=== PATIENT | female | born 1940 | race Caucasian/White ===

== ENCOUNTER 2017-10-02 08:36 | Inpatient (IN) | payer MEDICARE, SELFPAY ==
[2017-10-02] VITALS (19 sets, daily range): BP systolic 96–131; BP diastolic 60–102; PULSE 67–192; RESP 19–24; TEMP 35.7–36.9; O2SAT 94–96; BMI 30.9; BMI 32.1
--- NOTE | 2017-10-02 08:56 | EKG12_ITS ---
Test Reason : SOB Blood Pressure : / mmHG Vent. Rate : 195 BPM Atrial Rate : 202 BPM P-R Int : 000 ms QRS Dur : 088 ms QT Int : 226 ms P-R-T Axes : 000 029 244 degrees QTc Int : 407 ms Supraventricular tachycardia Marked ST abnormality, possible lateral subendocardial injury Abnormal ECG Confirmed by TERA PITTMAN, ANNE-MARIE ([id number]), social media editor MALIA KENNEDY ([id number]) on 10/03/2017 3:08:37 PM Referred By: GUILLAUME Confirmed By:ANNE-MARIE HALEY MD
[2017-10-02] MEDS: 0.9% Normal Saline 1,000 ML 150 ML IV ×2 (09:01→16:38)
[2017-10-02] MEDS: Adenosine 6 MG/2 ML Syringe IV ×2 (09:02→20:05)
--- NOTE | 2017-10-02 09:02 | EKG12_ITS ---
Test Reason : SOB Blood Pressure : / mmHG Vent. Rate : 118 BPM Atrial Rate : 118 BPM P-R Int : 130 ms QRS Dur : 088 ms QT Int : 332 ms P-R-T Axes : 042 033 -33 degrees QTc Int : [address] & T wave abnormality, consider inferior ischemia ST & T wave abnormality, consider anterior ischemia Abnormal ECG Confirmed by TERA PITTMAN, ANNE-MARIE ([id number]), editor managing newspaper MALIA KENNEDY ([id number]) on 10/03/2017 3:08:52 PM Referred By: GUILLAUME Confirmed By:ANNE-MARIE HALEY MD
--- NOTE | 2017-10-02 09:03 | EKG12_ITS ---
Test Reason : SOB Blood Pressure : / mmHG Vent. Rate : 100 BPM Atrial Rate : 100 BPM P-R Int : 140 ms QRS Dur : 084 ms QT Int : 366 ms P-R-T Axes : 045 019 259 degrees QTc Int : 472 ms Normal sinus rhythm ST & T wave abnormality, consider inferior ischemia ST & T wave abnormality, consider anterolateral ischemia Prolonged QT Abnormal ECG Confirmed by ANNE-MARIE HALEY MD ([id number]), editor in chief MALIA KENNEDY ([id number]) on 10/03/2017 3:09:05 PM Referred By: GUILLAUME Confirmed By:ANNE-MARIE HALEY MD
--- NOTE | 2017-10-02 09:18 | RAD_ITS ---
STUDY: X-RAY CHEST REASON FOR EXAM: Female, 77 years old. Chest pain. TECHNIQUE: Single AP portable view of the chest. COMPARISON: Comparison is made with prior study dated December 10, 2016. FINDINGS: EKG electrodes are seen. Surgical clips are seen in the right axillary region. A surgical drain is seen in the right axillary region. This is unchanged. Stable pleural parenchymal changes at the left base suggestive of possible left lower lobe scarring and blunting of the left costophrenic angle. There is no demonstrated pleural abnormality. There is moderate cardiac enlargement. Normal mediastinum and fantasma. Normal visualized pulmonary arteries. There is atherosclerotic calcification of the aortic arch with tortuosity. Normal visualized thoracic spine. Normal visualized ribs, clavicles, and shoulders. There is no demonstrated abnormality of the visualized soft tissue structures of the upper abdomen. RAD/Chest 1 View (Portable) IMPRESSION: Stable examination. Electronically Signed: Jacob Daniel MD at 10:19 EDT Tel [phone], Service support ,
[2017-10-02 09:21] LABS: International Normalized Ratio 1.3; Partial Thromboplast Time 26.1 Seconds (24.1-36.2); Prothrombin Time (Protime)PT. 16.1 SECONDS (11.7-14.9)
[2017-10-02 09:22] LABS: Absolute Lymphocyte Count 1.64 X10^3/ul (0.83-4.51); Absolute Neutrophil Count 14.1 X10^3/uL (2.0-7.7); Basophil# 0.02 X10^3/uL; Basophil% 0.1 % (0-1); Eosinophil# 0.02 X10^3/uL; Eosinophils% 0.1 % (0-5); Hematocrit 41.6 % (37-47); Hemoglobin 13.3 g/dl (12.0-15.0); Lymphocyte # 1.64 X10^3/ul (4.0); Lymphocyte % 9.7 % (19-41); Mean Corpuscular Hgb 28.8 pg (27.0-32.0); Mean Platelet Vol. 11.3 fl (6.2-12.0); Monocyte# 1.13 X10^3/uL; Monocyte% 6.7 % (0-10); Neutrophil # 14.13 X10^3/uL (2.7-7.7); Neutrophil % 83.2 % (47-70); Platelet Count 234 K/mm3 (150-450); RBC Distribution Width CV 14.5 % (11.6-14.6); Red Blood Count 4.62 M/mm3 (4.2-5.4)
[2017-10-02 09:23] LABS: POSITIVE COUNT NO; POSITIVE DIFFERENTIAL NO; POSITIVE MORPHOLOGY NO
[2017-10-02 09:40] LABS: ALB/GLOB Ratio 0.6 RATIO (0.9-2.4); AST(SGOT) 30 U/L (15-37); Alanine Aminotransfer ALT/SGPT 41 U/L (13-56); Albumin, Serum 2.9 g/dL (3.2-5.0); Alkaline Phosphatase 127 U/L (45-117); Anion Gap 16 (5-15); BUN 23 mg/dL (7-18); BUN/Creat Ratio 14.2 RATIO (10-20); Calcium,Total 9.1 mg/dL (8.5-10.1); Chloride 104 mmol/L (98-107); Creatinine, Serum 1.62 mg/dL (0.55-1.02); EST Glomerular Filtration Rate 33 mL/min (>60); Est Glom Filt Rate - Afr Amer 39 mL/min (>60); Estimated Creatinine Clearance 27.83 ml/min; Globulin 4.8 g/dL (2.2-4.2); Glucose 276 mg/dL (74-106); Magnesium 2.4 mg/dL (1.6-2.6); Potassium 3.9 mmol/L (3.5-5.1); Protein, Total 7.7 g/dL (6.4-8.2); Sodium Level 140 mmol/L (136-145); Thyroid Stim Hormone (TSH) 1.24 uIU/mL (0.358-3.74)
--- NOTE | 2017-10-02 09:43 | CT_ITS ---
STUDY: CTA CHEST REASON FOR EXAM: Female, 77 years old. Shortness of breath. Weakness. RADIATION DOSAGE (If Supplied By Facility): CTDIvol = ( 21.53 ) mGy, DLP = ( 634.81 ) mGycm TECHNIQUE: The examination was performed with the intravenous administration of 75 ml of Isovue 370 contrast material. Post-processing of the angiographic images was performed, with multiplanar reformation and 3D reconstruction. Individualized dose optimization techniques were used for this CT. COMPARISON: Comparison is made with prior study dated December 08, 2016. FINDINGS: Intraluminal filling defects are seen in the proximal portions of the right and left pulmonary arteries and branches of the right upper and left upper as well as bilateral lower lobe pulmonary arterial branches feeding tube with extensive pulmonary emboli. Normal thoracic aorta and visualized great vessels. There is no demonstrated aortic dissection. Normal heart and pericardium. Normal mediastinum. Normal hilar regions. Normal visualized trachea and bronchi. The lungs are well expanded. Mild increased markings at the lung bases more prominent on the left side suggestive of scarring with blunting of the left costophrenic angle. Normal pleura. Normal chest wall structures. There are degenerative changes of thoracic spine. There is a 2.5 cm right adrenal nodule most likely representing adenoma. This is unchanged. Small hiatal hernia. CT/CTA Chest W/WO Contrast IMPRESSION: Bilateral central and peripheral pulmonary arterial emboli. 2.5 cm right adrenal adenoma. N.B. : The above information has been verbally conveyed by Jacob Daniel MD to Juan Alberto Ace on 10/02/2017 10:32:14 (ET). Electronically Signed: Jacob Daniel MD at 10:33 EDT Tel [phone], Service support , N.B. : The above information has been verbally conveyed by Jacob Daniel MD to Juan Alberto Ace on 10/02/2017 10:32:14 (ET).
[2017-10-02] MEDS: Aspirin 81 MG TAB.CHEW 324 MG PO (09:49)
[2017-10-02] MEDS: 0.9% Normal Saline 1,000 ML 999 ML IV (09:50)
--- NOTE | 2017-10-02 09:56 | ED.VISSUMM ---
- ER Visit Summary Date of Service: 10/02/17 Chief Complaint: Chest pain shortness of breath History of Present Illness: The patient is a 77 F who states that last evening she began to have pain in her back as well as weakness and chest pain. Symptoms became profoundly worse this morning. Patient has a history of SVT in the setting of postoperative hip surgery and pulmonary embolism in November 2016. At that time amiodarone and beta-justino medications were continued in the outpatient setting. She is recently discontinued the amiodarone. Her Xarelto was also discontinued. She wears a brace on the right knee and left ankle. Physical Examination: 121/102 temperature 96.3 heart rate of 195 respiratory rate is 33 pulse ox is 96% on room air Gen: Well-nourished well-developed Head: Normocephalic atraumatic Eyes: Perrl EOMI ENT: TMs clear no rhinorrhea moist mucous membranes Neck: Supple no lymphadenopathy no JVD nontender CVS: Regular and tachycardic rhythm no murmurs normal S1-S2 Respiratory: No distress clear to auscultation bilaterally chest nontender Abdomen: Soft nontender nondistended normal bowel sounds no masses Back: Nontender Extremity: Nontender no edema Skin: Normal color no rash diaphoretic Neuro: alert orientated ?3 CN II-XII intact normal strength sensation reflexes gait cerebellar Psych: Anxious Test Results: EKG demonstrated an SVT rhythm at a rate of 195 with anterior lateral subendocardial injury pattern noted. Repeat EKG shows sinus rhythm at a rate of 100 with inferior/anterior lateral ST abnormalities. White count at 17. Magnesium 2.4. Troponin 0 0.340. TSH 1.24. Creatinine 1.62. Glucose 276. CT of the chest demonstrates central and peripheral pulmonary embolisms bilaterally Emergency Department Course and Treatment: An IV was established while vagal maneuvers were performed. Vagal maneuvers failed to convert and the patient received 6 mg of adenosine which resulted in conversion to a sinus rhythm. During the conversion no flutter waves were noted. Patient received IV hydration and aspirin. A third EKG was obtained 30 minutes after conversion and a fourth lower lobe approximately 1 hour post conversion continues to show ST T-wave abnormalities inferior and anterolaterally. Patient was placed on a heparin drip due to the large clot burden. Plan will be admission in the hospital. Impression: 1. Supraventricular tachycardia 2. Chemical cardioversion 3. Bilateral central and peripheral pulmonary embolisms This note was generated with [employer] dictation software. It may contain incorrect words, spelling, and punctuation that were not noted in review of the chart prior to signing ED Disposition - Plan for ED Patient: Chief Complaint: Shortness of Breath Referrals: Maurilio Garcia MD [Primary Care Provider] -
--- NOTE | 2017-10-02 10:26 | EKG12_ITS ---
Test Reason : REPEAT Blood Pressure : / mmHG Vent. Rate : 093 BPM Atrial Rate : 093 BPM P-R Int : 140 ms QRS Dur : 082 ms QT Int : 386 ms P-R-T Axes : 045 025 250 degrees QTc Int : 479 ms Normal sinus rhythm ST & T wave abnormality, consider inferior ischemia ST & T wave abnormality, consider anterolateral ischemia Prolonged QT Abnormal ECG Confirmed by TERA PITTMAN, ANNE-MARIE ([id number]), makeup editor MALIA KENNEDY ([id number]) on 10/03/2017 3:09:18 PM Referred By: INDIRA Confirmed By:ANNE-MARIE HALEY MD
[2017-10-02] MEDS: Heparin Injection 5,000 UNITS/ML Syringe 6000 UNITS IV (10:42)
[2017-10-02] MEDS: HEPARIN/D5w 25,000 UNITS 25,000 UNITS/250 ML IV.SOLN. 12 UNITS IV (10:43)
--- NOTE | 2017-10-02 10:45 | PCM.HP.STD ---
Problem List (1) Pulmonary emboli Status: Acute (2) SVT (supraventricular tachycardia) Status: Acute (3) Breast CA Status: Chronic (4) Dementia Status: Chronic History of Present Illness Date of Admission: 10/02/17 Chief Complaint: Shortness of breath The patient is a 77 year old F past medical history significant for dementia, pulmonary embolism which was provoked after hip surgery for which patient was on Xarelto for 6 months apparently came off 3 weeks prior to her admission. Patient was by her daughter on the morning of her presentation to be severely dyspneic. She called 911 and patient was sent to the ED. In the ED patient was found to be in PSVT which was aborted with adenosine subsequent evaluation with CT of the chest demonstrated bilateral PE patient was started on heparin and admitted to a monitored bed for further management. Patient could not provide much history in view of her underlying dementia Past Medical History Past Medical History (Chronic Problems): Chronic Problems Breast CA (Chronic) Dementia (Chronic) Allergies No Known Allergies Allergy (Verified 10/02/17 08:54) Home Medications: Ambulatory Orders Medication Instructions Recorded Docusate Sodium [Colace] 200 mg PO DAILY 12/05/16 Melatonin 5 mg PO QHS 12/05/16 Multivit-Min/FA/Lycopen/Lutein 1 each PO DAILY 12/05/16 [Centrum Silver Tablet] Pantoprazole Sodium [Protonix] 40 mg PO DAILY 12/05/16 Pregabalin [Lyrica] 50 mg PO 4X/DAY 12/05/16 Cholecalciferol (VIT D3) [Vitamin 2,000 unit PO DAILY tablet 12/12/16 D3] Anastrozole [Arimidex] 1 mg PO DAILY 10/02/17 C,E,Zinc,Copper 11/Zblyp3a/Lut 1 each PO DAILY 10/02/17 [Ocuvite Adult 50 Plus Softgel] Hydrocodone/Acetaminophen [[place] 1 each PO Q4H PRN PRN 10/02/17 5-325 Tablet] Lorazepam [Ativan] 1 mg PO DAILY PRN PRN 10/02/17 Memantine HCl [Namenda Xr] 28 mg PO DAILY 10/02/17 Metoprolol Tartrate [Lopressor 25 mg PO BID 10/02/17 (beta justino)] Tizanidine HCl [Zanaflex] 4 mg PO BID 10/02/17 Surgical History: - - breast cancer surgery. Psychiatric History: No pertinent psych hx, Attn. 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 CHEST: Diminished to auscultation bilaterally, HEART: Regular S1 S2, no audible murmurs ABDOMEN: soft, non-tender, normoactive bowel sounds, RECTAL: deferred EXTREMITIES: No edema, no clubbing, no cyanosis. CHILD CARE CENTER ADMINISTRATOR: Awake; no lateralizing signs. SKIN: No Rash - Physical Exam Vital Signs Temp Pulse Resp BP Pulse Ox 96.3 F L 97 20 H 126/78 H 96 10/02/17 08:38 10/02/17 10:10 10/02/17 10:10 10/02/17 10:10 10/02/17 10:10 Oxygen Flow Rate (L/min) 2 Oxygen Delivery Method Nasal Cannula Weight: 89.499 kg Body Mass Index (BMI) 30.9 Laboratory Tests Past 24 Hrs 10/02/17 10/02/17 10/02/17 08:50 08:50 08:50 WBC 17.0 H RBC 4.62 Hgb 13.3 Hct 41.6 MCV 90.0 MCH 28.8 MCHC 32.0 RDW 14.5 RDW Differential 47.0 H Plt Count 234 MPV 11.3 Immature Gran % (Auto) 0.200 Neut % (Auto) 83.2 H Lymph % (Auto) 9.7 L [place] % (Auto) 6.7 Eos % (Auto) 0.1 Baso % (Auto) 0.1 Absolute Neuts (auto) 14.1 H Absolute Lymphs (auto) 1.64 Total Counted Not Reportable PT 16.1 H INR 1.3 APTT 26.1 Sodium 140 Potassium 3.9 Chloride 104 Carbon Dioxide 20.0 L Anion Gap 16 H BUN 23 H Creatinine 1.62 H Estim Creat Clear Calc 27.83 Est GFR (MDRD) Af Amer 39 L Est GFR (MDRD) Non-Af 33 L BUN/Creatinine Ratio 14.2 Glucose 276 H Calcium 9.1 Magnesium 2.4 Total Bilirubin 1.10 H AST 30 ALT 41 Alkaline Phosphatase 127 H Troponin I 0.340 H Total Protein 7.7 Albumin 2.9 L Globulin 4.8 H Albumin/Globulin Ratio 0.6 L TSH 1.24 Assessment/Plan Patient is a 77-year-old lady with multiple comorbidities presented with PSVT found to have bilateral pulmonary embolism on admission 1. Acute bilateral pulmonary embolism. Patient was previously on Xarelto came off 3 weeks prior to her admission heparin was initiated in the ED switch to Xarelto echo ordered for RV function assessment. Did discuss case with patient's daughter on the need for patient to be on systemic anticoagulation permanently since this is a second VT E 2. History of right breast CA patient is on adjuvant hormonal therapy with with Arimidex 3. Obesity with BMI of 32.1 4. GERD patient is on PPI 5. Dementia without behavioral agitation Advanced planning. Patient CODE STATUS was discussed with the family patient's daughter wants patient to remain full code at this point to patient 's decides otherwise time spent in discussions 18 minute Code Visit Inpatient E&M: 91795 Disch Hosp Procedures: 46908 Advncd Care Plan 30 Min
--- NOTE | 2017-10-02 11:43 | ECHOD_ITS ---
Reason For Study: EMBOLI Procedure This was a 2D Doppler, Color Flow transthoracic echocardiogram. Technically difficult apical windows. The study was technically limited. Exam performed portable in patient room. Left Ventricle Normal LV size. The estimated ejection fraction is 55 %. Left ventricular systolic function is normal. Transmitral diastolic flow velocities suggest mild (stage 1) diastolic dysfunction (reversed pattern). No regional wall motion abnormalities noted. Right Ventricle Mildly dilated right ventricle. Normal systolic function. Atria Normal left atrium. The right atrium is moderately enlarged. Mitral Valve Normal mitral valve. Tricuspid Valve Normal tricuspid valve. Mild to moderate (1-2+) tricuspid valve insufficiency. Moderate pulmonary hypertension. Pulmonary artery systolic pressure is 54 mmHg. Aortic Valve Normal aortic valve. Trisinus/trileaflet aortic valve. Pulmonic Valve Normal pulmonic valve. Great Vessels Normal aortic root. The pulmonary artery is normal size. Normal inferior vena cava. Pericardium/Pleural No pericardial effusion. Medication Definity deferred due to elevated PAP. MMode/2D Measurements & Calculations LVIDd: 3.8 cm IVSd: 1.2 cm Ao root diam: 3.2 cm LVIDs: 2.7 cm LVPWd: 1.0 cm LA dimension: 3.2 cm RVDd: 4.9 cm FS: 27.4 % LAV(MOD-sp4): 42.8 ml LA A4 area: 15.8 cm2 RA A4 area: 25.0 cm2 Doppler Measurements & Calculations MV E max zay: 36.4 cm/sec Lat Peak E' Zay: 7.9 cm/sec Med Peak E' Zay: 4.6 cm/sec MV A max zay: 70.4 cm/sec E/E' lat: 4.6 E/E' med: 7.8 MV E/A: 0.52 Ao V2 max: 110.0 cm/sec LV V1 max: 97.2 cm/sec PA V2 max: 64.5 cm/sec Ao max P.9 mmHg LV V1 max P.8 mmHg PI end-d zay: 136.8 cm/sec TR max zay: 346.1 cm/sec TR max P.9 mmHg Interpretation Summary Normal LV size. The estimated ejection fraction is 55 %. Left ventricular systolic function is normal. Transmitral diastolic flow velocities suggest mild (stage 1) diastolic dysfunction (reversed pattern). Mild to moderate (1-2+) tricuspid valve insufficiency. Moderate pulmonary hypertension. Ordering Physician: Chay Zheng Referring Physician: REBEL JOHNSON Performed By: Fátima Rosa RDCS, RVT
[2017-10-02] MEDS: Pregabalin 50 MG Capsule PO ×2 (16:38→22:21)
[2017-10-02] MEDS: Rivaroxaban 15 MG Tablet PO (16:38)
[2017-10-02] MEDS: Anastrozole 1 MG Tablet PO (17:33)
--- NOTE | 2017-10-02 19:50 | EKG12_ITS ---
Test Reason : SVT Blood Pressure : / mmHG Vent. Rate : 099 BPM Atrial Rate : 099 BPM P-R Int : 136 ms QRS Dur : 080 ms QT Int : 352 ms P-R-T Axes : 054 053 259 degrees QTc Int : 451 ms Sinus rhythm with occasional Premature ventricular complexes ST & T wave abnormality, consider inferior ischemia ST & T wave abnormality, consider anterolateral ischemia Abnormal ECG Confirmed by LAKHWINDER PITTMAN, FROILAN ([id number]), editorial project manager MALIA KENNEDY ([id number]) on 10/11/2017 3:23:40 PM Referred By: DR ALLISON Confirmed By:FROILAN KEANE MD
[2017-10-02] MEDS: 0.9% NaCl Peripheral Flush Adult/Peds IV (20:05)
--- NOTE | 2017-10-02 20:19 | EKG12_ITS ---
Test Reason : SVT Blood Pressure : / mmHG Vent. Rate : 186 BPM Atrial Rate : 182 BPM P-R Int : 000 ms QRS Dur : 078 ms QT Int : 248 ms P-R-T Axes : 000 012 194 degrees QTc Int : 436 ms Supraventricular tachycardia Nonspecific ST and T wave abnormality Abnormal ECG Confirmed by LAKHWINDER PITTMAN, FROILAN ([id number]), editor city MALIA KENNEDY ([id number]) on 10/11/2017 3:24:10 PM Referred By: DR ALLISON Confirmed By:FROILAN KEANE MD
[2017-10-02] MEDS: HYDROcodone Bitartrate/Apap 5/325 Tablet PO (20:31)
--- NOTE | 2017-10-02 20:46 | PCM.PN.HOSP ---
Vitals/I&O's: Vital Signs Temp Pulse Resp BP Pulse Ox 98.5 F 185 H 24 H 131/83 H 96 10/02/17 19:45 10/02/17 19:45 10/02/17 19:45 10/02/17 20:10 10/02/17 19:45 Oxygen Flow Rate (L/min) 6 Oxygen Delivery Method Nasal Cannula Weight: 205 lb 0.478 oz Body Mass Index (BMI) 32.1 Intake and Output for Last 24 Hours 09/30/17 10/01/17 10/02/17 23:59 23:59 23:59 Intake Total 768 / 768 Output Total 250 / 250 Balance 518 / 518 General: Alert, Oriented x3, Cooperative HEENT: Atraumatic, PERRLA, EOMI, Normocephalic Neck: Supple, No JVD, Negative Carotid Bruits Lungs: Clear to auscultation, Normal air movement Cardiovascular: No murmurs, Tachycardic Abdomen: Bowel Sounds Present, Soft, Non Tender Extremities: No edema, Capillary Refill Less than 3 Seconds Skin: No rashes, No breakdown Musculoskeletal: No Tenderness to Palpation of Joints or Extremities Neurological: Cranial nerves II-XII grossly intact Psych/Mental Status: Normal Affect, Appropriate Laboratory Results 10/02/17 12:00: Troponin I 0.373 H 10/02/17 14:43: Troponin I 0.316 H Current Medications Acetaminophen (Tylenol) 650 mg PO Q6H PRN PRN PRN Reason: Mild Pain (scale 0-3)/T>100.7 Hydrocodone Bitart/Acetaminophen ([place] 5mg-325mg) 1 tablet PO Q4H PRN PRN PRN Reason: PAIN Last Admin: 10/02/17 20:31 Dose: 1 tablet Al Hydroxide/Mg Hydroxide (Mylanta Ii) 30 ml PO Q6H PRN PRN PRN Reason: Gastric burning Anastrozole (Arimidex) 1 mg PO DAILY@1600 JULIANNA Last Admin: 10/02/17 17:33 Dose: 1 mg Cholecalciferol (Vitamin D) 2,000 unit PO DAILY JULIANNA Docusate Sodium (Colace) 200 mg PO DAILY JULIANNA Sodium Chloride () 1,000 mls @ 150 mls/hr IV .Q6H40M JULIANNA Last Admin: 05/21/18 16:38 Dose: 150 mls/hr Lorazepam (Ativan) 1 mg PO DAILY PRN PRN PRN Reason: ANXIETY Magnesium Hydroxide (Milk Of Magnesia) 30 ml PO DAILY PRN PRN Reason: Constipation Melatonin (Melatonin) 5 mg PO QHS [facility] Memantine (Namenda) 10 mg PO BID [facility] Metoprolol Tartrate (Lopressor (Beta Moni)) 50 mg PO BID [facility] Morphine Sulfate () 2 - 4 mg IV Q3H PRN PRN PRN Reason: Severe Pain (pain scale 6-10) Multivitamins/Minerals (Ocuvite) 1 tablet PO DAILY [facility] Multivitamins/Minerals (Multivitamin With Minerals) 1 tablet PO DAILY@0800 [facility] Ondansetron HCl (Zofran) 4 mg IV Q8H PRN PRN PRN Reason: NAUSEA Oxycodone HCl (Oxyir) 5 mg PO Q4H PRN PRN PRN Reason: Moderate Pain (pain scale 4-5) Pantoprazole Sodium (Protonix) 40 mg PO DAILY [facility] Pregabalin (Lyrica) 50 mg PO 4X/DAY [facility] Last Admin: 10/02/17 16:38 Dose: 50 mg Sodium Chloride () 5 - 30 ml IV UD PRN PRN Reason: SALINE FLUSH Tizanidine HCl (Zanaflex) 4 mg PO BID [facility] Zolpidem Tartrate (Ambien (Generic)) 5 mg PO QHS PRN PRN PRN Reason: INSOMNIA Medical Necessity - Tobacco Use Smoking Status: Never smoker Assessment/Plan SVT given 6mg adenosine spoke with Dr Christine increase metoprolol to 50mg bid dc xarelto start heparin by weight encourage code status decision with multiple comorbid issues chest pain managed with nitro tabs
--- NOTE | 2017-10-02 21:57 | PCM.CONS.C ---
Problem List (1) SVT (supraventricular tachycardia) Status: Acute (2) Pulmonary emboli Status: Acute (3) Chest pain Status: Acute (4) Abnormal cardiac enzyme level Status: Acute (5) Breast CA Status: Chronic (6) Dementia Status: Chronic Reason for Consult Date of Consultation: 10/02/17 History of Present Illness: The patient is a 77 year old white female who is referred for evaluation of SVT, pulmonary emboli, chest pain, superimposed upon a history of breast carcinoma and dementia. She had previously been evaluated on 12/08/2016 for concerns of SVT superimposed upon pulmonary emboli in the setting of a right hip fracture status post ORIF and dementia. She was treated with IV adenosine with subsequent conversion to sinus rhythm demonstrating a compatible compatible with a reentry mechanism supraventricular tachycardia. She been placed on rate limiting medication. She has been treated medically since that time I her primary care physicians without cardiovascular additional diagnostic studies, therapeutic intervention, or follow-up. She reportedly had her anticoagulation discontinued recently. She presented to the emergency department today based upon dyspnea. She was found to have evidence of recurrent supraventricular tachycardia as well as recurrent bilateral central and peripheral pulmonary emboli. She was treated with IV adenosine with subsequent conversion to sinus rhythm. She was placed in the PCU for further evaluation and care. She remained in sinus rhythm for a period of time. Her follow-up ECG demonstrated sinus rhythm/sinus tachycardia with ST and T-wave changes potentially compatible with myocardial ischemia in the anterior lateral and inferior distributions. In comparison to previous ECG from 12/09/2016 these changes were somewhat more prominent. She also had an indeterminate troponin I level. She was noted to have recurrence of her supraventricular tachycardia and was once again treated with IV adenosine with return to sinus rhythm. Her follow-up ECG again demonstrated sinus rhythm with ST and T-wave changes potentially compatible with myocardial ischemia in the anterolateral and inferior distributions, although, these changes appear to be somewhat less prominent than prior changes. Another troponin I level was indeterminate. She had complained of vague chest discomfort as well as her dyspnea. There was no obvious report of associated nausea, emesis, or diaphoresis. There has been no report of near syncope or syncope. The patient does have significant dementia. She is unclear as to details of her ongoing issues or past medical history. According to Dr. Page, who evaluated the patient earlier, he noted that the patient's family was considering altering her CODE STATUS but has yet made a final decision. [] Past Medical History Allergies/Adverse Reactions: Allergies No Known Allergies Allergy (Verified 10/02/17 08:54) Home Medications: Ambulatory Orders Medication Instructions Recorded Docusate Sodium [Colace] 200 mg PO DAILY 12/05/16 Melatonin 5 mg PO QHS 12/05/16 Multivit-Min/FA/Lycopen/Lutein 1 each PO DAILY 12/05/16 [Centrum Silver Tablet] Pantoprazole Sodium [Protonix] 40 mg PO DAILY 12/05/16 Pregabalin [Lyrica] 50 mg PO 4X/DAY 12/05/16 Cholecalciferol (VIT D3) [Vitamin 2,000 unit PO DAILY tablet 12/12/16 D3] Anastrozole [Arimidex] 1 mg PO DAILY 10/02/17 C,E,Zinc,Copper 11/Cucfw5i/Lut 1 each PO DAILY 10/02/17 [Ocuvite Adult 50 Plus Softgel] Hydrocodone/Acetaminophen [[place] 1 each PO Q4H PRN PRN 10/02/17 5-325 Tablet] Lorazepam [Ativan] 1 mg PO DAILY PRN PRN 10/02/17 Memantine HCl [Namenda Xr] 28 mg PO DAILY 10/02/17 Metoprolol Tartrate [Lopressor 25 mg PO BID 10/02/17 (beta justino)] Tizanidine HCl [Zanaflex] 4 mg PO BID 10/02/17 Past Medical History (Chronic Problems): Chronic Problems Breast CA (Chronic) Dementia (Chronic) Surgical History: - - breast cancer surgery. Psychiatric History: No pertinent psych hx, Attn. deficit disorder [employer] IN[employer] History: - - breast cancer - *Family History Maternal History Items: Diabetes Sibling History Items: No pertinent history Smoking Status: Never smoker Alcohol: None Drugs: None Review of Systems - Review of Systems General: Reports: Fatigue. Denies: Fever, Night Sweats Cardiovascular: Reports: Chest Discomfort, Shortness of Breath. Denies: Orthopnea, PND, Peripheral Edema, Palpitations, Lightheadedness, Dizziness, Near Syncope, Syncope Respiratory: Reports: Shortness of Breath. Denies: Cough, Sputum Production, Hemoptysis Gastrointestinal: Denies: Hematemesis, Hematochezia, Melena Genitourinary: Denies: Dysuria, Hematuria Muscoloskeletal: Reports: Leg Pain - Bilateral leg burning discomfort Skin: Denies: Rash Subjectve: This is a 77-year-old white female who appears to be resting reasonably comfortably at the moment in no acute distress. Objective: Vital Signs Temp Pulse Resp BP Pulse Ox 98.5 F 185 H 24 H 131/83 H 96 10/02/17 19:45 10/02/17 19:45 10/02/17 19:45 10/02/17 20:10 10/02/17 19:45 Oxygen Flow Rate (L/min) 6 Oxygen Delivery Method Nasal Cannula Weight: 205 lb 0.478 oz Body Mass Index (BMI) 32.1 Intake and Output for Last 24 Hours 09/30/17 10/01/17 10/02/17 23:59 23:59 23:59 Intake Total 768 / 768 Output Total 250 / 250 Balance 518 / 518 General: Awake, Cooperative, No Acute Distress HEENT: Atraumatic, Normocephalic, PERRL, EOMI, Sclera Non Icteric Oral: Moist Mucosa Neck: Supple, Good ROM, No JVD Lungs: - - Diminished inspiratory effort Cardiovascular: Regular Rhythm, Normal S1, Normal S2 Abdomen: Bowel Sounds Present, Soft, Non Tender Extremities: No Cyanosis, No Clubbing, No edema Psych/Mental Status: Dementia 10/02/17 12:00: Troponin I 0.373 H 10/02/17 14:43: Troponin I 0.316 H Rhythm: Sinus rhythm EKG: As noted above ECHO: 2017: Left ventricle: Normal left ventricular size, wall motion, and systolic function with an estimated LVEF 55%; mildly dilated right ventricle; moderate right atrial enlargement; mild to moderate TR; estimated RV systolic pressure 54 mmHg compatible with pulmonary hypertension CXR: Please see official report Chest CT Scan: Bilateral central and peripheral pulmonary emboli: Please see official report Assessment/Plan 1. Paroxysmal supraventricular tachycardia The patient has had recurrent paroxysmal supraventricular tachycardia. She does have a history of this. 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 This may be secondary to the patient's pulmonary emboli as was noted in the past. At the present time she will need to continue rate control therapy. If she has recurrence of her PSVT she will need be considered for additional IV adenosine therapy. Ideally she would be considered for future EP consultation for possible EPS/RFA, however, this may be somewhat challenging considering her underlying medical condition with recurrent bilateral pulmonary emboli and her dementia. 2. Pulmonary emboli She does appear to have recurrent bilateral pulmonary emboli both central and peripheral. This may be secondary to her history of breast carcinoma. This could lead to her PSVT, abnormal cardiac enzymes based upon RV strain, symptoms of chest discomfort and dyspnea, etc. The present time it appears that the patient will need to continue her anticoagulation therapy. She is being placed on IV heparin at this time. Depending upon her clinical course, and whether or not there is any decision to proceed with any further invasive evaluation or care, her IV heparin can eventually be changed back to oral anticoagulants. 3. Chest pain The patient has had chest pain and dyspnea. Again this may be secondary to her pulmonary emboli and her PSVT as opposed to a primary acute cardiovascular/coronary event. The present time she appears to be symptomatically improved. She will continue medical management and follow-up. Depending upon her follow-up consideration will be given as to whether or not she is a candidate for any other cardiovascular diagnostic studies/interventions, etc. above and beyond medical therapy and treatment for her pulmonary emboli. 4. Abnormal cardiac enzymes She does have abnormal cardiac enzymes. Again these may be secondary to her findings of pulmonary emboli with RV strain. However she is being monitored for any obvious evidence of a true acute coronary syndrome event. She will be treated medically with aspirin, nitrates, beta-blockers, and anticoagulants. Depending upon her clinical course and status and factoring in her dementia consideration will have to be given as to whether or not she is a candidate for any additional invasive cardiovascular evaluation procedure or procedures. 5. Breast cancer The patient does have history of breast cancer. She believes she has undergone chemotherapy and possibly radiation therapy. Her breast cancer can be a predisposing factor to her recurrent pulmonary emboli which can then lead to her symptoms, PSVT, abnormal cardiac enzymes, etc. The patient is unclear as to her ongoing treatment with respect to her breast carcinoma or her past treatment with respect chemotherapy or radiation therapy, etc. 6. Dementia The patient does have a report of significant dementia. This does play a role with respect to her ongoing evaluation and care above and beyond conservative medical management. This could create a challenge with respect to the patient being able to understand and cooperate with further invasive procedures/intervention as well as post procedure related care. Thus, consideration has to be given by the patient's family with respect to how to proceed with her evaluation and care over time as well as their consideration of altering her CODE STATUS. Comment: The patient's case was discussed and reviewed with Dr. Page. This note was generated with [employer] software. It may contain incorrect words, spelling, and punctuation that were not noted in checking the note before signing.
--- NOTE | 2017-10-02 22:00 | CON.PCM_ITS ---
Problem List (1) SVT (supraventricular tachycardia) Status: Acute (2) Pulmonary emboli Status: Acute (3) Chest pain Status: Acute (4) Abnormal cardiac enzyme level Status: Acute (5) Breast CA Status: Chronic (6) Dementia Status: Chronic Reason for Consult Date of Consultation: 10/02/17 History of Present Illness: The patient is a 77 year old white female who is referred for evaluation of SVT , pulmonary emboli, chest pain, superimposed upon a history of breast carcinoma and dementia. She had previously been evaluated on 12/08/2016 for concerns of SVT superimposed upon pulmonary emboli in the setting of a right hip fracture status post ORIF and dementia. She was treated with IV adenosine with subsequent conversion to sinus rhythm demonstrating a compatible compatible with a reentry mechanism supraventricular tachycardia. She been placed on rate limiting medication. She has been treated medically since that time I her primary care physicians without cardiovascular additional diagnostic studies, therapeutic intervention, or follow-up. She reportedly had her anticoagulation discontinued recently. She presented to the emergency department today based upon dyspnea. She was found to have evidence of recurrent supraventricular tachycardia as well as recurrent bilateral central and peripheral pulmonary emboli. She was treated with IV adenosine with subsequent conversion to sinus rhythm. She was placed in the PCU for further evaluation and care. She remained in sinus rhythm for a period of time. Her follow-up ECG demonstrated sinus rhythm/ sinus tachycardia with ST and T-wave changes potentially compatible with myocardial ischemia in the anterior lateral and inferior distributions. In comparison to previous ECG from 12/09/2016 these changes were somewhat more prominent. She also had an indeterminate troponin I level. She was noted to have recurrence of her supraventricular tachycardia and was once again treated with IV adenosine with return to sinus rhythm. Her follow- up ECG again demonstrated sinus rhythm with ST and T-wave changes potentially compatible with myocardial ischemia in the anterolateral and inferior distributions, although, these changes appear to be somewhat less prominent than prior changes. Another troponin I level was indeterminate. She had complained of vague chest discomfort as well as her dyspnea. There was no obvious report of associated nausea, emesis, or diaphoresis. There has been no report of near syncope or syncope. The patient does have significant dementia. She is unclear as to details of her ongoing issues or past medical history. According to Dr. Page, who evaluated the patient earlier, he noted that the patient's family was considering altering her CODE STATUS but has yet made a final decision. [] Past Medical History Allergies/Adverse Reactions: Allergies No Known Allergies Allergy (Verified 10/02/17 08:54) Home Medications: Ambulatory Orders Medication Instructions Recorded Docusate Sodium [Colace] 200 mg PO DAILY 12/05/16 Melatonin 5 mg PO QHS 12/05/16 Multivit-Min/FA/Lycopen/Lutein 1 each PO DAILY 12/05/16 [Centrum Silver Tablet] Pantoprazole Sodium [Protonix] 40 mg PO DAILY 12/05/16 Pregabalin [Lyrica] 50 mg PO 4X/DAY 12/05/16 Cholecalciferol (VIT D3) [Vitamin 2,000 unit PO DAILY tablet 12/12/16 D3] Anastrozole [Arimidex] 1 mg PO DAILY 10/02/17 C,E,Zinc,Copper 11/Bjjat7h/Lut 1 each PO DAILY 10/02/17 [Ocuvite Adult 50 Plus Softgel] Hydrocodone/Acetaminophen [[place] 1 each PO Q4H PRN PRN 10/02/17 5-325 Tablet] Lorazepam [Ativan] 1 mg PO DAILY PRN PRN 10/02/17 Memantine HCl [Namenda Xr] 28 mg PO DAILY 10/02/17 Metoprolol Tartrate [Lopressor 25 mg PO BID 10/02/17 (beta justino)] Tizanidine HCl [Zanaflex] 4 mg PO BID 10/02/17 Past Medical History (Chronic Problems): Chronic Problems Breast CA (Chronic) Dementia (Chronic) Surgical History: - - breast cancer surgery. Psychiatric History: No pertinent psych hx, Attn. deficit disorder [employer] History: - - breast cancer - *Family History Maternal History Items: Diabetes Sibling History Items: No pertinent history Smoking Status: Never smoker Alcohol: None Drugs: None Review of Systems - Review of Systems General: Reports: Fatigue. Denies: Fever, Night Sweats Cardiovascular: Reports: Chest Discomfort, Shortness of Breath. Denies: Orthopnea, PND, Peripheral Edema, Palpitations, Lightheadedness, Dizziness, Near Syncope, Syncope Respiratory: Reports: Shortness of Breath. Denies: Cough, Sputum Production, Hemoptysis Gastrointestinal: Denies: Hematemesis, Hematochezia, Melena Genitourinary: Denies: Dysuria, Hematuria Muscoloskeletal: Reports: Leg Pain - Bilateral leg burning discomfort Skin: Denies: Rash Subjectve: This is a 77-year-old white female who appears to be resting reasonably comfortably at the moment in no acute distress. Objective: Vital Signs Temp Pulse Resp BP Pulse Ox 98.5 F 185 H 24 H 131/83 H 96 10/02/17 19:45 10/02/17 19:45 10/02/17 19:45 10/02/17 20:10 10/02/17 19:45 Oxygen Flow Rate (L/min) 6 Oxygen Delivery Method Nasal Cannula Weight: 205 lb 0.478 oz Body Mass Index (BMI) 32.1 Intake and Output for Last 24 Hours 09/30/17 10/01/17 10/02/17 23:59 23:59 23:59 Intake Total 768 / 768 Output Total 250 / 250 Balance 518 / 518 General: Awake, Cooperative, No Acute Distress HEENT: Atraumatic, Normocephalic, PERRL, EOMI, Sclera Non Icteric Oral: Moist Mucosa Neck: Supple, Good ROM, No JVD Lungs: - - Diminished inspiratory effort Cardiovascular: Regular Rhythm, Normal S1, Normal S2 Abdomen: Bowel Sounds Present, Soft, Non Tender Extremities: No Cyanosis, No Clubbing, No edema Psych/Mental Status: Dementia 10/02/17 12:00: Troponin I 0.373 H 10/02/17 14:43: Troponin I 0.316 H Rhythm: Sinus rhythm EKG: As noted above ECHO: 2017: Left ventricle: Normal left ventricular size, wall motion, and systolic function with an estimated LVEF 55%; mildly dilated right ventricle; moderate right atrial enlargement; mild to moderate TR; estimated RV systolic pressure 54 mmHg compatible with pulmonary hypertension CXR: Please see official report Chest CT Scan: Bilateral central and peripheral pulmonary emboli: Please see official report Assessment/Plan 1. Paroxysmal supraventricular tachycardia The patient has had recurrent paroxysmal supraventricular tachycardia. She does have a history of this. 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 This may be secondary to the patient's pulmonary emboli as was noted in the past. At the present time she will need to continue rate control therapy. If she has recurrence of her PSVT she will need be considered for additional IV adenosine therapy. Ideally she would be considered for future EP consultation for possible EPS/RFA, however, this may be somewhat challenging considering her underlying medical condition with recurrent bilateral pulmonary emboli and her dementia. 2. Pulmonary emboli She does appear to have recurrent bilateral pulmonary emboli both central and peripheral. This may be secondary to her history of breast carcinoma. This could lead to her PSVT, abnormal cardiac enzymes based upon RV strain, symptoms of chest discomfort and dyspnea, etc. The present time it appears that the patient will need to continue her anticoagulation therapy. She is being placed on IV heparin at this time. Depending upon her clinical course, and whether or not there is any decision to proceed with any further invasive evaluation or care, her IV heparin can eventually be changed back to oral anticoagulants. 3. Chest pain The patient has had chest pain and dyspnea. Again this may be secondary to her pulmonary emboli and her PSVT as opposed to a primary acute cardiovascular/ coronary event. The present time she appears to be symptomatically improved. She will continue medical management and follow-up. Depending upon her follow-up consideration will be given as to whether or not she is a candidate for any other cardiovascular diagnostic studies/interventions, etc. above and beyond medical therapy and treatment for her pulmonary emboli. 4. Abnormal cardiac enzymes She does have abnormal cardiac enzymes. Again these may be secondary to her findings of pulmonary emboli with RV strain. However she is being monitored for any obvious evidence of a true acute coronary syndrome event. She will be treated medically with aspirin, nitrates, beta-blockers, and anticoagulants. Depending upon her clinical course and status and factoring in her dementia consideration will have to be given as to whether or not she is a candidate for any additional invasive cardiovascular evaluation procedure or procedures. 5. Breast cancer The patient does have history of breast cancer. She believes she has undergone chemotherapy and possibly radiation therapy. Her breast cancer can be a predisposing factor to her recurrent pulmonary emboli which can then lead to her symptoms, PSVT, abnormal cardiac enzymes, etc. The patient is unclear as to her ongoing treatment with respect to her breast carcinoma or her past treatment with respect chemotherapy or radiation therapy, etc. 6. Dementia The patient does have a report of significant dementia. This does play a role with respect to her ongoing evaluation and care above and beyond conservative medical management. This could create a challenge with respect to the patient being able to understand and cooperate with further invasive procedures/ intervention as well as post procedure related care. Thus, consideration has to be given by the patient's family with respect to how to proceed with her evaluation and care over time as well as their consideration of altering her CODE STATUS. Comment: The patient's case was discussed and reviewed with Dr. Page. This note was generated with [employer] software. It may contain incorrect words, spelling, and punctuation that were not noted in checking the note before signing.
[2017-10-02] MEDS: Nitroglycerin Oint 1 INCH PACKET 0.5 INCH TRANSDERM. (22:19)
[2017-10-02] MEDS: MELATONIN 10 MG TABLET 5 MG PO (22:20)
[2017-10-02] MEDS: Metoprolol Tartrate 50 MG Tablet PO (22:20)
[2017-10-02] MEDS: Memantine Hydrochloride 10 MG Tablet PO (22:21)
[2017-10-02] MEDS: 0.9% Normal Saline 1,000 ML 75 ML IV (22:21)
[2017-10-02] MEDS: Heparin Injection (Vial) 5,000 UNIT/ML VIAL 7500 UNIT IV (22:21)
[2017-10-02] MEDS: tiZANidine HCl 2 MG Tablet 4 MG PO (22:22)
[2017-10-02 22:39] LABS: Red Blood Cells-Urine 0 SEEN /hpf (0-5); Squamous Epithelial Cells - UA 0 SEEN /hpf (5-10)
[2017-10-02] MEDS: HEPARIN/D5w 25,000 UNITS 25,000 UNITS/250 ML IV.SOLN. 14 UNITS IV (22:40)
[2017-10-02 22:46] LABS: Color, Urine Yellow (Yellow); Glucose, Dipstick Normal (Normal); Ketone-Dipstick Negative (Negative); Leukocyte Esterase-Dipstick 100 /ul (Negative); Nitrite-Dipstick Positive (Negative); Occult Blood-Urine 25 /ul (Negative); Protein-Dipstick 30 mg/dl (Negative); Urine Bilirubin Dipstick Negative (Negative); Urine Clarity Clear (Clear); Urine Urobilinogen 1 mg/dl (Normal)
[2017-10-02 22:53] LABS: Mucous, Urine 1+ /hpf (<or=2+); White Blood Cells 10-25 SEEN /hpf (0-5)
[2017-10-02 22:54] LABS: Bacteria RARE /hpf (None Seen)
[2017-10-03] VITALS (15 sets, daily range): BP systolic 102–114; BP diastolic 71–85; PULSE 63–155; RESP 16–20; TEMP 36.4–36.8; O2SAT 93–97
[2017-10-03] MEDS: Nitroglycerin Oint 1 INCH PACKET 0.5 INCH TRANSDERM. ×2 (05:27→14:17)
[2017-10-03 05:43] LABS: Hematocrit 34.1 % (37-47); Mean Corp Hgb Conc 32.3 g/gl (32-36); Mean Corpuscular Hgb 29.3 pg (27.0-32.0); Mean Corpuscular Volume 90.7 fL (81-99); Mean Platelet Vol. 10.7 fl (6.2-12.0); Platelet Count 203 K/mm3 (150-450); RBC Distribution Width CV 14.8 % (11.6-14.6); RBC Distribution Width SD 47.9 fl (35.1-43.9); Red Blood Count 3.76 M/mm3 (4.2-5.4); White Blood Count 12.3 K/mm3 (4.4-11.0)
[2017-10-03 05:45] LABS: Scan Indicated on CBC? Y/N NO
--- NOTE | 2017-10-03 05:55 | EKG12_ITS ---
Test Reason : AM EKG Blood Pressure : / mmHG Vent. Rate : 066 BPM Atrial Rate : 066 BPM P-R Int : 142 ms QRS Dur : 082 ms QT Int : 452 ms P-R-T Axes : 053 061 046 degrees QTc Int : 473 ms Normal sinus rhythm ST & T wave abnormality, consider anterolateral ischemia Prolonged QT Abnormal ECG When compared with ECG of 02-OCT-2017 20:07, MANUAL COMPARISON REQUIRED, DATA IS UNCONFIRMED Confirmed by WILL TIPTON ([id number]), script editor MALIA KENNEDY ([id number]) on 10/25/2017 7:05:56 PM Referred By: DR CHRISTIE Confirmed By:WILL TIPTON
[2017-10-03 06:12] LABS: Anion Gap 11 (5-15); BUN 25 mg/dL (7-18); BUN/Creat Ratio 28.6 RATIO (10-20); Calcium,Total 8.4 mg/dL (8.5-10.1); Chloride 112 mmol/L (98-107); Creatinine, Serum 0.87 mg/dL (0.55-1.02); EST Glomerular Filtration Rate 67 mL/min (>60); Est Glom Filt Rate - Afr Amer 80 mL/min (>60); Estimated Creatinine Clearance 51.83 ml/min; Glucose 130 mg/dL (74-106); Potassium 3.9 mmol/L (3.5-5.1); Sodium Level 144 mmol/L (136-145)
[2017-10-03 06:19] LABS: Partial Thromboplast Time > 250.0 Seconds (24.1-36.2)
[2017-10-03] MEDS: HYDROcodone Bitartrate/Apap 5/325 Tablet PO (07:08)
[2017-10-03] MEDS: Docusate Sodium 100 MG Capsule 200 MG PO (09:56)
[2017-10-03] MEDS: Metoprolol Tartrate 50 MG Tablet PO (09:56)
[2017-10-03] MEDS: Pregabalin 50 MG Capsule PO ×4 (09:56→22:30)
--- NOTE | 2017-10-03 09:56 | PN_ITS ---
Patient Problems: Active and Suspected Problems Chest pain (Acute) Abnormal cardiac enzyme level (Acute) Subjective: Since he went into SVT the day prior had to receive adenosine. Consultation was also placed to Dr. Christine with cardiology his note and recommendations reviewed Xarelto was placed on hold patient put back on heparin. She also did complain of burning sensation and urinary frequency urinalysis subsequently obtained came back consistent with UTI started on Rocephin Objective: GENERAL: flat Affect HEENT: Clear conjunctiva, moist oral mucosa NECK; supple, normal thyroid, no distended JVD. CHEST: Diminished to auscultation bilaterally, HEART: Regular S1 S2, no audible murmurs ABDOMEN: soft, non-tender, normoactive bowel sounds, RECTAL: deferred EXTREMITIES: No edema, no clubbing, no cyanosis. PIANO ACCOMPANIST: Awake; no lateralizing signs. SKIN: No Rash Vitals/I&O's: Vital Signs Temp Pulse Resp BP Pulse Ox 98.2 F 75 16 102/74 95 10/03/17 09:45 10/03/17 09:45 10/03/17 09:45 10/03/17 09:45 10/03/17 09:45 Oxygen Flow Rate (L/min) 5 Oxygen Delivery Method Nasal Cannula Weight: 93 kg Body Mass Index (BMI) 32.1 Intake and Output for Last 24 Hours 10/01/17 10/02/17 10/03/17 23:59 23:59 23:59 Intake Total 768 / 768 1356 / 1356 Output Total 250 / 250 225 / 225 Balance 518 / 518 1131 / 1131 Laboratory Results 10/02/17 12:00: Troponin I 0.373 H 10/02/17 14:43: Troponin I 0.316 H 10/02/17 22:30: Urine Color Yellow, Urine Clarity Clear, Urine pH 5.0, Ur Specific [place] 1.020, Urine Protein 30 H, Urine Glucose (UA) Normal, Urine Ketones Negative, Urine Occult Blood 25 H, Urine Nitrite Positive H, Urine Bilirubin Negative, Urine Urobilinogen 1 H, Ur Leukocyte Esterase 100 H, Urine RBC 0 SEEN, Urine WBC 10-25 SEEN, Ur Squamous Epith Cells 0 SEEN, Urine Bacteria RARE, Urine Mucus 1+ 10/03/17 05:30: WBC 12.3 H, RBC 3.76 L, Hgb 11.0 L, Hct 34.1 L, MCV 90.7, MCH 29.3, MCHC 32.3, RDW 14.8 H, RDW Differential 47.9 H, Plt Count 203, MPV 10.7 10/03/17 05:30: Sodium 144, Potassium 3.9, Chloride 112 H, Carbon Dioxide 21.0, Anion Gap 11, BUN 25 H, Creatinine 0.87, Estim Creat Clear Calc 51.83, Est GFR ( MDRD) Af Amer 80, Est GFR (MDRD) Non-Af 67, BUN/Creatinine Ratio 28.6 H, Glucose 130 H, Calcium 8.4 L, Troponin I 0.150 H 10/03/17 05:30: APTT > 250.0 H* Current Medications Acetaminophen (Tylenol) 650 mg PO Q6H PRN PRN PRN Reason: Mild Pain (scale 0-3)/T>100.7 Hydrocodone Bitart/Acetaminophen ([place] 5mg-325mg) 1 tablet PO Q4H PRN PRN PRN Reason: PAIN Last Admin: 10/03/17 07:08 Dose: 1 tablet Al Hydroxide/Mg Hydroxide (Mylanta Ii) 30 ml PO Q6H PRN PRN PRN Reason: Gastric burning Anastrozole (Arimidex) 1 mg PO DAILY@1600 [facility] Last Admin: 10/02/17 17:33 Dose: 1 mg Aspirin (Aspirin, Baby) 81 mg PO DAILY@0800 [facility] Cholecalciferol (Vitamin D) 2,000 unit PO DAILY [facility] Docusate Sodium (Colace) 200 mg PO DAILY [facility] Heparin Sodium (Porcine) () 0 units IV UD PRN PRN Reason: Protocol Heparin Sodium/Dextrose () 25,000 units in 250 mls @ 14 mls/hr IV .[id number] [facility] ; As Directed PRN Reason: Protocol Last Admin: 10/02/17 22:40 Dose: 14 mls/hr Sodium Chloride () 1,000 mls @ 75 mls/hr IV .[id number] [facility] Last Admin: 10/02/17 22:21 Dose: 75 mls/hr Ceftriaxone Sodium 1 gm/ N/A 50 mls @ 100 mls/hr IV Q24 [facility] Lorazepam (Ativan) 1 mg PO DAILY PRN PRN PRN Reason: ANXIETY Magnesium Hydroxide (Milk Of Magnesia) 30 ml PO DAILY PRN PRN Reason: Constipation Melatonin (Melatonin) 5 mg PO QHS [facility] Last Admin: 10/02/17 22:20 Dose: 5 mg Memantine (Namenda) 10 mg PO BID [facility] Last Admin: 10/02/17 22:21 Dose: 10 mg Metoprolol Tartrate (Lopressor (Beta Moni)) 50 mg PO BID [facility] Last Admin: 10/02/17 22:20 Dose: 50 mg Morphine Sulfate () 2 - 4 mg IV Q3H PRN PRN PRN Reason: Severe Pain (pain scale 6-10) Multivitamins/Minerals (Ocuvite) 1 tablet PO DAILY [facility] Multivitamins/Minerals (Multivitamin With Minerals) 1 tablet PO DAILY@0800 [facility] Nitroglycerin (Nitrobid) 0.5 inch TRANSDERM. Q8 [facility] Last Admin: 10/03/17 05:27 Dose: 0.5 inch Ondansetron HCl (Zofran) 4 mg IV Q8H PRN PRN PRN Reason: NAUSEA Oxycodone HCl (Oxyir) 5 mg PO Q4H PRN PRN PRN Reason: Moderate Pain (pain scale 4-5) Pantoprazole Sodium (Protonix) 40 mg PO DAILY [facility] Pregabalin (Lyrica) 50 mg PO 4X/DAY [facility] Last Admin: 10/02/17 22:21 Dose: 50 mg Sodium Chloride () 5 - 30 ml IV UD PRN PRN Reason: SALINE FLUSH Last Admin: 10/02/17 20:05 Dose: 10 ml Tizanidine HCl (Zanaflex) 4 mg PO BID [facility] Last Admin: 10/02/17 22:22 Dose: 4 mg Zolpidem Tartrate (Ambien (Generic)) 5 mg PO QHS PRN PRN PRN Reason: INSOMNIA Medical Necessity - Tobacco Use Smoking Status: Never smoker Assessment/Plan Active and Suspected Problems Chest pain (Acute) Abnormal cardiac enzyme level (Acute) Patient is a 77-year-old lady with multiple comorbidities presented with PSVT found to have bilateral pulmonary embolism on admission 1. Acute bilateral pulmonary embolism. Patient was previously on Xarelto came off 3 weeks prior to her admission heparin was initiated in the ED;echo ordered for RV function assessment. Did discuss case with patient's daughter on the need for patient to be on systemic anticoagulation permanently since this is her second VTE. Echo demonstrated mildly dilated right ventricle with moderate pulmonary hypertension with RVSP of 54 mmHg 2. PSVT suspected to be secondary to above consultation was placed to Dr. Ralph argueta his note and recommendations reviewed 3. Acute cystitis culture sent started on Rocephin 4. History of right breast CA patient is on adjuvant hormonal therapy with with Arimidex 5. Obesity with BMI of 32.1 6. GERD patient is on PPI 7. Dementia without behavioral agitation Advanced planning. Patient CODE STATUS was discussed with the family patient's daughter wants patient to remain full code at this point to patient 's decides otherwise time spent in discussions 18 minute Code Visit Inpatient E&M: 61520 Subs Hosp L3
[2017-10-03] MEDS: tiZANidine HCl 2 MG Tablet 4 MG PO ×2 (09:57→22:28)
[2017-10-03] MEDS: Aspirin 81 MG TAB.CHEW PO (09:57)
[2017-10-03] MEDS: Pantoprazole Sodium 40 MG Tablet PO (09:57)
[2017-10-03] MEDS: Memantine Hydrochloride 10 MG Tablet PO ×2 (09:57→22:28)
[2017-10-03] MEDS: Multivitamins,Ther W-Minerals Tablet 1 TABLET PO (09:57)
[2017-10-03] MEDS: 0.9% Normal Saline 1,000 ML 75 ML IV ×2 (09:58→23:55)
--- NOTE | 2017-10-03 10:18 | CASEMGMT ---
Face to Face with patient/daughter for initial transition planning/care coordination assessment. DAGOBERTO LOPEZ introduced self and role at [facility], daughter voices understanding and consents to assessment at this time. Pt is sleeping in bed in no distress at this time. Daughter is A/O x4 at this time and answers all questions appropriately at this time. Care providers, pharmacy, and demographics verified. See attached link. Daughter voices no further concerns/needs at this time. Advised daughter to ask for CM if any further questions/concerns/needs arise, voices understanding. CM to follow for any further discharge planning/needs. PLAN: [place] DAGOBERTO LOPEZ
[2017-10-03 10:51] LABS: Partial Thromboplast Time 61.8 Seconds (24.1-36.2)
[2017-10-03] MEDS: 0.9% NaCl Peripheral Flush Adult/Peds IV (14:16)
--- NOTE | 2017-10-03 15:08 | PN.CARD_ITS ---
Subjectve: The patient is awake. She complains of diffuse body aches. She states she is tired. Her daughter is with her at this time. Objective: Vital Signs Temp Pulse Resp BP Pulse Ox 98.2 F 65 16 102/74 95 10/03/17 09:45 10/03/17 11:12 10/03/17 09:45 10/03/17 09:45 10/03/17 09:45 Oxygen Flow Rate (L/min) 4 Oxygen Delivery Method Nasal Cannula Weight: 205 lb 0.478 oz Body Mass Index (BMI) 32.1 Intake and Output for Last 24 Hours 10/01/17 10/02/17 10/03/17 23:59 23:59 23:59 Intake Total 768 / 768 1870 / 1870 Output Total 250 / 250 250 / 250 Balance 518 / 518 1620 / 1620 General: Awake, Cooperative, No Acute Distress Neck: No JVD Lungs: Diminished Edi Bases Cardiovascular: Regular Rhythm, Premature Ectopic Beats, Normal S1, Normal S2 Abdomen: Bowel Sounds Present, Soft, Non Tender Extremities: No edema 10/02/17 14:43: Troponin I 0.316 H 10/02/17 22:30: Urine Color Yellow, Urine Clarity Clear, Urine pH 5.0, Ur Specific [place] 1.020, Urine Protein 30 H, Urine Glucose (UA) Normal, Urine Ketones Negative, Urine Occult Blood 25 H, Urine Nitrite Positive H, Urine Bilirubin Negative, Urine Urobilinogen 1 H, Ur Leukocyte Esterase 100 H, Urine RBC 0 SEEN, Urine WBC 10-25 SEEN 10/03/17 05:30: WBC 12.3 H, RBC 3.76 L, Hgb 11.0 L, Hct 34.1 L, MCV 90.7, MCH 29.3, MCHC 32.3, RDW 14.8 H, RDW Differential 47.9 H, Plt Count 203, MPV 10.7 10/03/17 05:30: Sodium 144, Potassium 3.9, Chloride 112 H, Carbon Dioxide 21.0, Anion Gap 11, BUN 25 H, Creatinine 0.87, Est GFR (MDRD) Af Amer 80, Est GFR ( MDRD) Non-Af 67, BUN/Creatinine Ratio 28.6 H, Glucose 130 H, Calcium 8.4 L, Troponin I 0.150 H 10/03/17 05:30: APTT > 250.0 H* 10/03/17 10:35: APTT 61.8 H Rhythm: Sinus rhythm; PACs EKG: Sinus rhythm; continued ST/T-wave abnormality potentially compatible with myocardial ischemia-anterolateral Medical Necessity - Tobacco Use Smoking Status: Never smoker Assessment/Plan 1. Paroxysmal supraventricular tachycardia The patient has had recurrent paroxysmal supraventricular tachycardia. She does have a history of this. 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 This may be secondary to the patient's pulmonary emboli as was noted in the past. At the present time she will need to continue rate control therapy. If she has recurrence of her PSVT she will need be considered for additional IV adenosine therapy. Ideally she would be considered for future EP consultation for possible EPS/RFA, however, this may be somewhat challenging considering her underlying medical condition with recurrent bilateral pulmonary emboli and her dementia. 2. Pulmonary emboli She does appear to have recurrent bilateral pulmonary emboli both central and peripheral. This may be secondary to her history of breast carcinoma. This could lead to her PSVT, abnormal cardiac enzymes based upon RV strain, symptoms of chest discomfort and dyspnea, etc. The patient will need to continue anticoagulant therapy. If she does not proceed with any further invasive evaluation or care then she can be changed from IV heparin to an oral systemic anticoagulant. 3. Chest pain The patient has had chest pain and dyspnea. Again this may be secondary to her pulmonary emboli and her PSVT as opposed to a primary acute cardiovascular/ coronary event. The present time she appears to be symptomatically improved. She will continue medical management and follow-up. The patient will need continued treatment of her pulmonary emboli which again could be the etiology of her chest discomfort. 4. Abnormal cardiac enzymes She does have abnormal cardiac enzymes. Again these may be secondary to her findings of pulmonary emboli with RV strain. However she is being monitored for any obvious evidence of a true acute coronary syndrome event. She will be treated medically with aspirin, nitrates, beta-blockers, and anticoagulants. 5. Breast cancer The patient does have history of breast cancer. According to her daughter this does involve lymph nodes. She has continued medical management. Her breast cancer can be a predisposing factor to her recurrent pulmonary emboli which can then lead to her symptoms, PSVT, abnormal cardiac enzymes, etc. The patient is unclear as to her ongoing treatment with respect to her breast carcinoma or her past treatment with respect chemotherapy or radiation therapy, etc. 6. Dementia The patient does have a report of significant dementia. This does play a role with respect to her ongoing evaluation and care above and beyond conservative medical management. This could create a challenge with respect to the patient being able to understand and cooperate with further invasive procedures/ intervention as well as post procedure related care. The patient's case was discussed with her daughter. Based upon the patient's history, including her dementia, and her own comments that she feels tired and does not feel as if she could go through any further aggressive invasive evaluation or care, and ongoing medical issues that does provide a plausible diagnosis for her symptoms, enzyme changes, and cardiac dysrhythmia, the consensus was to continue conservative medical management for her underlying pulmonary emboli, and not to proceed at this time with further invasive evaluation or care from a cardiovascular standpoint. This could change depending upon the patient's clinical course, etc. This note was generated with [employer] software. It may contain incorrect words, spelling, and punctuation that were not noted in checking the note before signing.
[2017-10-03] MEDS: Anastrozole 1 MG Tablet PO (15:57)
--- NOTE | 2017-10-03 16:57 | EKG12_ITS ---
Test Reason : TACHYCARDIA Blood Pressure : / mmHG Vent. Rate : 065 BPM Atrial Rate : 065 BPM P-R Int : 136 ms QRS Dur : 084 ms QT Int : 334 ms P-R-T Axes : 026 023 056 degrees QTc Int : 347 ms Normal sinus rhythm ST & T wave abnormality, consider anterolateral ischemia Abnormal ECG Confirmed by LAKHWINDER PITTMAN, FROILAN ([id number]), news videotape editor MALIA KENNEDY ([id number]) on 10/11/2017 3:31:00 PM Referred By: Confirmed By:FROILAN KEANE MD
[2017-10-03] MEDS: Adenosine 6 MG/2 ML Syringe IV (17:02)
--- NOTE | 2017-10-03 17:09 | EKG12_ITS ---
Test Reason : TACHYCARDIA Blood Pressure : / mmHG Vent. Rate : 169 BPM Atrial Rate : 086 BPM P-R Int : 000 ms QRS Dur : 080 ms QT Int : 280 ms P-R-T Axes : 000 006 196 degrees QTc Int : 469 ms Supraventricular tachycardia Inferior infarct , age undetermined , cannot be excluded Nonspecific T wave abnormality Abnormal ECG Confirmed by LAKHWINDER PITTMAN, FROILAN ([id number]), technical editor MALIA KENNEDY ([id number]) on 10/11/2017 3:31:58 PM Referred By: Confirmed By:FROILAN KEANE MD
[2017-10-03 17:31] LABS: Partial Thromboplast Time 52.2 Seconds (24.1-36.2)
[2017-10-03] MEDS: MELATONIN 10 MG TABLET 5 MG PO (22:28)
[2017-10-03] MEDS: Metoprolol Tartrate 25 MG Tablet 75 MG PO (22:29)
[2017-10-03] MEDS: Zolpidem Tartrate 5 MG Tablet PO (22:30)
[2017-10-04] VITALS (22 sets, daily range): BP systolic 99–134; BP diastolic 53–78; PULSE 57–163; RESP 17–28; TEMP 36.2–36.8; O2SAT 93–96
--- NOTE | 2017-10-04 06:39 | NURSING ---
0608 monitor show pt in svt. cps called for stat ekg 0609 pt sleeping in the room, awoken and she states she has no symptoms of pain, discomfort, palpitations. 0610 dr melo notified of pt's hx w/svt and informed that she may be in svt again and she is asymptomatic [address] melo in room assessing pt; pt placed on crash cart monitor w/defib pads. 06 ekg shows svt hr:166, consistent with findings on monitor in room vs taken at 0622 and charted (at 0627) [address] melo to administer 6mg adenosine 0626 adenosine arrives from pharmacy 0627 adenosine administered and flushed w/30cc ns bolus 0631 pt in sr w/hr 67 0635 vs taken and charted. pt falls back to sleep w/no complaints of cp, dizziness, or discomfort. will inform dr meza and monitor pt.
--- NOTE | 2017-10-04 06:44 | RRT_ITS ---
Rapid Response Note Nurse called me for SVT. patient is having PSVT with heart rate in 170-180/min. 12-lead EKG done and PSVT rhythm confirmed. She had similar episode of PSVT on Monday. 6 mg of IV adenosine given and patient was converted to sinus rhythm at 60/min. [employer] Supervisor Dr. Christine is already seeing the patient Patient Problems: Active and Suspected Problems Chest pain (Acute) Abnormal cardiac enzyme level (Acute) - Physical Exam Vital Signs Temp Pulse Resp BP Pulse Ox 98.1 F 65 28 H 117/68 95 10/04/17 06:27 10/04/17 06:35 10/04/17 06:27 10/04/17 06:35 10/04/17 06:27 Oxygen Flow Rate (L/min) 2 Oxygen Delivery Method Nasal Cannula Weight: 205 lb 0.478 oz Body Mass Index (BMI) 32.1 Intake and Output for Last 24 Hours 10/02/17 10/03/17 10/04/17 23:59 23:59 23:59 Intake Total 768 / 768 2210 / 2210 1116 / 1116 Output Total 250 / 250 275 / 275 150 / 150 Balance 518 / 518 1935 / 1935 966 / 966 Laboratory Tests Past 24 Hrs 10/03/17 10/03/17 10/03/17 05:30 10:35 16:36 APTT 61.8 H 52.2 H Sodium 144 Potassium 3.9 Chloride 112 H Carbon Dioxide 21.0 Anion Gap 11 BUN 25 H Creatinine 0.87 Estim Creat Clear Calc 51.83 Est GFR (MDRD) Af Amer 80 Est GFR (MDRD) Non-Af 67 BUN/Creatinine Ratio 28.6 H Glucose 130 H Calcium 8.4 L Troponin I 0.150 H Assessment/Plan Active and Suspected Problems Chest pain (Acute) Abnormal cardiac enzyme level (Acute)
[2017-10-04] MEDS: Adenosine 6 MG/2 ML Syringe IV (06:48)
[2017-10-04] MEDS: 0.9% NaCl Peripheral Flush Adult/Peds IV (06:48)
--- NOTE | 2017-10-04 07:42 | NURSING ---
lab made aware that bloodwork could not be drawn from pt's midline this am.
[2017-10-04 08:19] LABS: Anion Gap 6 (5-15); BUN 25 mg/dL (7-18); Calcium,Total 8.4 mg/dL (8.5-10.1); Chloride 115 mmol/L (98-107); Creatinine, Serum 0.83 mg/dL (0.55-1.02); EST Glomerular Filtration Rate 70 mL/min (>60); Est Glom Filt Rate - Afr Amer 85 mL/min (>60); Estimated Creatinine Clearance 54.32 ml/min; Glucose 94 mg/dL (74-106); Potassium 3.8 mmol/L (3.5-5.1); Sodium Level 144 mmol/L (136-145)
[2017-10-04 08:45] LABS: Absolute Lymphocyte Count 1.17 X10^3/ul (0.83-4.51); Absolute Neutrophil Count 7.5 X10^3/uL (2.0-7.7); Basophil# 0.03 X10^3/uL; Basophil% 0.3 % (0-1); Eosinophil# 0.04 X10^3/uL; Eosinophils% 0.4 % (0-5); Hematocrit 31.8 % (37-47); Hemoglobin 10.3 g/dl (12.0-15.0); Lymphocyte # 1.17 X10^3/ul (4.0); Lymphocyte % 12.6 % (19-41); Mean Corp Hgb Conc 32.4 g/gl (32-36); Mean Corpuscular Hgb 29.3 pg (27.0-32.0); Mean Corpuscular Volume 90.3 fL (81-99); Mean Platelet Vol. 11.3 fl (6.2-12.0); Monocyte# 0.51 X10^3/uL; Monocyte% 5.5 % (0-10); Neutrophil # 7.51 X10^3/uL (2.7-7.7); Neutrophil % 81.1 % (47-70); Platelet Count 199 K/mm3 (150-450); RBC Distribution Width CV 14.8 % (11.6-14.6); RBC Distribution Width SD 47.7 fl (35.1-43.9); Red Blood Count 3.52 M/mm3 (4.2-5.4); White Blood Count 9.3 K/mm3 (4.4-11.0)
[2017-10-04 08:47] LABS: POSITIVE COUNT NO; POSITIVE DIFFERENTIAL NO; POSITIVE MORPHOLOGY NO
[2017-10-04] MEDS: Pantoprazole Sodium 40 MG Tablet PO (09:00)
[2017-10-04] MEDS: tiZANidine HCl 2 MG Tablet 4 MG PO ×2 (09:00→22:05)
[2017-10-04] MEDS: Rivaroxaban 15 MG Tablet PO ×2 (09:00→16:31)
[2017-10-04] MEDS: Aspirin 81 MG TAB.CHEW PO (09:00)
[2017-10-04] MEDS: Metoprolol Tartrate 25 MG Tablet 75 MG PO (09:01)
[2017-10-04] MEDS: Pregabalin 50 MG Capsule PO ×4 (09:01→22:05)
[2017-10-04] MEDS: Multivitamins,Ther W-Minerals Tablet 1 TABLET PO (09:01)
[2017-10-04] MEDS: Memantine Hydrochloride 10 MG Tablet PO ×2 (09:01→22:06)
[2017-10-04] MEDS: Docusate Sodium 100 MG Capsule 200 MG PO (09:01)
--- NOTE | 2017-10-04 10:33 | PCM.PN.CARD ---
Subjectve: The patient complains of diffuse body aches and pains. Objective: Vital Signs Temp Pulse Resp BP Pulse Ox 97.7 F L 75 18 130/76 H 93 10/04/17 08:56 10/04/17 09:01 10/04/17 09:14 10/04/17 08:56 10/04/17 08:56 Oxygen Flow Rate (L/min) 2 Oxygen Delivery Method Nasal Cannula Weight: 205 lb 0.478 oz Body Mass Index (BMI) 32.1 Intake and Output for Last 24 Hours 10/02/17 10/03/17 10/04/17 23:59 23:59 23:59 Intake Total 768 / 768 2210 / 2210 1116 / 1116 Output Total 250 / 250 275 / 275 150 / 150 Balance 518 / 518 1935 / 1935 966 / 966 General: Awake, Cooperative, No Acute Distress Neck: No JVD Lungs: - - No obvious rales or rhonchi Cardiovascular: Regular Rhythm, Normal S1, Normal S2 Abdomen: Bowel Sounds Present, Soft, Non Tender Extremities: No edema 10/03/17 05:30: Sodium 144, Potassium 3.9, Chloride 112 H, Carbon Dioxide 21.0, Anion Gap 11, BUN 25 H, Creatinine 0.87, Est GFR (MDRD) Af Amer 80, Est GFR (MDRD) Non-Af 67, BUN/Creatinine Ratio 28.6 H, Glucose 130 H, Calcium 8.4 L, Troponin I 0.150 H 10/03/17 10:35: APTT 61.8 H 10/03/17 16:36: APTT 52.2 H 10/04/17 07:50: WBC 9.3, RBC 3.52 L, Hgb 10.3 L, Hct 31.8 L, MCV 90.3, MCH 29.3, MCHC 32.4, RDW 14.8 H, RDW Differential 47.7 H, Plt Count 199, MPV 11.3, Immature Gran % (Auto) 0.100, Neut % (Auto) 81.1 H, Lymph % (Auto) 12.6 L, [place] % (Auto) 5.5, Eos % (Auto) 0.4, Baso % (Auto) 0.3, Absolute Neuts (auto) 7.5, Total Counted Not Reportable 10/04/17 07:50: Sodium 144, Potassium 3.8, Chloride 115 H, Carbon Dioxide 23.0, Anion Gap 6, BUN 25 H, Creatinine 0.83, Est GFR (MDRD) Af Amer 85, Est GFR (MDRD) Non-Af 70, BUN/Creatinine Ratio 30.0 H, Glucose 94, Calcium 8.4 L Rhythm: Sinus rhythm; PSVT (amenable to IV adenosine) Medical Necessity - Tobacco Use Smoking Status: Never smoker Assessment/Plan 1. Paroxysmal supraventricular tachycardia The patient has had recurrent paroxysmal supraventricular tachycardia. She does have a history of this. 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 This may be secondary to the patient's pulmonary emboli as was noted in the past. She has had recurrent episodes. He continued to be amenable to IV adenosine. She is on rate limiting therapy with beta-blockers. It is being increased as tolerated. However, if she continues with recurrent episodes then she may need to be considered for tertiary care center evaluation by EPS for possible RFA. 2. Pulmonary emboli She does appear to have recurrent bilateral pulmonary emboli both central and peripheral. This may be secondary to her history of breast carcinoma. This could lead to her PSVT, abnormal cardiac enzymes based upon RV strain, symptoms of chest discomfort and dyspnea, etc. She continues on anticoagulant therapy with oral anticoagulants at this time. 3. Chest pain The patient has had chest pain and dyspnea. Again this may be secondary to her pulmonary emboli and her PSVT as opposed to a primary acute cardiovascular/coronary event. The present time she appears to be symptomatically improved. She will continue medical management and follow-up. The patient will need continued treatment of her pulmonary emboli which again could be the etiology of her chest discomfort. 4. Abnormal cardiac enzymes She does have abnormal cardiac enzymes. Again these may be secondary to her findings of pulmonary emboli with RV strain. However she is being monitored for any obvious evidence of a true acute coronary syndrome event. She will be treated medically with aspirin, nitrates as needed, beta-blockers, and anticoagulants. Other agents can be used as deemed appropriate. 5. Breast cancer The patient does have history of breast cancer. According to her daughter this does involve lymph nodes. She has continued medical management. Her breast cancer can be a predisposing factor to her recurrent pulmonary emboli which can then lead to her symptoms, PSVT, abnormal cardiac enzymes, etc. The patient is unclear as to her ongoing treatment with respect to her breast carcinoma or her past treatment with respect chemotherapy or radiation therapy, etc. 6. Dementia The patient does have a report of significant dementia. This does play a role with respect to her ongoing evaluation and care above and beyond conservative medical management. This could create a challenge with respect to the patient being able to understand and cooperate with further invasive procedures/intervention as well as post procedure related care. The patient's case was previously discussed with her daughter. Based upon the patient's history, including her dementia, and her own comments that she feels tired and does not feel as if she could go through any further aggressive invasive evaluation or care, and ongoing medical issues that does provide a plausible diagnosis for her symptoms, enzyme changes, and cardiac dysrhythmia, the consensus was to continue conservative medical management for her underlying pulmonary emboli, and not to proceed at this time with further invasive evaluation or care from a cardiovascular standpoint. This could change depending upon the patient's clinical course, etc. This note was generated with [employer] dictation software. It may contain incorrect words, spelling, and punctuation that were not noted in checking the note before signing.
--- NOTE | 2017-10-04 10:37 | PN.CARD_ITS ---
Subjectve: The patient complains of diffuse body aches and pains. Objective: Vital Signs Temp Pulse Resp BP Pulse Ox 97.7 F L 75 18 130/76 H 93 10/04/17 08:56 10/04/17 09:01 10/04/17 09:14 10/04/17 08:56 10/04/17 08:56 Oxygen Flow Rate (L/min) 2 Oxygen Delivery Method Nasal Cannula Weight: 205 lb 0.478 oz Body Mass Index (BMI) 32.1 Intake and Output for Last 24 Hours 10/02/17 10/03/17 10/04/17 23:59 23:59 23:59 Intake Total 768 / 768 2210 / 2210 1116 / 1116 Output Total 250 / 250 275 / 275 150 / 150 Balance 518 / 518 1935 / 1935 966 / 966 General: Awake, Cooperative, No Acute Distress Neck: No JVD Lungs: - - No obvious rales or rhonchi Cardiovascular: Regular Rhythm, Normal S1, Normal S2 Abdomen: Bowel Sounds Present, Soft, Non Tender Extremities: No edema 10/03/17 05:30: Sodium 144, Potassium 3.9, Chloride 112 H, Carbon Dioxide 21.0, Anion Gap 11, BUN 25 H, Creatinine 0.87, Est GFR (MDRD) Af Amer 80, Est GFR ( MDRD) Non-Af 67, BUN/Creatinine Ratio 28.6 H, Glucose 130 H, Calcium 8.4 L, Troponin I 0.150 H 10/03/17 10:35: APTT 61.8 H 10/03/17 16:36: APTT 52.2 H 10/04/17 07:50: WBC 9.3, RBC 3.52 L, Hgb 10.3 L, Hct 31.8 L, MCV 90.3, MCH 29.3 , MCHC 32.4, RDW 14.8 H, RDW Differential 47.7 H, Plt Count 199, MPV 11.3, Immature Gran % (Auto) 0.100, Neut % (Auto) 81.1 H, Lymph % (Auto) 12.6 L, Irwin % (Auto) 5.5, Eos % (Auto) 0.4, Baso % (Auto) 0.3, Absolute Neuts (auto) 7.5, Total Counted Not Reportable 10/04/17 07:50: Sodium 144, Potassium 3.8, Chloride 115 H, Carbon Dioxide 23.0, Anion Gap 6, BUN 25 H, Creatinine 0.83, Est GFR (MDRD) Af Amer 85, Est GFR (MDRD ) Non-Af 70, BUN/Creatinine Ratio 30.0 H, Glucose 94, Calcium 8.4 L Rhythm: Sinus rhythm; PSVT (amenable to IV adenosine) Medical Necessity - Tobacco Use Smoking Status: Never smoker Assessment/Plan 1. Paroxysmal supraventricular tachycardia The patient has had recurrent paroxysmal supraventricular tachycardia. She does have a history of this. 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 This may be secondary to the patient's pulmonary emboli as was noted in the past. She has had recurrent episodes. He continued to be amenable to IV adenosine. She is on rate limiting therapy with beta-blockers. It is being increased as tolerated. However, if she continues with recurrent episodes then she may need to be considered for tertiary care center evaluation by EPS for possible RFA. 2. Pulmonary emboli She does appear to have recurrent bilateral pulmonary emboli both central and peripheral. This may be secondary to her history of breast carcinoma. This could lead to her PSVT, abnormal cardiac enzymes based upon RV strain, symptoms of chest discomfort and dyspnea, etc. She continues on anticoagulant therapy with oral anticoagulants at this time. 3. Chest pain The patient has had chest pain and dyspnea. Again this may be secondary to her pulmonary emboli and her PSVT as opposed to a primary acute cardiovascular/ coronary event. The present time she appears to be symptomatically improved. She will continue medical management and follow-up. The patient will need continued treatment of her pulmonary emboli which again could be the etiology of her chest discomfort. 4. Abnormal cardiac enzymes She does have abnormal cardiac enzymes. Again these may be secondary to her findings of pulmonary emboli with RV strain. However she is being monitored for any obvious evidence of a true acute coronary syndrome event. She will be treated medically with aspirin, nitrates as needed, beta-blockers, and anticoagulants. Other agents can be used as deemed appropriate. 5. Breast cancer The patient does have history of breast cancer. According to her daughter this does involve lymph nodes. She has continued medical management. Her breast cancer can be a predisposing factor to her recurrent pulmonary emboli which can then lead to her symptoms, PSVT, abnormal cardiac enzymes, etc. The patient is unclear as to her ongoing treatment with respect to her breast carcinoma or her past treatment with respect chemotherapy or radiation therapy, etc. 6. Dementia The patient does have a report of significant dementia. This does play a role with respect to her ongoing evaluation and care above and beyond conservative medical management. This could create a challenge with respect to the patient being able to understand and cooperate with further invasive procedures/ intervention as well as post procedure related care. The patient's case was previously discussed with her daughter. Based upon the patient's history, including her dementia, and her own comments that she feels tired and does not feel as if she could go through any further aggressive invasive evaluation or care, and ongoing medical issues that does provide a plausible diagnosis for her symptoms, enzyme changes, and cardiac dysrhythmia, the consensus was to continue conservative medical management for her underlying pulmonary emboli, and not to proceed at this time with further invasive evaluation or care from a cardiovascular standpoint. This could change depending upon the patient's clinical course, etc. This note was generated with [employer] dictation software. It may contain incorrect words, spelling, and punctuation that were not noted in checking the note before signing.
[2017-10-04] MEDS: Metoprolol Tartrate 25 MG Tablet PO (11:07)
[2017-10-04] MEDS: 0.9% Normal Saline 1,000 ML 75 ML IV (13:27)
[2017-10-04] MEDS: HYDROcodone Bitartrate/Apap 5/325 Tablet PO (16:29)
[2017-10-04] MEDS: Anastrozole 1 MG Tablet PO (16:30)
--- NOTE | 2017-10-04 19:16 | PCM.PROGNOTE ---
Patient Problems: Active and Suspected Problems Chest pain (Acute) Abnormal cardiac enzyme level (Acute) Subjective: She appears stable today. She is c/o diffuse pain in the legs, but unable to specify. She is oriented to person only. - Physical Exam General: Cooperative, Confused HEENT: Atraumatic, PERRLA Oral: Moist Mucosa, No Gingival or Mucosal Lesions/ Ulcerations Neck: Supple, No JVD, Negative Carotid Bruits Lungs: Clear to auscultation, Normal air movement, No rhonchi, No wheeze, No rales Cardiovascular: Regular rate, Regular Rhythm, Normal S1, Normal S2, No murmurs, No Ectopic Activity Abdomen: Bowel Sounds Present, Soft, Non Tender, Non-Distended, No Hepato-splenomegaly, Passing Flatus Extremities: No clubbing, No cyanosis, Edema - 1+ edema bilaterally. Skin: No rashes Musculoskeletal: No Tenderness to Palpation of Joints or Extremities, No Muscle Wasting Lymphatic: No Cervical, Supraclavicular, or Inguinal Adenopathy Neurological: Cranial nerves II-XII grossly intact, Neuro grossly intact Psych/Mental Status: Normal Affect Vital Signs Temp Pulse Resp BP Pulse Ox 98.2 F 61 18 134/53 H 96 10/04/17 16:36 10/04/17 16:36 10/04/17 16:36 10/04/17 16:36 10/04/17 16:36 Oxygen Flow Rate (L/min) 2 Oxygen Delivery Method Nasal Cannula Weight: 205 lb 0.478 oz Body Mass Index (BMI) 32.1 Intake and Output for Last 24 Hours 10/02/17 10/03/17 10/04/17 23:59 23:59 23:59 Intake Total 768 / 768 2210 / 2210 2621 / 2621 Output Total 250 / 250 275 / 275 400 / 400 Balance 518 / 518 1935 / 1935 2221 / 2221 Laboratory Tests Past 24 Hrs 10/03/17 10/04/17 10/04/17 05:30 07:50 07:50 WBC 9.3 RBC 3.52 L Hgb 10.3 L Hct 31.8 L MCV 90.3 MCH 29.3 MCHC 32.4 RDW 14.8 H RDW Differential 47.7 H Plt Count 199 MPV 11.3 Immature Gran % (Auto) 0.100 Neut % (Auto) 81.1 H Lymph % (Auto) 12.6 L Crowley % (Auto) 5.5 Eos % (Auto) 0.4 Baso % (Auto) 0.3 Absolute Neuts (auto) 7.5 Absolute Lymphs (auto) 1.17 Total Counted Not Reportable Sodium 144 144 Potassium 3.9 3.8 Chloride 112 H 115 H Carbon Dioxide 21.0 23.0 Anion Gap 11 6 BUN 25 H 25 H Creatinine 0.87 0.83 Estim Creat Clear Calc 51.83 54.32 Est GFR (MDRD) Af Amer 80 85 Est GFR (MDRD) Non-Af 67 70 BUN/Creatinine Ratio 28.6 H 30.0 H Glucose 130 H 94 Calcium 8.4 L 8.4 L Troponin I 0.150 H Diagnostic Data Chest X-Ray 10/02/17 09:18 IMPRESSION: Stable examination. Electronically Signed: Jacob Daniel MD at 10:19 EDT Tel [phone], Service support , Chest CTA 10/02/17 09:43 IMPRESSION: Bilateral central and peripheral pulmonary arterial emboli. 2.5 cm right adrenal adenoma. N.B. : The above information has been verbally conveyed by Jacob Daniel MD to Juan Alberto Ace on 10/02/2017 10:32:14 (ET). Electronically Signed: Jacob Daniel MD at 10:33 EDT Tel [phone], Service support , N.B. : The above information has been verbally conveyed by Jacob Daniel MD to Juan Alberto Ace on 10/02/2017 10:32:14 (ET). Medical Necessity - Tobacco Use Smoking Status: Never smoker Assessment/Plan Active and Suspected Problems Chest pain (Acute) Abnormal cardiac enzyme level (Acute) Patient is a 77-year-old lady with multiple comorbidities presented with PSVT found to have bilateral pulmonary embolism on admission 1. Acute bilateral pulmonary embolism. Patient was previously on Xarelto came off 3 weeks prior to her admission heparin was initiated in the ED;echo ordered for RV function assessment. Did discuss case with patient's daughter on the need for patient to be on systemic anticoagulation permanently since this is her second VTE. Echo demonstrated mildly dilated right ventricle with moderate pulmonary hypertension with RVSP of 54 mmHg. On beta-justino, titrating to control rate and occasional [employer]. 2. PSVT suspected to be secondary to above consultation was placed to Dr. Ralph argueta his note and recommendations reviewed 3. Acute cystitis culture sent started on Rocephin 4. History of right breast CA patient is on adjuvant hormonal therapy with with Arimidex 5. Obesity with BMI of 32.1 6. GERD patient is on PPI 7. Dementia without behavioral agitation VTE prophylaxis: Xarelto. GI prophylaxis: PPI po. She is full code. Disposition: Home in 1 to 2 days. Code Visit Inpatient E&M: 88811 Subs Hosp L2
--- NOTE | 2017-10-04 19:26 | PN_ITS ---
Patient Problems: Active and Suspected Problems Chest pain (Acute) Abnormal cardiac enzyme level (Acute) Subjective: She appears stable today. She is c/o diffuse pain in the legs, but unable to specify. She is oriented to person only. - Physical Exam General: Cooperative, Confused HEENT: Atraumatic, PERRLA Oral: Moist Mucosa, No Gingival or Mucosal Lesions/ Ulcerations Neck: Supple, No JVD, Negative Carotid Bruits Lungs: Clear to auscultation, Normal air movement, No rhonchi, No wheeze, No rales Cardiovascular: Regular rate, Regular Rhythm, Normal S1, Normal S2, No murmurs, No Ectopic Activity Abdomen: Bowel Sounds Present, Soft, Non Tender, Non-Distended, No Hepato- splenomegaly, Passing Flatus Extremities: No clubbing, No cyanosis, Edema - 1+ edema bilaterally. Skin: No rashes Musculoskeletal: No Tenderness to Palpation of Joints or Extremities, No Muscle Wasting Lymphatic: No Cervical, Supraclavicular, or Inguinal Adenopathy Neurological: Cranial nerves II-XII grossly intact, Neuro grossly intact Psych/Mental Status: Normal Affect Vital Signs Temp Pulse Resp BP Pulse Ox 98.2 F 61 18 134/53 H 96 10/04/17 16:36 10/04/17 16:36 10/04/17 16:36 10/04/17 16:36 10/04/17 16:36 Oxygen Flow Rate (L/min) 2 Oxygen Delivery Method Nasal Cannula Weight: 205 lb 0.478 oz Body Mass Index (BMI) 32.1 Intake and Output for Last 24 Hours 10/02/17 10/03/17 10/04/17 23:59 23:59 23:59 Intake Total 768 / 768 2210 / 2210 2621 / 2621 Output Total 250 / 250 275 / 275 400 / 400 Balance 518 / 518 1935 / 1935 2221 / 2221 Laboratory Tests Past 24 Hrs 10/03/17 10/04/17 10/04/17 05:30 07:50 07:50 WBC 9.3 RBC 3.52 L Hgb 10.3 L Hct 31.8 L MCV 90.3 MCH 29.3 MCHC 32.4 RDW 14.8 H RDW Differential 47.7 H Plt Count 199 MPV 11.3 Immature Gran % (Auto) 0.100 Neut % (Auto) 81.1 H Lymph % (Auto) 12.6 L Woods % (Auto) 5.5 Eos % (Auto) 0.4 Baso % (Auto) 0.3 Absolute Neuts (auto) 7.5 Absolute Lymphs (auto) 1.17 Total Counted Not Reportable Sodium 144 144 Potassium 3.9 3.8 Chloride 112 H 115 H Carbon Dioxide 21.0 23.0 Anion Gap 11 6 BUN 25 H 25 H Creatinine 0.87 0.83 Estim Creat Clear Calc 51.83 54.32 Est GFR (MDRD) Af Amer 80 85 Est GFR (MDRD) Non-Af 67 70 BUN/Creatinine Ratio 28.6 H 30.0 H Glucose 130 H 94 Calcium 8.4 L 8.4 L Troponin I 0.150 H Diagnostic Data Chest X-Ray 10/02/17 09:18 IMPRESSION: Stable examination. Electronically Signed: Jacob Daniel MD at 10:19 EDT Tel [phone], Service support , Chest CTA 10/02/17 09:43 IMPRESSION: Bilateral central and peripheral pulmonary arterial emboli. 2.5 cm right adrenal adenoma. N.B. : The above information has been verbally conveyed by Jacob Daniel MD to Juan Alberto Ace on 10/02/2017 10:32:14 (ET). Electronically Signed: Jacob Daniel MD at 10:33 EDT Tel [phone], Service support , N.B. : The above information has been verbally conveyed by Jacob Daniel MD to Juan Alberto Ace on 10/02/2017 10:32:14 (ET). Medical Necessity - Tobacco Use Smoking Status: Never smoker Assessment/Plan Active and Suspected Problems Chest pain (Acute) Abnormal cardiac enzyme level (Acute) Patient is a 77-year-old lady with multiple comorbidities presented with PSVT found to have bilateral pulmonary embolism on admission 1. Acute bilateral pulmonary embolism. Patient was previously on Xarelto came off 3 weeks prior to her admission heparin was initiated in the ED;echo ordered for RV function assessment. Did discuss case with patient's daughter on the need for patient to be on systemic anticoagulation permanently since this is her second VTE. Echo demonstrated mildly dilated right ventricle with moderate pulmonary hypertension with RVSP of 54 mmHg. On beta-justino, titrating to control rate and occasional [employer]. 2. PSVT suspected to be secondary to above consultation was placed to Dr. Ralph argueta his note and recommendations reviewed 3. Acute cystitis culture sent started on Rocephin 4. History of right breast CA patient is on adjuvant hormonal therapy with with Arimidex 5. Obesity with BMI of 32.1 6. GERD patient is on PPI 7. Dementia without behavioral agitation VTE prophylaxis: Xarelto. GI prophylaxis: PPI po. She is full code. Disposition: Home in 1 to 2 days. Code Visit Inpatient E&M: 40391 Subs Hosp L2
[2017-10-04] MEDS: Metoprolol Tartrate 5 MG/5 ML Vial 2.5 MG IV (20:02)
[2017-10-04] MEDS: dilTIAZem 25 MG/5 ML Vial 20 MG IV BOLUS (20:32)
[2017-10-04] MEDS: Metoprolol Tartrate 100 MG Tablet PO (22:05)
[2017-10-04] MEDS: MELATONIN 10 MG TABLET 5 MG PO (22:06)
[2017-10-05] VITALS (14 sets, daily range): BP systolic 117–136; BP diastolic 63–87; PULSE 53–69; RESP 18–22; TEMP 35.8–36.3; O2SAT 93–97
[2017-10-05] MEDS: 0.9% Normal Saline 1,000 ML 75 ML IV ×2 (02:34→16:56)
[2017-10-05] MEDS: 0.9% NaCl Peripheral Flush Adult/Peds IV (05:04)
[2017-10-05 06:53] LABS: Hematocrit 31.2 % (37-47); Hemoglobin 9.9 g/dl (12.0-15.0); Mean Corp Hgb Conc 31.7 g/gl (32-36); Mean Corpuscular Hgb 28.9 pg (27.0-32.0); Mean Platelet Vol. 11.1 fl (6.2-12.0); Platelet Count 235 K/mm3 (150-450); RBC Distribution Width SD 49.1 fl (35.1-43.9); Red Blood Count 3.43 M/mm3 (4.2-5.4); White Blood Count 8.5 K/mm3 (4.4-11.0)
[2017-10-05 06:54] LABS: Scan Indicated on CBC? Y/N NO
[2017-10-05 07:07] LABS: Anion Gap 7 (5-15); BUN 26 mg/dL (7-18); BUN/Creat Ratio 31.2 RATIO (10-20); Calcium,Total 8.3 mg/dL (8.5-10.1); Chloride 114 mmol/L (98-107); Creatinine, Serum 0.83 mg/dL (0.55-1.02); EST Glomerular Filtration Rate 70 mL/min (>60); Est Glom Filt Rate - Afr Amer 85 mL/min (>60); Estimated Creatinine Clearance 54.32 ml/min; Glucose 97 mg/dL (74-106); Potassium 3.9 mmol/L (3.5-5.1); Sodium Level 143 mmol/L (136-145)
[2017-10-05] MEDS: Multivitamins,Ther W-Minerals Tablet 1 TABLET PO (08:40)
[2017-10-05] MEDS: HYDROcodone Bitartrate/Apap 5/325 Tablet PO ×3 (08:40→22:46)
[2017-10-05] MEDS: Aspirin 81 MG TAB.CHEW PO (08:40)
[2017-10-05] MEDS: Rivaroxaban 15 MG Tablet PO ×2 (08:40→17:26)
[2017-10-05] MEDS: Docusate Sodium 100 MG Capsule 200 MG PO (10:08)
[2017-10-05] MEDS: Metoprolol Tartrate 100 MG Tablet PO ×2 (10:08→22:41)
[2017-10-05] MEDS: tiZANidine HCl 2 MG Tablet 4 MG PO ×2 (10:09→22:41)
[2017-10-05] MEDS: Memantine Hydrochloride 10 MG Tablet PO ×2 (10:09→22:41)
[2017-10-05] MEDS: Pantoprazole Sodium 40 MG Tablet PO (10:09)
--- NOTE | 2017-10-05 10:09 | PCM.PN.CARD ---
Subjectve: The patient continues to state she does not feel well in general. She continues to complain of diffuse body aches and pains. Objective: Vital Signs Temp Pulse Resp BP Pulse Ox 97.3 F L 57 L 18 120/63 93 10/05/17 04:13 10/05/17 06:53 10/05/17 04:13 10/05/17 04:13 10/05/17 07:55 Oxygen Flow Rate (L/min) 2 Oxygen Delivery Method Nasal Cannula Weight: 205 lb 0.478 oz Body Mass Index (BMI) 32.1 Intake and Output for Last 24 Hours 10/03/17 10/04/17 10/05/17 23:59 23:59 23:59 Intake Total 2210 / 2210 3052 / 3052 529 / 529 Output Total 275 / 275 600 / 600 150 / 150 Balance 1935 / 1935 2452 / 2452 379 / 379 General: Awake, Cooperative, No Acute Distress Neck: No JVD Lungs: Clear to auscultation Cardiovascular: Regular Rhythm, Normal S1, Normal S2 Abdomen: Bowel Sounds Present, Soft, Non Tender Extremities: No edema 10/05/17 06:30: WBC 8.5, RBC 3.43 L, Hgb 9.9 L, Hct 31.2 L, MCV 91.0, MCH 28.9, MCHC 31.7 L, RDW 15.0 H, RDW Differential 49.1 H, Plt Count 235, MPV 11.1 10/05/17 06:30: Sodium 143, Potassium 3.9, Chloride 114 H, Carbon Dioxide 22.0, Anion Gap 7, BUN 26 H, Creatinine 0.83, Est GFR (MDRD) Af Amer 85, Est GFR (MDRD) Non-Af 70, BUN/Creatinine Ratio 31.2 H, Glucose 97, Calcium 8.3 L Rhythm: Sinus rhythm; recurrent episodes of PSVT amenable to IV adenosine Medical Necessity - Tobacco Use Smoking Status: Never smoker Assessment/Plan 1. Paroxysmal supraventricular tachycardia The patient has had recurrent paroxysmal supraventricular tachycardia. She does have a history of this. 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 This may be secondary to the patient's pulmonary emboli as was noted in the past. She has had recurrent episodes. He continued to be amenable to IV adenosine reportedly IV diltiazem. She is on rate limiting therapy with beta-blockers. Her dose has been increased. However, if she continues with recurrent episodes then she may need to be considered for tertiary care center evaluation by EPS for possible RFA. 2. Pulmonary emboli She does appear to have recurrent bilateral pulmonary emboli both central and peripheral. This may be secondary to her history of breast carcinoma. This could lead to her PSVT, abnormal cardiac enzymes based upon RV strain, symptoms of chest discomfort and dyspnea, etc. She continues on anticoagulant therapy with oral anticoagulants at this time. 3. Chest pain The patient has had chest pain and dyspnea. Again this may be secondary to her pulmonary emboli and her PSVT as opposed to a primary acute cardiovascular/coronary event. The present time she appears to be symptomatically improved. She will continue medical management and follow-up. The patient will need continued treatment of her pulmonary emboli which again could be the etiology of her chest discomfort. 4. Abnormal cardiac enzymes She does have abnormal cardiac enzymes. Again these may be secondary to her findings of pulmonary emboli with RV strain. However she is being monitored for any obvious evidence of a true acute coronary syndrome event. She will be treated medically with aspirin, nitrates as needed, beta-blockers, and anticoagulants. Other agents can be used as deemed appropriate. 5. Breast cancer The patient does have history of breast cancer. According to her daughter this does involve lymph nodes. She has continued medical management. Her breast cancer can be a predisposing factor to her recurrent pulmonary emboli which can then lead to her symptoms, PSVT, abnormal cardiac enzymes, etc. The patient is unclear as to her ongoing treatment with respect to her breast carcinoma or her past treatment with respect chemotherapy or radiation therapy, etc. 6. Dementia The patient does have a report of significant dementia. This does play a role with respect to her ongoing evaluation and care above and beyond conservative medical management. This could create a challenge with respect to the patient being able to understand and cooperate with further invasive procedures/intervention as well as post procedure related care. The patient's case was previously discussed with her daughter. Based upon the patient's history, including her dementia, and her own comments that she feels tired and does not feel as if she could go through any further aggressive invasive evaluation or care, and ongoing medical issues that does provide a plausible diagnosis for her symptoms, enzyme changes, and cardiac dysrhythmia, the consensus was to continue conservative medical management for her underlying pulmonary emboli, and not to proceed at this time with further invasive evaluation or care from a cardiovascular standpoint. However, this could change depending upon the patient's clinical course, etc. This note was generated with [employer] dictation software. It may contain incorrect words, spelling, and punctuation that were not noted in checking the note before signing.
--- NOTE | 2017-10-05 10:12 | PN.CARD_ITS ---
Subjectve: The patient continues to state she does not feel well in general. She continues to complain of diffuse body aches and pains. Objective: Vital Signs Temp Pulse Resp BP Pulse Ox 97.3 F L 57 L 18 120/63 93 10/05/17 04:13 10/05/17 06:53 10/05/17 04:13 10/05/17 04:13 10/05/17 07:55 Oxygen Flow Rate (L/min) 2 Oxygen Delivery Method Nasal Cannula Weight: 205 lb 0.478 oz Body Mass Index (BMI) 32.1 Intake and Output for Last 24 Hours 10/03/17 10/04/17 10/05/17 23:59 23:59 23:59 Intake Total 2210 / 2210 3052 / 3052 529 / 529 Output Total 275 / 275 600 / 600 150 / 150 Balance 1935 / 1935 2452 / 2452 379 / 379 General: Awake, Cooperative, No Acute Distress Neck: No JVD Lungs: Clear to auscultation Cardiovascular: Regular Rhythm, Normal S1, Normal S2 Abdomen: Bowel Sounds Present, Soft, Non Tender Extremities: No edema 10/05/17 06:30: WBC 8.5, RBC 3.43 L, Hgb 9.9 L, Hct 31.2 L, MCV 91.0, MCH 28.9, MCHC 31.7 L, RDW 15.0 H, RDW Differential 49.1 H, Plt Count 235, MPV 11.1 10/05/17 06:30: Sodium 143, Potassium 3.9, Chloride 114 H, Carbon Dioxide 22.0, Anion Gap 7, BUN 26 H, Creatinine 0.83, Est GFR (MDRD) Af Amer 85, Est GFR (MDRD ) Non-Af 70, BUN/Creatinine Ratio 31.2 H, Glucose 97, Calcium 8.3 L Rhythm: Sinus rhythm; recurrent episodes of PSVT amenable to IV adenosine Medical Necessity - Tobacco Use Smoking Status: Never smoker Assessment/Plan 1. Paroxysmal supraventricular tachycardia The patient has had recurrent paroxysmal supraventricular tachycardia. She does have a history of this. 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 This may be secondary to the patient's pulmonary emboli as was noted in the past. She has had recurrent episodes. He continued to be amenable to IV adenosine reportedly IV diltiazem. She is on rate limiting therapy with beta-blockers. Her dose has been increased. However, if she continues with recurrent episodes then she may need to be considered for tertiary care center evaluation by EPS for possible RFA. 2. Pulmonary emboli She does appear to have recurrent bilateral pulmonary emboli both central and peripheral. This may be secondary to her history of breast carcinoma. This could lead to her PSVT, abnormal cardiac enzymes based upon RV strain, symptoms of chest discomfort and dyspnea, etc. She continues on anticoagulant therapy with oral anticoagulants at this time. 3. Chest pain The patient has had chest pain and dyspnea. Again this may be secondary to her pulmonary emboli and her PSVT as opposed to a primary acute cardiovascular/ coronary event. The present time she appears to be symptomatically improved. She will continue medical management and follow-up. The patient will need continued treatment of her pulmonary emboli which again could be the etiology of her chest discomfort. 4. Abnormal cardiac enzymes She does have abnormal cardiac enzymes. Again these may be secondary to her findings of pulmonary emboli with RV strain. However she is being monitored for any obvious evidence of a true acute coronary syndrome event. She will be treated medically with aspirin, nitrates as needed, beta-blockers, and anticoagulants. Other agents can be used as deemed appropriate. 5. Breast cancer The patient does have history of breast cancer. According to her daughter this does involve lymph nodes. She has continued medical management. Her breast cancer can be a predisposing factor to her recurrent pulmonary emboli which can then lead to her symptoms, PSVT, abnormal cardiac enzymes, etc. The patient is unclear as to her ongoing treatment with respect to her breast carcinoma or her past treatment with respect chemotherapy or radiation therapy, etc. 6. Dementia The patient does have a report of significant dementia. This does play a role with respect to her ongoing evaluation and care above and beyond conservative medical management. This could create a challenge with respect to the patient being able to understand and cooperate with further invasive procedures/ intervention as well as post procedure related care. The patient's case was previously discussed with her daughter. Based upon the patient's history, including her dementia, and her own comments that she feels tired and does not feel as if she could go through any further aggressive invasive evaluation or care, and ongoing medical issues that does provide a plausible diagnosis for her symptoms, enzyme changes, and cardiac dysrhythmia, the consensus was to continue conservative medical management for her underlying pulmonary emboli, and not to proceed at this time with further invasive evaluation or care from a cardiovascular standpoint. However, this could change depending upon the patient's clinical course, etc. This note was generated with [employer] dictation software. It may contain incorrect words, spelling, and punctuation that were not noted in checking the note before signing.
[2017-10-05] MEDS: Pregabalin 50 MG Capsule PO ×4 (10:13→22:41)
--- NOTE | 2017-10-05 12:47 | CASEMGMT ---
DAVID spoke with patient's daughter to make sure she is still okay with taking patient home. She said she is still okay with home. DAVID told her that if she changes her mind to ask for SW. She thanked DAVID for checking in with her. Deedee OSBORNE MSW
[2017-10-05] MEDS: Anastrozole 1 MG Tablet PO (17:26)
[2017-10-05] MEDS: oxyCODONE 5 MG Tablet PO (17:33)
--- NOTE | 2017-10-05 18:42 | PCM.PROGNOTE ---
Patient Problems: Active and Suspected Problems Chest pain (Acute) Abnormal cardiac enzyme level (Acute) Subjective: She is confused, at baseline. She had another episodes of SVT with rate in 160's last evening. Metoprolol 2.5 mg IVP given without improvement. Diltiazem 20 mg IVP given, which had converted to normal rate. Diltiazem drip was not started. She has been in mild bradycardia since then without additional episodes. Objective: - Physical Exam General: Cooperative, Confused HEENT: Atraumatic, PERRLA Oral: Moist Mucosa, No Gingival or Mucosal Lesions/ Ulcerations Neck: Supple, No JVD, Negative Carotid Bruits Lungs: Clear to auscultation, Normal air movement, No rhonchi, No wheeze, No rales Cardiovascular: Regular rate, Regular Rhythm, Normal S1, Normal S2, No murmurs, No Ectopic Activity Abdomen: Bowel Sounds Present, Soft, Non Tender, Non-Distended, No Hepato-splenomegaly, Passing Flatus Extremities: No clubbing, No cyanosis, Edema - 1+ edema bilaterally. Skin: No rashes Musculoskeletal: No Tenderness to Palpation of Joints or Extremities, No Muscle Wasting Lymphatic: No Cervical, Supraclavicular, or Inguinal Adenopathy Neurological: Cranial nerves II-XII grossly intact, Neuro grossly intact Psych/Mental Status: Depressed mood. - Physical Exam Vital Signs Temp Pulse Resp BP Pulse Ox 97.1 F L 55 L 22 H 133/71 H 97 10/05/17 15:11 10/05/17 16:11 10/05/17 15:11 10/05/17 15:11 10/05/17 15:11 Oxygen Flow Rate (L/min) 2 Oxygen Delivery Method Nasal Cannula Weight: 205 lb 0.478 oz Body Mass Index (BMI) 32.1 Intake and Output for Last 24 Hours 10/03/17 10/04/17 10/05/17 23:59 23:59 23:59 Intake Total 2210 / 2210 3052 / 3052 1625 / 1625 Output Total 275 / 275 600 / 600 200 / 200 Balance 1935 / 1935 2452 / 2452 1425 / 1425 Laboratory Tests Past 24 Hrs 10/05/17 10/05/17 06:30 06:30 WBC 8.5 RBC 3.43 L Hgb 9.9 L Hct 31.2 L MCV 91.0 MCH 28.9 MCHC 31.7 L RDW 15.0 H RDW Differential 49.1 H Plt Count 235 MPV 11.1 Sodium 143 Potassium 3.9 Chloride 114 H Carbon Dioxide 22.0 Anion Gap 7 BUN 26 H Creatinine 0.83 Estim Creat Clear Calc 54.32 Est GFR (MDRD) Af Amer 85 Est GFR (MDRD) Non-Af 70 BUN/Creatinine Ratio 31.2 H Glucose 97 Calcium 8.3 L Diagnostic Data Chest X-Ray 10/02/17 09:18 IMPRESSION: Stable examination. Electronically Signed: Jacob Daniel MD at 10:19 EDT Tel [phone], Service support , Chest CTA 10/02/17 09:43 IMPRESSION: Bilateral central and peripheral pulmonary arterial emboli. 2.5 cm right adrenal adenoma. N.B. : The above information has been verbally conveyed by Jacob Daniel MD to Juan Alberto Ace on 10/02/2017 10:32:14 (ET). Electronically Signed: Jacob Daniel MD at 10:33 EDT Tel [phone], Service support , N.B. : The above information has been verbally conveyed by Jacob Daniel MD to Juan Alberto Aec on 10/02/2017 10:32:14 (ET). Medical Necessity - Tobacco Use Smoking Status: Never smoker Assessment/Plan Active and Suspected Problems Chest pain (Acute) Abnormal cardiac enzyme level (Acute) Patient is a 77-year-old lady with multiple comorbidities presented with PSVT found to have bilateral pulmonary embolism on admission 1. Acute bilateral pulmonary embolism. Patient was previously on Xarelto came off 3 weeks prior to her admission heparin was initiated in the ED;echo ordered for RV function assessment. Did discuss case with patient's daughter on the need for patient to be on systemic anticoagulation permanently since this is her second VTE. Echo demonstrated mildly dilated right ventricle with moderate pulmonary hypertension with RVSP of 54 mmHg. 2. PSVT Likely due to reentrant tachycardia. Cardiology consultation appreciated. On beta-justino, titrating to control rate and occasional PAC. Currently on 100 mg po bid. She has mild bradycardia now without having PSVT (10/05). She had recurrent episodes, treated with adenosine and diltiazem. It has been effective to convert to normal rhythm with these agents. Per cardiology, consider to transfer for electrophysiology study if she continues to have episodes. 3. Acute cystitis culture sent started on Rocephin 4. History of right breast CA patient is on adjuvant hormonal therapy with with Arimidex 5. Obesity with BMI of 32.1 6. GERD patient is on PPI 7. Dementia without behavioral agitation VTE prophylaxis: Xarelto. GI prophylaxis: PPI po. She is full code. Disposition: Home in 1 to 2 days. Code Visit Inpatient E&M: 86675 Subs Hosp L2
--- NOTE | 2017-10-05 18:53 | PN_ITS ---
Patient Problems: Active and Suspected Problems Chest pain (Acute) Abnormal cardiac enzyme level (Acute) Subjective: She is confused, at baseline. She had another episodes of SVT with rate in 160's last evening. Metoprolol 2.5 mg IVP given without improvement. Diltiazem 20 mg IVP given, which had converted to normal rate. Diltiazem drip was not started. She has been in mild bradycardia since then without additional episodes. Objective: - Physical Exam General: Cooperative, Confused HEENT: Atraumatic, PERRLA Oral: Moist Mucosa, No Gingival or Mucosal Lesions/ Ulcerations Neck: Supple, No JVD, Negative Carotid Bruits Lungs: Clear to auscultation, Normal air movement, No rhonchi, No wheeze, No rales Cardiovascular: Regular rate, Regular Rhythm, Normal S1, Normal S2, No murmurs, No Ectopic Activity Abdomen: Bowel Sounds Present, Soft, Non Tender, Non-Distended, No Hepato- splenomegaly, Passing Flatus Extremities: No clubbing, No cyanosis, Edema - 1+ edema bilaterally. Skin: No rashes Musculoskeletal: No Tenderness to Palpation of Joints or Extremities, No Muscle Wasting Lymphatic: No Cervical, Supraclavicular, or Inguinal Adenopathy Neurological: Cranial nerves II-XII grossly intact, Neuro grossly intact Psych/Mental Status: Depressed mood. - Physical Exam Vital Signs Temp Pulse Resp BP Pulse Ox 97.1 F L 55 L 22 H 133/71 H 97 10/05/17 15:11 10/05/17 16:11 10/05/17 15:11 10/05/17 15:11 10/05/17 15:11 Oxygen Flow Rate (L/min) 2 Oxygen Delivery Method Nasal Cannula Weight: 205 lb 0.478 oz Body Mass Index (BMI) 32.1 Intake and Output for Last 24 Hours 10/03/17 10/04/17 10/05/17 23:59 23:59 23:59 Intake Total 2210 / 2210 3052 / 3052 1625 / 1625 Output Total 275 / 275 600 / 600 200 / 200 Balance 1935 / 1935 2452 / 2452 1425 / 1425 Laboratory Tests Past 24 Hrs 10/05/17 10/05/17 06:30 06:30 WBC 8.5 RBC 3.43 L Hgb 9.9 L Hct 31.2 L MCV 91.0 MCH 28.9 MCHC 31.7 L RDW 15.0 H RDW Differential 49.1 H Plt Count 235 MPV 11.1 Sodium 143 Potassium 3.9 Chloride 114 H Carbon Dioxide 22.0 Anion Gap 7 BUN 26 H Creatinine 0.83 Estim Creat Clear Calc 54.32 Est GFR (MDRD) Af Amer 85 Est GFR (MDRD) Non-Af 70 BUN/Creatinine Ratio 31.2 H Glucose 97 Calcium 8.3 L Diagnostic Data Chest X-Ray 10/02/17 09:18 IMPRESSION: Stable examination. Electronically Signed: Jacob Daniel MD at 10:19 EDT Tel [phone], Service support , Chest CTA 10/02/17 09:43 IMPRESSION: Bilateral central and peripheral pulmonary arterial emboli. 2.5 cm right adrenal adenoma. N.B. : The above information has been verbally conveyed by Jacob Daniel MD to Juan Alberto Ace on 10/02/2017 10:32:14 (ET). Electronically Signed: Jacob Daniel MD at 10:33 EDT Tel [phone], Service support , N.B. : The above information has been verbally conveyed by Jacob Daniel MD to Juan Alberto Ace on 10/02/2017 10:32:14 (ET). Medical Necessity - Tobacco Use Smoking Status: Never smoker Assessment/Plan Active and Suspected Problems Chest pain (Acute) Abnormal cardiac enzyme level (Acute) Patient is a 77-year-old lady with multiple comorbidities presented with PSVT found to have bilateral pulmonary embolism on admission 1. Acute bilateral pulmonary embolism. Patient was previously on Xarelto came off 3 weeks prior to her admission heparin was initiated in the ED;echo ordered for RV function assessment. Did discuss case with patient's daughter on the need for patient to be on systemic anticoagulation permanently since this is her second VTE. Echo demonstrated mildly dilated right ventricle with moderate pulmonary hypertension with RVSP of 54 mmHg. 2. PSVT Likely due to reentrant tachycardia. Cardiology consultation appreciated. On beta-justino, titrating to control rate and occasional PAC. Currently on 100 mg po bid. She has mild bradycardia now without having PSVT (10/05). She had recurrent episodes, treated with adenosine and diltiazem. It has been effective to convert to normal rhythm with these agents. Per cardiology, consider to transfer for electrophysiology study if she continues to have episodes. 3. Acute cystitis culture sent started on Rocephin 4. History of right breast CA patient is on adjuvant hormonal therapy with with Arimidex 5. Obesity with BMI of 32.1 6. GERD patient is on PPI 7. Dementia without behavioral agitation VTE prophylaxis: Xarelto. GI prophylaxis: PPI po. She is full code. Disposition: Home in 1 to 2 days. Code Visit Inpatient E&M: 73834 Subs Hosp L2
[2017-10-05] MEDS: MELATONIN 10 MG TABLET 5 MG PO (22:40)
[2017-10-06] VITALS (20 sets, daily range): BP systolic 96–124; BP diastolic 66–95; PULSE 49–161; RESP 16–18; TEMP 35.8–36.7; O2SAT 94–96
[2017-10-06 06:27] LABS: Hematocrit 30.5 % (37-47); Hemoglobin 9.8 g/dl (12.0-15.0); Mean Corp Hgb Conc 32.1 g/gl (32-36); Mean Corpuscular Hgb 29.1 pg (27.0-32.0); Mean Corpuscular Volume 90.5 fL (81-99); Mean Platelet Vol. 10.6 fl (6.2-12.0); Platelet Count 278 K/mm3 (150-450); RBC Distribution Width CV 14.9 % (11.6-14.6); Red Blood Count 3.37 M/mm3 (4.2-5.4); White Blood Count 7.7 K/mm3 (4.4-11.0)
[2017-10-06 06:33] LABS: Scan Indicated on CBC? Y/N NO
[2017-10-06] MEDS: 0.9% NaCl Peripheral Flush Adult/Peds IV (06:35)
[2017-10-06] MEDS: 0.9% Normal Saline 1,000 ML 75 ML IV ×2 (06:56→21:56)
[2017-10-06 07:00] LABS: Anion Gap 7 (5-15); BUN 20 mg/dL (7-18); BUN/Creat Ratio 31.5 RATIO (10-20); Calcium,Total 8.1 mg/dL (8.5-10.1); Chloride 114 mmol/L (98-107); Creatinine, Serum 0.64 mg/dL (0.55-1.02); EST Glomerular Filtration Rate 96 mL/min (>60); Est Glom Filt Rate - Afr Amer 116 mL/min (>60); Estimated Creatinine Clearance 45.09 ml/min; Glucose 92 mg/dL (74-106); Potassium 3.7 mmol/L (3.5-5.1); Sodium Level 142 mmol/L (136-145)
[2017-10-06] MEDS: oxyCODONE 5 MG Tablet PO (08:44)
[2017-10-06] MEDS: Docusate Sodium 100 MG Capsule 200 MG PO (08:46)
[2017-10-06] MEDS: Pantoprazole Sodium 40 MG Tablet PO (08:46)
[2017-10-06] MEDS: tiZANidine HCl 2 MG Tablet 4 MG PO ×2 (08:47→21:55)
[2017-10-06] MEDS: Aspirin 81 MG TAB.CHEW PO (08:48)
[2017-10-06] MEDS: Rivaroxaban 15 MG Tablet PO ×2 (08:48→17:30)
[2017-10-06] MEDS: Multivitamins,Ther W-Minerals Tablet 1 TABLET PO ×2 (08:49→08:53)
[2017-10-06] MEDS: Pregabalin 50 MG Capsule PO ×4 (08:56→22:00)
--- NOTE | 2017-10-06 13:07 | NURSING ---
had burst of svt for approx 2 minuted converted back to sb with pac without intervention
[2017-10-06] MEDS: Memantine Hydrochloride 10 MG Tablet PO ×2 (14:19→21:56)
[2017-10-06] MEDS: Metoprolol Tartrate 100 MG Tablet PO ×2 (14:41→21:55)
[2017-10-06] MEDS: Anastrozole 1 MG Tablet PO (15:54)
--- NOTE | 2017-10-06 15:54 | CASEMGMT ---
Patient's daughter is now telling RN she is concerned about taking patient home. Monday SW will check in with patient's daughter on Monday. SW did talk with patient's daughter yesterday and she said she was okay taking patient home. Deedee OSBORNE MSW
--- NOTE | 2017-10-06 16:03 | PCM.PROGNOTE ---
Patient Problems: Active and Suspected Problems Chest pain (Acute) Abnormal cardiac enzyme level (Acute) Subjective: She is lethargic today. Discuss her condition with her daughter, who ix the primary critical care rn. She did not have further episodes of reentrant tachycardia since yesterday. Objective: - Physical Exam General: Cooperative, Confused HEENT: Atraumatic, PERRLA Oral: Moist Mucosa, No Gingival or Mucosal Lesions/ Ulcerations Neck: Supple, No JVD, Negative Carotid Bruits Lungs: Clear to auscultation, Normal air movement, No rhonchi, No wheeze, No rales Cardiovascular: Regular rate, Regular Rhythm, Normal S1, Normal S2, No murmurs, No Ectopic Activity Abdomen: Bowel Sounds Present, Soft, Non Tender, Non-Distended, No Hepato-splenomegaly, Passing Flatus Extremities: No clubbing, No cyanosis, Edema - 1+ edema bilaterally. Skin: No rashes Musculoskeletal: No Tenderness to Palpation of Joints or Extremities, No Muscle Wasting Lymphatic: No Cervical, Supraclavicular, or Inguinal Adenopathy Neurological: Cranial nerves II-XII grossly intact, Neuro grossly intact Psych/Mental Status: Depressed mood. - Physical Exam Vital Signs Temp Pulse Resp BP Pulse Ox 98.1 F 54 L 18 96/66 94 10/06/17 12:30 10/06/17 14:41 10/06/17 14:00 10/06/17 14:41 10/06/17 14:00 Oxygen Flow Rate (L/min) 2 Oxygen Delivery Method Nasal Cannula Weight: 205 lb 0.478 oz Body Mass Index (BMI) 32.1 Intake and Output for Last 24 Hours 10/04/17 10/05/17 10/06/17 23:59 23:59 23:59 Intake Total 3052 / 3052 2054 / 2054 1277 / 1277 Output Total 600 / 600 300 / 300 100 / 100 Balance 2452 / 2452 1754 / 1754 1177 / 1177 Laboratory Tests Past 24 Hrs 10/06/17 10/06/17 10/06/17 06:10 06:10 06:10 WBC 7.7 RBC 3.37 L Hgb 9.8 L Hct 30.5 L MCV 90.5 MCH 29.1 MCHC 32.1 RDW 14.9 H RDW Differential 48.0 H Plt Count 278 MPV 10.6 Sodium 142 Potassium 3.7 Chloride 114 H Carbon Dioxide 21.0 Anion Gap 7 BUN 20 H Creatinine 0.64 Estim Creat Clear Calc 45.09 Est GFR (MDRD) Af Amer 116 Est GFR (MDRD) Non-Af 96 BUN/Creatinine Ratio 31.5 H Glucose 92 Calcium 8.1 L Magnesium 2.0 Cancelled Diagnostic Data Chest X-Ray 10/02/17 09:18 IMPRESSION: Stable examination. Electronically Signed: Jacob Daniel MD at 10:19 EDT Tel [phone], Service support , Chest CTA 10/02/17 09:43 IMPRESSION: Bilateral central and peripheral pulmonary arterial emboli. 2.5 cm right adrenal adenoma. N.B. : The above information has been verbally conveyed by Jacob Daniel MD to Juan Alberto Ace on 10/02/2017 10:32:14 (ET). Electronically Signed: Jacob Daniel MD at 10:33 EDT Tel [phone], Service support , N.B. : The above information has been verbally conveyed by Jacob Daniel MD to Juan Alberto Ace on 10/02/2017 10:32:14 (ET). Medical Necessity - Tobacco Use Smoking Status: Never smoker Assessment/Plan Active and Suspected Problems Chest pain (Acute) Abnormal cardiac enzyme level (Acute) Patient is a 77-year-old lady with multiple comorbidities presented with PSVT found to have bilateral pulmonary embolism on admission 1. Acute bilateral pulmonary embolism. Patient was previously on Xarelto came off 3 weeks prior to her admission heparin was initiated in the ED;echo ordered for RV function assessment. Did discuss case with patient's daughter on the need for patient to be on systemic anticoagulation permanently since this is her second VTE. Echo demonstrated mildly dilated right ventricle with moderate pulmonary hypertension with RVSP of 54 mmHg. 2. PSVT Likely due to reentrant tachycardia. Cardiology consultation appreciated. On beta-justino, titrating to control rate and occasional PAC. Currently on 100 mg po bid. She has mild bradycardia now without having PSVT (10/05). She had recurrent episodes, treated with adenosine and diltiazem. It has been effective to convert to normal rhythm with these agents. Per cardiology, no plans of transfer for electrophysiology study now, as she is able to maintain normal rate. She is slightly bradycardic, but stable with metoprolol 100 mg po bid. 3. Acute cystitis culture sent started on Rocephin 4. History of right breast CA patient is on adjuvant hormonal therapy with with Arimidex 5. Obesity with BMI of 32.1 6. GERD patient is on PPI 7. Dementia without behavioral agitation VTE prophylaxis: Xarelto. GI prophylaxis: PPI po. She is full code. Disposition: ECF. Patient's daughter changed her mind that she is unable to take care of her at home with current condition. Code Visit Inpatient E&M: 60366 Subs Hosp L2
--- NOTE | 2017-10-06 16:09 | PN_ITS ---
Patient Problems: Active and Suspected Problems Chest pain (Acute) Abnormal cardiac enzyme level (Acute) Subjective: She is lethargic today. Discuss her condition with her daughter, who ix the primary acute care physical therapist. She did not have further episodes of reentrant tachycardia since yesterday. Objective: - Physical Exam General: Cooperative, Confused HEENT: Atraumatic, PERRLA Oral: Moist Mucosa, No Gingival or Mucosal Lesions/ Ulcerations Neck: Supple, No JVD, Negative Carotid Bruits Lungs: Clear to auscultation, Normal air movement, No rhonchi, No wheeze, No rales Cardiovascular: Regular rate, Regular Rhythm, Normal S1, Normal S2, No murmurs, No Ectopic Activity Abdomen: Bowel Sounds Present, Soft, Non Tender, Non-Distended, No Hepato- splenomegaly, Passing Flatus Extremities: No clubbing, No cyanosis, Edema - 1+ edema bilaterally. Skin: No rashes Musculoskeletal: No Tenderness to Palpation of Joints or Extremities, No Muscle Wasting Lymphatic: No Cervical, Supraclavicular, or Inguinal Adenopathy Neurological: Cranial nerves II-XII grossly intact, Neuro grossly intact Psych/Mental Status: Depressed mood. - Physical Exam Vital Signs Temp Pulse Resp BP Pulse Ox 98.1 F 54 L 18 96/66 94 10/06/17 12:30 10/06/17 14:41 10/06/17 14:00 10/06/17 14:41 10/06/17 14:00 Oxygen Flow Rate (L/min) 2 Oxygen Delivery Method Nasal Cannula Weight: 205 lb 0.478 oz Body Mass Index (BMI) 32.1 Intake and Output for Last 24 Hours 10/04/17 10/05/17 10/06/17 23:59 23:59 23:59 Intake Total 3052 / 3052 2054 / 2054 1277 / 1277 Output Total 600 / 600 300 / 300 100 / 100 Balance 2452 / 2452 1754 / 1754 1177 / 1177 Laboratory Tests Past 24 Hrs 10/06/17 10/06/17 10/06/17 06:10 06:10 06:10 WBC 7.7 RBC 3.37 L Hgb 9.8 L Hct 30.5 L MCV 90.5 MCH 29.1 MCHC 32.1 RDW 14.9 H RDW Differential 48.0 H Plt Count 278 MPV 10.6 Sodium 142 Potassium 3.7 Chloride 114 H Carbon Dioxide 21.0 Anion Gap 7 BUN 20 H Creatinine 0.64 Estim Creat Clear Calc 45.09 Est GFR (MDRD) Af Amer 116 Est GFR (MDRD) Non-Af 96 BUN/Creatinine Ratio 31.5 H Glucose 92 Calcium 8.1 L Magnesium 2.0 Cancelled Diagnostic Data Chest X-Ray 10/02/17 09:18 IMPRESSION: Stable examination. Electronically Signed: Jacob Daniel MD at 10:19 EDT Tel [phone], Service support , Chest CTA 10/02/17 09:43 IMPRESSION: Bilateral central and peripheral pulmonary arterial emboli. 2.5 cm right adrenal adenoma. N.B. : The above information has been verbally conveyed by Jacob Daniel MD to Juan Alberto Ace on 10/02/2017 10:32:14 (ET). Electronically Signed: Jacob Daniel MD at 10:33 EDT Tel [phone], Service support , N.B. : The above information has been verbally conveyed by Jacob Daniel MD to Juan Alberto Ace on 10/02/2017 10:32:14 (ET). Medical Necessity - Tobacco Use Smoking Status: Never smoker Assessment/Plan Active and Suspected Problems Chest pain (Acute) Abnormal cardiac enzyme level (Acute) Patient is a 77-year-old lady with multiple comorbidities presented with PSVT found to have bilateral pulmonary embolism on admission 1. Acute bilateral pulmonary embolism. Patient was previously on Xarelto came off 3 weeks prior to her admission heparin was initiated in the ED;echo ordered for RV function assessment. Did discuss case with patient's daughter on the need for patient to be on systemic anticoagulation permanently since this is her second VTE. Echo demonstrated mildly dilated right ventricle with moderate pulmonary hypertension with RVSP of 54 mmHg. 2. PSVT Likely due to reentrant tachycardia. Cardiology consultation appreciated. On beta-justino, titrating to control rate and occasional PAC. Currently on 100 mg po bid. She has mild bradycardia now without having PSVT (10/05). She had recurrent episodes, treated with adenosine and diltiazem. It has been effective to convert to normal rhythm with these agents. Per cardiology, no plans of transfer for electrophysiology study now, as she is able to maintain normal rate. She is slightly bradycardic, but stable with metoprolol 100 mg po bid. 3. Acute cystitis culture sent started on Rocephin 4. History of right breast CA patient is on adjuvant hormonal therapy with with Arimidex 5. Obesity with BMI of 32.1 6. GERD patient is on PPI 7. Dementia without behavioral agitation VTE prophylaxis: Xarelto. GI prophylaxis: PPI po. She is full code. Disposition: ECF. Patient's daughter changed her mind that she is unable to take care of her at home with current condition. Code Visit Inpatient E&M: 32984 Subs Hosp L2
--- NOTE | 2017-10-06 18:43 | PCM.PN.CARD ---
Subjectve: The patient remains with complaints of diffuse body aches. Objective: Vital Signs Temp Pulse Resp BP Pulse Ox 97.7 F L 54 L 16 112/73 94 10/06/17 16:00 10/06/17 17:33 10/06/17 17:33 10/06/17 16:00 10/06/17 17:33 Oxygen Flow Rate (L/min) 2 Oxygen Delivery Method Nasal Cannula Weight: 205 lb 0.478 oz Body Mass Index (BMI) 32.1 Intake and Output for Last 24 Hours 10/04/17 10/05/17 10/06/17 23:59 23:59 23:59 Intake Total 3052 / 3052 2054 / 2054 1797 / 1797 Output Total 600 / 600 300 / 300 350 / 350 Balance 2452 / 2452 1754 / 1754 1447 / 1447 General: Awake, Cooperative, No Acute Distress Lungs: Clear to auscultation Cardiovascular: Regular Rhythm, Normal S1, Normal S2 Abdomen: Bowel Sounds Present, Soft, Non Tender Extremities: No edema 10/06/17 06:10: WBC 7.7, RBC 3.37 L, Hgb 9.8 L, Hct 30.5 L, MCV 90.5, MCH 29.1, MCHC 32.1, RDW 14.9 H, RDW Differential 48.0 H, Plt Count 278, MPV 10.6 10/06/17 06:10: Sodium 142, Potassium 3.7, Chloride 114 H, Carbon Dioxide 21.0, Anion Gap 7, BUN 20 H, Creatinine 0.64, Est GFR (MDRD) Af Amer 116, Est GFR (MDRD) Non-Af 96, BUN/Creatinine Ratio 31.5 H, Glucose 92, Calcium 8.1 L, Magnesium 2.0 10/06/17 06:10: Magnesium Cancelled Rhythm: This rhythm; 2 brief episodes of PSVT with spontaneous conversion to sinus rhythm Medical Necessity - Tobacco Use Smoking Status: Never smoker Assessment/Plan 1. Paroxysmal supraventricular tachycardia The patient has had recurrent paroxysmal supraventricular tachycardia. She does have a history of this. 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 This may be secondary to the patient's pulmonary emboli as was noted in the past. She has had recurrent episodes. He continued to be amenable to IV adenosine reportedly IV diltiazem. She is on rate limiting therapy with beta-blockers. Her dose has been increased. Her case was discussed with Dr. Chandler VAZQUEZ yesterday. Status post review of the case he recommended continued conservative medical management. He noted the patient was not an ideal candidate for further invasive evaluation or care at this time. 2. Pulmonary emboli She does appear to have recurrent bilateral pulmonary emboli both central and peripheral. This may be secondary to her history of breast carcinoma. This could lead to her PSVT, abnormal cardiac enzymes based upon RV strain, symptoms of chest discomfort and dyspnea, etc. She continues on anticoagulant therapy with oral anticoagulants at this time. 3. Chest pain The patient has had chest pain and dyspnea. Again this may be secondary to her pulmonary emboli and her PSVT as opposed to a primary acute cardiovascular/coronary event. The present time she appears to be symptomatically improved. She will continue medical management and follow-up. The patient will need continued treatment of her pulmonary emboli which again could be the etiology of her chest discomfort. 4. Abnormal cardiac enzymes She does have abnormal cardiac enzymes. Again these may be secondary to her findings of pulmonary emboli with RV strain. However she is being monitored for any obvious evidence of a true acute coronary syndrome event. She will be treated medically with aspirin, nitrates as needed, beta-blockers, and anticoagulants. Other agents can be used as deemed appropriate. 5. Breast cancer The patient does have history of breast cancer. According to her daughter this does involve lymph nodes. She has continued medical management. Her breast cancer can be a predisposing factor to her recurrent pulmonary emboli which can then lead to her symptoms, PSVT, abnormal cardiac enzymes, etc. The patient is unclear as to her ongoing treatment with respect to her breast carcinoma or her past treatment with respect chemotherapy or radiation therapy, etc. 6. Dementia The patient does have a report of significant dementia. This does play a role with respect to her ongoing evaluation and care above and beyond conservative medical management. This could create a challenge with respect to the patient being able to understand and cooperate with further invasive procedures/intervention as well as post procedure related care. Patient's case has been discussed and reviewed with Dr. Hayward. This note was generated with [employer] software. It may contain incorrect words, spelling, and punctuation that were not noted in checking the note before signing.
--- NOTE | 2017-10-06 18:46 | PN.CARD_ITS ---
Subjectve: The patient remains with complaints of diffuse body aches. Objective: Vital Signs Temp Pulse Resp BP Pulse Ox 97.7 F L 54 L 16 112/73 94 10/06/17 16:00 10/06/17 17:33 10/06/17 17:33 10/06/17 16:00 10/06/17 17:33 Oxygen Flow Rate (L/min) 2 Oxygen Delivery Method Nasal Cannula Weight: 205 lb 0.478 oz Body Mass Index (BMI) 32.1 Intake and Output for Last 24 Hours 10/04/17 10/05/17 10/06/17 23:59 23:59 23:59 Intake Total 3052 / 3052 2054 / 2054 1797 / 1797 Output Total 600 / 600 300 / 300 350 / 350 Balance 2452 / 2452 1754 / 1754 1447 / 1447 General: Awake, Cooperative, No Acute Distress Lungs: Clear to auscultation Cardiovascular: Regular Rhythm, Normal S1, Normal S2 Abdomen: Bowel Sounds Present, Soft, Non Tender Extremities: No edema 10/06/17 06:10: WBC 7.7, RBC 3.37 L, Hgb 9.8 L, Hct 30.5 L, MCV 90.5, MCH 29.1, MCHC 32.1, RDW 14.9 H, RDW Differential 48.0 H, Plt Count 278, MPV 10.6 10/06/17 06:10: Sodium 142, Potassium 3.7, Chloride 114 H, Carbon Dioxide 21.0, Anion Gap 7, BUN 20 H, Creatinine 0.64, Est GFR (MDRD) Af Amer 116, Est GFR ( MDRD) Non-Af 96, BUN/Creatinine Ratio 31.5 H, Glucose 92, Calcium 8.1 L, Magnesium 2.0 10/06/17 06:10: Magnesium Cancelled Rhythm: This rhythm; 2 brief episodes of PSVT with spontaneous conversion to sinus rhythm Medical Necessity - Tobacco Use Smoking Status: Never smoker Assessment/Plan 1. Paroxysmal supraventricular tachycardia The patient has had recurrent paroxysmal supraventricular tachycardia. She does have a history of this. 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 This may be secondary to the patient's pulmonary emboli as was noted in the past. She has had recurrent episodes. He continued to be amenable to IV adenosine reportedly IV diltiazem. She is on rate limiting therapy with beta-blockers. Her dose has been increased. Her case was discussed with Dr. Chandler VAZQUEZ yesterday. Status post review of the case he recommended continued conservative medical management. He noted the patient was not an ideal candidate for further invasive evaluation or care at this time. 2. Pulmonary emboli She does appear to have recurrent bilateral pulmonary emboli both central and peripheral. This may be secondary to her history of breast carcinoma. This could lead to her PSVT, abnormal cardiac enzymes based upon RV strain, symptoms of chest discomfort and dyspnea, etc. She continues on anticoagulant therapy with oral anticoagulants at this time. 3. Chest pain The patient has had chest pain and dyspnea. Again this may be secondary to her pulmonary emboli and her PSVT as opposed to a primary acute cardiovascular/ coronary event. The present time she appears to be symptomatically improved. She will continue medical management and follow-up. The patient will need continued treatment of her pulmonary emboli which again could be the etiology of her chest discomfort. 4. Abnormal cardiac enzymes She does have abnormal cardiac enzymes. Again these may be secondary to her findings of pulmonary emboli with RV strain. However she is being monitored for any obvious evidence of a true acute coronary syndrome event. She will be treated medically with aspirin, nitrates as needed, beta-blockers, and anticoagulants. Other agents can be used as deemed appropriate. 5. Breast cancer The patient does have history of breast cancer. According to her daughter this does involve lymph nodes. She has continued medical management. Her breast cancer can be a predisposing factor to her recurrent pulmonary emboli which can then lead to her symptoms, PSVT, abnormal cardiac enzymes, etc. The patient is unclear as to her ongoing treatment with respect to her breast carcinoma or her past treatment with respect chemotherapy or radiation therapy, etc. 6. Dementia The patient does have a report of significant dementia. This does play a role with respect to her ongoing evaluation and care above and beyond conservative medical management. This could create a challenge with respect to the patient being able to understand and cooperate with further invasive procedures/ intervention as well as post procedure related care. Patient's case has been discussed and reviewed with Dr. Hayward. This note was generated with [employer] software. It may contain incorrect words, spelling, and punctuation that were not noted in checking the note before signing.
[2017-10-06] MEDS: MELATONIN 10 MG TABLET 5 MG PO (21:56)
[2017-10-07] VITALS (15 sets, daily range): BP systolic 91–136; BP diastolic 42–67; PULSE 45–73; RESP 16–18; TEMP 36.4–37.2; O2SAT 94–96
[2017-10-07 06:17] LABS: Hematocrit 31.7 % (37-47); Hemoglobin 10.2 g/dl (12.0-15.0); Mean Corp Hgb Conc 32.2 g/gl (32-36); Mean Corpuscular Hgb 29.1 pg (27.0-32.0); Mean Corpuscular Volume 90.3 fL (81-99); Mean Platelet Vol. 10.7 fl (6.2-12.0); Platelet Count 314 K/mm3 (150-450); RBC Distribution Width CV 14.9 % (11.6-14.6); RBC Distribution Width SD 48.4 fl (35.1-43.9); Red Blood Count 3.51 M/mm3 (4.2-5.4); White Blood Count 7.4 K/mm3 (4.4-11.0)
[2017-10-07 06:22] LABS: Scan Indicated on CBC? Y/N NO
[2017-10-07 06:38] LABS: Anion Gap 7 (5-15); BUN 17 mg/dL (7-18); Calcium,Total 8.3 mg/dL (8.5-10.1); Chloride 112 mmol/L (98-107); Creatinine, Serum 0.57 mg/dL (0.55-1.02); EST Glomerular Filtration Rate 110 mL/min (>60); Est Glom Filt Rate - Afr Amer 133 mL/min (>60); Estimated Creatinine Clearance 45.09 ml/min; Glucose 82 mg/dL (74-106); Magnesium 1.9 mg/dL (1.6-2.6); Potassium 3.8 mmol/L (3.5-5.1); Sodium Level 140 mmol/L (136-145)
[2017-10-07] MEDS: HYDROcodone Bitartrate/Apap 5/325 Tablet PO ×3 (07:43→21:54)
[2017-10-07] MEDS: Rivaroxaban 15 MG Tablet PO ×2 (07:43→17:00)
[2017-10-07] MEDS: Aspirin 81 MG TAB.CHEW PO (07:43)
[2017-10-07] MEDS: Pantoprazole Sodium 40 MG Tablet PO (09:30)
[2017-10-07] MEDS: Memantine Hydrochloride 10 MG Tablet PO ×2 (09:30→21:53)
[2017-10-07] MEDS: Docusate Sodium 100 MG Capsule 200 MG PO (09:30)
[2017-10-07] MEDS: tiZANidine HCl 2 MG Tablet 4 MG PO ×2 (09:30→21:53)
[2017-10-07] MEDS: Pregabalin 50 MG Capsule PO ×4 (09:30→21:53)
[2017-10-07] MEDS: Metoprolol Tartrate 100 MG Tablet PO ×2 (10:26→21:53)
[2017-10-07] MEDS: 0.9% Normal Saline 1,000 ML 75 ML IV (11:37)
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
--- NOTE | 2017-10-07 15:51 | PCM.PN.CARD ---
Subjectve: The patient is without acute change respect to ongoing symptoms and concerns. Objective: Vital Signs Temp Pulse Resp BP Pulse Ox 98.9 F 55 L 18 116/66 94 10/07/17 15:25 10/07/17 15:25 10/07/17 15:25 10/07/17 15:25 10/07/17 15:25 Oxygen Flow Rate (L/min) 2 Oxygen Delivery Method Room Air Weight: 205 lb 0.478 oz Body Mass Index (BMI) 32.1 Intake and Output for Last 24 Hours 10/05/17 10/06/17 10/07/17 23:59 23:59 23:59 Intake Total 2053 / 2053 2531 / 2531 1353 / 1353 Output Total 300 / 300 600 / 600 400 / 400 Balance 1754 / 1754 1931 / 1931 953 / 953 General: Awake, Cooperative, No Acute Distress Lungs: Clear to auscultation Cardiovascular: Regular Rhythm, Normal S1, Normal S2 Abdomen: Bowel Sounds Present, Soft, Non Tender Extremities: No edema 10/07/17 05:47: WBC 7.4, RBC 3.51 L, Hgb 10.2 L, Hct 31.7 L, MCV 90.3, MCH 29.1, MCHC 32.2, RDW 14.9 H, RDW Differential 48.4 H, Plt Count 314, MPV 10.7 10/07/17 05:47: Sodium 140, Potassium 3.8, Chloride 112 H, Carbon Dioxide 21.0, Anion Gap 7, BUN 17, Creatinine 0.57, Est GFR (MDRD) Af Amer 133, Est GFR (MDRD) Non-Af 110, BUN/Creatinine Ratio 30.0 H, Glucose 82, Calcium 8.3 L, Magnesium 1.9 Rhythm: Sinus rhythm Medical Necessity - Tobacco Use Smoking Status: Never smoker Assessment/Plan 1. Paroxysmal supraventricular tachycardia The patient has had recurrent paroxysmal supraventricular tachycardia. She does have a history of this. 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 This may be secondary to the patient's pulmonary emboli as was noted in the past. She has had recurrent episodes. Ever, it does not appear there has been any recurrent episodes since yesterday. She is on rate limiting therapy with beta-blockers. Her dose has been increased. Her case was discussed with Dr. Chandler VAZQUEZ yesterday. Status post review of the case he recommended continued conservative medical management. He noted the patient was not an ideal candidate for further invasive evaluation or care at this time. 2. Pulmonary emboli She does appear to have recurrent bilateral pulmonary emboli both central and peripheral. This may be secondary to her history of breast carcinoma. This could lead to her PSVT, abnormal cardiac enzymes based upon RV strain, symptoms of chest discomfort and dyspnea, etc. She continues on anticoagulant therapy with oral anticoagulants at this time. 3. Chest pain The patient has had chest pain and dyspnea. Again this may be secondary to her pulmonary emboli and her PSVT as opposed to a primary acute cardiovascular/coronary event. The present time she appears to be symptomatically improved. She will continue medical management and follow-up. The patient will need continued treatment of her pulmonary emboli which again could be the etiology of her chest discomfort. 4. Abnormal cardiac enzymes She does have abnormal cardiac enzymes. Again these may be secondary to her findings of pulmonary emboli with RV strain. However she is being monitored for any obvious evidence of a true acute coronary syndrome event. She will be treated medically with aspirin, nitrates as needed, beta-blockers, and anticoagulants. Other agents can be used as deemed appropriate. 5. Breast cancer The patient does have history of breast cancer. According to her daughter this does involve lymph nodes. She has continued medical management. Her breast cancer can be a predisposing factor to her recurrent pulmonary emboli which can then lead to her symptoms, PSVT, abnormal cardiac enzymes, etc. The patient is unclear as to her ongoing treatment with respect to her breast carcinoma or her past treatment with respect chemotherapy or radiation therapy, etc. 6. Dementia The patient does have a report of significant dementia. This does play a role with respect to her ongoing evaluation and care above and beyond conservative medical management. This could create a challenge with respect to the patient being able to understand and cooperate with further invasive procedures/intervention as well as post procedure related care. Her all, the tentative plan is for continued conservative medical management. There are no immediate plans for additional antiarrhythmic therapy or invasive cardiovascular evaluation or care at this time. Patient's case has been discussed and reviewed with Dr. Hayward. This note was generated with [employer] software. It may contain incorrect words, spelling, and punctuation that were not noted in checking the note before signing.
--- NOTE | 2017-10-07 15:54 | PN.CARD_ITS ---
Subjectve: The patient is without acute change respect to ongoing symptoms and concerns. Objective: Vital Signs Temp Pulse Resp BP Pulse Ox 98.9 F 55 L 18 116/66 94 10/07/17 15:25 10/07/17 15:25 10/07/17 15:25 10/07/17 15:25 10/07/17 15:25 Oxygen Flow Rate (L/min) 2 Oxygen Delivery Method Room Air Weight: 205 lb 0.478 oz Body Mass Index (BMI) 32.1 Intake and Output for Last 24 Hours 10/05/17 10/06/17 10/07/17 23:59 23:59 23:59 Intake Total 2053 / 2053 2531 / 2531 1353 / 1353 Output Total 300 / 300 600 / 600 400 / 400 Balance 1754 / 1754 1931 / 1931 953 / 953 General: Awake, Cooperative, No Acute Distress Lungs: Clear to auscultation Cardiovascular: Regular Rhythm, Normal S1, Normal S2 Abdomen: Bowel Sounds Present, Soft, Non Tender Extremities: No edema 10/07/17 05:47: WBC 7.4, RBC 3.51 L, Hgb 10.2 L, Hct 31.7 L, MCV 90.3, MCH 29.1 , MCHC 32.2, RDW 14.9 H, RDW Differential 48.4 H, Plt Count 314, MPV 10.7 10/07/17 05:47: Sodium 140, Potassium 3.8, Chloride 112 H, Carbon Dioxide 21.0, Anion Gap 7, BUN 17, Creatinine 0.57, Est GFR (MDRD) Af Amer 133, Est GFR (MDRD ) Non-Af 110, BUN/Creatinine Ratio 30.0 H, Glucose 82, Calcium 8.3 L, Magnesium 1.9 Rhythm: Sinus rhythm Medical Necessity - Tobacco Use Smoking Status: Never smoker Assessment/Plan 1. Paroxysmal supraventricular tachycardia The patient has had recurrent paroxysmal supraventricular tachycardia. She does have a history of this. 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 This may be secondary to the patient's pulmonary emboli as was noted in the past. She has had recurrent episodes. Ever, it does not appear there has been any recurrent episodes since yesterday. She is on rate limiting therapy with beta-blockers. Her dose has been increased. Her case was discussed with Dr. Chandler VAZQUEZ yesterday. Status post review of the case he recommended continued conservative medical management. He noted the patient was not an ideal candidate for further invasive evaluation or care at this time. 2. Pulmonary emboli She does appear to have recurrent bilateral pulmonary emboli both central and peripheral. This may be secondary to her history of breast carcinoma. This could lead to her PSVT, abnormal cardiac enzymes based upon RV strain, symptoms of chest discomfort and dyspnea, etc. She continues on anticoagulant therapy with oral anticoagulants at this time. 3. Chest pain The patient has had chest pain and dyspnea. Again this may be secondary to her pulmonary emboli and her PSVT as opposed to a primary acute cardiovascular/ coronary event. The present time she appears to be symptomatically improved. She will continue medical management and follow-up. The patient will need continued treatment of her pulmonary emboli which again could be the etiology of her chest discomfort. 4. Abnormal cardiac enzymes She does have abnormal cardiac enzymes. Again these may be secondary to her findings of pulmonary emboli with RV strain. However she is being monitored for any obvious evidence of a true acute coronary syndrome event. She will be treated medically with aspirin, nitrates as needed, beta-blockers, and anticoagulants. Other agents can be used as deemed appropriate. 5. Breast cancer The patient does have history of breast cancer. According to her daughter this does involve lymph nodes. She has continued medical management. Her breast cancer can be a predisposing factor to her recurrent pulmonary emboli which can then lead to her symptoms, PSVT, abnormal cardiac enzymes, etc. The patient is unclear as to her ongoing treatment with respect to her breast carcinoma or her past treatment with respect chemotherapy or radiation therapy, etc. 6. Dementia The patient does have a report of significant dementia. This does play a role with respect to her ongoing evaluation and care above and beyond conservative medical management. This could create a challenge with respect to the patient being able to understand and cooperate with further invasive procedures/ intervention as well as post procedure related care. Her all, the tentative plan is for continued conservative medical management. There are no immediate plans for additional antiarrhythmic therapy or invasive cardiovascular evaluation or care at this time. Patient's case has been discussed and reviewed with Dr. Hayward. This note was generated with [employer] software. It may contain incorrect words, spelling, and punctuation that were not noted in checking the note before signing.
[2017-10-07] MEDS: Anastrozole 1 MG Tablet PO (17:00)
--- NOTE | 2017-10-07 20:26 | PN_ITS ---
Patient Problems: Active and Suspected Problems Chest pain (Acute) Abnormal cardiac enzyme level (Acute) Subjective: She is doing about the same. Stable telemetry record with no significant tachyarrhythmia. Patient is confused. Objective: - Physical Exam General: Cooperative, Confused HEENT: Atraumatic, PERRLA Oral: Moist Mucosa, No Gingival or Mucosal Lesions/ Ulcerations Neck: Supple, No JVD, Negative Carotid Bruits Lungs: Clear to auscultation, Normal air movement, No rhonchi, No wheeze, No rales Cardiovascular: Regular rate, Regular Rhythm, Normal S1, Normal S2, No murmurs, No Ectopic Activity Abdomen: Bowel Sounds Present, Soft, Non Tender, Non-Distended, No Hepato- splenomegaly, Passing Flatus Extremities: No clubbing, No cyanosis, Edema - 1+ edema bilaterally. Skin: No rashes Musculoskeletal: No Tenderness to Palpation of Joints or Extremities, No Muscle Wasting Lymphatic: No Cervical, Supraclavicular, or Inguinal Adenopathy Neurological: Cranial nerves II-XII grossly intact, Neuro grossly intact Psych/Mental Status: Depressed mood. - Physical Exam Vital Signs Temp Pulse Resp BP Pulse Ox 98.9 F 69 18 116/66 94 10/07/17 15:25 10/07/17 18:49 10/07/17 15:25 10/07/17 15:25 10/07/17 15:25 Oxygen Flow Rate (L/min) 2 Oxygen Delivery Method Room Air Weight: 205 lb 0.478 oz Body Mass Index (BMI) 32.1 Intake and Output for Last 24 Hours 10/05/17 10/06/17 10/07/17 23:59 23:59 23:59 Intake Total 2053 / 2053 2531 / 2531 1869 / 1869 Output Total 300 / 300 600 / 600 600 / 600 Balance 1754 / 1754 1931 / 1931 1269 / 1269 Laboratory Tests Past 24 Hrs 10/07/17 10/07/17 05:47 05:47 WBC 7.4 RBC 3.51 L Hgb 10.2 L Hct 31.7 L MCV 90.3 MCH 29.1 MCHC 32.2 RDW 14.9 H RDW Differential 48.4 H Plt Count 314 MPV 10.7 Sodium 140 Potassium 3.8 Chloride 112 H Carbon Dioxide 21.0 Anion Gap 7 BUN 17 Creatinine 0.57 Estim Creat Clear Calc 45.09 Est GFR (MDRD) Af Amer 133 Est GFR (MDRD) Non-Af 110 BUN/Creatinine Ratio 30.0 H Glucose 82 Calcium 8.3 L Magnesium 1.9 Medical Necessity - Tobacco Use Smoking Status: Never smoker Assessment/Plan Active and Suspected Problems Chest pain (Acute) Abnormal cardiac enzyme level (Acute) Patient is a 77-year-old lady with multiple comorbidities presented with PSVT found to have bilateral pulmonary embolism on admission 1. Acute bilateral pulmonary embolism. Patient was previously on Xarelto came off 3 weeks prior to her admission heparin was initiated in the ED;echo ordered for RV function assessment. Did discuss case with patient's daughter on the need for patient to be on systemic anticoagulation permanently since this is her second VTE. Echo demonstrated mildly dilated right ventricle with moderate pulmonary hypertension with RVSP of 54 mmHg. 2. PSVT Likely due to reentrant tachycardia. Cardiology consultation appreciated. On beta-justino, titrating to control rate and occasional PAC. Currently on 100 mg po bid. She has mild bradycardia now without having PSVT (10/05). She had recurrent episodes, treated with adenosine and diltiazem. It has been effective to convert to normal rhythm with these agents. Per cardiology, no plans of transfer for electrophysiology study now, as she is able to maintain normal rate. She is slightly bradycardic, but stable with metoprolol 100 mg po bid. 3. Acute cystitis culture sent started on Rocephin 4. History of right breast CA patient is on adjuvant hormonal therapy with with Arimidex 5. Obesity with BMI of 32.1 6. GERD patient is on PPI 7. Dementia without behavioral agitation VTE prophylaxis: Xarelto. GI prophylaxis: PPI po. She is full code. Disposition: ECF. Patient's daughter changed her mind that she is unable to take care of her at home with current condition. Code Visit Inpatient E&M: 52089 Subs Hosp L2
[2017-10-07] MEDS: MELATONIN 10 MG TABLET 5 MG PO (21:53)
[2017-10-08] VITALS (13 sets, daily range): BP systolic 96–147; BP diastolic 61–80; PULSE 54–98; RESP 14–20; TEMP 36.4–37.6; O2SAT 93–96
[2017-10-08] MEDS: 0.9% Normal Saline 1,000 ML 75 ML IV ×3 (01:34→19:46)
[2017-10-08] MEDS: HYDROcodone Bitartrate/Apap 5/325 Tablet PO ×3 (03:17→20:05)
[2017-10-08] MEDS: oxyCODONE 5 MG Tablet PO ×2 (06:15→13:08)
[2017-10-08] MEDS: Aspirin 81 MG TAB.CHEW PO (09:11)
[2017-10-08] MEDS: Pregabalin 50 MG Capsule PO ×4 (09:11→21:26)
[2017-10-08] MEDS: Multivitamins,Ther W-Minerals Tablet 1 TABLET PO (09:11)
[2017-10-08] MEDS: Docusate Sodium 100 MG Capsule 200 MG PO (09:11)
[2017-10-08] MEDS: Metoprolol Tartrate 100 MG Tablet PO ×2 (09:11→21:26)
[2017-10-08] MEDS: Memantine Hydrochloride 10 MG Tablet PO ×2 (09:11→21:23)
[2017-10-08] MEDS: Pantoprazole Sodium 40 MG Tablet PO (09:11)
[2017-10-08] MEDS: LORazepam 1 MG Tablet PO (09:11)
[2017-10-08] MEDS: Rivaroxaban 15 MG Tablet PO ×2 (09:11→16:57)
[2017-10-08] MEDS: tiZANidine HCl 2 MG Tablet 4 MG PO ×2 (09:11→21:26)
--- NOTE | 2017-10-08 15:06 | PN.CARD_ITS ---
Subjectve: The patient is without significant change from a cardiovascular standpoint. Objective: Vital Signs Temp Pulse Resp BP Pulse Ox 98.2 F 56 L 20 H 126/70 H 93 10/08/17 09:10 10/08/17 14:59 10/08/17 09:10 10/08/17 09:10 10/08/17 09:10 Oxygen Flow Rate (L/min) 2 Oxygen Delivery Method Room Air Weight: 205 lb 0.478 oz Body Mass Index (BMI) 32.1 Intake and Output for Last 24 Hours 10/06/17 10/07/17 10/08/17 23:59 23:59 23:59 Intake Total 2531 / 2531 2430 / 2430 874 / 874 Output Total 600 / 600 600 / 600 Balance 193 / 1931 1830 / 1830 874 / 874 Neck: No JVD Lungs: Clear to auscultation Cardiovascular: Regular Rhythm, Normal S1, Normal S2 Abdomen: Bowel Sounds Present, Soft, Non Tender Extremities: No edema Rhythm: Sinus rhythm Medical Necessity - Tobacco Use Smoking Status: Never smoker Assessment/Plan 1. Paroxysmal supraventricular tachycardia The patient has had recurrent paroxysmal supraventricular tachycardia. She does have a history of this. 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 This may be secondary to the patient's pulmonary emboli as was noted in the past. She has had recurrent episodes. Ever, it does not appear there has been any recurrent episodes since yesterday. She is on rate limiting therapy with beta-blockers. Her dose has been increased. Her case was discussed with Dr. Chandler VAZQUEZ. Status post review of the case he recommended continued conservative medical management. He noted the patient was not an ideal candidate for further invasive evaluation or care at this time. 2. Pulmonary emboli She does appear to have recurrent bilateral pulmonary emboli both central and peripheral. This may be secondary to her history of breast carcinoma. This could lead to her PSVT, abnormal cardiac enzymes based upon RV strain, symptoms of chest discomfort and dyspnea, etc. She continues on anticoagulant therapy with oral anticoagulants at this time. 3. Chest pain The patient has had chest pain and dyspnea. Again this may be secondary to her pulmonary emboli and her PSVT as opposed to a primary acute cardiovascular/ coronary event. The present time she appears to be symptomatically improved. She will continue medical management and follow-up. The patient will need continued treatment of her pulmonary emboli which again could be the etiology of her chest discomfort. 4. Abnormal cardiac enzymes She does have abnormal cardiac enzymes. Again these may be secondary to her findings of pulmonary emboli with RV strain. However she is being monitored for any obvious evidence of a true acute coronary syndrome event. She will be treated medically with aspirin, nitrates as needed, beta-blockers, and anticoagulants. Other agents can be used as deemed appropriate. 5. Breast cancer The patient does have history of breast cancer. According to her daughter this does involve lymph nodes. She has continued medical management. Her breast cancer can be a predisposing factor to her recurrent pulmonary emboli which can then lead to her symptoms, PSVT, abnormal cardiac enzymes, etc. The patient is unclear as to her ongoing treatment with respect to her breast carcinoma or her past treatment with respect chemotherapy or radiation therapy, etc. 6. Dementia The patient does have a report of significant dementia. This does play a role with respect to her ongoing evaluation and care above and beyond conservative medical management. This could create a challenge with respect to the patient being able to understand and cooperate with further invasive procedures/ intervention as well as post procedure related care. Her all, the tentative plan is for continued conservative medical management. There are no immediate plans for additional antiarrhythmic therapy or invasive cardiovascular evaluation or care at this time. She can be reassessed from a cardiovascular standpoint as deemed needed. Patient's case has been discussed and reviewed with Dr. Hayward. This note was generated with [employer] software. It may contain incorrect words, spelling, and punctuation that were not noted in checking the note before signing.
[2017-10-08] MEDS: Anastrozole 1 MG Tablet PO (16:57)
--- NOTE | 2017-10-08 19:31 | PN_ITS ---
Patient Problems: Active and Suspected Problems Chest pain (Acute) Abnormal cardiac enzyme level (Acute) Subjective: She is awake, alert, confused. Complaining of diffuse ill-defined pain. Objective: - Physical Exam General: Confused HEENT: Atraumatic, PERRLA Oral: Moist Mucosa, No Gingival or Mucosal Lesions/ Ulcerations Neck: Supple, No JVD, Negative Carotid Bruits Lungs: Clear to auscultation, Normal air movement, No rhonchi, No wheeze, No rales Cardiovascular: Regular rate, Regular Rhythm, Normal S1, Normal S2, No murmurs, No Ectopic Activity Abdomen: Bowel Sounds Present, Soft, Non Tender, Non-Distended, No Hepato- splenomegaly, Passing Flatus Extremities: No clubbing, No cyanosis, Edema - 1+ edema bilaterally. Skin: No rashes Musculoskeletal: No Tenderness to Palpation of Joints or Extremities, No Muscle Wasting Lymphatic: No Cervical, Supraclavicular, or Inguinal Adenopathy Neurological: Cranial nerves II-XII grossly intact, Neuro grossly intact Psych/Mental Status: Depressed mood. Flat affect. - Physical Exam Vital Signs Temp Pulse Resp BP Pulse Ox 97.9 F 54 L 18 96/61 95 10/08/17 15:10 10/08/17 15:10 10/08/17 15:10 10/08/17 15:10 10/08/17 15:10 Oxygen Flow Rate (L/min) 2 Oxygen Delivery Method Room Air Weight: 205 lb 0.478 oz Body Mass Index (BMI) 32.1 Intake and Output for Last 24 Hours 10/06/17 10/07/17 10/08/17 23:59 23:59 23:59 Intake Total 2531 / 2531 2430 / 2430 1432 / 1432 Output Total 600 / 600 600 / 600 Balance 1931 / 1931 1830 / 1830 1432 / 1432 Diagnostic Data Chest X-Ray 10/02/17 09:18 IMPRESSION: Stable examination. Electronically Signed: Jacob Daniel MD at 10:19 EDT Tel [phone], Service support , Chest CTA 10/02/17 09:43 IMPRESSION: Bilateral central and peripheral pulmonary arterial emboli. 2.5 cm right adrenal adenoma. N.B. : The above information has been verbally conveyed by Jacob Daniel MD to Juan Alberto Malka on 10/02/2017 10:32:14 (ET). Electronically Signed: Jacob Daniel MD at 10:33 EDT Tel [phone], Service support , N.B. : The above information has been verbally conveyed by Jacob Daniel MD to Juan Alberto Malka on 10/02/2017 10:32:14 (ET). Medical Necessity - Tobacco Use Smoking Status: Never smoker Assessment/Plan Active and Suspected Problems Chest pain (Acute) Abnormal cardiac enzyme level (Acute) Patient is a 77-year-old lady with multiple comorbidities presented with PSVT found to have bilateral pulmonary embolism on admission 1. Acute bilateral pulmonary embolism. Patient was previously on Xarelto came off 3 weeks prior to her admission heparin was initiated in the ED;echo ordered for RV function assessment. Did discuss case with patient's daughter on the need for patient to be on systemic anticoagulation permanently since this is her second VTE. Echo demonstrated mildly dilated right ventricle with moderate pulmonary hypertension with RVSP of 54 mmHg. 2. PSVT Likely due to reentrant tachycardia. Cardiology consultation appreciated. On beta-justino, titrating to control rate and occasional PAC. Currently on 100 mg po bid. She has mild bradycardia now without having PSVT (10/05). She had recurrent episodes, treated with adenosine and diltiazem. It has been effective to convert to normal rhythm with these agents. Per cardiology, no plans of transfer for electrophysiology study now, as she is able to maintain normal rate. She is slightly bradycardic, but stable with metoprolol 100 mg po bid. 3. Acute cystitis culture sent started on Rocephin 4. History of right breast CA patient is on adjuvant hormonal therapy with with Arimidex 5. Obesity with BMI of 32.1 6. GERD patient is on PPI 7. Dementia without behavioral problems. VTE prophylaxis: Xarelto. GI prophylaxis: PPI po. She is full code. Disposition: Await ECF. Patient's daughter changed her mind that she is unable to take care of her at home with current condition. Code Visit Inpatient E&M: 61935 Subs Hosp L2
[2017-10-08] MEDS: MELATONIN 10 MG TABLET 5 MG PO (21:23)
[2017-10-09] VITALS (13 sets, daily range): BP systolic 111–142; BP diastolic 70–74; PULSE 52–72; RESP 16–18; TEMP 36.6–37.1; O2SAT 93–95
[2017-10-09] MEDS: HYDROcodone Bitartrate/Apap 5/325 Tablet PO ×2 (05:57→19:28)
[2017-10-09] MEDS: 0.9% Normal Saline 1,000 ML 75 ML IV ×2 (07:25→19:28)
[2017-10-09] MEDS: Aspirin 81 MG TAB.CHEW PO (08:38)
[2017-10-09] MEDS: Multivitamins,Ther W-Minerals Tablet 1 TABLET PO (08:39)
[2017-10-09] MEDS: Rivaroxaban 15 MG Tablet PO ×2 (08:39→17:33)
[2017-10-09] MEDS: tiZANidine HCl 2 MG Tablet 4 MG PO ×2 (09:27→21:20)
[2017-10-09] MEDS: Metoprolol Tartrate 100 MG Tablet PO ×2 (09:27→21:21)
[2017-10-09] MEDS: Pantoprazole Sodium 40 MG Tablet PO (09:27)
[2017-10-09] MEDS: Memantine Hydrochloride 10 MG Tablet PO ×2 (09:28→21:21)
[2017-10-09] MEDS: Docusate Sodium 100 MG Capsule 200 MG PO (09:28)
[2017-10-09] MEDS: Pregabalin 50 MG Capsule PO ×4 (09:34→21:21)
--- NOTE | 2017-10-09 13:49 | PN_ITS ---
Patient Problems: Active and Suspected Problems Chest pain (Acute) Abnormal cardiac enzyme level (Acute) Subjective: Patient is a 77-year-old female with a past medical history of dementia, breast cancer, pulmonary embolus and obesity who presented to the hospital ED at [facility] on 10/02/17 complaining of severe shortness of breath. She was found to be in PSVT in the emergency room and was treated with adenosine and converted. She required adenosine several more times during her initial hospital stay. On CTA of the chest she was found to have BL PE's. She was started on heparin and admitted to a monitored bed on PCU. Afebrile, vital signs stable, 95% on room air White blood cell count is normal at 7.4 and hemoglobin is stable at 10.2. Platelets are within normal limits. BMP is unremarkable. BUN continues to improve and is 17 today with a creatinine of 0.57. Intake and output are not accurate as the patient is incontinent of urine. She is lying flat in bed when I entered the room and she has no SOB Objective: PE: alert and pleasant, able to follow commands. NAD HEENT: moist MM, no mucosal lesions Lungs - CTA anterior and lateral, symmetric chest expansion, no wheezing and no rales Heart - RRR, no gallop and no rub Abdomen-soft, obese, nondistended, nontender, bowel sounds present, no guarding with palpation Extremities - no edema, no rash and no breakdown, no clubbing and no cyanosis Neuro - moving all extremities, CN's II -XII grossly intact - Physical Exam Vital Signs Temp Pulse Resp BP Pulse Ox 98 F 58 L 18 111/70 94 10/09/17 09:17 10/09/17 11:18 10/09/17 09:17 10/09/17 09:17 10/09/17 09:17 Oxygen Flow Rate (L/min) 2 Oxygen Delivery Method Room Air Weight: 205 lb 0.478 oz Body Mass Index (BMI) 32.1 Intake and Output for Last 24 Hours 10/07/17 10/08/17 10/09/17 23:59 23:59 23:59 Intake Total 2430 / 2430 1804 / 1804 1022 / 1022 Output Total 600 / 600 Balance 1830 / 1830 1804 / 1804 1022 / 1022 Medical Necessity - Tobacco Use Smoking Status: Never smoker Assessment/Plan Active and Suspected Problems Chest pain (Acute) Abnormal cardiac enzyme level (Acute) Impressions 1. Acute BL PE's with a hx of PE in the past 2. hx of breast CA 3. dementia 4. SVT -likely due to a reentrant tachycardia, on 100 on Metoprolol BID and no further PSVT 5. obesity 6. acute cystitis? no urine culture was ever sent. Has had 7 days of Rocephin 7. GERD Will discuss with the SW tomorrow placement. Her dtr is not able to care for her at home at this time continue Xarelto 15 mg BID for a total of 14 days and then transition to 20 mg daily check a CBC in the AM Code Visit Inpatient E&M: 60955 Subs Hosp L2
[2017-10-09] MEDS: Anastrozole 1 MG Tablet PO (15:38)
[2017-10-09] MEDS: Magnesium Hydroxide 30 ML UDC PO (17:49)
[2017-10-09] MEDS: MELATONIN 10 MG TABLET 5 MG PO (21:20)
[2017-10-10] VITALS (12 sets, daily range): BP systolic 108–131; BP diastolic 58–67; PULSE 51–70; RESP 16–20; TEMP 36.7–36.9; O2SAT 92–97
[2017-10-10] MEDS: Rivaroxaban 15 MG Tablet PO ×2 (08:41→18:05)
[2017-10-10] MEDS: Aspirin 81 MG TAB.CHEW PO (08:41)
[2017-10-10] MEDS: Multivitamins,Ther W-Minerals Tablet 1 TABLET PO (08:42)
[2017-10-10] MEDS: HYDROcodone Bitartrate/Apap 5/325 Tablet PO ×2 (08:45→18:05)
[2017-10-10] MEDS: 0.9% Normal Saline 1,000 ML 75 ML IV ×2 (08:45→22:55)
--- NOTE | 2017-10-10 08:55 | CASEMGMT ---
SW spoke with patient's daughter regarding which facility she would like patient to go to . She said they prefer [facility]. SW explained to her SW will make the referral to [facility] and they will let SW know if they can take patient. SW told her patient will wait in the hospital until insurance approves her to go to SNF. SW told her will let her know. Plan: Possibly [facility] pending their acceptance of her and insurance approval. Deedee OSBORNE MSW
[2017-10-10] MEDS: tiZANidine HCl 2 MG Tablet 4 MG PO ×2 (09:45→21:36)
[2017-10-10] MEDS: Pantoprazole Sodium 40 MG Tablet PO (09:46)
[2017-10-10] MEDS: Memantine Hydrochloride 10 MG Tablet PO ×2 (09:46→21:36)
[2017-10-10] MEDS: Magnesium Hydroxide 30 ML UDC PO (09:46)
[2017-10-10] MEDS: Docusate Sodium 100 MG Capsule 200 MG PO (09:46)
[2017-10-10] MEDS: Metoprolol Tartrate 100 MG Tablet PO ×2 (09:47→21:35)
[2017-10-10] MEDS: Pregabalin 50 MG Capsule PO ×4 (09:55→21:34)
--- NOTE | 2017-10-10 11:49 | CASEMGMT ---
[facility] can accept patient. They will start the process to obtain authorization from insurance. SW called patient's daughter and left her a voice mail letting her know [facility] can accept. Plan: [facility] pending pre-cert. Deedee OSBORNE 2ND PRESSMAN
[2017-10-10] MEDS: Anastrozole 1 MG Tablet PO (15:16)
[2017-10-10] MEDS: Magnesium Citrate 300 ML 150 ML PO (18:42)
[2017-10-10] MEDS: Morphine 4 MG/ML Syringe IV (19:30)
--- NOTE | 2017-10-10 19:39 | PCM.PROGNOTE ---
Patient Problems: Active and Suspected Problems Chest pain (Acute) Abnormal cardiac enzyme level (Acute) Subjective: All events of the past 24 hours of been reviewed. She remains afebrile. Blood pressure is stable. She is 95% saturated on room air. Telemetry shows Sinus bradycardia with PACs, PVCs and bigeminal PVCs. No recurrence of narrow complex supraventricular tachycardia. Oral intake is poor and she took only 240 cc orally on 10/08 and 10/09. She did a little better today and took 580 cc. She has no complaints but, has not had a recent BM. Objective: PE: alert and pleasant, able to follow commands. NAD HEENT: dry MM, no mucosal lesions Lungs - CTA anterior and lateral, symmetric chest expansion, no wheezing and no rales Heart - RRR, no gallop and no rub Abdomen-soft, obese, nondistended, nontender, bowel sounds present, no guarding with palpation Extremities - no edema, no rash and no breakdown, no clubbing and no cyanosis Neuro - moving all extremities, CN's II -XII grossly intact - Physical Exam Vital Signs Temp Pulse Resp BP Pulse Ox 98.1 F 52 L 18 112/59 L 95 10/10/17 15:10 10/10/17 15:10 10/10/17 15:10 10/10/17 15:10 10/10/17 15:10 Oxygen Flow Rate (L/min) 2 Oxygen Delivery Method Room Air Weight: 205 lb 0.478 oz Body Mass Index (BMI) 32.1 Intake and Output for Last 24 Hours 10/08/17 10/09/17 10/10/17 23:59 23:59 23:59 Intake Total 1804 / 1804 1838 / 1838 2075 / 2075 Output Total 550 / 550 1500 / 1500 Balance 1804 / 1804 1288 / 1288 575 / 575 Medical Necessity - Tobacco Use Smoking Status: Never smoker Assessment/Plan Active and Suspected Problems Chest pain (Acute) Abnormal cardiac enzyme level (Acute) Impressions 1. Acute BL PE's with a hx of PE in the past 2. hx of breast CA 3. dementia 4. SVT -likely due to a reentrant tachycardia, on 100 on Metoprolol BID and no further PSVT 5. obesity 6. acute cystitis? no urine culture was ever sent. Has had 7 days of Rocephin 7. GERD recheck the lab in the AM Awaiting pre-cert for transfer to [place] Code Visit Inpatient E&M: [id number] Subs Hosp L1
[2017-10-10] MEDS: MELATONIN 10 MG TABLET 5 MG PO (21:35)
[2017-10-11] VITALS (27 sets, daily range): BP systolic 92–151; BP diastolic 61–85; PULSE 48–156; RESP 16–153; TEMP 36.6–37.1; O2SAT 91–97
[2017-10-11 06:22] LABS: Absolute Neutrophil Count 7.2 X10^3/uL (2.0-7.7); Basophil# 0.03 X10^3/uL; Basophil% 0.3 % (0-1); Eosinophil# 0.07 X10^3/uL; Eosinophils% 0.8 % (0-5); Hematocrit 33.7 % (37-47); Hemoglobin 10.9 g/dl (12.0-15.0); Lymphocyte % 11.3 % (19-41); Mean Corp Hgb Conc 32.3 g/gl (32-36); Mean Corpuscular Hgb 28.5 pg (27.0-32.0); Monocyte# 0.53 X10^3/uL; Neutrophil # 7.18 X10^3/uL (2.7-7.7); Neutrophil % 81.3 % (47-70); Platelet Count 517 K/mm3 (150-450); RBC Distribution Width CV 15.1 % (11.6-14.6); RBC Distribution Width SD 47.8 fl (35.1-43.9); Red Blood Count 3.83 M/mm3 (4.2-5.4); White Blood Count 8.8 K/mm3 (4.4-11.0)
[2017-10-11 06:23] LABS: POSITIVE COUNT NO; POSITIVE DIFFERENTIAL NO; POSITIVE MORPHOLOGY NO
[2017-10-11 06:46] LABS: ALB/GLOB Ratio 0.5 RATIO (0.9-2.4); AST(SGOT) 61 U/L (15-37); Alanine Aminotransfer ALT/SGPT 103 U/L (13-56); Albumin, Serum 2.1 g/dL (3.2-5.0); Alkaline Phosphatase 223 U/L (45-117); Anion Gap 9 (5-15); BUN 13 mg/dL (7-18); BUN/Creat Ratio 23.6 RATIO (10-20); Calcium,Total 8.3 mg/dL (8.5-10.1); Chloride 107 mmol/L (98-107); Creatinine, Serum 0.55 mg/dL (0.55-1.02); EST Glomerular Filtration Rate 113 mL/min (>60); Est Glom Filt Rate - Afr Amer 137 mL/min (>60); Estimated Creatinine Clearance 45.09 ml/min; Globulin 4.2 g/dL (2.2-4.2); Glucose 90 mg/dL (74-106); Magnesium 2.7 mg/dL (1.6-2.6); Phosphorus 2.8 mg/dL (2.5-4.9); Potassium 4.4 mmol/L (3.5-5.1); Protein, Total 6.3 g/dL (6.4-8.2); Sodium Level 139 mmol/L (136-145)
--- NOTE | 2017-10-11 07:55 | CT_ITS ---
STUDY: CT ABDOMEN AND PELVIS WITH CONTRAST REASON FOR EXAM: Female, 77 years old. Abnormal liver function tests. History of breast cancer. RADIATION DOSAGE (If Supplied By Facility): CTDIvol = ( 18.74 ) mGy, DLP = ( 1344.68 ) mGycm TECHNIQUE: Transaxial images were obtained from the dome of the diaphragm to the symphysis pubis with oral contrast. 100 ml of Isovue 300 contrast was administered. Sagittal and coronal images were reconstructed. Individualized dose optimization techniques were used for this CT. COMPARISON: None. FINDINGS: Once again, there is evidence of bilateral coronary embolism as previously described. Small left pleural effusion with left basilar infiltration and/or atelectasis. Minimal pleural thickening at the right lung base with right basilar atelectasis. Coronary artery calcification. There is decreased attenuation of the liver consistent with steatosis. There are surgical clips in the gallbladder fossa consistent with a prior cholecystectomy. The common bile duct is dilated measuring 1.6 cm in transverse dimension. Normal spleen. Normal pancreas. There is a small, circumscribed, smooth, low attenuation right adrenal mass, consistent with an adrenal adenoma. This measures 2.2 cm. Normal left adrenal gland. Normal right kidney. Normal left kidney. Moderate sized hiatal hernia. Normal small intestine. There are multiple colonic diverticula consistent with diverticulosis. The appendix is visualized and appears normal. There is diffuse atherosclerotic calcification of the abdominal aorta, without a demonstrated aneurysm. Normal inferior vena cava. There is borderline retroperitoneal lymphadenopathy with enlarged nodes no greater than 10mm in the short axis diameter. Distended urinary bladder. Normal abdominal wall. There are diffuse degenerative changes of the visualized lumbar spine. Abnormal appearance of the L1 vertebrae. Sclerotic changes of the L2 vertebrae. Metastatic disease should be ruled out. Prior right total hip replacement. CT/Abdomen/Pelvis WITH Contrast IMPRESSION: Pulmonary emboli. Small left pleural effusion with underlying infiltration and/or atelectasis. Minimal right basilar atelectasis. Fatty infiltration of the liver. Status post cholecystectomy. Low-density nodule in the right adrenal gland most likely secondary to an adenoma. Electronically Signed: Jacob Daniel MD at 14:13 EDT Tel [phone], Service support ,
[2017-10-11] MEDS: Multivitamins,Ther W-Minerals Tablet 1 TABLET PO (09:03)
[2017-10-11] MEDS: Aspirin 81 MG TAB.CHEW PO (09:03)
[2017-10-11] MEDS: Rivaroxaban 15 MG Tablet PO ×2 (09:03→18:28)
[2017-10-11] MEDS: Pantoprazole Sodium 40 MG Tablet PO (09:04)
[2017-10-11] MEDS: Memantine Hydrochloride 10 MG Tablet PO ×2 (09:04→21:21)
[2017-10-11] MEDS: tiZANidine HCl 2 MG Tablet 4 MG PO ×2 (09:04→21:21)
[2017-10-11] MEDS: Metoprolol Tartrate 100 MG Tablet PO ×2 (09:06→20:10)
[2017-10-11] MEDS: Pregabalin 50 MG Capsule PO ×4 (09:13→21:24)
[2017-10-11] MEDS: HYDROcodone Bitartrate/Apap 5/325 Tablet PO ×2 (09:13→18:28)
--- NOTE | 2017-10-11 10:36 | EKG12_ITS ---
Test Reason : Blood Pressure : / mmHG Vent. Rate : 167 BPM Atrial Rate : 159 BPM P-R Int : 000 ms QRS Dur : 078 ms QT Int : 270 ms P-R-T Axes : 000 027 202 degrees QTc Int : 450 ms Supraventricular tachycardia Marked ST abnormality, possible lateral subendocardial injury Abnormal ECG When compared with ECG of 03-OCT-2017 17:06, MANUAL COMPARISON REQUIRED, DATA IS UNCONFIRMED Confirmed by WILL TIPTON ([id number]), primer expeditor and drier MALIA KENNEDY ([id number]) on 10/25/2017 7:11:46 PM Referred By: AUGUSTIN Confirmed By:WILL TIPTON
[2017-10-11] MEDS: 0.9% Normal Saline 1,000 ML 75 ML IV (14:44)
[2017-10-11] MEDS: Anastrozole 1 MG Tablet PO (15:41)
[2017-10-11] MEDS: oxyCODONE 5 MG Tablet PO (20:15)
[2017-10-11] MEDS: MELATONIN 10 MG TABLET 5 MG PO (21:21)
--- NOTE | 2017-10-11 22:11 | PCM.PROGNOTE ---
Subjective: Having SVT again today. She is asymptomatic. Denies chest pain, shortness of breath, palpitations, lightheadedness. Objective: PE: alert and pleasant, able to follow commands. NAD HEENT: dry MM, no mucosal lesions Lungs - CTA anterior and lateral, symmetric chest expansion, no wheezing and no rales Heart - RRR, no gallop and no rub Abdomen-soft, obese, nondistended, nontender, bowel sounds present, no guarding with palpation Extremities - no edema, no rash and no breakdown, no clubbing and no cyanosis Neuro - moving all extremities, CN's II -XII grossly intact - Physical Exam Vital Signs Temp Pulse Resp BP Pulse Ox 98.7 F 62 18 117/64 94 10/11/17 21:17 10/11/17 21:17 10/11/17 21:17 10/11/17 21:17 10/11/17 21:17 Oxygen Flow Rate (L/min) 2 Oxygen Delivery Method Room Air Weight: 205 lb 0.478 oz Body Mass Index (BMI) 32.1 Intake and Output for Last 24 Hours 10/09/17 10/10/17 10/11/17 23:59 23:59 23:59 Intake Total 1838 / 1838 2075 / 2075 2074 / 2074 Output Total 550 / 550 1500 / 1500 650 / 650 Balance 1288 / 1288 575 / 575 1424 / 1424 Laboratory Tests Past 24 Hrs 10/11/17 10/11/17 05:58 05:58 WBC 8.8 RBC 3.83 L Hgb 10.9 L Hct 33.7 L MCV 88.0 MCH 28.5 MCHC 32.3 RDW 15.1 H RDW Differential 47.8 H Plt Count 517 H MPV 10.0 Immature Gran % (Auto) 0.300 Neut % (Auto) 81.3 H Lymph % (Auto) 11.3 L Stephens % (Auto) 6.0 Eos % (Auto) 0.8 Baso % (Auto) 0.3 Absolute Neuts (auto) 7.2 Absolute Lymphs (auto) 1.00 Total Counted Not Reportable Sodium 139 Potassium 4.4 Chloride 107 Carbon Dioxide 23.0 Anion Gap 9 BUN 13 Creatinine 0.55 Estim Creat Clear Calc 45.09 Est GFR (MDRD) Af Amer 137 Est GFR (MDRD) Non-Af 113 BUN/Creatinine Ratio 23.6 H Glucose 90 Calcium 8.3 L Phosphorus 2.8 Magnesium 2.7 H Total Bilirubin 0.50 AST 61 H ALT 103 H Alkaline Phosphatase 223 H Total Protein 6.3 L Albumin 2.1 L Globulin 4.2 Albumin/Globulin Ratio 0.5 L Medical Necessity - Tobacco Use Smoking Status: Never smoker Assessment/Plan All Active Problems Non-ST elevation [place] (NSTEMI) (Acute) Obesity (Acute) Cystitis (Acute) Pulmonary hypertension (Acute) SVT (supraventricular tachycardia) (Acute) Pulmonary emboli (Acute) Closed displaced fracture of right femoral neck (Resolved) Dislocation, ankle (Resolved) Trimalleolar fracture of ankle, closed (Resolved) Impressions 1. Acute BL PE's with a hx of PE in the past 2. hx of breast CA 3. dementia 4. SVT -likely due to a reentrant tachycardia, on 100 on Metoprolol BID and no further PSVT 5. obesity 6. acute cystitis? no urine culture was ever sent. Has had 7 days of Rocephin 7. GERD discussed with Dr. Christine - medications adjusted Transfer to [place] when the HR is controlled Code Visit Inpatient E&M: 09422 Subs Hosp L2
[2017-10-12] VITALS (9 sets, daily range): BP systolic 102–117; BP diastolic 58–67; PULSE 50–81; RESP 16; TEMP 36.7–37.1; O2SAT 93–96
[2017-10-12] MEDS: 0.9% Normal Saline 1,000 ML 75 ML IV ×2 (03:29→16:11)
--- NOTE | 2017-10-12 07:02 | CASEMGMT ---
Received a message from Shakila at [facility] that patient was approved to go to [facility]. Will notify physician. Deedee BURCIAGA
[2017-10-12] MEDS: Rivaroxaban 15 MG Tablet PO ×2 (08:15→16:06)
[2017-10-12] MEDS: Multivitamins,Ther W-Minerals Tablet 1 TABLET PO (08:15)
[2017-10-12] MEDS: Aspirin 81 MG TAB.CHEW PO (08:15)
[2017-10-12] MEDS: tiZANidine HCl 2 MG Tablet 4 MG PO (09:42)
[2017-10-12] MEDS: Docusate Sodium 100 MG Capsule 200 MG PO (09:42)
[2017-10-12] MEDS: Memantine Hydrochloride 10 MG Tablet PO (09:42)
[2017-10-12] MEDS: Metoprolol Tartrate 100 MG Tablet PO (09:42)
[2017-10-12] MEDS: Pantoprazole Sodium 40 MG Tablet PO (09:43)
[2017-10-12] MEDS: Pregabalin 50 MG Capsule PO ×3 (09:48→17:54)
[2017-10-12] MEDS: HYDROcodone Bitartrate/Apap 5/325 Tablet PO (11:31)
--- NOTE | 2017-10-12 15:00 | CASEMGMT ---
SW let Liyah robles Haslet know that patient will be coming today. Deedee OSBORNE MILLER SUPERVISOR
[2017-10-12] MEDS: Anastrozole 1 MG Tablet PO (16:06)
--- NOTE | 2017-10-12 17:18 | PCM.TXEXTCAR ---
- Diet 10/02/17 11:19 Diet: Regular Diet Food consistency:: Regular Liquid Consistency:: Regular/Thin - Routine Orders/Code Status Enema Type: Fleetz Enema Frequency: Daily PRN Suppository Type: Dulcolax 10mg Suppository Frequency: Daily PRN O2 Frequency: PRN Keep PO Greater than or Equal to (%): 90 Routine Lab Work: - - CBC, BMP on 10/16/17 - Therapies Physical Therapy: Eval and Treat Occupational Therapy: Eval and Treat - Problem/Diagnosis (1) Pulmonary emboli Status: Acute Comment: BL Current Visit: No (2) SVT (supraventricular tachycardia) Status: Acute Current Visit: No (3) Breast CA Status: Chronic Current Visit: No (4) Dementia Status: Chronic Current Visit: No (5) Closed displaced fracture of right femoral neck Status: Resolved Current Visit: No (6) Dislocation, ankle Status: Resolved Current Visit: No (7) Trimalleolar fracture of ankle, closed Status: Resolved Current Visit: No (8) Non-ST elevation [place] (NSTEMI) Status: Acute Current Visit: Yes (9) Obesity Status: Acute Current Visit: Yes (10) Cystitis Status: Acute Current Visit: Yes (11) GERD (gastroesophageal reflux disease) Status: Chronic Current Visit: Yes (12) Diastolic dysfunction Status: Chronic Current Visit: Yes (13) Pulmonary hypertension Status: Acute Comment: possibly due to acute BL PE's Current Visit: Yes - Allergies/Procedures Done in Hospital Allergies/Adverse Reactions: Allergies No Known Allergies Allergy (Verified 10/02/17 08:54) Procedures: 2-D Echocardiogram - EF of 55% with stage I diastolic dysfunction and mild to moderate TR. Moderate pulmonary hypertension - Type of Care/Length of Stay Estimated LOS: More Than 30 Days Type of Care Needed: [facility]/Assisted Living Rehab Potential: Poor Prognosis: Poor - Additional Orders/Day of Discharge H&P will serve as current which was dated: 10/02/17 Day of Discharge: 10/12/17 - Dietary and Speech Recommendations Dietitian Recommendations/Changes: Rec obtain current wt. - Follow Up Care Primary Care Physician: Maurilio Garcia MD [Primary Care Provider] - Please follow up with your Primary Care Physician in: 1-2 weeks
--- NOTE | 2017-10-12 17:28 | TREXTCAR_ITS ---
- Diet 10/02/17 11:19 Diet: Regular Diet Food consistency:: Regular Liquid Consistency:: Regular/Thin - Routine Orders/Code Status Enema Type: Fleetz Enema Frequency: Daily PRN Suppository Type: Dulcolax 10mg Suppository Frequency: Daily PRN O2 Frequency: PRN Keep PO Greater than or Equal to (%): 90 Routine Lab Work: - - CBC, BMP on 10/16/17 - Therapies Physical Therapy: Eval and Treat Occupational Therapy: Eval and Treat - Problem/Diagnosis (1) Pulmonary emboli Status: Acute Comment: BL Current Visit: No (2) SVT (supraventricular tachycardia) Status: Acute Current Visit: No (3) Breast CA Status: Chronic Current Visit: No (4) Dementia Status: Chronic Current Visit: No (5) Closed displaced fracture of right femoral neck Status: Resolved Current Visit: No (6) Dislocation, ankle Status: Resolved Current Visit: No (7) Trimalleolar fracture of ankle, closed Status: Resolved Current Visit: No (8) Non-ST elevation [place] (NSTEMI) Status: Acute Current Visit: Yes (9) Obesity Status: Acute Current Visit: Yes (10) Cystitis Status: Acute Current Visit: Yes (11) GERD (gastroesophageal reflux disease) Status: Chronic Current Visit: Yes (12) Diastolic dysfunction Status: Chronic Current Visit: Yes (13) Pulmonary hypertension Status: Acute Comment: possibly due to acute BL PE's Current Visit: Yes - Allergies/Procedures Done in Hospital Allergies/Adverse Reactions: Allergies No Known Allergies Allergy (Verified 10/02/17 08:54) Procedures: 2-D Echocardiogram - EF of 55% with stage I diastolic dysfunction and mild to moderate TR. Moderate pulmonary hypertension - Type of Care/Length of Stay Estimated LOS: More Than 30 Days Type of Care Needed: [facility]/Assisted Living Rehab Potential: Poor Prognosis: Poor - Additional Orders/Day of Discharge H&P will serve as current which was dated: 10/02/17 Day of Discharge: 10/12/17 - Dietary and Speech Recommendations Dietitian Recommendations/Changes: Rec obtain current wt. - Follow Up Care Primary Care Physician: Maurilio Garcia MD [Primary Care Provider] - Please follow up with your Primary Care Physician in: 1-2 weeks
--- NOTE | 2017-10-12 17:28 | PCM.DC.SUM ---
Discharge Date and Diagnosis - Problem List Patient Problems: Active and Suspected Problems Non-ST elevation IA (NSTEMI) (Acute) Obesity (Acute) Cystitis (Acute) Pulmonary hypertension (Acute) possibly due to acute BL PE's Date of Admission: 10/02/17 Date of Discharge: 10/12/17 - Primary Discharge Diagnosis Active and Suspected Problems Non-ST elevation IA (NSTEMI) (Acute) - possibly type 2 due to demand ischemia related to acute BL PE's/SVT Cystitis (Acute) Pulmonary hypertension (Acute) possibly due to acute BL PE's - Secondary Discharge Diagnosis Chronic Problems GERD (gastroesophageal reflux disease) (Chronic) Diastolic dysfunction (Chronic) Breast CA (Chronic) Dementia (Chronic)without behavioral disturbance Obesity Hospital Course and Treatment Imaging Results: Clinical Impression(s) from Imaging Studies Chest X-Ray 10/02/17 09:18 IMPRESSION: Stable examination. Electronically Signed: Jacob Daniel MD at 10:19 EDT Tel [phone], Service support , Chest CTA 10/02/17 09:43 IMPRESSION: Bilateral central and peripheral pulmonary arterial emboli. 2.5 cm right adrenal adenoma. N.B. : The above information has been verbally conveyed by Jacob Daniel MD to Juan Alberto Ace on 10/02/2017 10:32:14 (ET). Electronically Signed: Jacob Daniel MD at 10:33 EDT Tel [phone], Service support , N.B. : The above information has been verbally conveyed by Jacob Daniel MD to Juan Alberto Ace on 10/02/2017 10:32:14 (ET). Abdomen/Pelvis CT 10/11/17 07:55 IMPRESSION: Pulmonary emboli. Small left pleural effusion with underlying infiltration and/or atelectasis. Minimal right basilar atelectasis. Fatty infiltration of the liver. Status post cholecystectomy. Low-density nodule in the right adrenal gland most likely secondary to an adenoma. Electronically Signed: Jacob Daniel MD at 14:13 EDT Tel [phone], Service support , Laboratory Tests 10/02/17 10/02/17 10/02/17 08:50 08:50 08:50 WBC 17.0 H RBC 4.62 Hgb 13.3 Hct 41.6 MCV 90.0 MCH 28.8 MCHC 32.0 RDW 14.5 RDW Differential 47.0 H Plt Count 234 MPV 11.3 Immature Gran % (Auto) 0.200 Neut % (Auto) 83.2 H Lymph % (Auto) 9.7 L [place] % (Auto) 6.7 Eos % (Auto) 0.1 Baso % (Auto) 0.1 Absolute Neuts (auto) 14.1 H Absolute Lymphs (auto) 1.64 Total Counted Not Reportable PT 16.1 H INR 1.3 APTT 26.1 Sodium 140 Potassium 3.9 Chloride 104 Carbon Dioxide 20.0 L Anion Gap 16 H BUN 23 H Creatinine 1.62 H Estim Creat Clear Calc 27.83 Est GFR (MDRD) Af Amer 39 L Est GFR (MDRD) Non-Af 33 L BUN/Creatinine Ratio 14.2 Glucose 276 H Calcium 9.1 Phosphorus Magnesium 2.4 Total Bilirubin 1.10 H AST 30 ALT 41 Alkaline Phosphatase 127 H Troponin I 0.340 H Total Protein 7.7 Albumin 2.9 L Globulin 4.8 H Albumin/Globulin Ratio 0.6 L TSH 1.24 Urine Color Urine Clarity Urine pH Ur Specific [place] Urine Protein Urine Glucose (UA) Urine Ketones Urine Occult Blood Urine Nitrite Urine Bilirubin Urine Urobilinogen Ur Leukocyte Esterase Urine RBC Urine WBC Ur Squamous Epith Cells Urine Bacteria Urine Mucus 10/02/17 10/02/17 10/02/17 12:00 14:43 22:30 WBC RBC Hgb Hct MCV MCH MCHC RDW RDW Differential Plt Count MPV Immature Gran % (Auto) Neut % (Auto) Lymph % (Auto) [place] % (Auto) Eos % (Auto) Baso % (Auto) Absolute Neuts (auto) Absolute Lymphs (auto) Total Counted PT INR APTT Sodium Potassium Chloride Carbon Dioxide Anion Gap BUN Creatinine Estim Creat Clear Calc Est GFR (MDRD) Af Amer Est GFR (MDRD) Non-Af BUN/Creatinine Ratio Glucose Calcium Phosphorus Magnesium Total Bilirubin AST ALT Alkaline Phosphatase Troponin I 0.373 H 0.316 H Total Protein Albumin Globulin Albumin/Globulin Ratio TSH Urine Color Yellow Urine Clarity Clear Urine pH 5.0 Ur Specific [place]ba 1.020 Urine Protein 30 H Urine Glucose (UA) Normal Urine Ketones Negative Urine Occult Blood 25 H Urine Nitrite Positive H Urine Bilirubin Negative Urine Urobilinogen 1 H Ur Leukocyte Esterase 100 H Urine RBC 0 SEEN Urine WBC 10-25 SEEN Ur Squamous Epith Cells 0 SEEN Urine Bacteria RARE Urine Mucus 1+ 10/03/17 10/03/17 10/03/17 05:30 05:30 05:30 WBC 12.3 H RBC 3.76 L Hgb 11.0 L Hct 34.1 L MCV 90.7 MCH 29.3 MCHC 32.3 RDW 14.8 H RDW Differential 47.9 H Plt Count 203 MPV 10.7 Immature Gran % (Auto) Neut % (Auto) Lymph % (Auto) [place] % (Auto) Eos % (Auto) Baso % (Auto) Absolute Neuts (auto) Absolute Lymphs (auto) Total Counted PT INR APTT > 250.0 H* Sodium 144 Potassium 3.9 Chloride 112 H Carbon Dioxide 21.0 Anion Gap 11 BUN 25 H Creatinine 0.87 Estim Creat Clear Calc 51.83 Est GFR (MDRD) Af Amer 80 Est GFR (MDRD) Non-Af 67 BUN/Creatinine Ratio 28.6 H Glucose 130 H Calcium 8.4 L Phosphorus Magnesium Total Bilirubin AST ALT Alkaline Phosphatase Troponin I 0.150 H Total Protein Albumin Globulin Albumin/Globulin Ratio TSH Urine Color Urine Clarity Urine pH Ur Specific [place] Urine Protein Urine Glucose (UA) Urine Ketones Urine Occult Blood Urine Nitrite Urine Bilirubin Urine Urobilinogen Ur Leukocyte Esterase Urine RBC Urine WBC Ur Squamous Epith Cells Urine Bacteria Urine Mucus 10/03/17 10/03/17 10/04/17 10:35 16:36 07:50 WBC 9.3 RBC 3.52 L Hgb 10.3 L Hct 31.8 L MCV 90.3 MCH 29.3 MCHC 32.4 RDW 14.8 H RDW Differential 47.7 H Plt Count 199 MPV 11.3 Immature Gran % (Auto) 0.100 Neut % (Auto) 81.1 H Lymph % (Auto) 12.6 L [place] % (Auto) 5.5 Eos % (Auto) 0.4 Baso % (Auto) 0.3 Absolute Neuts (auto) 7.5 Absolute Lymphs (auto) 1.17 Total Counted Not Reportable PT INR APTT 61.8 H 52.2 H Sodium Potassium Chloride Carbon Dioxide Anion Gap BUN Creatinine Estim Creat Clear Calc Est GFR (MDRD) Af Amer Est GFR (MDRD) Non-Af BUN/Creatinine Ratio Glucose Calcium Phosphorus Magnesium Total Bilirubin AST ALT Alkaline Phosphatase Troponin I Total Protein Albumin Globulin Albumin/Globulin Ratio TSH Urine Color Urine Clarity Urine pH Ur Specific [place] Urine Protein Urine Glucose (UA) Urine Ketones Urine Occult Blood Urine Nitrite Urine Bilirubin Urine Urobilinogen Ur Leukocyte Esterase Urine RBC Urine WBC Ur Squamous Epith Cells Urine Bacteria Urine Mucus 10/04/17 10/05/17 10/05/17 07:50 06:30 06:30 WBC 8.5 RBC 3.43 L Hgb 9.9 L Hct 31.2 L MCV 91.0 MCH 28.9 MCHC 31.7 L RDW 15.0 H RDW Differential 49.1 H Plt Count 235 MPV 11.1 Immature Gran % (Auto) Neut % (Auto) Lymph % (Auto) [place] % (Auto) Eos % (Auto) Baso % (Auto) Absolute Neuts (auto) Absolute Lymphs (auto) Total Counted PT INR APTT Sodium 144 143 Potassium 3.8 3.9 Chloride 115 H 114 H Carbon Dioxide 23.0 22.0 Anion Gap 6 7 BUN 25 H 26 H Creatinine 0.83 0.83 Estim Creat Clear Calc 54.32 54.32 Est GFR (MDRD) Af Amer 85 85 Est GFR (MDRD) Non-Af 70 70 BUN/Creatinine Ratio 30.0 H 31.2 H Glucose 94 97 Calcium 8.4 L 8.3 L Phosphorus Magnesium Total Bilirubin AST ALT Alkaline Phosphatase Troponin I Total Protein Albumin Globulin Albumin/Globulin Ratio TSH Urine Color Urine Clarity Urine pH Ur Specific [place] Urine Protein Urine Glucose (UA) Urine Ketones Urine Occult Blood Urine Nitrite Urine Bilirubin Urine Urobilinogen Ur Leukocyte Esterase Urine RBC Urine WBC Ur Squamous Epith Cells Urine Bacteria Urine Mucus 10/06/17 10/06/17 10/06/17 06:10 06:10 06:10 WBC 7.7 RBC 3.37 L Hgb 9.8 L Hct 30.5 L MCV 90.5 MCH 29.1 MCHC 32.1 RDW 14.9 H RDW Differential 48.0 H Plt Count 278 MPV 10.6 Immature Gran % (Auto) Neut % (Auto) Lymph % (Auto) [place] % (Auto) Eos % (Auto) Baso % (Auto) Absolute Neuts (auto) Absolute Lymphs (auto) Total Counted PT INR APTT Sodium 142 Potassium 3.7 Chloride 114 H Carbon Dioxide 21.0 Anion Gap 7 BUN 20 H Creatinine 0.64 Estim Creat Clear Calc 45.09 Est GFR (MDRD) Af Amer 116 Est GFR (MDRD) Non-Af 96 BUN/Creatinine Ratio 31.5 H Glucose 92 Calcium 8.1 L Phosphorus Magnesium 2.0 Cancelled Total Bilirubin AST ALT Alkaline Phosphatase Troponin I Total Protein Albumin Globulin Albumin/Globulin Ratio TSH Urine Color Urine Clarity Urine pH Ur Specific [place] Urine Protein Urine Glucose (UA) Urine Ketones Urine Occult Blood Urine Nitrite Urine Bilirubin Urine Urobilinogen Ur Leukocyte Esterase Urine RBC Urine WBC Ur Squamous Epith Cells Urine Bacteria Urine Mucus 10/07/17 10/07/17 10/11/17 05:47 05:47 05:58 WBC 7.4 8.8 RBC 3.51 L 3.83 L Hgb 10.2 L 10.9 L Hct 31.7 L 33.7 L MCV 90.3 88.0 MCH 29.1 28.5 MCHC 32.2 32.3 RDW 14.9 H 15.1 H RDW Differential 48.4 H 47.8 H Plt Count 314 517 H MPV 10.7 10.0 Immature Gran % (Auto) 0.300 Neut % (Auto) 81.3 H Lymph % (Auto) 11.3 L [place] % (Auto) 6.0 Eos % (Auto) 0.8 Baso % (Auto) 0.3 Absolute Neuts (auto) 7.2 Absolute Lymphs (auto) 1.00 Total Counted Not Reportable PT INR APTT Sodium 140 Potassium 3.8 Chloride 112 H Carbon Dioxide 21.0 Anion Gap 7 BUN 17 Creatinine 0.57 Estim Creat Clear Calc 45.09 Est GFR (MDRD) Af Amer 133 Est GFR (MDRD) Non-Af 110 BUN/Creatinine Ratio 30.0 H Glucose 82 Calcium 8.3 L Phosphorus Magnesium 1.9 Total Bilirubin AST ALT Alkaline Phosphatase Troponin I Total Protein Albumin Globulin Albumin/Globulin Ratio TSH Urine Color Urine Clarity Urine pH Ur Specific [place] Urine Protein Urine Glucose (UA) Urine Ketones Urine Occult Blood Urine Nitrite Urine Bilirubin Urine Urobilinogen Ur Leukocyte Esterase Urine RBC Urine WBC Ur Squamous Epith Cells Urine Bacteria Urine Mucus 10/11/17 05:58 WBC RBC Hgb Hct MCV MCH MCHC RDW RDW Differential Plt Count MPV Immature Gran % (Auto) Neut % (Auto) Lymph % (Auto) [place] % (Auto) Eos % (Auto) Baso % (Auto) Absolute Neuts (auto) Absolute Lymphs (auto) Total Counted PT INR APTT Sodium 139 Potassium 4.4 Chloride 107 Carbon Dioxide 23.0 Anion Gap 9 BUN 13 Creatinine 0.55 Estim Creat Clear Calc 45.09 Est GFR (MDRD) Af Amer 137 Est GFR (MDRD) Non-Af 113 BUN/Creatinine Ratio 23.6 H Glucose 90 Calcium 8.3 L Phosphorus 2.8 Magnesium 2.7 H Total Bilirubin 0.50 AST 61 H ALT 103 H Alkaline Phosphatase 223 H Troponin I Total Protein 6.3 L Albumin 2.1 L Globulin 4.2 Albumin/Globulin Ratio 0.5 L TSH Urine Color Urine Clarity Urine pH Ur Specific [place] Urine Protein Urine Glucose (UA) Urine Ketones Urine Occult Blood Urine Nitrite Urine Bilirubin Urine Urobilinogen Ur Leukocyte Esterase Urine RBC Urine WBC Ur Squamous Epith Cells Urine Bacteria Urine Mucus Dr. Jerald Christine-cardiology Operations: None, - - Right hemiarthroplasty of right hip-12/07/16 Procedures: Transthoracic echo - Normal left ventricular size with a 55% ejection fraction. Stage I diastolic dysfunction. Mild to moderate tricuspid regurgitation. Right ventricular systolic pressure estimated at 54 which is consistent with moderate pulmonary hypertension. Summary of Care Provided: The patient is a 77-year-old female with a past medical history of dementia without behavioral disturbance, breast cancer, previous pulmonary embolus, GERD and obesity who presented to the hospital ED at [facility] on 10/02/17 complaining of severe shortness of breath. She was found to be in PSVT in the emergency room and was treated with adenosine and converted to NSR. A CTA of the chest showed bilateral central and peripheral pulmonary arterial emboli. In addition there was a 2.5 cm right adrenal adenoma. White blood cell count was elevated at 17 with a left shift. Hemoglobin was 13.3 and platelets were normal. Serum bicarb was low at 20 and the BUN was 23 with a creatinine of 1.62. Troponin was elevated at 0.34 and trended down to 0.15 on 10/03/17. A UA showed 10-25 WBCs per high-power field and was positive for nitrites. TSH was normal at 1.2. She was started on heparin and admitted to a monitored bed on PCU. Rocephin was initiated for treatment for suspected cystitis. He required adenosine several more times for unstable SVT. She was seen in consult by Dr. Christine and Metoprolol was increased as tolerated to 100 mg BID. She has continued to have occasional SVT but it terminates without intervention and she tolerates well with no further episodes of hypotension. She was transitioned from a Heparin infusion to Xarelto. Her dtr requested assistance in placement because she is no longer able to care for her adequately and she needs 24 hour supervision. On 10/12 she was discharged to [facility]. Vital signs at the time of discharge were temperature 98.1, heart rate 81, blood pressure 113/58, respiratory rate 16 and she was 96% saturated on room air. Lab on 10/11/2017 showed a normal white blood cell count of 8.8 with hemoglobin of 10.9 and platelets of 517,000. The electrolytes were within normal limits and the BUN was 13 with a creatinine of 0.55. She will need to remain on lifelong anticoagulation. PE: alert and pleasant, able to follow commands sometimes. NAD HEENT: dry MM, no mucosal lesions Lungs - CTA anterior and lateral, symmetric chest expansion, no wheezing and no rales Heart - RRR, no gallop and no rub Abdomen-soft, obese, nondistended, nontender, bowel sounds present, no guarding with palpation Extremities - no edema, no rash and no breakdown, no clubbing and no cyanosis Neuro - moving all extremities, CN's II -XII grossly intact This note was generated with [employer] dictation software. It may contain incorrect words, spelling, and punctuation that were not noted in checking the note before signing. Home Medications: Medications to take at Discharge Docusate Sodium [Colace] 200 mg PO DAILY 12/05/16 Melatonin 5 mg PO QHS 12/05/16 Multivit-Min/FA/Lycopen/Lutein [Centrum Silver Tablet] 1 each PO DAILY 12/05/16 Pantoprazole Sodium [Protonix] 40 mg PO DAILY 12/05/16 Pregabalin [Lyrica] 50 mg PO 4X/DAY 12/05/16 Cholecalciferol (VIT D3) [Vitamin D3] 2,000 unit PO DAILY tablet 12/12/16 Anastrozole [Arimidex] 1 mg PO DAILY 10/02/17 C,E,Zinc,Copper 11/Splsl3q/Lut [Ocuvite Adult 50 Plus Softgel] 1 each PO DAILY 10/02/17 Memantine HCl [Namenda Xr] 28 mg PO DAILY 10/02/17 Tizanidine HCl [Zanaflex] 4 mg PO BID 10/02/17 Aspirin [Aspirin, Baby] 81 mg PO DAILY@0800 tab.chew 10/12/17 Hydrocodone/Acetaminophen [[place]man 5-325 Tablet] 1 ea PO Q4H PRN PRN 7 Days #30 tab 10/12/17 Lorazepam [Ativan] 1 mg PO DAILY PRN PRN 7 Days #7 tab 10/12/17 Mag Hydrox/Al Hydrox/Simeth [Mylanta II] 30 ml PO Q6H PRN PRN udc 10/12/17 Magnesium Hydroxide [Milk Of Magnesia] 30 ml PO DAILY PRN udc 10/12/17 Metoprolol Tartrate [Lopressor (beta moni)] 100 mg PO BID tablet 10/12/17 Rivaroxaban [Xarelto] 20 mg PO DAILY #1 tab 10/12/17 Following Prescrptions Were Given to Patient: Hydrocodone/Acetaminophen [[place] 5-325 Tablet] 1 ea PO Q4H PRN PRN 7 Days #30 tab PRN Reason: Pain Lorazepam [Ativan] 1 mg PO DAILY PRN PRN 7 Days #7 tab PRN Reason: Anxiety Rivaroxaban [Xarelto] 20 mg PO DAILY #1 tab Primary Care Physician: Maurilio Garcia MD [Primary Care Provider] - Please follow up with your Primary Care Physician in: 1-2 weeks Disposition: Asstd Living/Non-Skill AL Minutes spent on discharge:: 40 Patient Condition:: Stable Medical Necessity - Tobacco Use Smoking Status: Never smoker Meaningful Use Info Meaningful Use Diagnoses (Choose all that apply): AMI - AMI Aspirin given w/in 24hrs of arrival?: Yes ASA at discharge?: Yes Statins at discharge?: No Reason statins not ordered:: Drug Interaction Anton/ARB at discharge?: No Reason Anton/ARB not ordered:: Not indicated Beta Moni at discharge?: Yes Done w/ Acute IA measure.: Yes Code Visit Inpatient E&M: 83946 Disch Hosp
--- NOTE | 2017-10-12 17:46 | DS.PCM_ITS ---
Discharge Date and Diagnosis - Problem List Patient Problems: Active and Suspected Problems Non-ST elevation [place] (NSTEMI) (Acute) Obesity (Acute) Cystitis (Acute) Pulmonary hypertension (Acute) possibly due to acute BL PE's Date of Admission: 10/02/17 Date of Discharge: 10/12/17 - Primary Discharge Diagnosis Active and Suspected Problems Non-ST elevation [place] (NSTEMI) (Acute) - possibly type 2 due to demand ischemia related to acute BL PE's/SVT Cystitis (Acute) Pulmonary hypertension (Acute) possibly due to acute BL PE's - Secondary Discharge Diagnosis Chronic Problems GERD (gastroesophageal reflux disease) (Chronic) Diastolic dysfunction (Chronic) Breast CA (Chronic) Dementia (Chronic)without behavioral disturbance Obesity Hospital Course and Treatment Imaging Results: Clinical Impression(s) from Imaging Studies Chest X-Ray 10/02/17 09:18 IMPRESSION: Stable examination. Electronically Signed: Jacob Daniel MD at 10:19 EDT Tel [phone], Service support , Chest CTA 10/02/17 09:43 IMPRESSION: Bilateral central and peripheral pulmonary arterial emboli. 2.5 cm right adrenal adenoma. N.B. : The above information has been verbally conveyed by Jacob Daniel MD to Juan Alberto Ace on 10/02/2017 10:32:14 (ET). Electronically Signed: Jacob Daniel MD at 10:33 EDT Tel [phone], Service support , N.B. : The above information has been verbally conveyed by Jacob Daniel MD to Juan Alberto Ace on 10/02/2017 10:32:14 (ET). Abdomen/Pelvis CT 10/11/17 07:55 IMPRESSION: Pulmonary emboli. Small left pleural effusion with underlying infiltration and/or atelectasis. Minimal right basilar atelectasis. Fatty infiltration of the liver. Status post cholecystectomy. Low-density nodule in the right adrenal gland most likely secondary to an adenoma. Electronically Signed: Jacob Daniel MD at 14:13 EDT Tel [phone], Service support , Laboratory Tests 10/02/17 10/02/17 10/02/17 08:50 08:50 08:50 WBC 17.0 H RBC 4.62 Hgb 13.3 Hct 41.6 MCV 90.0 MCH 28.8 MCHC 32.0 RDW 14.5 RDW Differential 47.0 H Plt Count 234 MPV 11.3 Immature Gran % (Auto) 0.200 Neut % (Auto) 83.2 H Lymph % (Auto) 9.7 L [place] % (Auto) 6.7 Eos % (Auto) 0.1 Baso % (Auto) 0.1 Absolute Neuts (auto) 14.1 H Absolute Lymphs (auto) 1.64 Total Counted Not Reportable PT 16.1 H INR 1.3 APTT 26.1 Sodium 140 Potassium 3.9 Chloride 104 Carbon Dioxide 20.0 L Anion Gap 16 H BUN 23 H Creatinine 1.62 H Estim Creat Clear Calc 27.83 Est GFR (MDRD) Af Amer 39 L Est GFR (MDRD) Non-Af 33 L BUN/Creatinine Ratio 14.2 Glucose 276 H Calcium 9.1 Phosphorus Magnesium 2.4 Total Bilirubin 1.10 H AST 30 ALT 41 Alkaline Phosphatase 127 H Troponin I 0.340 H Total Protein 7.7 Albumin 2.9 L Globulin 4.8 H Albumin/Globulin Ratio 0.6 L TSH 1.24 Urine Color Urine Clarity Urine pH Ur Specific [place] Urine Protein Urine Glucose (UA) Urine Ketones Urine Occult Blood Urine Nitrite Urine Bilirubin Urine Urobilinogen Ur Leukocyte Esterase Urine RBC Urine WBC Ur Squamous Epith Cells Urine Bacteria Urine Mucus 10/02/17 10/02/17 10/02/17 12:00 14:43 22:30 WBC RBC Hgb Hct MCV MCH MCHC RDW RDW Differential Plt Count MPV Immature Gran % (Auto) Neut % (Auto) Lymph % (Auto) [place] % (Auto) Eos % (Auto) Baso % (Auto) Absolute Neuts (auto) Absolute Lymphs (auto) Total Counted PT INR APTT Sodium Potassium Chloride Carbon Dioxide Anion Gap BUN Creatinine Estim Creat Clear Calc Est GFR (MDRD) Af Amer Est GFR (MDRD) Non-Af BUN/Creatinine Ratio Glucose Calcium Phosphorus Magnesium Total Bilirubin AST ALT Alkaline Phosphatase Troponin I 0.373 H 0.316 H Total Protein Albumin Globulin Albumin/Globulin Ratio TSH Urine Color Yellow Urine Clarity Clear Urine pH 5.0 Ur Specific [place] 1.020 Urine Protein 30 H Urine Glucose (UA) Normal Urine Ketones Negative Urine Occult Blood 25 H Urine Nitrite Positive H Urine Bilirubin Negative Urine Urobilinogen 1 H Ur Leukocyte Esterase 100 H Urine RBC 0 SEEN Urine WBC 10-25 SEEN Ur Squamous Epith Cells 0 SEEN Urine Bacteria RARE Urine Mucus 1+ 10/03/17 10/03/17 10/03/17 05:30 05:30 05:30 WBC 12.3 H RBC 3.76 L Hgb 11.0 L Hct 34.1 L MCV 90.7 MCH 29.3 MCHC 32.3 RDW 14.8 H RDW Differential 47.9 H Plt Count 203 MPV 10.7 Immature Gran % (Auto) Neut % (Auto) Lymph % (Auto) [place] % (Auto) Eos % (Auto) Baso % (Auto) Absolute Neuts (auto) Absolute Lymphs (auto) Total Counted PT INR APTT > 250.0 H* Sodium 144 Potassium 3.9 Chloride 112 H Carbon Dioxide 21.0 Anion Gap 11 BUN 25 H Creatinine 0.87 Estim Creat Clear Calc 51.83 Est GFR (MDRD) Af Amer 80 Est GFR (MDRD) Non-Af 67 BUN/Creatinine Ratio 28.6 H Glucose 130 H Calcium 8.4 L Phosphorus Magnesium Total Bilirubin AST ALT Alkaline Phosphatase Troponin I 0.150 H Total Protein Albumin Globulin Albumin/Globulin Ratio TSH Urine Color Urine Clarity Urine pH Ur Specific [place] Urine Protein Urine Glucose (UA) Urine Ketones Urine Occult Blood Urine Nitrite Urine Bilirubin Urine Urobilinogen Ur Leukocyte Esterase Urine RBC Urine WBC Ur Squamous Epith Cells Urine Bacteria Urine Mucus 10/03/17 10/03/17 10/04/17 10:35 16:36 07:50 WBC 9.3 RBC 3.52 L Hgb 10.3 L Hct 31.8 L MCV 90.3 MCH 29.3 MCHC 32.4 RDW 14.8 H RDW Differential 47.7 H Plt Count 199 MPV 11.3 Immature Gran % (Auto) 0.100 Neut % (Auto) 81.1 H Lymph % (Auto) 12.6 L [place] % (Auto) 5.5 Eos % (Auto) 0.4 Baso % (Auto) 0.3 Absolute Neuts (auto) 7.5 Absolute Lymphs (auto) 1.17 Total Counted Not Reportable PT INR APTT 61.8 H 52.2 H Sodium Potassium Chloride Carbon Dioxide Anion Gap BUN Creatinine Estim Creat Clear Calc Est GFR (MDRD) Af Amer Est GFR (MDRD) Non-Af BUN/Creatinine Ratio Glucose Calcium Phosphorus Magnesium Total Bilirubin AST ALT Alkaline Phosphatase Troponin I Total Protein Albumin Globulin Albumin/Globulin Ratio TSH Urine Color Urine Clarity Urine pH Ur Specific [place] Urine Protein Urine Glucose (UA) Urine Ketones Urine Occult Blood Urine Nitrite Urine Bilirubin Urine Urobilinogen Ur Leukocyte Esterase Urine RBC Urine WBC Ur Squamous Epith Cells Urine Bacteria Urine Mucus 10/04/17 10/05/17 10/05/17 07:50 06:30 06:30 WBC 8.5 RBC 3.43 L Hgb 9.9 L Hct 31.2 L MCV 91.0 MCH 28.9 MCHC 31.7 L RDW 15.0 H RDW Differential 49.1 H Plt Count 235 MPV 11.1 Immature Gran % (Auto) Neut % (Auto) Lymph % (Auto) [place] % (Auto) Eos % (Auto) Baso % (Auto) Absolute Neuts (auto) Absolute Lymphs (auto) Total Counted PT INR APTT Sodium 144 143 Potassium 3.8 3.9 Chloride 115 H 114 H Carbon Dioxide 23.0 22.0 Anion Gap 6 7 BUN 25 H 26 H Creatinine 0.83 0.83 Estim Creat Clear Calc 54.32 54.32 Est GFR (MDRD) Af Amer 85 85 Est GFR (MDRD) Non-Af 70 70 BUN/Creatinine Ratio 30.0 H 31.2 H Glucose 94 97 Calcium 8.4 L 8.3 L Phosphorus Magnesium Total Bilirubin AST ALT Alkaline Phosphatase Troponin I Total Protein Albumin Globulin Albumin/Globulin Ratio TSH Urine Color Urine Clarity Urine pH Ur Specific [place] Urine Protein Urine Glucose (UA) Urine Ketones Urine Occult Blood Urine Nitrite Urine Bilirubin Urine Urobilinogen Ur Leukocyte Esterase Urine RBC Urine WBC Ur Squamous Epith Cells Urine Bacteria Urine Mucus 10/06/17 10/06/17 10/06/17 06:10 06:10 06:10 WBC 7.7 RBC 3.37 L Hgb 9.8 L Hct 30.5 L MCV 90.5 MCH 29.1 MCHC 32.1 RDW 14.9 H RDW Differential 48.0 H Plt Count 278 MPV 10.6 Immature Gran % (Auto) Neut % (Auto) Lymph % (Auto) [place] % (Auto) Eos % (Auto) Baso % (Auto) Absolute Neuts (auto) Absolute Lymphs (auto) Total Counted PT INR APTT Sodium 142 Potassium 3.7 Chloride 114 H Carbon Dioxide 21.0 Anion Gap 7 BUN 20 H Creatinine 0.64 Estim Creat Clear Calc 45.09 Est GFR (MDRD) Af Amer 116 Est GFR (MDRD) Non-Af 96 BUN/Creatinine Ratio 31.5 H Glucose 92 Calcium 8.1 L Phosphorus Magnesium 2.0 Cancelled Total Bilirubin AST ALT Alkaline Phosphatase Troponin I Total Protein Albumin Globulin Albumin/Globulin Ratio TSH Urine Color Urine Clarity Urine pH Ur Specific [place] Urine Protein Urine Glucose (UA) Urine Ketones Urine Occult Blood Urine Nitrite Urine Bilirubin Urine Urobilinogen Ur Leukocyte Esterase Urine RBC Urine WBC Ur Squamous Epith Cells Urine Bacteria Urine Mucus 10/07/17 10/07/17 10/11/17 05:47 05:47 05:58 WBC 7.4 8.8 RBC 3.51 L 3.83 L Hgb 10.2 L 10.9 L Hct 31.7 L 33.7 L MCV 90.3 88.0 MCH 29.1 28.5 MCHC 32.2 32.3 RDW 14.9 H 15.1 H RDW Differential 48.4 H 47.8 H Plt Count 314 517 H MPV 10.7 10.0 Immature Gran % (Auto) 0.300 Neut % (Auto) 81.3 H Lymph % (Auto) 11.3 L [place] % (Auto) 6.0 Eos % (Auto) 0.8 Baso % (Auto) 0.3 Absolute Neuts (auto) 7.2 Absolute Lymphs (auto) 1.00 Total Counted Not Reportable PT INR APTT Sodium 140 Potassium 3.8 Chloride 112 H Carbon Dioxide 21.0 Anion Gap 7 BUN 17 Creatinine 0.57 Estim Creat Clear Calc 45.09 Est GFR (MDRD) Af Amer 133 Est GFR (MDRD) Non-Af 110 BUN/Creatinine Ratio 30.0 H Glucose 82 Calcium 8.3 L Phosphorus Magnesium 1.9 Total Bilirubin AST ALT Alkaline Phosphatase Troponin I Total Protein Albumin Globulin Albumin/Globulin Ratio TSH Urine Color Urine Clarity Urine pH Ur Specific [place] Urine Protein Urine Glucose (UA) Urine Ketones Urine Occult Blood Urine Nitrite Urine Bilirubin Urine Urobilinogen Ur Leukocyte Esterase Urine RBC Urine WBC Ur Squamous Epith Cells Urine Bacteria Urine Mucus 10/11/17 05:58 WBC RBC Hgb Hct MCV MCH MCHC RDW RDW Differential Plt Count MPV Immature Gran % (Auto) Neut % (Auto) Lymph % (Auto) [place] % (Auto) Eos % (Auto) Baso % (Auto) Absolute Neuts (auto) Absolute Lymphs (auto) Total Counted PT INR APTT Sodium 139 Potassium 4.4 Chloride 107 Carbon Dioxide 23.0 Anion Gap 9 BUN 13 Creatinine 0.55 Estim Creat Clear Calc 45.09 Est GFR (MDRD) Af Amer 137 Est GFR (MDRD) Non-Af 113 BUN/Creatinine Ratio 23.6 H Glucose 90 Calcium 8.3 L Phosphorus 2.8 Magnesium 2.7 H Total Bilirubin 0.50 AST 61 H ALT 103 H Alkaline Phosphatase 223 H Troponin I Total Protein 6.3 L Albumin 2.1 L Globulin 4.2 Albumin/Globulin Ratio 0.5 L TSH Urine Color Urine Clarity Urine pH Ur Specific [place] Urine Protein Urine Glucose (UA) Urine Ketones Urine Occult Blood Urine Nitrite Urine Bilirubin Urine Urobilinogen Ur Leukocyte Esterase Urine RBC Urine WBC Ur Squamous Epith Cells Urine Bacteria Urine Mucus Dr. Jerald Christine-cardiology Operations: None, - - Right hemiarthroplasty of right hip-12/07/16 Procedures: Transthoracic echo - Normal left ventricular size with a 55% ejection fraction. Stage I diastolic dysfunction. Mild to moderate tricuspid regurgitation. Right ventricular systolic pressure estimated at 54 which is consistent with moderate pulmonary hypertension. Summary of Care Provided: The patient is a 77-year-old female with a past medical history of dementia without behavioral disturbance, breast cancer, previous pulmonary embolus, GERD and obesity who presented to the hospital ED at [facility] on 10/02/17 complaining of severe shortness of breath. She was found to be in PSVT in the emergency room and was treated with adenosine and converted to NSR. A CTA of the chest showed bilateral central and peripheral pulmonary arterial emboli. In addition there was a 2.5 cm right adrenal adenoma. White blood cell count was elevated at 17 with a left shift. Hemoglobin was 13.3 and platelets were normal. Serum bicarb was low at 20 and the BUN was 23 with a creatinine of 1.62. Troponin was elevated at 0.34 and trended down to 0.15 on 10/03/17. A UA showed 10-25 WBCs per high-power field and was positive for nitrites. TSH was normal at 1.2. She was started on heparin and admitted to a monitored bed on PCU. Rocephin was initiated for treatment for suspected cystitis. He required adenosine several more times for unstable SVT. She was seen in consult by Dr. Christine and Metoprolol was increased as tolerated to 100 mg BID. She has continued to have occasional SVT but it terminates without intervention and she tolerates well with no further episodes of hypotension. She was transitioned from a Heparin infusion to Xarelto. Her dtr requested assistance in placement because she is no longer able to care for her adequately and she needs 24 hour supervision. On 10/12 she was discharged to [facility]. Vital signs at the time of discharge were temperature 98.1, heart rate 81, blood pressure 113/58, respiratory rate 16 and she was 96% saturated on room air. Lab on 10/11/2017 showed a normal white blood cell count of 8.8 with hemoglobin of 10.9 and platelets of 517,000. The electrolytes were within normal limits and the BUN was 13 with a creatinine of 0.55. She will need to remain on lifelong anticoagulation. PE: alert and pleasant, able to follow commands sometimes. NAD HEENT: dry MM, no mucosal lesions Lungs - CTA anterior and lateral, symmetric chest expansion, no wheezing and no rales Heart - RRR, no gallop and no rub Abdomen-soft, obese, nondistended, nontender, bowel sounds present, no guarding with palpation Extremities - no edema, no rash and no breakdown, no clubbing and no cyanosis Neuro - moving all extremities, CN's II -XII grossly intact This note was generated with [employer] dictation software. It may contain incorrect words, spelling, and punctuation that were not noted in checking the note before signing. Home Medications: Medications to take at Discharge Docusate Sodium [Colace] 200 mg PO DAILY 12/05/16 Melatonin 5 mg PO QHS 12/05/16 Multivit-Min/FA/Lycopen/Lutein [Centrum Silver Tablet] 1 each PO DAILY 12/05/16 Pantoprazole Sodium [Protonix] 40 mg PO DAILY 12/05/16 Pregabalin [Lyrica] 50 mg PO 4X/DAY 12/05/16 Cholecalciferol (VIT D3) [Vitamin D3] 2,000 unit PO DAILY tablet 12/12/16 Anastrozole [Arimidex] 1 mg PO DAILY 10/02/17 C,E,Zinc,Copper 11/Haowv8a/Lut [Ocuvite Adult 50 Plus Softgel] 1 each PO DAILY 10/02/17 Memantine HCl [Namenda Xr] 28 mg PO DAILY 10/02/17 Tizanidine HCl [Zanaflex] 4 mg PO BID 10/02/17 Aspirin [Aspirin, Baby] 81 mg PO DAILY@0800 tab.chew 10/12/17 Hydrocodone/Acetaminophen [Horton 5-325 Tablet] 1 ea PO Q4H PRN PRN 7 Days #30 tab 10/12/17 Lorazepam [Ativan] 1 mg PO DAILY PRN PRN 7 Days #7 tab 10/12/17 Mag Hydrox/Al Hydrox/Simeth [Mylanta II] 30 ml PO Q6H PRN PRN udc 10/12/17 Magnesium Hydroxide [Milk Of Magnesia] 30 ml PO DAILY PRN udc 10/12/17 Metoprolol Tartrate [Lopressor (beta moni)] 100 mg PO BID tablet 10/12/17 Rivaroxaban [Xarelto] 20 mg PO DAILY #1 tab 10/12/17 Following Prescrptions Were Given to Patient: Hydrocodone/Acetaminophen [Horton 5-325 Tablet] 1 ea PO Q4H PRN PRN 7 Days #30 tab PRN Reason: Pain Lorazepam [Ativan] 1 mg PO DAILY PRN PRN 7 Days #7 tab PRN Reason: Anxiety Rivaroxaban [Xarelto] 20 mg PO DAILY #1 tab Primary Care Physician: Maurilio Garcia MD [Primary Care Provider] - Please follow up with your Primary Care Physician in: 1-2 weeks Disposition: Asstd Living/Non-Skill [place] Minutes spent on discharge:: 40 Patient Condition:: Stable Medical Necessity - Tobacco Use Smoking Status: Never smoker Meaningful Use Info Meaningful Use Diagnoses (Choose all that apply): AMI - AMI Aspirin given w/in 24hrs of arrival?: Yes ASA at discharge?: Yes Statins at discharge?: No Reason statins not ordered:: Drug Interaction Anton/ARB at discharge?: No Reason Anton/ARB not ordered:: Not indicated Beta Moni at discharge?: Yes Done w/ Acute [place] measure.: Yes Code Visit Inpatient E&M: 28337 Disch Hosp
== END 2017-10-12 19:00 | disposition skilled nursing facility (03) | DRG 280 ==
LOC: ED 09:31 → PCU 10:57
PROVIDERS: Family Medicine; Hospitalist; Internal Medicine Cardiovascular Disease; Admitting Provider Internal Medicine; Emergency Provider Emergency Medicine; Family Provider Family Medicine; PCP Family Medicine; Visit Provider Internal Medicine
DX: I21.A1 Myocardial infarction type 2 (principal); I26.99 Other pulmonary embolism without acute cor pulmonale; I47.1 Supraventricular tachycardia; N30.00 Acute cystitis without hematuria; Z86.711 Personal history of pulmonary embolism; F03.90 Unspecified dementia, unspecified severity, without behavioral disturbance, psychotic disturbance, mood disturbance, and anxiety; I27.20 Pulmonary hypertension, unspecified; K21.9 Gastro-esophageal reflux disease without esophagitis; C50.919 Malignant neoplasm of unspecified site of unspecified female breast; E66.9 Obesity, unspecified; Z79.811 Long term (current) use of aromatase inhibitors; Z68.32 Body mass index [BMI] 32.0-32.9, adult
CPT/HCPCS: 36415; 71045; 71275; 74177; 80048; 80053; 81001; 83735; 84100; 84443; 84484; 85025; 85027; 85610; 85730; 93005; 93306; 97110; 97162; 97165; 97530; 97535; 97803; 99285; J7030; Q9967; A4216; J0153

== ENCOUNTER 2017-10-25 11:52 | Emergency (ER) | payer MEDICARE, SELFPAY ==
[2017-10-25 11:53] VITALS: BP 145/78; PULSE 54; RESP 14; TEMP 36.8; O2SAT 96; BMI 27.6
[2017-10-25] MEDS: Oxymetazoline 0.05% 1 SPRAY SPRAY.BTL 2 SPRAY NASAL (12:42)
--- NOTE | 2017-10-25 15:24 | ED.VISSUMM ---
- ER Visit Summary Date of Service: 10/25/17 Chief Complaint: Left sided nosebleed on Xarelto History of Present Illness: The patient is a 77 F from an extended care facility that started having left-sided nosebleed today. Reportedly no trauma. Physical Examination: A female no acute distress. Vital signs are stable and afebrile. H EENT exam left nares with blood and active mild bleeding. Small clots. Right unremarkable. Posterior pharynx minimal blood. No significant clots. Neck nontender. Lungs clear to auscultation. Heart regular rhythm no murmur. Abdomen soft nontender. Normal bowel sounds no peritoneal signs. Moving all 4 extremities. Neurologically awake following commands and answering questions. Test Results: None Emergency Department Course and Treatment: Place Afrin soaked cotton balls both sides of her nose. The bleeding completely resolved. I then placed a anterior Merocel nasal pack in the left side of her nose without any difficulty. Patient tolerated procedure well. Treatment Plan: Discharged. Packing removed in 3 days. Placed on amoxicillin 3 times daily for 3 days. Disposition: Discharge Impression: Acute left-sided anterior epistaxis Anticoagulated on Xarelto Anterior nasal pack placed by her physician This note was generated with [employer] dictation software. It may contain incorrect words, spelling, and punctuation that were not noted in review of the chart prior to signing ED Disposition - Plan for ED Patient: Chief Complaint: Nosebleed Referrals: Jerald Page MD [Primary Care Provider] -
[2017-10-25 15:27] VITALS: BP 140/80; PULSE 60; RESP 14; O2SAT 98; O2SAT 99
--- NOTE | 2017-10-25 15:27 | ED.DEP ---
ED Disposition - Plan for ED Patient: Disposition: Home or Assisted Living Chief Complaint: Nosebleed Instructions: Nosebleed Prescriptions: Amoxicillin 250 mg PO Q8 #9 cap Referrals: Jerald Page MD [Primary Care Provider] - As Needed Additional Instructions: Pull nasal packing out in 3 days. If rebleeds and unable to stop return to the ER. Amoxicillin 1 pill 3 times a day for 3 days until the packing is taken out.
--- NOTE | 2017-10-25 15:41 | NURSING ---
called [facility] for transport back to [place]
== END 2017-10-25 16:07 | disposition home or self-care (01) ==
PROVIDERS: Emergency Provider Emergency Medicine; Family Provider Family Medicine; PCP Family Medicine
DX: R04.0 Epistaxis (principal); Z79.02 Long term (current) use of antithrombotics/antiplatelets; Z79.82 Long term (current) use of aspirin; Z79.891 Long term (current) use of opiate analgesic; Z79.899 Other long term (current) drug therapy
CPT/HCPCS: 30901; 99284; A4216

== ENCOUNTER 2018-04-08 02:30 | Inpatient (IN) | payer MEDICARE, BC, SELFPAY ==
[2018-04-08] VITALS (23 sets, daily range): BP systolic 86–118; BP diastolic 42–80; PULSE 55–134; RESP 14–20; TEMP 36.2–36.8; O2SAT 92–100; BMI 35.5; BMI 31.4
--- NOTE | 2018-04-08 02:35 | ED.RN ---
CALLED FOR EKG PER RN REQUEST, PULLED OLD EKGS FOR
--- NOTE | 2018-04-08 02:55 | EKG12_ITS ---
Test Reason : DYSRHYTHMIA Blood Pressure : / mmHG Vent. Rate : 071 BPM Atrial Rate : 071 BPM P-R Int : 144 ms QRS Dur : 072 ms QT Int : 390 ms P-R-T Axes : 013 -05 -14 degrees QTc Int : 423 ms Sinus rhythm with occasional Premature ventricular complexes Moderate voltage criteria for LVH, may be normal variant Inferior infarct , age undetermined Abnormal ECG Confirmed by TERA PITTMAN, ANNE-MARIE ([id number]), manuscript editor SUKH STALLINGS ([id number]) on 04/09/2018 2:20:47 PM Referred By: FRANCHESKA Confirmed By:ANNE-MARIE HALEY MD
--- NOTE | 2018-04-08 02:55 | RAD_ITS ---
STUDY: X-RAY CHEST REASON FOR EXAM: Female, 78 years old. Shortness of breath. TECHNIQUE: Two AP portable views of the chest. COMPARISON: October 02, 2017. FINDINGS: Cardiac monitoring leads are present. There appears to be a drain visible at the right lung base and right chest wall where there are multiple surgical clips. The lungs are underexpanded with crowding of bronchovascular markings and obscuration of the lung bases. There is suggestion for a left basilar airspace consolidation and or atelectasis. There is a small left-sided pleural effusion. There is mild cardiac enlargement. Normal mediastinum and fantasma. Normal visualized pulmonary arteries. There is atherosclerotic calcification of the aortic arch with tortuosity. There is demineralization of the osseous structures. There is multilevel degenerative changes of the imaged thoracic spine. Normal visualized ribs, clavicles, and shoulders. There is no demonstrated abnormality of the visualized soft tissue structures of the upper abdomen. RAD/Chest 1 View (Portable) IMPRESSION: Left basilar airspace consolidation and/or atelectasis. Electronically Signed: Kary Doss MD at 3:39 EST , Service support ,
--- NOTE | 2018-04-08 02:55 | CT_ITS ---
STUDY: CT BRAIN WITHOUT CONTRAST REASON FOR EXAM: Female, 78 years old. Altered mental status. RADIATION DOSAGE (If Supplied By Facility): CTDIvol = ( 44.99 ) mGy, DLP = ( 796.11 ) mGycm TECHNIQUE: Transaxial CT imaging of the brain was performed without administration of intravenous contrast material. Multiplanar reformations are submitted for interpretation. Individualized dose optimization techniques were used for this CT. COMPARISON: Prior comparison studies are not available for review at this time. FINDINGS: Normal soft tissue structures. Normal calvarium. There is moderate cerebral atrophy with widening of the extra-axial spaces and ventricular dilatation. There are areas of decreased attenuation within the white matter tracts of the supratentorial brain, consistent with microvascular disease changes. Normal basal ganglia and thalami. Normal brainstem. There is mild cerebellar atrophy. There is no intracranial hemorrhage. There is minimal atherosclerotic calcification of the intracranial arteries. Normal visualized paranasal sinuses. CT/Brain/Head without Contrast IMPRESSION: 1. Chronic involutional changes of the brain. 2. No CT evidence of acute intracranial hemorrhage. Electronically Signed: Kary Doss MD at 3:57 EST , Service support ,
[2018-04-08 03:37] LABS: Absolute Lymphocyte Count 1.27 X10^3/ul (0.83-4.51); Absolute Neutrophil Count 5.8 X10^3/uL (2.0-7.7); Basophil# 0.02 X10^3/uL; Basophil% 0.3 % (0-1); Eosinophil# 0.05 X10^3/uL; Eosinophils% 0.6 % (0-5); Hematocrit 36.6 % (37-47); Hemoglobin 11.6 g/dl (12.0-15.0); Lymphocyte # 1.27 X10^3/ul (4.0); Lymphocyte % 16.2 % (19-41); Mean Corp Hgb Conc 31.7 g/gl (32-36); Mean Corpuscular Hgb 28.4 pg (27.0-32.0); Mean Corpuscular Volume 89.7 fL (81-99); Mean Platelet Vol. 10.6 fl (6.2-12.0); Monocyte# 0.63 X10^3/uL; Monocyte% 8.1 % (0-10); Neutrophil # 5.81 X10^3/uL (2.7-7.7); Neutrophil % 74.3 % (47-70); POSITIVE COUNT NO; POSITIVE DIFFERENTIAL NO; POSITIVE MORPHOLOGY NO; Platelet Count 345 K/mm3 (150-450); RBC Distribution Width CV 15.9 % (11.6-14.6); RBC Distribution Width SD 50.6 fl (35.1-43.9); Red Blood Count 4.08 M/mm3 (4.2-5.4); White Blood Count 7.8 K/mm3 (4.4-11.0)
[2018-04-08 03:51] LABS: ALB/GLOB Ratio 0.5 RATIO (0.9-2.4); AST(SGOT) 88 U/L (15-37); Alanine Aminotransfer ALT/SGPT 58 U/L (13-56); Albumin, Serum 2.3 g/dL (3.2-5.0); Alkaline Phosphatase 172 U/L (45-117); Anion Gap 11 (5-15); BUN 26 mg/dL (7-18); BUN/Creat Ratio 24.5 RATIO (10-20); Chloride 108 mmol/L (98-107); Creatinine, Serum 1.06 mg/dL (0.55-1.02); EST Glomerular Filtration Rate 53 mL/min (>60); Est Glom Filt Rate - Afr Amer 64 mL/min (>60); Estimated Creatinine Clearance 37.16 ml/min; Glucose 138 mg/dL (74-106); Potassium 4.4 mmol/L (3.5-5.1); Protein, Total 7.3 g/dL (6.4-8.2); Sodium Level 144 mmol/L (136-145)
[2018-04-08] MEDS: 0.9% Normal Saline 1,000 ML 1000 ML IV ×3 (03:58→16:12)
[2018-04-08 03:59] LABS: Mucous, Urine 0 SEEN /hpf (<or=2+)
[2018-04-08 04:11] LABS: Color, Urine Yellow (Yellow); Glucose, Dipstick Normal (Normal); Ketone-Dipstick 15 mg/dl (Negative); Leukocyte Esterase-Dipstick 500 /ul (Negative); Nitrite-Dipstick Negative (Negative); Occult Blood-Urine 25 /ul (Negative); Protein-Dipstick 30 mg/dl (Negative); Specific Gravity, Urine 1.015 (1.002-1.030); Urine Bilirubin Dipstick Negative (Negative); Urine Clarity Turbid (Clear); Urine Urobilinogen 1 mg/dl (Normal)
[2018-04-08 04:22] LABS: Lactic Acid 1.6 mmol/L (0.4-2.0)
[2018-04-08 04:26] LABS: Bacteria 4+ /hpf (None Seen); Red Blood Cells-Urine 5-10 SEEN /hpf (0-5); Squamous Epithelial Cells - UA 0-5 SEEN /hpf (5-10); White Blood Cells 50-100 SEEN /hpf (0-5)
[2018-04-08] MEDS: Ceftriaxone 1 GM/50 ML BAG IV ×2 (05:02→22:21)
--- NOTE | 2018-04-08 05:03 | ED.DCSUM_ITS ---
- ER Visit Summary Date of Service: 04/08/18 Chief Complaint: Abnormal breathing and altered mental status History of Present Illness: The patient is a 78 F who was brought in by EMS after the daughter called because of abnormal breathing. The patient does have dementia and does not really talk much but can normally talk about what is currently going on. She noted that the patient was breathing irregularly and then she began to complain of some chest pain about 2 hours before presentation here. EMS was called. The patient was in SVT. He tried vagal maneuvers with no change and she was given 6 mg of adenosine and converted to sinus rhythm. History is limited due to the patient's altered mental status. She denies any pain. No recent vomiting or diarrhea. Family states she has had some cough the last few days. No fevers. Physical Examination: Pulse ox 92% on 2 L afebrile heart rate normal initial blood pressure 94/59 this did improve with IV fluids Heart regular rate and rhythm Lungs are clear I do not appreciate rales or wheezing Abdomen soft nontender and nondistended Patient diaphoretic on initial exam She is somnolent but arousable to voice no focal or lateralizing neurological deficits Test Results: EKG shows sinus rhythm at a rate of 71 with PVCs. Chest x-ray shows consolidation versus atelectasis of the left lung base. CT the head shows no acute process. Labs notable for BUN 26, creatinine 1.06. Mild elevation of alkaline phosphatase and transaminases. UA is consistent with infection with 500 leukocyte esterase, 50-100 WBCs, 4+ bacteria. Lactic acid normal. Troponin negative. Emergency Department Course and Treatment: Patient was treated with IV fluids. She was given Rocephin for UTI. Additionally given that she does have a cough and family stated she was breathing harder and she was hypoxic she was also treated for community acquired pneumonia with IV azithromycin. Patient discussed with the hospitalist. She will be admitted. Treatment Plan: [] Disposition: Admit Impression: UTI Community-acquired pneumonia SVT This note was generated with [employer] dictation software. It may contain incorrect words, spelling, and punctuation that were not noted in review of the chart prior to signing ED Disposition - Plan for ED Patient: Chief Complaint: Shortness of Breath Referrals: Maurilio Garcia MD [Primary Care Provider] -
--- NOTE | 2018-04-08 05:07 | PCM.HP.STD ---
Problem List (1) PSVT (paroxysmal supraventricular tachycardia) Status: Acute (2) Chest pain Status: Acute Qualifiers: Chest pain type: unspecified Qualified Code(s): R07.9 - Chest pain, unspecified (3) Pneumonia Status: Acute Qualifiers: Pneumonia type: due to unspecified organism Laterality: left Lung location: lower lobe of lung Qualified Code(s): J18.1 - Lobar pneumonia, unspecified organism (4) UTI (urinary tract infection) Status: Acute Qualifiers: Urinary tract infection type: acute cystitis (5) Non-ST elevation HI (NSTEMI) Status: Chronic (6) Obesity Status: Chronic Qualifiers: Obesity type: due to excess calories Obesity classification: adult class 2 (BMI 35 - 39.9) Serious obesity comorbidity presence: with serious comorbidity (7) GERD (gastroesophageal reflux disease) Status: Chronic Qualifiers: Esophagitis presence: esophagitis presence not specified Qualified Code(s): K21.9 - Gastro-esophageal reflux disease without esophagitis (8) Diastolic dysfunction Status: Chronic (9) Pulmonary hypertension Status: Chronic (10) Breast CA Status: Chronic Qualifiers: Breast location: unspecified site of breast Estrogen receptor status: unspecified Patient sex: female Laterality: unspecified laterality Qualified Code(s): C50.919 - Malignant neoplasm of unspecified site of unspecified female breast (11) Dementia Status: Chronic Qualifiers: Dementia type: unspecified type Dementia behavioral disturbance: without behavioral disturbance Qualified Code(s): F03.90 - Unspecified dementia without behavioral disturbance (12) Pulmonary emboli Status: Chronic Qualifiers: Chronicity: chronic Comment: BL History of Present Illness Date of Admission: 04/08/18 Chief Complaint: Weakness, Debility, Cough, Dyspnea, Chest pain The patient is a 78 y/o F w/ PMHx: CAD s/p NSTEMI, HTN, HLD, Obesity, Pulmonary HTN, History of BL PE, GERD, Diastolic Dysfunction, Dementia without behavioral disturbance history, Breast CA, History of PSVT who presents to the [facility] ED on 04/08/18 with history of dyspnea, recently minimally productive cough x 2-3 days with onset chest pain, substernal-midsternal region without radiation with ongoing dyspnea without nausea or diaphoresis with palpitations in addition to history of fatigue, weakness, debility and poor intake over the last several weeks w/ EMS noted SVT rate 160 with administration adenosine in route w/ conversion to SR. Family notes she has had increased frequency and her urine has appeared more dark in color also. Work-up in the ED included T 97.8, HR 74, BP 94/59, RR 18, 92% on 2L NC, CBC w/ WBC 7.8, Hgb 11.6, Plts 345 without marked shift, CMP w/ chloride 108, BUN/creatinine 26/1.06, glucose 138, lactic acid 1.6, AST/ALT 88/58, alk phos 172, urinalysis notable with pending urine culture, blood culture x2 pending per ED, Trop <0.015, EKG w/ sinus rhythm with no acute evidence of ischemia, CT head w/ no acute findings, chest x-ray with left basilar airspace consolidation and/or atelectasis. In the ED patient administered NS, adenosine. Past Medical History Past Medical History (Chronic Problems): Chronic Problems Non-ST elevation HI (NSTEMI) (Chronic) Obesity (Chronic) GERD (gastroesophageal reflux disease) (Chronic) Diastolic dysfunction (Chronic) Pulmonary hypertension (Chronic) Breast CA (Chronic) Dementia (Chronic) Pulmonary emboli (Chronic) BL Allergies No Known Allergies Allergy (Verified 04/08/18 02:37) Home Medications: Ambulatory Orders Medication Instructions Recorded Docusate Sodium [Colace] 200 mg PO DAILY 12/05/16 Melatonin 5 mg PO QHS 12/05/16 Multivit-Min/FA/Lycopen/Lutein 1 each PO DAILY 12/05/16 [Centrum Silver Tablet] Pantoprazole Sodium [Protonix] 40 mg PO DAILY 12/05/16 Pregabalin [Lyrica] 50 mg PO 4X/DAY 12/05/16 Cholecalciferol (VIT D3) [Vitamin 2,000 unit PO DAILY tablet 12/12/16 D3] Anastrozole [Arimidex] 1 mg PO DAILY 10/02/17 C,E,Zinc,Copper 11/Zsadh8m/Lut 1 each PO DAILY 10/02/17 [Ocuvite Adult 50 Plus Softgel] Memantine HCl [Namenda Xr] 28 mg PO DAILY 10/02/17 Tizanidine HCl [Zanaflex] 4 mg PO BID 10/02/17 Lorazepam [Ativan] 1 mg PO DAILY PRN PRN 7 Days #7 tab 10/12/17 Metoprolol Tartrate [Lopressor 100 mg PO BID tablet 10/12/17 (beta justino)] Rivaroxaban [Xarelto] 20 mg PO DAILY #1 tab 10/12/17 Surgical History: - - breast cancer surgery. Psychiatric History: No pertinent psych hx, Attn. deficit disorder [employer] History: - - breast cancer Lives: With Family - Lives with her daughter. Smoking Status: Never smoker Tobacco Use: Non-smoker Alcohol: None Drugs: None - *Family History Maternal History Items: Diabetes Paternal History Items: Unknown Review of Systems Constitutional: Reports: Anorexia, Malaise, Weakness, Fatigue. Denies: Chills, Fever, Weight Change HEENT: Denies: Head Aches, Sinus Congestion, Sinus Drainage Cardiovascular: Reports: Chest Pain, Light Headedness. Denies: Edema, Heaviness, Orthopnea, Palpitations, Syncope Respiratory: Reports: Cough, Shortness of Breath, Shortness of breath at rest, Shortness of breath upon exertion, Sputum production. Denies: Wheezing Gastrointestinal: Reports: Nausea. Denies: Abdominal Pain, Vomiting Genitourinary: Reports: Dysuria Musculoskeletal: Reports: Back Pain, Joint Pain. Denies: Joint Tenderness Skin: Denies: Rash, Wounds Neurological: Denies: Numbness, Tingling, Focal weakness Psychiatric: Reports: Anxiety, Depression. Denies: Homicidal Ideations, Suicidal Ideations Hematologic/ Lymphatic: Reports: Anemia, Easy Bruising, Easy Bleeding VTE Information - Inpt Only VTE Present on Admission: No VTE Mechan Device Prophylaxis: SCD's VTE Pharm Prophylaxis ordered?: No Reason prophylaxis not ordered:: Treatment Not Indicated - Maintain on home anticoagulation. Patient Problems: Active and Suspected Problems PSVT (paroxysmal supraventricular tachycardia) (Acute) Chest pain (Acute) Pneumonia (Acute) UTI (urinary tract infection) (Acute) Subjective: Seated upright in the ED bed, fatigued, intermittently sleeping, no current chest pain. Objective: Physical Examination: General: awakens to stimuli, intermittently alert, not oriented (chronic), cooperative, seated upright in the ED bed in no apparent distress, no current chest pain. Skin: normal color, turgor, no icterus, cyanosis. HEENT: AT/NC, EOMI, PERRLA, dry MM, no carotid bruits or JVD noted. Lungs: Diminished BS BL, > BL bases, moderate effort, no rales, ronchi or wheezing. Heart: Regular rate and rhythm; no gallop, rub audible. Abdomen: soft, obese, NTTP, ND, normal BS, no HSM. Extremities: no cyanosis, clubbing, or edema. Neurological: awakens to stimuli, intermittently alert, not oriented (chronic), cooperative, seated upright in the ED bed in no apparent distress, no current chest pain; cognitive function poor baseline, notable dementia w/ decreased orientation, suspect acutely worsened with acute presentation; pupils equally reactive to light and accomodation; cranial nerves II-XII grossly normal, moving all 4 extremities, no focal deficits, strength severely globally decreased. Psychiatric: affect appears flat, fatigued, no acute evidence of depressive or anxiety feelings. - Physical Exam Vital Signs Temp Pulse Resp BP Pulse Ox 97.8 F 63 16 99/65 97 04/08/18 02:32 04/08/18 05:00 04/08/18 05:00 04/08/18 05:00 04/08/18 05:00 Oxygen Flow Rate (L/min) 2 Oxygen Delivery Method Nasal Cannula Weight: 207 lb 3.752 oz Body Mass Index (BMI) 35.5 Laboratory Tests Past 24 Hrs 04/08/18 04/08/18 04/08/18 03:18 03:18 03:18 WBC 7.8 RBC 4.08 L Hgb 11.6 L Hct 36.6 L MCV 89.7 MCH 28.4 MCHC 31.7 L RDW 15.9 H RDW Differential 50.6 H Plt Count 345 MPV 10.6 Immature Gran % (Auto) 0.500 Neut % (Auto) 74.3 H Lymph % (Auto) 16.2 L [place] % (Auto) 8.1 Eos % (Auto) 0.6 Baso % (Auto) 0.3 Absolute Neuts (auto) 5.8 Absolute Lymphs (auto) 1.27 Total Counted Not Reportable Sodium 144 Potassium 4.4 Chloride 108 H Carbon Dioxide 25.0 Anion Gap 11 BUN 26 H Creatinine 1.06 H Estim Creat Clear Calc 37.16 Est GFR (MDRD) Af Amer 64 Est GFR (MDRD) Non-Af 53 L BUN/Creatinine Ratio 24.5 H Glucose 138 H Lactic Acid 1.6 Calcium 10.0 Total Bilirubin 0.40 AST 88 H ALT 58 H Alkaline Phosphatase 172 H Troponin I < 0.015 Total Protein 7.3 Albumin 2.3 L Globulin 5.0 H Albumin/Globulin Ratio 0.5 L Urine Color Urine Clarity Urine pH Ur Specific [place] Urine Protein Urine Glucose (UA) Urine Ketones Urine Occult Blood Urine Nitrite Urine Bilirubin Urine Urobilinogen Ur Leukocyte Esterase Urine RBC Urine WBC Ur Squamous Epith Cells Urine Bacteria Urine Mucus 04/08/18 03:53 WBC RBC Hgb Hct MCV MCH MCHC RDW RDW Differential Plt Count MPV Immature Gran % (Auto) Neut % (Auto) Lymph % (Auto) [place] % (Auto) Eos % (Auto) Baso % (Auto) Absolute Neuts (auto) Absolute Lymphs (auto) Total Counted Sodium Potassium Chloride Carbon Dioxide Anion Gap BUN Creatinine Estim Creat Clear Calc Est GFR (MDRD) Af Amer Est GFR (MDRD) Non-Af BUN/Creatinine Ratio Glucose Lactic Acid Calcium Total Bilirubin AST ALT Alkaline Phosphatase Troponin I Total Protein Albumin Globulin Albumin/Globulin Ratio Urine Color Yellow Urine Clarity Turbid Urine pH 7.0 Ur Specific [place] 1.015 Urine Protein 30 H Urine Glucose (UA) Normal Urine Ketones 15 H Urine Occult Blood 25 H Urine Nitrite Negative Urine Bilirubin Negative Urine Urobilinogen 1 H Ur Leukocyte Esterase 500 H Urine RBC 5-10 SEEN Urine WBC 50-100 SEEN Ur Squamous Epith Cells 0-5 SEEN Urine Bacteria 4+ Urine Mucus 0 SEEN Assessment/Plan All Active Problems Cystitis (Acute) PSVT (paroxysmal supraventricular tachycardia) (Acute) Chest pain (Acute) Pneumonia (Acute) UTI (urinary tract infection) (Acute) SVT (supraventricular tachycardia) (Acute) Closed displaced fracture of right femoral neck (Resolved) Dislocation, ankle (Resolved) Trimalleolar fracture of ankle, closed (Resolved) The patient is a 78 y/o F w/ PMHx: CAD s/p NSTEMI, HTN, HLD, Obesity, Pulmonary HTN, History of BL PE, GERD, Diastolic Dysfunction, Dementia without behavioral disturbance history, Breast CA, History of PSVT who presents to the [facility] ED on 04/08/18 with history of dyspnea, recently minimally productive cough x 2-3 days with onset chest pain, substernal-midsternal region without radiation with ongoing dyspnea without nausea or diaphoresis with palpitations in addition to history of fatigue, weakness, debility and poor intake over the last several weeks w/ EMS noted SVT rate 160 with administration adenosine in route w/ conversion to SR. (1) Recurrent SVT w/ History of PSVT w/ Chest Pain: Prior similar presentations, noted to be compatible with AV omari reentery mechanism of tachycardia, currently converted w/ adenosine w/ EMS, noted to have prior serial episodes of SVT that spontaneously convert, following w/ [facility] w/ prior initiation metoprolol 100 mg BID. She has been discussed w/ EP Dr. Arteaga at OSH and given history conservative management has previously been recommended as she is not an ideal surgical candidate. Will admit to PCU, maintain on telemetry, cycle cardiac enzymes, repeat EKG in AM, recent ECHO 10/02/17 w/ normal LV size, EF 55%, normal LV systolic function, stage I diastolic dysfunction, mild to moderate TV insufficiency, moderate pulmonary hypertension thus will not repeat, given hypotension noted in the ED will hold her high dose BID metoprolol, mag pending, FLP in AM, adenosine if needed for recurrent episodes. Consultation with cardiology requested, pending. (2) Possible Community Acquired Pneumonia: CXR in the ED w/ left basilar airspace consolidation and/or atelectasis given history of recent cough and dyspnea some concern for underlying infiltrate. Admission CBC w/ W BC 7.6 without market left shift. Will maintain on oxygen with wean as tolerated to room air, continue ATC duonebs, PRN albuterol, maintained on IV Rocephin and Azithromycin, HOB, IS parameters w/ pending sputum cultures and urine antigens as well as respiratory viral panel. Bld cx x 2 obtained in the ED. (3) Acute Urinary Tract Infection: UA upon ED evaluation remarkable, pending UCx, continue IVFs, monitor I/Os, continue IV Rocephin w/ transition as able pending sensitivities and speciation. Bld cx x 2 obtained in the ED. (4) CAD: s/p NSTEMI prior, maintain on xarelto, not on statin, BB therapies. (5) Hypertension: Continue home regimen including metoprolol, PRN hydralazine. (6) Hyperlipidemia: Not on regimen, FLP in AM. (7) History of Breast CA: Maintain on home arimidex regimen. (8) Dementia without Behavioral Disturbance History: Maintain on fall precautions, orientation as needed, continue home namenda regimen. (9) History of PE, BL: Maintain on home xarelto regimen. (10) Obesity: Weight loss and lifestyle changes encouraged. (11) GERD: PPI. (12) Intertrigo: Nystatin powder. (13) DVT Prophylaxis: SCDs, Xarelto. (14) CODE status: Discussed CODE status at length including difference between FULL code, DNR-CCA and DNR-CC status. Following discussions about the differences in these status, requested DNR-CCA, no intubation status. Daughter is HCPOA. LW in place. Advanced Care Planning Face to Face Time: 16 minutes. Code Visit Inpatient E&M: 86990 Init Hosp L3 Procedures: 52399 Advncd Care Plan 30 Min
--- NOTE | 2018-04-08 05:15 | HP.PCM_ITS ---
Problem List (1) PSVT (paroxysmal supraventricular tachycardia) Status: Acute (2) Chest pain Status: Acute Qualifiers: Chest pain type: unspecified Qualified Code(s): R07.9 - Chest pain, unspecified (3) Pneumonia Status: Acute Qualifiers: Pneumonia type: due to unspecified organism Laterality: left Lung location: lower lobe of lung Qualified Code(s): J18.1 - Lobar pneumonia, unspecified organism (4) UTI (urinary tract infection) Status: Acute Qualifiers: Urinary tract infection type: acute cystitis (5) Non-ST elevation [place] (NSTEMI) Status: Chronic (6) Obesity Status: Chronic Qualifiers: Obesity type: due to excess calories Obesity classification: adult class 2 (BMI 35 - 39.9) Serious obesity comorbidity presence: with serious comorbidity (7) GERD (gastroesophageal reflux disease) Status: Chronic Qualifiers: Esophagitis presence: esophagitis presence not specified Qualified Code(s): K21.9 - Gastro-esophageal reflux disease without esophagitis (8) Diastolic dysfunction Status: Chronic (9) Pulmonary hypertension Status: Chronic (10) Breast CA Status: Chronic Qualifiers: Breast location: unspecified site of breast Estrogen receptor status: unspecified Patient sex: female Laterality: unspecified laterality Qualified Code(s): C50.919 - Malignant neoplasm of unspecified site of unspecified female breast (11) Dementia Status: Chronic Qualifiers: Dementia type: unspecified type Dementia behavioral disturbance: without behavioral disturbance Qualified Code(s): F03.90 - Unspecified dementia without behavioral disturbance (12) Pulmonary emboli Status: Chronic Qualifiers: Chronicity: chronic Comment: BL History of Present Illness Date of Admission: 04/08/18 Chief Complaint: Weakness, Debility, Cough, Dyspnea, Chest pain The patient is a 78 y/o F w/ PMHx: CAD s/p NSTEMI, HTN, HLD, Obesity, Pulmonary HTN, History of BL PE, GERD, Diastolic Dysfunction, Dementia without behavioral disturbance history, Breast CA, History of PSVT who presents to the [facility] ED on 06/08/17 with history of dyspnea, recently minimally productive cough x 2-3 days with onset chest pain, substernal-midsternal region without radiation with ongoing dyspnea without nausea or diaphoresis with palpitations in addition to history of fatigue, weakness, debility and poor intake over the last several weeks w/ EMS noted SVT rate 160 with administration adenosine in route w/ conversion to SR. Family notes she has had increased frequency and her urine has appeared more dark in color also. Work-up in the ED included T 97.8, HR 74, BP 94/59, RR 18, 92% on 2L NC, CBC w/ WBC 7.8, Hgb 11.6, Plts 345 without marked shift, CMP w/ chloride 108, BUN/creatinine 26/1.06, glucose 138, lactic acid 1.6, AST/ALT 88/58, alk phos 172, urinalysis notable with pending urine culture, blood culture x2 pending per ED, Trop <0.015, EKG w/ sinus rhythm with no acute evidence of ischemia, CT head w/ no acute findings, chest x-ray with left basilar airspace consolidation and/or atelectasis. In the ED patient administered NS, adenosine. Past Medical History Past Medical History (Chronic Problems): Chronic Problems Non-ST elevation [place] (NSTEMI) (Chronic) Obesity (Chronic) GERD (gastroesophageal reflux disease) (Chronic) Diastolic dysfunction (Chronic) Pulmonary hypertension (Chronic) Breast CA (Chronic) Dementia (Chronic) Pulmonary emboli (Chronic) BL Allergies No Known Allergies Allergy (Verified 04/08/18 02:37) Home Medications: Ambulatory Orders Medication Instructions Recorded Docusate Sodium [Colace] 200 mg PO DAILY 12/05/16 Melatonin 5 mg PO QHS 12/05/16 Multivit-Min/FA/Lycopen/Lutein 1 each PO DAILY 12/05/16 [Centrum Silver Tablet] Pantoprazole Sodium [Protonix] 40 mg PO DAILY 12/05/16 Pregabalin [Lyrica] 50 mg PO 4X/DAY 12/05/16 Cholecalciferol (VIT D3) [Vitamin 2,000 unit PO DAILY tablet 12/12/16 D3] Anastrozole [Arimidex] 1 mg PO DAILY 10/02/17 C,E,Zinc,Copper 11/Rhxqe1p/Lut 1 each PO DAILY 10/02/17 [Ocuvite Adult 50 Plus Softgel] Memantine HCl [Namenda Xr] 28 mg PO DAILY 10/02/17 Tizanidine HCl [Zanaflex] 4 mg PO BID 10/02/17 Lorazepam [Ativan] 1 mg PO DAILY PRN PRN 7 Days #7 tab 10/12/17 Metoprolol Tartrate [Lopressor 100 mg PO BID tablet 10/12/17 (beta justino)] Rivaroxaban [Xarelto] 20 mg PO DAILY #1 tab 10/12/17 Surgical History: - - breast cancer surgery. 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 Smoking Status: Never smoker Tobacco Use: Non-smoker Alcohol: None Drugs: None - *Family History Maternal History Items: Diabetes Paternal History Items: Unknown Review of Systems Constitutional: Reports: Anorexia, Malaise, Weakness, Fatigue. Denies: Chills, Fever, Weight Change HEENT: Denies: Head Aches, Sinus Congestion, Sinus Drainage Cardiovascular: Reports: Chest Pain, Light Headedness. Denies: Edema, Heav iness, Orthopnea, Palpitations, Syncope Respiratory: Reports: Cough, Shortness of Breath, Shortness of breath at rest, Shortness of breath upon exertion, Sputum production. Denies: Wheezing Gastrointestinal: Reports: Nausea. Denies: Abdominal Pain, Vomiting Genitourinary: Reports: Dysuria Musculoskeletal: Reports: Back Pain, Joint Pain. Denies: Joint Tenderness Skin: Denies: Rash, Wounds Neurological: Denies: Numbness, Tingling, Focal weakness Psychiatric: Reports: Anxiety, Depression. Denies: Homicidal Ideations, Suicidal Ideations Hematologic/ Lymphatic: Reports: Anemia, Easy Bruising, Easy Bleeding VTE Information - Inpt Only VTE Present on Admission: No VTE Mechan Device Prophylaxis: SCD's VTE Pharm Prophylaxis ordered?: No Reason prophylaxis not ordered:: Treatment Not Indicated - Maintain on home anticoagulation. Patient Problems: Active and Suspected Problems PSVT (paroxysmal supraventricular tachycardia) (Acute) Chest pain (Acute) Pneumonia (Acute) UTI (urinary tract infection) (Acute) Subjective: Seated upright in the ED bed, fatigued, intermittently sleeping, no current chest pain. Objective: Physical Examination: General: awakens to stimuli, intermittently alert, not oriented (chronic), cooperative, seated upright in the ED bed in no apparent distress, no current chest pain. Skin: normal color, turgor, no icterus, cyanosis. HEENT: AT/NC, EOMI, PERRLA, dry MM, no carotid bruits or JVD noted. Lungs: Diminished BS BL, > BL bases, moderate effort, no rales, ronchi or wheezing. Heart: Regular rate and rhythm; no gallop, rub audible. Abdomen: soft, obese, NTTP, ND, normal BS, no HSM. Extremities: no cyanosis, clubbing, or edema. Neurological: awakens to stimuli, intermittently alert, not oriented (chronic), cooperative, seated upright in the ED bed in no apparent distress, no current chest pain; cognitive function poor baseline, notable dementia w/ decreased orientation, suspect acutely worsened with acute presentation; pupils equally reactive to light and accomodation; cranial nerves II-XII grossly normal, moving all 4 extremities, no focal deficits, strength severely globally decreased. Psychiatric: affect appears flat, fatigued, no acute evidence of depressive or anxiety feelings. - Physical Exam Vital Signs Temp Pulse Resp BP Pulse Ox 97.8 F 63 16 99/65 97 04/08/18 02:32 04/08/18 05:00 04/08/18 05:00 04/08/18 05:00 04/08/18 05:00 Oxygen Flow Rate (L/min) 2 Oxygen Delivery Method Nasal Cannula Weight: 207 lb 3.752 oz Body Mass Index (BMI) 35.5 Laboratory Tests Past 24 Hrs 04/08/18 04/08/18 04/08/18 03:18 03:18 03:18 WBC 7.8 RBC 4.08 L Hgb 11.6 L Hct 36.6 L MCV 89.7 MCH 28.4 MCHC 31.7 L RDW 15.9 H RDW Differential 50.6 H Plt Count 345 MPV 10.6 Immature Gran % (Auto) 0.500 Neut % (Auto) 74.3 H Lymph % (Auto) 16.2 L [place] % (Auto) 8.1 Eos % (Auto) 0.6 Baso % (Auto) 0.3 Absolute Neuts (auto) 5.8 Absolute Lymphs (auto) 1.27 Total Counted Not Reportable Sodium 144 Potassium 4.4 Chloride 108 H Carbon Dioxide 25.0 Anion Gap 11 BUN 26 H Creatinine 1.06 H Estim Creat Clear Calc 37.16 Est GFR (MDRD) Af Amer 64 Est GFR (MDRD) Non-Af 53 L BUN/Creatinine Ratio 24.5 H Glucose 138 H Lactic Acid 1.6 Calcium 10.0 Total Bilirubin 0.40 AST 88 H ALT 58 H Alkaline Phosphatase 172 H Troponin I < 0.015 Total Protein 7.3 Albumin 2.3 L Globulin 5.0 H Albumin/Globulin Ratio 0.5 L Urine Color Urine Clarity Urine pH Ur Specific [place] Urine Protein Urine Glucose (UA) Urine Ketones Urine Occult Blood Urine Nitrite Urine Bilirubin Urine Urobilinogen Ur Leukocyte Esterase Urine RBC Urine WBC Ur Squamous Epith Cells Urine Bacteria Urine Mucus 04/08/18 03:53 WBC RBC Hgb Hct MCV MCH MCHC RDW RDW Differential Plt Count MPV Immature Gran % (Auto) Neut % (Auto) Lymph % (Auto) [place] % (Auto) Eos % (Auto) Baso % (Auto) Absolute Neuts (auto) Absolute Lymphs (auto) Total Counted Sodium Potassium Chloride Carbon Dioxide Anion Gap BUN Creatinine Estim Creat Clear Calc Est GFR (MDRD) Af Amer Est GFR (MDRD) Non-Af BUN/Creatinine Ratio Glucose Lactic Acid Calcium Total Bilirubin AST ALT Alkaline Phosphatase Troponin I Total Protein Albumin Globulin Albumin/Globulin Ratio Urine Color Yellow Urine Clarity Turbid Urine pH 7.0 Ur Specific [place] 1.015 Urine Protein 30 H Urine Glucose (UA) Normal Urine Ketones 15 H Urine Occult Blood 25 H Urine Nitrite Negative Urine Bilirubin Negative Urine Urobilinogen 1 H Ur Leukocyte Esterase 500 H Urine RBC 5-10 SEEN Urine WBC 50-100 SEEN Ur Squamous Epith Cells 0-5 SEEN Urine Bacteria 4+ Urine Mucus 0 SEEN Assessment/Plan All Active Problems Cystitis (Acute) PSVT (paroxysmal supraventricular tachycardia) (Acute) Chest pain (Acute) Pneumonia (Acute) UTI (urinary tract infection) (Acute) SVT (supraventricular tachycardia) (Acute) Closed displaced fracture of right femoral neck (Resolved) Dislocation, ankle (Resolved) Trimalleolar fracture of ankle, closed (Resolved) The patient is a 78 y/o F w/ PMHx: CAD s/p NSTEMI, HTN, HLD, Obesity, Pulmonary HTN, History of BL PE, GERD, Diastolic Dysfunction, Dementia without behavioral disturbance history, Breast CA, History of PSVT who presents to the [facility] ED on 04/08/18 with history of dyspnea, recently minimally productive cough x 2-3 days with onset chest pain, substernal-midsternal region without radiation with ongoing dyspnea without nausea or diaphoresis with palpitations in addition to history of fatigue, weakness, debility and poor intake over the last several weeks w/ EMS noted SVT rate 160 with administration adenosine in route w/ conversion to SR. (1) Recurrent SVT w/ History of PSVT w/ Chest Pain: Prior similar presentations, noted to be compatible with AV omari reentery mechanism of tachycardia, currently converted w/ adenosine w/ EMS, noted to have prior serial episodes of SVT that spontaneously convert, following w/ [facility] w/ prior initiation metoprolol 100 mg BID. She has been discussed w/ EP Dr. Arteaga at OSH and given history conservative management has previously been recommended as she is not an ideal surgical candidate. Will admit to PCU, maintain on telemetry, cycle cardiac enzymes, repeat EKG in AM, recent ECHO 10/02/17 w/ normal LV size, EF 55%, normal LV systolic function, stage I diastolic dysfunction, mild to moderate TV insufficiency, moderate pulmonary hypertension thus will not repeat, given hypotension noted in the ED will hold her high dose BID metoprolol, mag pending, FLP in AM, adenosine if needed for recurrent episodes. Consultation with cardiology requested, pending. (2) Possible Community Acquired Pneumonia: CXR in the ED w/ left basilar airspace consolidation and/or atelectasis given history of recent cough and dyspnea some concern for underlying infiltrate. Admission CBC w/ W BC 7.6 without market left shift. Will maintain on oxygen with wean as tolerated to r oom air, continue ATC duonebs, PRN albuterol, maintained on IV Rocephin and Azithromycin, HOB, IS parameters w/ pending sputum cultures and urine antigens as well as respiratory viral panel. Bld cx x 2 obtained in the ED. (3) Acute Urinary Tract Infection: UA upon ED evaluation remarkable, pending UCx, continue IVFs, monitor I/Os, continue IV Rocephin w/ transition as able pending sensitivities and speciation. Bld cx x 2 obtained in the ED. (4) CAD: s/p NSTEMI prior, maintain on xarelto, not on statin, BB therapies. (5) Hypertension: Continue home regimen including metoprolol, PRN hydralazine. (6) Hyperlipidemia: Not on regimen, FLP in AM. (7) History of Breast CA: Maintain on home arimidex regimen. (8) Dementia without Behavioral Disturbance History: Maintain on fall precautions, orientation as needed, continue home namenda regimen. (9) History of PE, BL: Maintain on home xarelto regimen. (10) Obesity: Weight loss and lifestyle changes encouraged. (11) GERD: PPI. (12) Intertrigo: Nystatin powder. (13) DVT Prophylaxis: SCDs, Xarelto. (14) CODE status: Discussed CODE status at length including difference between FULL code, DNR-CCA and DNR-CC status. Following discussions about the differences in these status, requested DNR-CCA, no intubation status. Daughter is HCPOA. LW in place. Advanced Care Planning Face to Face Time: 16 minutes. Code Visit Inpatient E&M: 06472 Init Hosp L3 Procedures: 84866 Advncd Care Plan 30 Min
--- NOTE | 2018-04-08 05:55 | EKG12_ITS ---
Test Reason : Blood Pressure : / mmHG Vent. Rate : 162 BPM Atrial Rate : 162 BPM P-R Int : 152 ms QRS Dur : 072 ms QT Int : 256 ms P-R-T Axes : 006 -02 192 degrees QTc Int : 420 ms Supraventricular tachycardia Left ventricular hypertrophy with repolarization abnormality Inferior infarct , age undetermined Abnormal ECG When compared with ECG of 08-APR-2018 22:05, MANUAL COMPARISON REQUIRED, DATA IS UNCONFIRMED Confirmed by TERA PITTMAN, ANNE-MARIE ([id number]), supervising editor trailer SUKH STALLINGS ([id number]) on 04/10/2018 3:55:51 PM Referred By: SANJU Confirmed By:ANNE-MARIE HALEY MD
[2018-04-08 06:25] LABS: Absolute Lymphocyte Count 1.59 X10^3/ul (0.83-4.51); Absolute Neutrophil Count 5.6 X10^3/uL (2.0-7.7); Basophil# 0.03 X10^3/uL; Basophil% 0.4 % (0-1); Eosinophil# 0.04 X10^3/uL; Eosinophils% 0.5 % (0-5); Hematocrit 36.7 % (37-47); Hemoglobin 11.3 g/dl (12.0-15.0); Lymphocyte # 1.59 X10^3/ul (4.0); Lymphocyte % 19.8 % (19-41); Mean Corp Hgb Conc 30.8 g/gl (32-36); Mean Corpuscular Hgb 27.8 pg (27.0-32.0); Mean Corpuscular Volume 90.4 fL (81-99); Mean Platelet Vol. 10.2 fl (6.2-12.0); Monocyte# 0.72 X10^3/uL; Monocyte% 8.9 % (0-10); Neutrophil # 5.61 X10^3/uL (2.7-7.7); Neutrophil % 69.7 % (47-70); Platelet Count 305 K/mm3 (150-450); RBC Distribution Width CV 15.9 % (11.6-14.6); RBC Distribution Width SD 51.4 fl (35.1-43.9); Red Blood Count 4.06 M/mm3 (4.2-5.4); White Blood Count 8.1 K/mm3 (4.4-11.0)
[2018-04-08 06:26] LABS: POSITIVE COUNT NO; POSITIVE DIFFERENTIAL NO; POSITIVE MORPHOLOGY NO
[2018-04-08] MEDS: Ipratropium/Albuterol Sulfate 3 ML AMPUL.NEB INHALATION ×3 (06:32→15:29)
[2018-04-08 06:37] LABS: Anion Gap 10 (5-15); BUN 25 mg/dL (7-18); BUN/Creat Ratio 24.3 RATIO (10-20); Calcium,Total 9.7 mg/dL (8.5-10.1); Chloride 111 mmol/L (98-107); Creatinine, Serum 1.03 mg/dL (0.55-1.02); EST Glomerular Filtration Rate 55 mL/min (>60); Est Glom Filt Rate - Afr Amer 66 mL/min (>60); Estimated Creatinine Clearance 38.24 ml/min; Glucose 106 mg/dL (74-106); Magnesium 2.4 mg/dL (1.6-2.6); Phosphorus 4.6 mg/dL (2.5-4.9); Potassium 4.4 mmol/L (3.5-5.1); Sodium Level 144 mmol/L (136-145)
[2018-04-08] MEDS: 0.9% Normal Saline 1,000 ML 100 ML IV ×2 (06:47→14:21)
--- NOTE | 2018-04-08 07:59 | CPS ---
Pt is unable to follow commands to do PEP or I.S. per daughter.
[2018-04-08] MEDS: 0.9% NaCl Peripheral Flush Adult/Peds IV ×2 (08:49→12:07)
[2018-04-08] MEDS: Morphine 2 MG/ML Syringe 1 MG IV (08:49)
--- NOTE | 2018-04-08 08:56 | PCM.CONS.C ---
Reason for Consult Date of Consultation: 04/08/18 Reason for Consultation: Abnormal heart rhythm. Abnormal cardiac enzymes History of Present Illness: The patient is a 78 year old F with a past medical history of hypertension, status post breast carcinoma who presented to the emergency room after the family called because she was not feeling quite well. The emergency medical squad got there and she was noted to be in a rapid narrow complex tachycardia with a rate of between 160- 180 bpm. She was administered 6 mg of intravenous adenosine with conversion to sinus rhythm. In the emergency room she was evaluated. She is not particularly talkative due to her significant dementia. She apparently denies any chest pain or shortness of breath or paroxysmal nocturnal dyspnea. According to the family she has not been very active and has not been walking recently. She was transferred to the progressive care unit and cardiology consulted for further evaluation. [] Past Medical History Allergies/Adverse Reactions: Allergies No Known Allergies Allergy (Verified 04/08/18 02:37) Home Medications: Ambulatory Orders Medication Instructions Recorded Docusate Sodium [Colace] 200 mg PO DAILY 12/05/16 Melatonin 5 mg PO QHS 12/05/16 Multivit-Min/FA/Lycopen/Lutein 1 each PO DAILY 12/05/16 [Centrum Silver Tablet] Pantoprazole Sodium [Protonix] 40 mg PO DAILY 12/05/16 Pregabalin [Lyrica] 50 mg PO 4X/DAY 12/05/16 Cholecalciferol (VIT D3) [Vitamin 2,000 unit PO DAILY tablet 12/12/16 D3] Anastrozole [Arimidex] 1 mg PO DAILY 10/02/17 C,E,Zinc,Copper 11/Gqtml7z/Lut 1 each PO DAILY 10/02/17 [Ocuvite Adult 50 Plus Softgel] Memantine HCl [Namenda Xr] 28 mg PO DAILY 10/02/17 Tizanidine HCl [Zanaflex] 4 mg PO BID 10/02/17 Lorazepam [Ativan] 1 mg PO DAILY PRN PRN 7 Days #7 tab 10/12/17 Metoprolol Tartrate [Lopressor 100 mg PO BID tablet 10/12/17 (beta justino)] Rivaroxaban [Xarelto] 20 mg PO DAILY #1 tab 10/12/17 Hydrocodone Bitart/Apap 5-325 1 tablet PO Q6H PRN PRN 04/08/18 [[place] 5MG-325MG] Latanoprost 0.005% [Xalatan 1 drop OPHTHALMIC QHS 04/08/18 Opthalmic] Loratadine 10 mg PO DAILY 04/08/18 Polyethylene Glycol 3350 [Miralax] 17 gm PO DAILY 04/08/18 Past Medical History (Chronic Problems): Chronic Problems Non-ST elevation NV (NSTEMI) (Chronic) Obesity (Chronic) GERD (gastroesophageal reflux disease) (Chronic) Diastolic dysfunction (Chronic) Pulmonary hypertension (Chronic) Breast CA (Chronic) Dementia (Chronic) Pulmonary emboli (Chronic) BL Surgical History: - - breast cancer surgery. 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 Smoking Status: Never smoker Tobacco Use: Non-smoker Alcohol: None Drugs: None Review of Systems - Review of Systems General: Reports: Fatigue, Malaise, Decreased Appetite. Denies: Fever, Night Sweats HEENT: Denies: Vision Change Cardiovascular: Reports: Chest Heaviness, Palpitations. Denies: Chest Discomfort, Shortness of Breath, Orthopnea, PND, Peripheral Edema, Lightheadedness, Dizziness, Near Syncope, Syncope Respiratory: Denies: Cough, Sputum Production, Hemoptysis Gastrointestinal: Denies: Hematemesis, Hematochezia, Melena Genitourinary: Denies: Dysuria, Hematuria Muscoloskeletal: Denies: Myalgias Skin: Denies: Rash Neurological: Denies: Dizziness Psychiatric: Denies: Anxiety Endocrine: Denies: Heat Intolerance Hematologic/ Lymphatic: Denies: Anemia Subjectve: Elderly lady in no apparent distress. Not very cooperative. Objective: Vital Signs Temp Pulse Resp BP Pulse Ox 97.2 F L 70 16 103/71 97 04/08/18 06:41 04/08/18 06:57 04/08/18 06:41 04/08/18 06:41 04/08/18 06:41 Oxygen Flow Rate (L/min) 2 Oxygen Delivery Method Nasal Cannula Weight: 194 lb 10.691 oz Body Mass Index (BMI) 31.4 General: No Acute Distress HEENT: PERRL, EOMI, Sclera Non Icteric Oral: Moist Mucosa Neck: Supple, Good ROM, No Lymph Node Enlargement Lungs: Clear to auscultation Cardiovascular: Regular Rhythm, Normal S1, Normal S2, No Murmurs, No Rubs, No Gallops Vascular: No Carotid Bruits, Normal Femoral Pulses, Normal Radial Pulses, Normal Dorsalis Pedal Pulse, Normal Posterior Tibial Pulses Abdomen: Bowel Sounds Present, Soft, Non Tender, No HSM, No Organomegaly Extremities: No Cyanosis, No Clubbing, No edema Musculoskeletal: No Erythema Skin: No Rashes Lymphatic: No Lymph Node Enlargement Neurological: No Focal Motor or Sensory Deficit Psych/Mental Status: Flat Affect 04/08/18 03:18: WBC 7.8, RBC 4.08 L, Hgb 11.6 L, Hct 36.6 L, MCV 89.7, MCH 28.4, MCHC 31.7 L, RDW 15.9 H, RDW Differential 50.6 H, Plt Count 345, MPV 10.6, Immature Gran % (Auto) 0.500, Neut % (Auto) 74.3 H, Lymph % (Auto) 16.2 L, [place] % (Auto) 8.1, Eos % (Auto) 0.6, Baso % (Auto) 0.3, Absolute Neuts (auto) 5.8, Total Counted Not Reportable 04/08/18 03:18: Sodium 144, Potassium 4.4, Chloride 108 H, Carbon Dioxide 25.0, Anion Gap 11, BUN 26 H, Creatinine 1.06 H, Est GFR (MDRD) Af Amer 64, Est GFR (MDRD) Non-Af 53 L, BUN/Creatinine Ratio 24.5 H, Glucose 138 H, Calcium 10.0, Total Bilirubin 0.40, Troponin I < 0.015 04/08/18 03:18: Lactic Acid 1.6 04/08/18 03:53: Urine Color Yellow, Urine Clarity Turbid, Urine pH 7.0, Ur Specific [place] 1.015, Urine Protein 30 H, Urine Glucose (UA) Normal, Urine Ketones 15 H, Urine Occult Blood 25 H, Urine Nitrite Negative, Urine Bilirubin Negative, Urine Urobilinogen 1 H, Ur Leukocyte Esterase 500 H, Urine RBC 5-10 SEEN, Urine WBC 50-100 SEEN 04/08/18 06:14: Sodium 144, Potassium 4.4, Chloride 111 H, Carbon Dioxide 23.0, Anion Gap 10, BUN 25 H, Creatinine 1.03 H, Est GFR (MDRD) Af Amer 66, Est GFR (MDRD) Non-Af 55 L, BUN/Creatinine Ratio 24.3 H, Glucose 106, Calcium 9.7, Phosphorus 4.6, Magnesium 2.4 04/08/18 06:14: WBC 8.1, RBC 4.06 L, Hgb 11.3 L, Hct 36.7 L, MCV 90.4, MCH 27.8, MCHC 30.8 L, RDW 15.9 H, RDW Differential 51.4 H, Plt Count 305, MPV 10.2, Immature Gran % (Auto) 0.700, Neut % (Auto) 69.7, Lymph % (Auto) 19.8, [place] % (Auto) 8.9, Eos % (Auto) 0.5, Baso % (Auto) 0.4, Absolute Neuts (auto) 5.6, Total Counted Not Reportable 04/08/18 06:14: Troponin I 0.054 H Rhythm: Normal sinus rhythm, occasional premature ventricular complexes, short run of supraventricular tachycardia EKG: Sinus rhythm with no acute changes Assessment/Plan 1. Supraventricular tachycardia Etiology of the above is not clear. This may be secondary to an AV omari reentrant tachycardia. Accommodation at this time will be to start amiodarone in addition to the beta-justino that she is on. After discussion with the family they would not want her to have any invasive or extensive therapy for this to be curative. Will obtain echocardiogram to assess left ventricular function With a history of breast carcinoma we have to be sure that there is no metastatic lesion which may be causing this. 2. Abnormal cardiac enzymes Patient noted to have abnormal cardiac enzymes. This could be secondary to the abnormal heart rhythm with a supraventricular tachycardia. Would recommend a pharmacologic myocardial perfusion stress test. Rest there is extensive ischemia noted no further therapy would be undertaken. 3. Hypertension Will continue with beta-justino but will reduce the dose. 4. History of pulmonary embolism The patient will remain on rivaroxaban. Thank you for allowing me to participate in the care of your patient. Please don't hesitate to call if any issues arise
--- NOTE | 2018-04-08 09:01 | CON.PCM_ITS ---
Reason for Consult Date of Consultation: 04/08/18 Reason for Consultation: Abnormal heart rhythm. Abnormal cardiac enzymes History of Present Illness: The patient is a 78 year old F with a past medical history of hypertension, status post breast carcinoma who presented to the emergency room after the family called because she was not feeling quite well. The emergency medical squad got there and she was noted to be in a rapid narrow complex tachycardia with a rate of between 160- 180 bpm. She was administered 6 mg of intravenous adenosine with conversion to sinus rhythm. In the emergency room she was evaluated. She is not particularly talkative due to her significant dementia. She apparently denies any chest pain or shortness of breath or paroxysmal nocturnal dyspnea. According to the family she has not been very active and has not been walking recently. She was transferred to the progressive care unit and cardiology consulted for further evaluation. [] Past Medical History Allergies/Adverse Reactions: Allergies No Known Allergies Allergy (Verified 04/08/18 02:37) Home Medications: Ambulatory Orders Medication Instructions Recorded Docusate Sodium [Colace] 200 mg PO DAILY 12/05/16 Melatonin 5 mg PO QHS 12/05/16 Multivit-Min/FA/Lycopen/Lutein 1 each PO DAILY 12/05/16 [Centrum Silver Tablet] Pantoprazole Sodium [Protonix] 40 mg PO DAILY 12/05/16 Pregabalin [Lyrica] 50 mg PO 4X/DAY 12/05/16 Cholecalciferol (VIT D3) [Vitamin 2,000 unit PO DAILY tablet 12/12/16 D3] Anastrozole [Arimidex] 1 mg PO DAILY 10/02/17 C,E,Zinc,Copper 11/Mdxsp6x/Lut 1 each PO DAILY 10/02/17 [Ocuvite Adult 50 Plus Softgel] Memantine HCl [Namenda Xr] 28 mg PO DAILY 10/02/17 Tizanidine HCl [Zanaflex] 4 mg PO BID 10/02/17 Lorazepam [Ativan] 1 mg PO DAILY PRN PRN 7 Days #7 tab 10/12/17 Metoprolol Tartrate [Lopressor 100 mg PO BID tablet 10/12/17 (beta justino)] Rivaroxaban [Xarelto] 20 mg PO DAILY #1 tab 10/12/17 Hydrocodone Bitart/Apap 5-325 1 tablet PO Q6H PRN PRN 04/08/18 [Dyke 5MG-325MG] Latanoprost 0.005% [Xalatan 1 drop OPHTHALMIC QHS 04/08/18 Opthalmic] Loratadine 10 mg PO DAILY 04/08/18 Polyethylene Glycol 3350 [Miralax] 17 gm PO DAILY 04/08/18 Past Medical History (Chronic Problems): Chronic Problems Non-ST elevation [place] (NSTEMI) (Chronic) Obesity (Chronic) GERD (gastroesophageal reflux disease) (Chronic) Diastolic dysfunction (Chronic) Pulmonary hypertension (Chronic) Breast CA (Chronic) Dementia (Chronic) Pulmonary emboli (Chronic) BL Surgical History: - - breast cancer surgery. 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 Smoking Status: Never smoker Tobacco Use: Non-smoker Alcohol: None Drugs: None Review of Systems - Review of Systems General: Reports: Fatigue, Malaise, Decreased Appetite. Denies: Fever, Night Sweats HEENT: Denies: Vision Change Cardiovascular: Reports: Chest Heaviness, Palpitations. Denies: Chest Discomfort, Shortness of Breath, Orthopnea, PND, Peripheral Edema, Lightheadedness, Dizziness, Near Syncope, Syncope Respiratory: Denies: Cough, Sputum Production, Hemoptysis Gastrointestinal: Denies: Hematemesis, Hematochezia, Melena Genitourinary: Denies: Dysuria, Hematuria Muscoloskeletal: Denies: Myalgias Skin: Denies: Rash Neurological: Denies: Dizziness Psychiatric: Denies: Anxiety Endocrine: Denies: Heat Intolerance Hematologic/ Lymphatic: Denies: Anemia Subjectve: Elderly lady in no apparent distress. Not very cooperative. Objective: Vital Signs Temp Pulse Resp BP Pulse Ox 97.2 F L 70 16 103/71 97 04/08/18 06:41 04/08/18 06:57 04/08/18 06:41 04/08/18 06:41 04/08/18 06:41 Oxygen Flow Rate (L/min) 2 Oxygen Delivery Method Nasal Cannula Weight: 194 lb 10.691 oz Body Mass Index (BMI) 31.4 General: No Acute Distress HEENT: PERRL, EOMI, Sclera Non Icteric Oral: Moist Mucosa Neck: Supple, Good ROM, No Lymph Node Enlargement Lungs: Clear to auscultation Cardiovascular: Regular Rhythm, Normal S1, Normal S2, No Murmurs, No Rubs, No Gallops Vascular: No Carotid Bruits, Normal Femoral Pulses, Normal Radial Pulses, Normal Dorsalis Pedal Pulse, Normal Posterior Tibial Pulses Abdomen: Bowel Sounds Present, Soft, Non Tender, No HSM, No Organomegaly Extremities: No Cyanosis, No Clubbing, No edema Musculoskeletal: No Erythema Skin: No Rashes Lymphatic: No Lymph Node Enlargement Neurological: No Focal Motor or Sensory Deficit Psych/Mental Status: Flat Affect 04/08/18 03:18: WBC 7.8, RBC 4.08 L, Hgb 11.6 L, Hct 36.6 L, MCV 89.7, MCH 28.4, MCHC 31.7 L, RDW 15.9 H, RDW Differential 50.6 H, Plt Count 345, MPV 10.6, Immature Gran % (Auto) 0.500, Neut % (Auto) 74.3 H, Lymph % (Auto) 16.2 L, Ada % (Auto) 8.1, Eos % (Auto) 0.6, Baso % (Auto) 0.3, Absolute Neuts (auto) 5.8, Total Counted Not Reportable 04/08/18 03:18: Sodium 144, Potassium 4.4, Chloride 108 H, Carbon Dioxide 25.0, Anion Gap 11, BUN 26 H, Creatinine 1.06 H, Est GFR (MDRD) Af Amer 64, Est GFR (MDRD) Non-Af 53 L, BUN/Creatinine Ratio 24.5 H, Glucose 138 H, Calcium 10.0, Total Bilirubin 0.40, Troponin I < 0.015 04/08/18 03:18: Lactic Acid 1.6 04/08/18 03:53: Urine Color Yellow, Urine Clarity Turbid, Urine pH 7.0, Ur Specific [place] 1.015, Urine Protein 30 H, Urine Glucose (UA) Normal, Urine Ketones 15 H, Urine Occult Blood 25 H, Urine Nitrite Negative, Urine Bilirubin Negative, Urine Urobilinogen 1 H, Ur Leukocyte Esterase 500 H, Urine RBC 5-10 SEEN, Urine WBC 50-100 SEEN 04/08/18 06:14: Sodium 144, Potassium 4.4, Chloride 111 H, Carbon Dioxide 23.0, Anion Gap 10, BUN 25 H, Creatinine 1.03 H, Est GFR (MDRD) Af Amer 66, Est GFR (MDRD) Non-Af 55 L, BUN/Creatinine Ratio 24.3 H, Glucose 106, Calcium 9.7, Phosphorus 4.6, Magnesium 2.4 04/08/18 06:14: WBC 8.1, RBC 4.06 L, Hgb 11.3 L, Hct 36.7 L, MCV 90.4, MCH 27.8, MCHC 30.8 L, RDW 15.9 H, RDW Differential 51.4 H, Plt Count 305, MPV 10.2, Immature Gran % (Auto) 0.700, Neut % (Auto) 69.7, Lymph % (Auto) 19.8, Ada % (Auto) 8.9, Eos % (Auto) 0.5, Baso % (Auto) 0.4, Absolute Neuts (auto) 5.6, Total Counted Not Reportable 04/08/18 06:14: Troponin I 0.054 H Rhythm: Normal sinus rhythm, occasional premature ventricular complexes, short run of supraventricular tachycardia EKG: Sinus rhythm with no acute changes Assessment/Plan 1. Supraventricular tachycardia * Etiology of the above is not clear. This may be secondary to an AV omari reentrant tachycardia. * Accommodation at this time will be to start amiodarone in addition to the beta-justino that she is on. After discussion with the family they would not want her to have any invasive or extensive therapy for this to be curative. * Will obtain echocardiogram to assess left ventricular function * With a history of breast carcinoma we have to be sure that there is no metastatic lesion which may be causing this. 2. Abnormal cardiac enzymes * Patient noted to have abnormal cardiac enzymes. This could be secondary to the abnormal heart rhythm with a supraventricular tachycardia. * Would recommend a pharmacologic myocardial perfusion stress test. * Rest there is extensive ischemia noted no further therapy would be undertaken. * 3. Hypertension * Will continue with beta-justino but will reduce the dose. * 4. History of pulmonary embolism * The patient will remain on rivaroxaban. * Thank you for allowing me to participate in the care of your patient. Please don't hesitate to call if any issues arise
--- NOTE | 2018-04-08 09:04 | ECHOCS_ITS ---
Reason For Study: Arrhythmia Procedure This was a 2D Doppler, Color Flow transthoracic echocardiogram. The study was technically difficult. Contrast injection was performed. Exam performed portable in patient room. Left Ventricle Normal LV size. Left ventricular systolic function is normal. The estimated ejection fraction is 60 %. Diastolic function is indeterminate. No regional wall motion abnormalities noted. Right Ventricle Mildly dilated right ventricle. Mild global right ventricular systolic dysfunction. Atria The left atrium is not well visualized. The right atrium is not well visualized. Mitral Valve Normal mitral valve. Tricuspid Valve Normal tricuspid valve. Mild (1+) tricuspid valve insufficiency. Pulmonary artery systolic pressure is 30 mmHg. Aortic Valve Normal aortic valve. Trisinus/trileaflet aortic valve. Pulmonic Valve The pulmonic valve is not well visualized. Great Vessels Normal aortic root. The pulmonary artery is normal size. Normal inferior vena cava. Pericardium/Pleural No pericardial effusion. Medication Diluted definity 4ml given slow IV push to enhance endocardial definition. MMode/2D Measurements & Calculations LVIDd: 3.6 cm IVSd: 0.91 cm Ao root diam: 3.2 cm LVIDs: 2.9 cm LVPWd: 0.72 cm RVDd: 3.8 cm FS: 20.7 % Doppler Measurements & Calculations Ao V2 max: 92.6 cm/sec LV V1 max: 67.4 cm/sec PA V2 max: 59.1 cm/sec Ao max P.4 mmHg LV V1 max P.8 mmHg Ao V2 mean: 59.9 cm/sec LV V1 mean P.88 mmHg Ao mean P.7 mmHg LV V1 mean: 43.3 cm/sec Ao V2 VTI: 11.9 cm LV V1 VTI: 8.6 cm TR max aneta: 253.1 cm/sec TR max P.7 mmHg Interpretation Summary Normal LV size. Left ventricular systolic function is normal. The estimated ejection fraction is 60 %. No regional wall motion abnormalities noted. Diastolic function is indeterminate. Contrast injection was performed. Ordering Physician: Mayo Pineda Performed By: Scooter Gaines RCS
[2018-04-08] MEDS: Multivitamins,Ther W-Minerals Tablet 1 TABLET PO (10:48)
[2018-04-08] MEDS: Docusate Sodium 100 MG Capsule 200 MG PO (10:48)
[2018-04-08] MEDS: tiZANidine HCl 2 MG Tablet 4 MG PO (10:49)
[2018-04-08] MEDS: Pantoprazole Sodium 40 MG Tablet PO (10:49)
[2018-04-08] MEDS: guaiFENesin 1,200 MG Tablet 1200 MG PO (10:49)
[2018-04-08] MEDS: Memantine Hydrochloride 10 MG Tablet PO ×2 (10:49→22:24)
[2018-04-08] MEDS: Rivaroxaban 20 MG Tablet PO (10:49)
[2018-04-08] MEDS: Famotidine 20 MG Tablet PO (10:49)
[2018-04-08] MEDS: Metoprolol Tartrate 50 MG Tablet PO (10:56)
[2018-04-08] MEDS: Amiodarone 200 MG Tablet PO ×2 (10:56→22:23)
[2018-04-08] MEDS: Pregabalin 50 MG Capsule PO (10:56)
--- NOTE | 2018-04-08 11:01 | PCM.PN.HOSP ---
Patient Problems: Active and Suspected Problems PSVT (paroxysmal supraventricular tachycardia) (Acute) Chest pain (Acute) Pneumonia (Acute) UTI (urinary tract infection) (Acute) Subjective: Patient seen and examined. She was admitted with a complaint of weakness and debility as well as cough, shortness of breath and chest pain. She was found to be in SVT upon arrival in the ED with heart rate in the 160s which converted to sinus rhythm with administration of adenosine. She has been managed for recurrent SVT, UTI and possible community-acquired pneumonia. She is on IV ceftriaxone and azithromycin. Patient complains this morning of pain over her coccygeal area from a decubitus ulcer. Patient is very lethargic and drowsy. Unable to do complete review of systems due to patient's lethargy. Vitals/I&O's: Vital Signs Temp Pulse Resp BP Pulse Ox 97.2 F L 70 16 103/71 97 04/08/18 06:41 04/08/18 06:57 04/08/18 06:41 04/08/18 06:41 04/08/18 06:41 Oxygen Flow Rate (L/min) 2 Oxygen Delivery Method Nasal Cannula Weight: 194 lb 10.691 oz Body Mass Index (BMI) 31.4 General: Alert, Lethargic - and drowsy HEENT: Atraumatic, PERRLA, EOMI, Normocephalic Oral: Moist Mucosa Neck: Supple, No JVD, Negative Carotid Bruits Lungs: Clear to auscultation, Normal air movement, No rhonchi, No wheeze, No rales Cardiovascular: Regular rate, Regular Rhythm, Normal S1, Normal S2, No murmurs Abdomen: Bowel Sounds Present, Soft, Non Tender, Non-Distended, No Hepato-splenomegaly Extremities: No clubbing, No cyanosis, No edema, Capillary Refill Less than 3 Seconds Skin: No rashes Musculoskeletal: - - stage 3 decubitus ulcer in coccygeal region, present on admission. Has slough in floor of ulcer Lymphatic: No Cervical, Supraclavicular, or Inguinal Adenopathy Neurological: Cranial nerves II-XII grossly intact, Neuro grossly intact Psych/Mental Status: Restless - drowsy, lethargic Microbiology Past 72 Hours 04/08/18 06:25 Mucosa - Nose Respiratory Panel (PCR) - Final Laboratory Results 04/08/18 03:18: WBC 7.8, RBC 4.08 L, Hgb 11.6 L, Hct 36.6 L, MCV 89.7, MCH 28.4, MCHC 31.7 L, RDW 15.9 H, RDW Differential 50.6 H, Plt Count 345, MPV 10.6, Immature Gran % (Auto) 0.500, Neut % (Auto) 74.3 H, Lymph % (Auto) 16.2 L, [place] % (Auto) 8.1, Eos % (Auto) 0.6, Baso % (Auto) 0.3, Absolute Neuts (auto) 5.8, Absolute Lymphs (auto) 1.27, Total Counted Not Reportable 04/08/18 03:18: Sodium 144, Potassium 4.4, Chloride 108 H, Carbon Dioxide 25.0, Anion Gap 11, BUN 26 H, Creatinine 1.06 H, Estim Creat Clear Calc 37.16, Est GFR (MDRD) Af Amer 64, Est GFR (MDRD) Non-Af 53 L, BUN/Creatinine Ratio 24.5 H, Glucose 138 H, Calcium 10.0, Total Bilirubin 0.40, AST 88 H, ALT 58 H, Alkaline Phosphatase 172 H, Troponin I < 0.015, Total Protein 7.3, Albumin 2.3 L, Globulin 5.0 H, Albumin/Globulin Ratio 0.5 L 04/08/18 03:18: Lactic Acid 1.6 04/08/18 03:53: Urine Color Yellow, Urine Clarity Turbid, Urine pH 7.0, Ur Specific [place] 1.015, Urine Protein 30 H, Urine Glucose (UA) Normal, Urine Ketones 15 H, Urine Occult Blood 25 H, Urine Nitrite Negative, Urine Bilirubin Negative, Urine Urobilinogen 1 H, Ur Leukocyte Esterase 500 H, Urine RBC 5-10 SEEN, Urine WBC 50-100 SEEN, Ur Squamous Epith Cells 0-5 SEEN, Urine Bacteria 4+, Urine Mucus 0 SEEN 04/08/18 06:14: Sodium 144, Potassium 4.4, Chloride 111 H, Carbon Dioxide 23.0, Anion Gap 10, BUN 25 H, Creatinine 1.03 H, Estim Creat Clear Calc 38.24, Est GFR (MDRD) Af Amer 66, Est GFR (MDRD) Non-Af 55 L, BUN/Creatinine Ratio 24.3 H, Glucose 106, Calcium 9.7, Phosphorus 4.6, Magnesium 2.4 04/08/18 06:14: WBC 8.1, RBC 4.06 L, Hgb 11.3 L, Hct 36.7 L, MCV 90.4, MCH 27.8, MCHC 30.8 L, RDW 15.9 H, RDW Differential 51.4 H, Plt Count 305, MPV 10.2, Immature Gran % (Auto) 0.700, Neut % (Auto) 69.7, Lymph % (Auto) 19.8, [place] % (Auto) 8.9, Eos % (Auto) 0.5, Baso % (Auto) 0.4, Absolute Neuts (auto) 5.6, Absolute Lymphs (auto) 1.59, Total Counted Not Reportable 04/08/18 06:14: Troponin I 0.054 H 04/08/18 09:16: Troponin I 0.[address] 04/08/18 02:55 IMPRESSION: 1. Chronic involutional changes of the brain. 2. No CT evidence of acute intracranial hemorrhage. Electronically Signed: Kary Doss MD at 3:57 EST , Service support , Chest X-Ray 04/08/18 02:55 IMPRESSION: Left basilar airspace consolidation and/or atelectasis. Electronically Signed: Kary Doss MD at 3:39 EST , Service support , Current Medications Acetaminophen (Tylenol) 650 mg PO Q4H PRN PRN PRN Reason: FEVER Adenosine (Adenocard) 6 mg IV X1 PRN PRN Reason: PSVT Al Hydroxide/Mg Hydroxide (Mylanta Ii) 30 ml PO Q6H PRN PRN PRN Reason: Gastric burning Albuterol Sulfate (Ventolin Aerosols) 2.5 mg INHALATION Q2H PRN PRN PRN Reason: SHORTNESS OF BREATH Albuterol/Ipratropium (Duoneb) 3 ml INHALATION Q4H.RT JULIANNA Last Admin: 04/08/18 06:32 Dose: 3 ml Amiodarone HCl (Cordarone) 200 mg PO BID [facility] Anastrozole (Arimidex) 1 mg PO DAILY [facility] Docusate Sodium (Colace) 200 mg PO DAILY [facility] Famotidine (Pepcid) 20 mg PO BID [facility] Guaifenesin (Mucinex) 1,200 mg PO BID [facility] Sodium Chloride () 1,000 mls @ 100 mls/hr IV .Q10H [facility] Last Admin: 04/08/18 06:47 Dose: 100 mls/hr Azithromycin 500 mg/ Dextrose 255 mls @ 250 mls/hr IV QHS [facility] Stop: 04/10/18 23:02 Ceftriaxone Sodium (Rocephin) 1 gm in 50 mls @ 100 mls/hr IV QHS [facility] Sodium Chloride () 250 mls @ 15 mls/hr IV .[id number] PRN PRN Reason: SALINE FLUSH Magnesium Hydroxide (Milk Of Magnesia) 30 ml PO DAILY PRN PRN Reason: Constipation Melatonin (Melatonin) 5 mg PO QHS [facility] Memantine (Namenda) 10 mg PO BID [facility] Metoprolol Tartrate (Lopressor (Beta Justino)) 50 mg PO BID [facility] Multivitamins/Minerals (Multivitamin With Minerals) 1 tablet PO DAILY@0800 [facility] Nutritional Formula (Lactose Free) (Ensure Enlive) 120 ml PO 4X/DAY [facility] Ondansetron HCl (Zofran) 4 mg IV Q8H PRN PRN PRN Reason: NAUSEA Pantoprazole Sodium (Protonix) 40 mg PO DAILY [facility] Pregabalin (Lyrica) 50 mg PO 4X/DAY [facility] Promethazine HCl (Phenergan) 12.5 mg IV Q6H PRN PRN PRN Reason: NAUSEA/VOMITING Rivaroxaban (Xarelto) 20 mg PO DAILY [facility] Sodium Chloride () 5 - 30 ml IV UD PRN PRN Reason: SALINE FLUSH Last Admin: 04/08/18 08:49 Dose: 10 ml Tizanidine HCl (Zanaflex) 4 mg PO BID [facility] Medical Necessity - Tobacco Use Smoking Status: Never smoker Tobacco Use: Non-smoker Assessment/Plan All Active Problems Cystitis (Acute) PSVT (paroxysmal supraventricular tachycardia) (Acute) Chest pain (Acute) Pneumonia (Acute) UTI (urinary tract infection) (Acute) SVT (supraventricular tachycardia) (Acute) Closed displaced fracture of right femoral neck (Resolved) Dislocation, ankle (Resolved) Trimalleolar fracture of ankle, closed (Resolved) 1. Recurrent SVT has hisotry of paroxysmal SVT converted to sinus rhythm after administration of adenosine currently in sinus rhythm cardiology on board; per cardiology rec's, to start PO amiodarone and continue current beta justino 2D echocardiogram family doesnt want any further invasive or extensive therapy for SVT, per cardiology notes echo(10/02/17): normal LV size, with EF of 55%, normal LV systolic function, stage 1 diastolic dysfunctin and mild ot moderate TV insufficiency and moderate pulmonary hypertension. to continue metoprolol and amiodarone 2. UTI: urine culture pending. On IV rocephin. blood cultures also pending. 3. possible community acquired pneumonia CXR on admission showed left basilar airspace consolidation and/or atelectasis on IV ceftriaxone and azithromycin had no leucocytosis on admission; on oxygen, to titrate and wean to maintain saturation >92% blood cultures pending 4. CAD: has had NSTEMI in the past. on beta justino. 5. Hypertension: controlled. ON metoprolol 6. History of breast CA: on arimidex 7. History of bilateral PE: on xarelto 8. Dementia: Fall precautions. On Namenda. 9. GERD: PPI 10. Intertrigo: Nystatin DVT prophylaxis: Xarelto CODE STATUS: DNRCCA Code Visit Inpatient E&M: 75545 [facility] L3
--- NOTE | 2018-04-08 11:06 | PN_ITS ---
Patient Problems: Active and Suspected Problems PSVT (paroxysmal supraventricular tachycardia) (Acute) Chest pain (Acute) Pneumonia (Acute) UTI (urinary tract infection) (Acute) Subjective: Patient seen and examined. She was admitted with a complaint of weakness and debility as well as cough, shortness of breath and chest pain. She was found to be in SVT upon arrival in the ED with heart rate in the 160s which converted to sinus rhythm with administration of adenosine. She has been managed for recurrent SVT, UTI and possible community-acquired pneumonia. She is on IV ceftriaxone and azithromycin. Patient complains this morning of pain over her coccygeal area from a decubitus ulcer. Patient is very lethargic and drowsy. Unable to do complete review of systems due to patient's lethargy. Vitals/I&O's: Vital Signs Temp Pulse Resp BP Pulse Ox 97.2 F L 70 16 103/71 97 04/08/18 06:41 04/08/18 06:57 04/08/18 06:41 04/08/18 06:41 04/08/18 06:41 Oxygen Flow Rate (L/min) 2 Oxygen Delivery Method Nasal Cannula Weight: 194 lb 10.691 oz Body Mass Index (BMI) 31.4 General: Alert, Lethargic - and drowsy HEENT: Atraumatic, PERRLA, EOMI, Normocephalic Oral: Moist Mucosa Neck: Supple, No JVD, Negative Carotid Bruits Lungs: Clear to auscultation, Normal air movement, No rhonchi, No wheeze, No rales Cardiovascular: Regular rate, Regular Rhythm, Normal S1, Normal S2, No murmurs Abdomen: Bowel Sounds Present, Soft, Non Tender, Non-Distended, No Hepato- splenomegaly Extremities: No clubbing, No cyanosis, No edema, Capillary Refill Less than 3 Seconds Skin: No rashes Musculoskeletal: - - stage 3 decubitus ulcer in coccygeal region, present on admission. Has slough in floor of ulcer Lymphatic: No Cervical, Supraclavicular, or Inguinal Adenopathy Neurological: Cranial nerves II-XII grossly intact, Neuro grossly intact Psych/Mental Status: Restless - drowsy, lethargic Microbiology Past 72 Hours 04/08/18 06:25 Mucosa - Nose Respiratory Panel (PCR) - Final Laboratory Results 04/08/18 03:18: WBC 7.8, RBC 4.08 L, Hgb 11.6 L, Hct 36.6 L, MCV 89.7, MCH 28.4, MCHC 31.7 L, RDW 15.9 H, RDW Differential 50.6 H, Plt Count 345, MPV 10.6, Immature Gran % (Auto) 0.500, Neut % (Auto) 74.3 H, Lymph % (Auto) 16.2 L, Perry % (Auto) 8.1, Eos % (Auto) 0.6, Baso % (Auto) 0.3, Absolute Neuts (auto) 5.8, Absolute Lymphs (auto) 1.27, Total Counted Not Reportable 04/08/18 03:18: Sodium 144, Potassium 4.4, Chloride 108 H, Carbon Dioxide 25.0, Anion Gap 11, BUN 26 H, Creatinine 1.06 H, Estim Creat Clear Calc 37.16, Est GFR (MDRD) Af Amer 64, Est GFR (MDRD) Non-Af 53 L, BUN/Creatinine Ratio 24.5 H, Glucose 138 H, Calcium 10.0, Total Bilirubin 0.40, AST 88 H, ALT 58 H, Alkaline Phosphatase 172 H, Troponin I < 0.015, Total Protein 7.3, Albumin 2.3 L, Globulin 5.0 H, Albumin/Globulin Ratio 0.5 L 04/08/18 03:18: Lactic Acid 1.6 04/08/18 03:53: Urine Color Yellow, Urine Clarity Turbid, Urine pH 7.0, Ur Specific [place] 1.015, Urine Protein 30 H, Urine Glucose (UA) Normal, Urine Ketones 15 H, Urine Occult Blood 25 H, Urine Nitrite Negative, Urine Bilirubin Negative, Urine Urobilinogen 1 H, Ur Leukocyte Esterase 500 H, Urine RBC 5-10 SEEN, Urine WBC 50-100 SEEN, Ur Squamous Epith Cells 0-5 SEEN, Urine Bacteria 4+, Urine Mucus 0 SEEN 04/08/18 06:14: Sodium 144, Potassium 4.4, Chloride 111 H, Carbon Dioxide 23.0, Anion Gap 10, BUN 25 H, Creatinine 1.03 H, Estim Creat Clear Calc 38.24, Est GFR (MDRD) Af Amer 66, Est GFR (MDRD) Non-Af 55 L, BUN/Creatinine Ratio 24.3 H, Glucose 106, Calcium 9.7, Phosphorus 4.6, Magnesium 2.4 04/08/18 06:14: WBC 8.1, RBC 4.06 L, Hgb 11.3 L, Hct 36.7 L, MCV 90.4, MCH 27.8, MCHC 30.8 L, RDW 15.9 H, RDW Differential 51.4 H, Plt Count 305, MPV 10.2, Immature Gran % (Auto) 0.700, Neut % (Auto) 69.7, Lymph % (Auto) 19.8, Perry % (Auto) 8.9, Eos % (Auto) 0.5, Baso % (Auto) 0.4, Absolute Neuts (auto) 5.6, Absolute Lymphs (auto) 1.59, Total Counted Not Reportable 04/08/18 06:14: Troponin I 0.054 H 04/08/18 09:16: Troponin I 0.[address] 04/08/18 02:55 IMPRESSION: 1. Chronic involutional changes of the brain. 2. No CT evidence of acute intracranial hemorrhage. Electronically Signed: Kary Doss MD at 3:57 EST , Service support , Chest X-Ray 04/08/18 02:55 IMPRESSION: Left basilar airspace consolidation and/or atelectasis. Electronically Signed: Kary Doss MD at 3:39 EST , Service support , Current Medications Acetaminophen (Tylenol) 650 mg PO Q4H PRN PRN PRN Reason: FEVER Adenosine (Adenocard) 6 mg IV X1 PRN PRN Reason: PSVT Al Hydroxide/Mg Hydroxide (Mylanta Ii) 30 ml PO Q6H PRN PRN PRN Reason: Gastric burning Albuterol Sulfate (Ventolin Aerosols) 2.5 mg INHALATION Q2H PRN PRN PRN Reason: SHORTNESS OF BREATH Albuterol/Ipratropium (Duoneb) 3 ml INHALATION Q4H.RT JULIANNA Last Admin: 04/08/18 06:32 Dose: 3 ml Amiodarone HCl (Cordarone) 200 mg PO BID [facility] Anastrozole (Arimidex) 1 mg PO DAILY [facility] Docusate Sodium (Colace) 200 mg PO DAILY [facility] Famotidine (Pepcid) 20 mg PO BID [facility] Guaifenesin (Mucinex) 1,200 mg PO BID [facility] Sodium Chloride () 1,000 mls @ 100 mls/hr IV .Q10H [facility] Last Admin: 04/08/18 06:47 Dose: 100 mls/hr Azithromycin 500 mg/ Dextrose 255 mls @ 250 mls/hr IV QHS [facility] Stop: 04/10/18 23:02 Ceftriaxone Sodium (Rocephin) 1 gm in 50 mls @ 100 mls/hr IV QHS [facility] Sodium Chloride () 250 mls @ 15 mls/hr IV .[id number] PRN PRN Reason: SALINE FLUSH Magnesium Hydroxide (Milk Of Magnesia) 30 ml PO DAILY PRN PRN Reason: Constipation Melatonin (Melatonin) 5 mg PO QHS [facility] Memantine (Namenda) 10 mg PO BID [facility] Metoprolol Tartrate (Lopressor (Beta Justino)) 50 mg PO BID [facility] Multivitamins/Minerals (Multivitamin With Minerals) 1 tablet PO DAILY@0800 [facility] Nutritional Formula (Lactose Free) (Ensure Enlive) 120 ml PO 4X/DAY [facility] Ondansetron HCl (Zofran) 4 mg IV Q8H PRN PRN PRN Reason: NAUSEA Pantoprazole Sodium (Protonix) 40 mg PO DAILY [facility] Pregabalin (Lyrica) 50 mg PO 4X/DAY [facility] Promethazine HCl (Phenergan) 12.5 mg IV Q6H PRN PRN PRN Reason: NAUSEA/VOMITING Rivaroxaban (Xarelto) 20 mg PO DAILY [facility] Sodium Chloride () 5 - 30 ml IV UD PRN PRN Reason: SALINE FLUSH Last Admin: 04/08/18 08:49 Dose: 10 ml Tizanidine HCl (Zanaflex) 4 mg PO BID [facility] Medical Necessity - Tobacco Use Smoking Status: Never smoker Tobacco Use: Non-smoker Assessment/Plan All Active Problems Cystitis (Acute) PSVT (paroxysmal supraventricular tachycardia) (Acute) Chest pain (Acute) Pneumonia (Acute) UTI (urinary tract infection) (Acute) SVT (supraventricular tachycardia) (Acute) Closed displaced fracture of right femoral neck (Resolved) Dislocation, ankle (Resolved) Trimalleolar fracture of ankle, closed (Resolved) 1. Recurrent SVT * has hisotry of paroxysmal SVT * converted to sinus rhythm after administration of adenosine * currently in sinus rhythm * cardiology on board; per cardiology rec's, to start PO amiodarone and continue current beta justino * 2D echocardiogram * family doesnt want any further invasive or extensive therapy for SVT, per cardiology notes * echo(10/02/17): normal LV size, with EF of 55%, normal LV systolic function, stage 1 diastolic dysfunctin and mild ot moderate TV insufficiency and moderate pulmonary hypertension. * to continue metoprolol and amiodarone * 2. UTI: * urine culture pending. * On IV rocephin. * blood cultures also pending. * 3. possible community acquired pneumonia * CXR on admission showed left basilar airspace consolidation and/or atelectasis * on IV ceftriaxone and azithromycin * had no leucocytosis on admission; on oxygen, to titrate and wean to maintain saturation >92% * blood cultures pending * 4. CAD: has had NSTEMI in the past. on beta justino. 5. Hypertension: controlled. ON metoprolol 6. History of breast CA: on arimidex 7. History of bilateral PE: on xarelto 8. Dementia: Fall precautions. On Namenda. 9. GERD: PPI 10. Intertrigo: Nystatin DVT prophylaxis: Xarelto CODE STATUS: DNRCCA Code Visit Inpatient E&M: 00833 Subs Hosp L3
[2018-04-08] MEDS: Ketorolac 15 MG/ML Vial IV (12:07)
[2018-04-08] MEDS: Anastrozole 1 MG Tablet PO (17:39)
[2018-04-09] VITALS (20 sets, daily range): BP systolic 100–132; BP diastolic 66–78; PULSE 65–181; RESP 15–20; TEMP 36.3–37.5; O2SAT 2–98
[2018-04-09 05:58] LABS: Absolute Lymphocyte Count 1.21 X10^3/ul (0.83-4.51); Absolute Neutrophil Count 6.1 X10^3/uL (2.0-7.7); Basophil# 0.04 X10^3/uL; Basophil% 0.5 % (0-1); Eosinophil# 0.13 X10^3/uL; Eosinophils% 1.6 % (0-5); Hematocrit 33.6 % (37-47); Hemoglobin 10.4 g/dl (12.0-15.0); Lymphocyte # 1.21 X10^3/ul (4.0); Lymphocyte % 14.8 % (19-41); Mean Corpuscular Hgb 27.9 pg (27.0-32.0); Mean Corpuscular Volume 90.1 fL (81-99); Mean Platelet Vol. 10.5 fl (6.2-12.0); Monocyte# 0.64 X10^3/uL; Monocyte% 7.8 % (0-10); Neutrophil # 6.13 X10^3/uL (2.7-7.7); Neutrophil % 74.7 % (47-70); Platelet Count 287 K/mm3 (150-450); RBC Distribution Width SD 51.7 fl (35.1-43.9); Red Blood Count 3.73 M/mm3 (4.2-5.4); White Blood Count 8.2 K/mm3 (4.4-11.0)
[2018-04-09 06:31] LABS: Anion Gap 11 (5-15); BUN 19 mg/dL (7-18); BUN/Creat Ratio 28.2 RATIO (10-20); Calcium,Total 8.9 mg/dL (8.5-10.1); Chloride 110 mmol/L (98-107); Creatinine, Serum 0.67 mg/dL (0.55-1.02); EST Glomerular Filtration Rate 90 mL/min (>60); Est Glom Filt Rate - Afr Amer 109 mL/min (>60); Glucose 91 mg/dL (74-106); Potassium 3.9 mmol/L (3.5-5.1); Sodium Level 142 mmol/L (136-145)
[2018-04-09 06:32] LABS: POSITIVE COUNT NO; POSITIVE DIFFERENTIAL NO; POSITIVE MORPHOLOGY NO
[2018-04-09] MEDS: Ipratropium/Albuterol Sulfate 3 ML AMPUL.NEB INHALATION ×2 (06:34→10:47)
--- NOTE | 2018-04-09 08:40 | RAD_ITS ---
STUDY: X-RAY CHEST REASON FOR EXAM: Female, 78 years old. Shortness of breath/dyspnea. TECHNIQUE: AP and lateral views of the chest. COMPARISON: Comparison is made with prior study dated April 08, 2018. FINDINGS: EKG electrodes are seen. Surgical clips are seen in the right axillary region. Increased markings at the lung bases suggestive of a bibasilar atelectasis worse on the left side with blunting of the costophrenic angles more prominent on the left side. Vascular congestion and mild degree of CHF. There is no demonstrated pleural abnormality. Normal size heart. Normal mediastinum and fantasma. Normal visualized pulmonary arteries. There is atherosclerotic calcification of the aortic arch with tortuosity. Normal visualized thoracic spine. There is degenerative osteoarthritis of the bilateral shoulders. There is no demonstrated abnormality of the visualized soft tissue structures of the upper abdomen. RAD/Chest PA and Lateral IMPRESSION: Findings suggest mild degree of CHF with bibasilar atelectasis and blunting of the left costophrenic angle. Electronically Signed: Jacob Daniel MD at 12:47 EST Tel [phone], Service support ,
[2018-04-09] MEDS: Multivitamins,Ther W-Minerals Tablet 1 TABLET PO (09:47)
[2018-04-09] MEDS: Docusate Sodium 100 MG Capsule 200 MG PO (09:47)
[2018-04-09] MEDS: Amiodarone 200 MG Tablet PO ×2 (09:47→22:27)
[2018-04-09] MEDS: guaiFENesin 1,200 MG Tablet 1200 MG PO ×2 (09:48→22:29)
[2018-04-09] MEDS: Pantoprazole Sodium 40 MG Tablet PO (09:48)
[2018-04-09] MEDS: Famotidine 20 MG Tablet PO ×2 (09:48→22:29)
[2018-04-09] MEDS: Rivaroxaban 20 MG Tablet PO (09:48)
[2018-04-09] MEDS: Memantine Hydrochloride 10 MG Tablet PO ×2 (09:48→22:31)
[2018-04-09] MEDS: tiZANidine HCl 2 MG Tablet 4 MG PO ×2 (09:48→22:31)
[2018-04-09] MEDS: Pregabalin 50 MG Capsule PO ×4 (09:54→22:37)
[2018-04-09] MEDS: Metoprolol Tartrate 50 MG Tablet PO ×2 (11:10→22:28)
--- NOTE | 2018-04-09 11:32 | CASEMGMT ---
Face to Face with patient and her daughter Ines for initial transition planning/care coordination assessment. RN JOHN introduced self and role at [facility], Pt's daughter voiced understanding. Care providers, pharmacy, and demographics verified. Pt was lethargic but nodded her head when asked if it was OK to ask her daughter questions. PCP: Dr. Garcia Preferred Pharmacy: [facility] Insurance: [facility] Living Will/HPOA: Yes, has provided copies in the past. Per daughter Ines, she is listed as the HPOA LNOK: Daughter Ines Living Arrangements: Pt currently lives with her daughter Ines in an upstairs apartment. Per Ines, Pt had been able to ambulate short distances but had become progressively weaker and is now nonambulatory. Pt stays in a lift chair throughout the day and night as pt cannot tolerate lying flat in a regular bed. Pt does not have a hospital bed. Ines uses a mis lift to place pt on the BSC. Pt is dependent for all ADLs including bathing, dressing, meal preparation and feeding. There is a stair lift to facilitate pt getting in and out of the apartment and a ramp to enter and exit the first floor. A wheelchair is used to transport pt to appointments. Pt has leg braces but has not been using them since she has not been ambulating. She has a walker available but unable to use. DME has been purchased from [facility] in the past and currently does not have a preference for future needs. Daughter's boyfriend lives in a downstairs apartment and assists as needed. Transportation: Dependent DME/HHC: as above; has not used HHC in the past. Ines had an appointment with PCP's DAVID today to discuss home health care. ECF: Over the past couple of years pt has had various hospitalizations with discharges to the [facility], [facility] and [facility]. Plan: Pt's daughter states she would like to see how her mother does during this hospitalization but is feeling her mom's care needs are exceeding her ability to care for her. She is interested in placement at a long-term facility. Is considering [facility] or [facility]. Referral to made for further coordination.
[2018-04-09] MEDS: 0.9% NaCl Peripheral Flush Adult/Peds IV ×2 (11:46→15:35)
[2018-04-09] MEDS: Metoprolol Tartrate 5 MG/5 ML Vial IV ×2 (11:46→15:35)
--- NOTE | 2018-04-09 11:51 | EKG12_ITS ---
Test Reason : TACHYCARDIA Blood Pressure : / mmHG Vent. Rate : 073 BPM Atrial Rate : 073 BPM P-R Int : 148 ms QRS Dur : 074 ms QT Int : 366 ms P-R-T Axes : 029 -07 -62 degrees QTc Int : 403 ms Normal sinus rhythm Minimal voltage criteria for LVH, may be normal variant Inferior infarct , age undetermined Abnormal ECG When compared with ECG of 08-APR-2018 06:40, MANUAL COMPARISON REQUIRED, DATA IS UNCONFIRMED Confirmed by TERA PITTMAN, ANNE-MARIE ([id number]), telegraph editor SUKH STALLINGS ([id number]) on 04/10/2018 4:04:06 PM Referred By: SANJU Confirmed By:ANNE-MARIE HALEY MD
--- NOTE | 2018-04-09 13:13 | NURSING ---
PRimary RN aware of pts vitals signs by student nurse Sanjuanita at 1300
--- NOTE | 2018-04-09 13:48 | NURSING ---
wound photo: sacrum/bilateral buttocks
[2018-04-09] MEDS: Anastrozole 1 MG Tablet PO (15:41)
--- NOTE | 2018-04-09 17:30 | PCM.PN.HOSP ---
Patient Problems: Active and Suspected Problems PSVT (paroxysmal supraventricular tachycardia) (Acute) Chest pain (Acute) Pneumonia (Acute) UTI (urinary tract infection) (Acute) Subjective: Confused but alert, tachypnic and somewhat restless, not communicative Vitals/I&O's: Vital Signs Temp Pulse Resp BP Pulse Ox 98.7 F 147 H 16 100/67 98 04/09/18 15:18 04/09/18 15:35 04/09/18 15:18 04/09/18 15:18 04/09/18 15:18 Oxygen Flow Rate (L/min) 2 Oxygen Delivery Method Nasal Cannula Weight: 194 lb 10.691 oz Body Mass Index (BMI) 31.4 Intake and Output for Last 24 Hours 04/07/18 04/08/18 04/09/18 23:59 23:59 23:59 Intake Total 3558 / 3558 1902 / 1902 Output Total 575 / 575 1200 / 1200 Balance 2983 / 2983 702 / 702 General: Alert, Confused HEENT: Atraumatic, EOMI, Normocephalic Neck: Supple, No JVD Lungs: Clear to auscultation, No rhonchi, No wheeze, No rales, Diminished Cardiovascular: Regular rate, Regular Rhythm, Normal S1, Normal S2, No murmurs Abdomen: Soft, Non Tender, Non-Distended, No Hepato-splenomegaly Extremities: No edema, Capillary Refill Less than 3 Seconds Skin: No rashes, No breakdown Neurological: - - awakens to stimuli but does not remain awake. 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 delta system GNR lactose freight car cleaner delta system#2 04/08/18 12:15 Urine Catheter - Hinojosa Legionella Antigen - Final 04/08/18 12:15 Urine Catheter - Hinojosa Streptococcus pneumoniae Antigen (M - Final 04/08/18 06:25 Mucosa - Nose Respiratory Panel (PCR) - Final Laboratory Results 04/09/18 05:30: WBC 8.2, RBC 3.73 L, Hgb 10.4 L, Hct 33.6 L, MCV 90.1, MCH 27.9, MCHC 31.0 L, RDW 16.0 H, RDW Differential 51.7 H, Plt Count 287, MPV 10.5, Immature Gran % (Auto) 0.600, Neut % (Auto) 74.7 H, Lymph % (Auto) 14.8 L, [place]mer % (Auto) 7.8, Eos % (Auto) 1.6, Baso % (Auto) 0.5, Absolute Neuts (auto) 6.1, Absolute Lymphs (auto) 1.21, Total Counted Not Reportable 04/09/18 05:30: Sodium 142, Potassium 3.9, Chloride 110 H, Carbon Dioxide 21.0, Anion Gap 11, BUN 19 H, Creatinine 0.67, Estim Creat Clear Calc 42.70, Est GFR (MDRD) Af Amer 109, Est GFR (MDRD) Non-Af 90, BUN/Creatinine Ratio 28.2 H, Glucose 91, Calcium 8.9 04/09/18 11:34: Specimen Type Cancelled, Sample Site Cancelled, pH Cancelled, Bicarbonate Actual Cancelled, POC Total CO2 Cancelled, Base Excess Cancelled, O2 Saturation Cancelled, O2 % Cancelled, ABG pCO2 Cancelled, ABG pO2 Cancelled, Darian Test Cancelled, Respiration Rate Cancelled, O2 Delivery Device Cancelled, Liter Flow Cancelled, Minute Volume Cancelled, Vent Mode Cancelled, Tidal Volume Cancelled, POC PEEP Cancelled, POC Pressure Suppt Cancelled, Pressure High Cancelled, Pressure Low Cancelled, Time High Cancelled, Time Low Cancelled, EPAP Cancelled, IPAP Cancelled, Blood Gas Notified Whom Cancelled, Blood Gas Notified Time Cancelled Current Medications Acetaminophen (Tylenol) 650 mg PO Q4H PRN PRN PRN Reason: FEVER Adenosine (Adenocard) 6 mg IV X1 PRN PRN Reason: PSVT Al Hydroxide/Mg Hydroxide (Mylanta Ii) 30 ml PO Q6H PRN PRN PRN Reason: Gastric burning Amiodarone HCl (Cordarone) 200 mg PO BID [facility] Last Admin: 04/09/18 09:47 Dose: 200 mg Anastrozole (Arimidex) 1 mg PO 1600 [facility] Last Admin: 04/09/18 15:41 Dose: 1 mg Calamine/Phenol (Calmoseptine Ointment) 1 applic TOPICAL BID [facility]; Protocol Docusate Sodium (Colace) 200 mg PO DAILY [facility] Last Admin: 04/09/18 09:47 Dose: 200 mg Famotidine (Pepcid) 20 mg PO BID [facility] Last Admin: 04/09/18 09:48 Dose: 20 mg Guaifenesin (Mucinex) 1,200 mg PO BID [facility] Last Admin: 04/09/18 09:48 Dose: 1,200 mg Azithromycin 500 mg/ Dextrose 255 mls @ 250 [facility]ls[facility] Stop: 04/10/18 23:02 Last Admin: 04/08/18 21:01 Dose: 250 mls/hr Ceftriaxone Sodium (Rocephin) 1 gm in 50 mls @ 100 mls/hr IV QHS [facility] Last Admin: 04/08/18 22:21 Dose: 100 mls/hr Sodium Chloride () 250 mls @ 15 mls/hr IV .[id number] PRN PRN Reason: SALINE FLUSH Magnesium Hydroxide (Milk Of Magnesia) 30 ml PO DAILY PRN PRN Reason: Constipation Melatonin (Melatonin) 5 mg PO QHS [facility] Last Admin: 04/08/18 22:23 Dose: Not Given Memantine (Namenda) 10 mg PO BID [facility] Last Admin: 04/09/18 09:48 Dose: 10 mg Metoprolol Tartrate (Lopressor (Beta Moni)) 50 mg PO BID [facility] Last Admin: 04/09/18 11:10 Dose: 50 mg Multivitamins/Minerals (Multivitamin With Minerals) 1 tablet PO DAILY@0800 [facility] Last Admin: 04/09/18 09:47 Dose: 1 tablet Nutritional Formula (Lactose Free) (Ensure Enlive) 120 ml PO 4X/DAY [facility] Last Admin: 04/09/18 15:31 Dose: Not Given Ondansetron HCl (Zofran) 4 mg IV Q8H PRN PRN PRN Reason: NAUSEA Pantoprazole Sodium (Protonix) 40 mg PO DAILY [facility] Last Admin: 04/09/18 09:48 Dose: 40 mg Pregabalin (Lyrica) 50 mg PO 4X/DAY [facility] Last Admin: 04/09/18 15:34 Dose: 50 mg Promethazine HCl (Phenergan) 12.5 mg IV Q6H PRN PRN PRN Reason: NAUSEA/VOMITING Rivaroxaban (Xarelto) 20 mg PO DAILY [facility] Last Admin: 04/09/18 09:48 Dose: 20 mg Sodium Chloride () 5 - 30 ml IV UD PRN PRN Reason: SALINE FLUSH Last Admin: 04/09/18 15:35 Dose: 10 ml Tizanidine HCl (Zanaflex) 4 mg PO BID [facility] Last Admin: 04/09/18 09:48 Dose: 4 mg Medical Necessity - Tobacco Use Smoking Status: Never smoker Tobacco Use: Non-smoker Assessment/Plan All Active Problems Cystitis (Acute) PSVT (paroxysmal supraventricular tachycardia) (Acute) Chest pain (Acute) Pneumonia (Acute) UTI (urinary tract infection) (Acute) SVT (supraventricular tachycardia) (Acute) Closed displaced fracture of right femoral neck (Resolved) Dislocation, ankle (Resolved) Trimalleolar fracture of ankle, closed (Resolved) 1. 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 Possible CAP/UTI - Urine with a GNR - Will continue with rocephin and azithromycin for now - Blood cx pending - Will hold off any albuterol given her SVT 3. H/o Breast cancer - currently maintained on aromatase inhibitor which will be continued 4. Dementia without Behavioral Disturbance History - Maintain on fall precautions, orientation as needed - continue home namenda regimen. 5. GERD - stable currently on her home PPI - Will continue DVT: Xarelto CODE: DNRCCA Over 30 minutes was spent in discussions about advance care planning about the utility of palliative care vs hospice. Hospice was consulted and discussed the case with the daughter. She currently will like to wait to make the decision and we will revisit in the morning. Code Visit Inpatient E&M: 72409 Subs Hosp L2 Procedures: 56006 Advncd Care Plan 30 Min
--- NOTE | 2018-04-09 17:35 | PN_ITS ---
Patient Problems: Active and Suspected Problems PSVT (paroxysmal supraventricular tachycardia) (Acute) Chest pain (Acute) Pneumonia (Acute) UTI (urinary tract infection) (Acute) Subjective: Confused but alert, tachypnic and somewhat restless, not communicative Vitals/I&O's: Vital Signs Temp Pulse Resp BP Pulse Ox 98.7 F 147 H 16 100/67 98 04/09/18 15:18 04/09/18 15:35 04/09/18 15:18 04/09/18 15:18 04/09/18 15:18 Oxygen Flow Rate (L/min) 2 Oxygen Delivery Method Nasal Cannula Weight: 194 lb 10.691 oz Body Mass Index (BMI) 31.4 Intake and Output for Last 24 Hours 04/07/18 04/08/18 04/09/18 23:59 23:59 23:59 Intake Total 3558 / 3558 1902 / 1902 Output Total 575 / 575 1200 / 1200 Balance 2983 / 2983 702 / 702 General: Alert, Confused HEENT: Atraumatic, EOMI, Normocephalic Neck: Supple, No JVD Lungs: Clear to auscultation, No rhonchi, No wheeze, No rales, Diminished Cardiovascular: Regular rate, Regular Rhythm, Normal S1, Normal S2, No murmurs Abdomen: Soft, Non Tender, Non-Distended, No Hepato-splenomegaly Extremities: No edema, Capillary Refill Less than 3 Seconds Skin: No rashes, No breakdown Neurological: - - awakens to stimuli but does not remain awake. Cooperative but evident dementia Psych/Mental Status: Flat Affect Microbiology Past 72 Hours 04/08/18 03:53 Urine Catheter - Catheter Urine Culture - Preliminary Alpha hemolytic organism GNR lactose clinical athletic instructor GNR lactose clinical athletic instructor#2 04/08/18 12:15 Urine Catheter - Hinojosa Legionella Antigen - Final 04/08/18 12:15 Urine Catheter - Hinojosa Streptococcus pneumoniae Antigen (M - Final 04/08/18 06:25 Mucosa - Nose Respiratory Panel (PCR) - Final Laboratory Results 04/09/18 05:30: WBC 8.2, RBC 3.73 L, Hgb 10.4 L, Hct 33.6 L, MCV 90.1, MCH 27.9, MCHC 31.0 L, RDW 16.0 H, RDW Differential 51.7 H, Plt Count 287, MPV 10.5, Immature Gran % (Auto) 0.600, Neut % (Auto) 74.7 H, Lymph % (Auto) 14.8 L, Johnston % (Auto) 7.8, Eos % (Auto) 1.6, Baso % (Auto) 0.5, Absolute Neuts (auto) 6.1, Absolute Lymphs (auto) 1.21, Total Counted Not Reportable 04/09/18 05:30: Sodium 142, Potassium 3.9, Chloride 110 H, Carbon Dioxide 21.0, Anion Gap 11, BUN 19 H, Creatinine 0.67, Estim Creat Clear Calc 42.70, Est GFR ( MDRD) Af Amer 109, Est GFR (MDRD) Non-Af 90, BUN/Creatinine Ratio 28.2 H, Glucose 91, Calcium 8.9 04/09/18 11:34: Specimen Type Cancelled, Sample Site Cancelled, pH Cancelled, Bicarbonate Actual Cancelled, POC Total CO2 Cancelled, Base Excess Cancelled, O2 Saturation Cancelled, O2 % Cancelled, ABG pCO2 Cancelled, ABG pO2 Cancelled, Darian Test Cancelled, Respiration Rate Cancelled, O2 Delivery Device Cancelled, Liter Flow Cancelled, Minute Volume Cancelled, Vent Mode Cancelled, Tidal Volume Cancelled, POC PEEP Cancelled, POC Pressure Suppt Cancelled, Pressure High Cancelled, Pressure Low Cancelled, Time High Cancelled, Time Low Cancelled, EPAP Cancelled, IPAP Cancelled, Blood Gas Notified Whom Cancelled, Blood Gas Notified Time Cancelled Current Medications Acetaminophen (Tylenol) 650 mg PO Q4H PRN PRN PRN Reason: FEVER Adenosine (Adenocard) 6 mg IV X1 PRN PRN Reason: PSVT Al Hydroxide/Mg Hydroxide (Mylanta Ii) 30 ml PO Q6H PRN PRN PRN Reason: Gastric burning Amiodarone HCl (Cordarone) 200 mg PO BID [facility] Last Admin: 04/09/18 09:47 Dose: 200 mg Anastrozole (Arimidex) 1 mg PO 1600 [facility] Last Admin: 04/09/18 15:41 Dose: 1 mg Calamine/Phenol (Calmoseptine Ointment) 1 applic TOPICAL BID [facility]; Protocol Docusate Sodium (Colace) 200 mg PO DAILY [facility] Last Admin: 04/09/18 09:47 Dose: 200 mg Famotidine (Pepcid) 20 mg PO BID [facility] Last Admin: 04/09/18 09:48 Dose: 20 mg Guaifenesin (Mucinex) 1,200 mg PO BID [facility] Last Admin: 04/09/18 09:48 Dose: 1,200 mg Azithromycin 500 mg/ Dextrose 255 mls @ [facility] Stop: 04/10/18 23:02 Last Admin: 04/08/18 21:01 Dose: 250 mls/hr Ceftriaxone Sodium (Rocephin) 1 gm in 50 mls @ 100 mls/hr IV QHS [facility] Last Admin: 04/08/18 22:21 Dose: 100 mls/hr Sodium Chloride () 250 mls @ 15 mls/hr IV .[id number] PRN PRN Reason: SALINE FLUSH Magnesium Hydroxide (Milk Of Magnesia) 30 ml PO DAILY PRN PRN Reason: Constipation Melatonin (Melatonin) 5 mg PO QHS [facility] Last Admin: 04/08/18 22:23 Dose: Not Given Memantine (Namenda) 10 mg PO BID [facility] Last Admin: 04/09/18 09:48 Dose: 10 mg Metoprolol Tartrate (Lopressor (Beta Moni)) 50 mg PO BID [facility] Last Admin: 04/09/18 11:10 Dose: 50 mg Multivitamins/Minerals (Multivitamin With Minerals) 1 tablet PO DAILY@0800 [facility] Last Admin: 04/09/18 09:47 Dose: 1 tablet Nutritional Formula (Lactose Free) (Ensure Enlive) 120 ml PO 4X/DAY [facility] Last Admin: 04/09/18 15:31 Dose: Not Given Ondansetron HCl (Zofran) 4 mg IV Q8H PRN PRN PRN Reason: NAUSEA Pantoprazole Sodium (Protonix) 40 mg PO DAILY [facility] Last Admin: 04/09/18 09:48 Dose: 40 mg Pregabalin (Lyrica) 50 mg PO 4X/DAY [facility] Last Admin: 04/09/18 15:34 Dose: 50 mg Promethazine HCl (Phenergan) 12.5 mg IV Q6H PRN PRN PRN Reason: NAUSEA/VOMITING Rivaroxaban (Xarelto) 20 mg PO DAILY [facility] Last Admin: 04/09/18 09:48 Dose: 20 mg Sodium Chloride () 5 - 30 ml IV UD PRN PRN Reason: SALINE FLUSH Last Admin: 04/09/18 15:35 Dose: 10 ml Tizanidine HCl (Zanaflex) 4 mg PO BID [facility] Last Admin: 04/09/18 09:48 Dose: 4 mg Medical Necessity - Tobacco Use Smoking Status: Never smoker Tobacco Use: Non-smoker Assessment/Plan All Active Problems Cystitis (Acute) PSVT (paroxysmal supraventricular tachycardia) (Acute) Chest pain (Acute) Pneumonia (Acute) UTI (urinary tract infection) (Acute) SVT (supraventricular tachycardia) (Acute) Closed displaced fracture of right femoral neck (Resolved) Dislocation, ankle (Resolved) Trimalleolar fracture of ankle, closed (Resolved) 1. 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 Possible CAP/UTI - Urine with a GNR - Will continue with rocephin and azithromycin for now - Blood cx pending - Will hold off any albuterol given her SVT 3. H/o Breast cancer - currently maintained on aromatase inhibitor which will be continued 4. Dementia without Behavioral Disturbance History - Maintain on fall precautions, orientation as needed - continue home namenda regimen. 5. GERD - stable currently on her home PPI - Will continue DVT: Xarelto CODE: DNRCCA Over 30 minutes was spent in discussions about advance care planning about the utility of palliative care vs hospice. Hospice was consulted and discussed the case with the daughter. She currently will like to wait to make the decision and we will revisit in the morning. Code Visit Inpatient E&M: 69443 Subs Hosp L2 Procedures: 79220 Advncd Care Plan 30 Min
[2018-04-09] MEDS: Menthol/Lanolin/Calamine/Znox 113 GM Tube 1 APPLIC TOPICAL (22:27)
[2018-04-09] MEDS: MELATONIN 10 MG TABLET 5 MG PO (22:30)
[2018-04-09] MEDS: Ceftriaxone 1 GM/50 ML BAG IV (22:37)
[2018-04-10] VITALS (18 sets, daily range): BP systolic 82–119; BP diastolic 51–77; PULSE 51–153; RESP 12–20; TEMP 36.6–37.1; O2SAT 94–99
[2018-04-10 06:51] LABS: ALB/GLOB Ratio 0.4 RATIO (0.9-2.4); AST(SGOT) 64 U/L (15-37); Alanine Aminotransfer ALT/SGPT 43 U/L (13-56); Albumin, Serum 1.9 g/dL (3.2-5.0); Alkaline Phosphatase 159 U/L (45-117); Anion Gap 11 (5-15); BUN 17 mg/dL (7-18); BUN/Creat Ratio 24.6 RATIO (10-20); Calcium,Total 9.1 mg/dL (8.5-10.1); Chloride 104 mmol/L (98-107); Creatinine, Serum 0.69 mg/dL (0.55-1.02); EST Glomerular Filtration Rate 87 mL/min (>60); Est Glom Filt Rate - Afr Amer 105 mL/min (>60); Globulin 4.6 g/dL (2.2-4.2); Glucose 90 mg/dL (74-106); Protein, Total 6.5 g/dL (6.4-8.2); Sodium Level 138 mmol/L (136-145)
[2018-04-10] MEDS: Acetaminophen 325 MG Tablet 650 MG PO ×2 (07:42→17:08)
[2018-04-10] MEDS: Docusate Sodium 100 MG Capsule 200 MG PO (08:58)
[2018-04-10] MEDS: Metoprolol Tartrate 50 MG Tablet PO (08:58)
[2018-04-10] MEDS: Amiodarone 200 MG Tablet PO ×2 (08:58→23:02)
[2018-04-10] MEDS: Multivitamins,Ther W-Minerals Tablet 1 TABLET PO (08:58)
[2018-04-10] MEDS: Memantine Hydrochloride 10 MG Tablet PO ×2 (08:59→23:03)
[2018-04-10] MEDS: guaiFENesin 1,200 MG Tablet 1200 MG PO ×2 (08:59→23:02)
[2018-04-10] MEDS: Pantoprazole Sodium 40 MG Tablet PO (09:00)
[2018-04-10] MEDS: Rivaroxaban 20 MG Tablet PO (09:00)
[2018-04-10] MEDS: tiZANidine HCl 2 MG Tablet 4 MG PO ×2 (09:00→23:01)
[2018-04-10] MEDS: Famotidine 20 MG Tablet PO ×2 (09:00→23:04)
[2018-04-10] MEDS: Pregabalin 50 MG Capsule PO ×4 (09:04→23:07)
[2018-04-10] MEDS: oxyCODONE 5 MG Tablet PO ×2 (09:50→18:43)
[2018-04-10] MEDS: Menthol/Lanolin/Calamine/Znox 113 GM Tube 1 APPLIC TOPICAL ×2 (09:51→23:01)
--- NOTE | 2018-04-10 10:03 | PCM.PN.HOSP ---
Patient Problems: Active and Suspected Problems PSVT (paroxysmal supraventricular tachycardia) (Acute) Chest pain (Acute) Pneumonia (Acute) UTI (urinary tract infection) (Acute) Subjective: She is complaining of pain in her legs mostly and the tylenol does not help. She is still requiring O2. Vitals/I&O's: Vital Signs Temp Pulse Resp BP Pulse Ox 98.8 F 69 18 97/58 L 94 04/10/18 04:15 04/10/18 08:58 04/10/18 04:15 04/10/18 04:15 04/10/18 07:47 Oxygen Flow Rate (L/min) 2 Oxygen Delivery Method Nasal Cannula Weight: 194 lb 10.691 oz Body Mass Index (BMI) 31.4 Intake and Output for Last 24 Hours 04/08/18 04/09/18 04/10/18 23:59 23:59 23:59 Intake Total 3558 / 3558 2021 438 / 438 Output Total 575 / 575 1400 / 1400 580 / 580 Balance 2983 / 2983 622 / 622 -142 / -142 General: Alert, Confused HEENT: Atraumatic, EOMI, Normocephalic Neck: Supple, No JVD Lungs: Clear to auscultation, No rhonchi, No wheeze, No rales, Diminished Cardiovascular: Regular rate, Regular Rhythm, Normal S1, Normal S2, No murmurs Abdomen: Soft, Non Tender, Non-Distended, No Hepato-splenomegaly Extremities: No edema, Capillary Refill Less than 3 Seconds Skin: No rashes, No breakdown Neurological: - - awakens to stimuli but does not remain awake. Cooperative but evident dementia Psych/Mental Status: Flat Affect Microbiology Past 72 Hours 04/08/18 03:53 Urine Catheter - Catheter Urine Culture - Preliminary Alpha hemolytic organism GNR lactose flight nurse GNR lactose flight nurse#2 04/08/18 12:15 Urine Catheter - Hinojosa Legionella Antigen - Final 04/08/18 12:15 Urine Catheter - Hinojosa Streptococcus pneumoniae Antigen (M - Final 04/08/18 06:25 Mucosa - Nose Respiratory Panel (PCR) - Final Laboratory Results 04/09/18 11:34: Specimen Type Cancelled, Sample Site Cancelled, pH Cancelled, Bicarbonate Actual Cancelled, POC Total CO2 Cancelled, Base Excess Cancelled, O2 Saturation Cancelled, O2 % Cancelled, ABG pCO2 Cancelled, ABG pO2 Cancelled, Darian Test Cancelled, Respiration Rate Cancelled, O2 Delivery Device Cancelled, Liter Flow Cancelled, Minute Volume Cancelled, Vent Mode Cancelled, Tidal Volume Cancelled, POC PEEP Cancelled, POC Pressure Suppt Cancelled, Pressure High Cancelled, Pressure Low Cancelled, Time High Cancelled, Time Low Cancelled, EPAP Cancelled, IPAP Cancelled, Blood Gas Notified Whom Cancelled, Blood Gas Notified Time Cancelled 04/10/18 05:15: Sodium 138, Potassium 4.0, Chloride 104, Carbon Dioxide 23.0, Anion Gap 11, BUN 17, Creatinine 0.69, Estim Creat Clear Calc 42.70, Est GFR (MDRD) Af Amer 105, Est GFR (MDRD) Non-Af 87, BUN/Creatinine Ratio 24.6 H, Glucose 90, Calcium 9.1, Total Bilirubin 0.40, AST 64 H, ALT 43, Alkaline Phosphatase 159 H, Total Protein 6.5, Albumin 1.9 L, Globulin 4.6 H, Albumin/Globulin Ratio 0.4 L Current Medications Acetaminophen (Tylenol) 650 mg PO Q4H PRN PRN PRN Reason: FEVER Last Admin: 04/10/18 07:42 Dose: 650 mg Adenosine (Adenocard) 6 mg IV X1 PRN PRN Reason: PSVT Al Hydroxide/Mg Hydroxide (Mylanta Ii) 30 ml PO Q6H PRN PRN PRN Reason: Gastric burning Amiodarone HCl (Cordarone) 200 mg PO BID [facility] Last Admin: 04/10/18 08:58 Dose: 200 mg Anastrozole (Arimidex) 1 mg PO 1600 [facility] Last Admin: 04/09/18 15:41 Dose: 1 mg Calamine/Phenol (Calmoseptine Ointment) 1 applic TOPICAL BID [facility]; Protocol Last Admin: 04/10/18 09:51 Dose: 1 applicatio Docusate Sodium (Colace) 200 mg PO DAILY [facility] Last Admin: 04/10/18 08:58 Dose: 200 mg Famotidine (Pepcid) 20 mg PO BID [facility] Last Admin: 04/10/18 09:00 Dose: 20 mg Guaifenesin (Mucinex) 1,200 mg PO BID [facility] Last Admin: 04/10/18 08:59 Dose: 1,200 mg Azithromycin 500 mg/ Dextrose 255 mls @ [facility] Stop: 04/10/18 23:02 Last Admin: 04/09/18 23:28 Dose: 250 mls/hr Ceftriaxone Sodium (Rocephin) 1 gm in 50 mls @ 100 mls/hr IV QHS [facility] Last Admin: 04/09/18 22:37 Dose: 100 mls/hr Sodium Chloride () 250 mls @ 15 mls/hr IV .[id number] PRN PRN Reason: SALINE FLUSH Magnesium Hydroxide (Milk Of Magnesia) 30 ml PO DAILY PRN PRN Reason: Constipation Melatonin (Melatonin) 5 mg PO QHS [facility] Last Admin: 04/09/18 22:30 Dose: 5 mg Memantine (Namenda) 10 mg PO BID [facility] Last Admin: 04/10/18 08:59 Dose: 10 mg Metoprolol Tartrate (Lopressor (Beta Moni)) 50 mg PO BID [facility] Last Admin: 04/10/18 08:58 Dose: 50 mg Multivitamins/Minerals (Multivitamin With Minerals) 1 tablet PO DAILY@0800 [facility] Last Admin: 04/10/18 08:58 Dose: 1 tablet Ondansetron HCl (Zofran) 4 mg IV Q8H PRN PRN PRN Reason: NAUSEA Oxycodone HCl (Oxyir) 5 mg PO Q6H PRN PRN PRN Reason: SEVERE PAIN (6-10/10) Last Admin: 04/10/18 09:50 Dose: 5 mg Pantoprazole Sodium (Protonix) 40 mg PO DAILY [facility] Last Admin: 04/10/18 09:00 Dose: 40 mg Pregabalin (Lyrica) 50 mg PO 4X/DAY [facility] Last Admin: 04/10/18 09:04 Dose: 50 mg Promethazine HCl (Phenergan) 12.5 mg IV Q6H PRN PRN PRN Reason: NAUSEA/VOMITING Rivaroxaban (Xarelto) 20 mg PO DAILY [facility] Last Admin: 04/10/18 09:00 Dose: 20 mg Sodium Chloride () 5 - 30 ml IV UD PRN PRN Reason: SALINE FLUSH Last Admin: 04/09/18 15:35 Dose: 10 ml Tizanidine HCl (Zanaflex) 4 mg PO BID [facility] Last Admin: 04/10/18 09:00 Dose: 4 mg Medical Necessity - Tobacco Use Smoking Status: Never smoker Tobacco Use: Non-smoker Assessment/Plan All Active Problems Cystitis (Acute) PSVT (paroxysmal supraventricular tachycardia) (Acute) Chest pain (Acute) Pneumonia (Acute) UTI (urinary tract infection) (Acute) SVT (supraventricular tachycardia) (Acute) Closed displaced fracture of right femoral neck (Resolved) Dislocation, ankle (Resolved) Trimalleolar fracture of ankle, closed (Resolved) 1. 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 Possible CAP/UTI - Urine with a GNR - Will continue with rocephin and azithromycin for now - Blood cx pending - Will hold off any albuterol given her SVT 3. H/o Breast cancer - currently maintained on aromatase inhibitor which will be continued 4. Dementia without Behavioral Disturbance History - Maintain on fall precautions, orientation as needed - continue home namenda regimen. 5. GERD - stable currently on her home PPI - Will continue 6. Leg pain - not touched by tylenol - Will start oxycodone prn and place on a bowel regimen DVT: Xarelto CODE: DNRCCA Code Visit Inpatient E&M: 34989 [facility] Hosp L2
--- NOTE | 2018-04-10 10:08 | PN_ITS ---
Patient Problems: Active and Suspected Problems PSVT (paroxysmal supraventricular tachycardia) (Acute) Chest pain (Acute) Pneumonia (Acute) UTI (urinary tract infection) (Acute) Subjective: She is complaining of pain in her legs mostly and the tylenol does not help. She is still requiring O2. Vitals/I&O's: Vital Signs Temp Pulse Resp BP Pulse Ox 98.8 F 69 18 97/58 L 94 04/10/18 04:15 04/10/18 08:58 04/10/18 04:15 04/10/18 04:15 04/10/18 07:47 Oxygen Flow Rate (L/min) 2 Oxygen Delivery Method Nasal Cannula Weight: 194 lb 10.691 oz Body Mass Index (BMI) 31.4 Intake and Output for Last 24 Hours 04/08/18 04/09/18 04/10/18 23:59 23:59 23:59 Intake Total 3558 / 3558 2021 438 / 438 Output Total 575 / 575 1400 / 1400 580 / 580 Balance 2983 / 2983 622 / 622 -142 / -142 General: Alert, Confused HEENT: Atraumatic, EOMI, Normocephalic Neck: Supple, No JVD Lungs: Clear to auscultation, No rhonchi, No wheeze, No rales, Diminished Cardiovascular: Regular rate, Regular Rhythm, Normal S1, Normal S2, No murmurs Abdomen: Soft, Non Tender, Non-Distended, No Hepato-splenomegaly Extremities: No edema, Capillary Refill Less than 3 Seconds Skin: No rashes, No breakdown Neurological: - - awakens to stimuli but does not remain awake. Cooperative but evident dementia Psych/Mental Status: Flat Affect Microbiology Past 72 Hours 04/08/18 03:53 Urine Catheter - Catheter Urine Culture - Preliminary Alpha hemolytic organism GNR lactose deputy attorney general GNR lactose deputy attorney general#2 04/08/18 12:15 Urine Catheter - Hinojosa Legionella Antigen - Final 04/08/18 12:15 Urine Catheter - Hinojosa Streptococcus pneumoniae Antigen (M - Final 04/08/18 06:25 Mucosa - Nose Respiratory Panel (PCR) - Final Laboratory Results 04/09/18 11:34: Specimen Type Cancelled, Sample Site Cancelled, pH Cancelled, Bicarbonate Actual Cancelled, POC Total CO2 Cancelled, Base Excess Cancelled, O2 Saturation Cancelled, O2 % Cancelled, ABG pCO2 Cancelled, ABG pO2 Cancelled, Darian Test Cancelled, Respiration Rate Cancelled, O2 Delivery Device Cancelled, Liter Flow Cancelled, Minute Volume Cancelled, Vent Mode Cancelled, Tidal Volume Cancelled, POC PEEP Cancelled, POC Pressure Suppt Cancelled, Pressure High Cancelled, Pressure Low Cancelled, Time High Cancelled, Time Low Cancelled, EPAP Cancelled, IPAP Cancelled, Blood Gas Notified Whom Cancelled, Blood Gas Notified Time Cancelled 04/10/18 05:15: Sodium 138, Potassium 4.0, Chloride 104, Carbon Dioxide 23.0, Anion Gap 11, BUN 17, Creatinine 0.69, Estim Creat Clear Calc 42.70, Est GFR (MDRD) Af Amer 105, Est GFR (MDRD) Non-Af 87, BUN/Creatinine Ratio 24.6 H, Glucose 90, Calcium 9.1, Total Bilirubin 0.40, AST 64 H, ALT 43, Alkaline Phosphatase 159 H, Total Protein 6.5, Albumin 1.9 L, Globulin 4.6 H, Albumin/Globulin Ratio 0.4 L Current Medications Acetaminophen (Tylenol) 650 mg PO Q4H PRN PRN PRN Reason: FEVER Last Admin: 04/10/18 07:42 Dose: 650 mg Adenosine (Adenocard) 6 mg IV X1 PRN PRN Reason: PSVT Al Hydroxide/Mg Hydroxide (Mylanta Ii) 30 ml PO Q6H PRN PRN PRN Reason: Gastric burning Amiodarone HCl (Cordarone) 200 mg PO BID [facility] Last Admin: 04/10/18 08:58 Dose: 200 mg Anastrozole (Arimidex) 1 mg PO 1600 [facility] Last Admin: 04/09/18 15:41 Dose: 1 mg Calamine/Phenol (Calmoseptine Ointment) 1 applic TOPICAL BID [facility]; Protocol Last Admin: 04/10/18 09:51 Dose: 1 applicatio Docusate Sodium (Colace) 200 mg PO DAILY [facility] Last Admin: 04/10/18 08:58 Dose: 200 mg Famotidine (Pepcid) 20 mg PO BID [facility] Last Admin: 04/10/18 09:00 Dose: 20 mg Guaifenesin (Mucinex) 1,200 mg PO BID [facility] Last Admin: 04/10/18 08:59 Dose: 1,200 mg Azithromycin 500 mg/ Dextrose 255 mls @ 250 [facility]ls[facility] Stop: 04/10/18 23:02 Last Admin: 04/09/18 23:28 Dose: 250 mls/hr Ceftriaxone Sodium (Rocephin) 1 gm in 50 mls @ 100 mls/hr IV QHS [facility] Last Admin: 04/09/18 22:37 Dose: 100 mls/hr Sodium Chloride () 250 mls @ 15 mls/hr IV .[id number] PRN PRN Reason: SALINE FLUSH Magnesium Hydroxide (Milk Of Magnesia) 30 ml PO DAILY PRN PRN Reason: Constipation Melatonin (Melatonin) 5 mg PO QHS [facility] Last Admin: 04/09/18 22:30 Dose: 5 mg Memantine (Namenda) 10 mg PO BID [facility] Last Admin: 04/10/18 08:59 Dose: 10 mg Metoprolol Tartrate (Lopressor (Beta Moni)) 50 mg PO BID [facility] Last Admin: 04/10/18 08:58 Dose: 50 mg Multivitamins/Minerals (Multivitamin With Minerals) 1 tablet PO DAILY@0800 [facility] Last Admin: 04/10/18 08:58 Dose: 1 tablet Ondansetron HCl (Zofran) 4 mg IV Q8H PRN PRN PRN Reason: NAUSEA Oxycodone HCl (Oxyir) 5 mg PO Q6H PRN PRN PRN Reason: SEVERE PAIN (6-10/10) Last Admin: 04/10/18 09:50 Dose: 5 mg Pantoprazole Sodium (Protonix) 40 mg PO DAILY [facility] Last Admin: 04/10/18 09:00 Dose: 40 mg Pregabalin (Lyrica) 50 mg PO 4X/DAY [facility] Last Admin: 04/10/18 09:04 Dose: 50 mg Promethazine HCl (Phenergan) 12.5 mg IV Q6H PRN PRN PRN Reason: NAUSEA/VOMITING Rivaroxaban (Xarelto) 20 mg PO DAILY [facility] Last Admin: 04/10/18 09:00 Dose: 20 mg Sodium Chloride () 5 - 30 ml IV UD PRN PRN Reason: SALINE FLUSH Last Admin: 04/09/18 15:35 Dose: 10 ml Tizanidine HCl (Zanaflex) 4 mg PO BID [facility] Last Admin: 04/10/18 09:00 Dose: 4 mg Medical Necessity - Tobacco Use Smoking Status: Never smoker Tobacco Use: Non-smoker Assessment/Plan All Active Problems Cystitis (Acute) PSVT (paroxysmal supraventricular tachycardia) (Acute) Chest pain (Acute) Pneumonia (Acute) UTI (urinary tract infection) (Acute) SVT (supraventricular tachycardia) (Acute) Closed displaced fracture of right femoral neck (Resolved) Dislocation, ankle (Resolved) Trimalleolar fracture of ankle, closed (Resolved) 1. 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 Possible CAP/UTI - Urine with a GNR - Will continue with rocephin and azithromycin for now - Blood cx pending - Will hold off any albuterol given her SVT 3. H/o Breast cancer - currently maintained on aromatase inhibitor which will be continued 4. Dementia without Behavioral Disturbance History - Maintain on fall precautions, orientation as needed - continue home namenda regimen. 5. GERD - stable currently on her home PPI - Will continue 6. Leg pain - not touched by tylenol - Will start oxycodone prn and place on a bowel regimen DVT: Xarelto CODE: DNRCCA Code Visit Inpatient E&M: 36562 [facility] Hosp L2
--- NOTE | 2018-04-10 10:53 | CASEMGMT ---
SW spoke with patient's daughter. She spoke with Hospice yesterday. She is thinking about it and they are meeting with her again tomorrow. She said she is leaning towards home with Hospice as long as they can get the equipment in the home. DAVID told her SW is available should she need support or assistance at d/c. Deedee OSBORNE MSW
[2018-04-10] MEDS: Anastrozole 1 MG Tablet PO (14:59)
[2018-04-10] MEDS: Adenosine 6 MG/2 ML Syringe IV (22:50)
--- NOTE | 2018-04-10 22:59 | PCM.PN.BLA ---
Progress Note Patient with asymptomatic stable SVT. SVT converted to sinus rhythm with adenosine 6mg
[2018-04-10] MEDS: 0.9% NaCl Peripheral Flush Adult/Peds IV (23:02)
[2018-04-10] MEDS: MELATONIN 10 MG TABLET 5 MG PO (23:02)
--- NOTE | 2018-04-10 23:05 | EKG12_ITS ---
Test Reason : SVT Blood Pressure : / mmHG Vent. Rate : 086 BPM Atrial Rate : 086 BPM P-R Int : 146 ms QRS Dur : 072 ms QT Int : 394 ms P-R-T Axes : 024 002 052 degrees QTc Int : 471 ms Sinus rhythm with frequent Premature ventricular complexes Inferior infarct , age undetermined Abnormal ECG When compared with ECG of 10-APR-2018 22:44, MANUAL COMPARISON REQUIRED, DATA IS UNCONFIRMED Confirmed by TERA PITTMAN, ANNE-MARIE ([id number]), staff editor SUKH STALLINGS ([id number]) on 04/13/2018 2:04:58 PM Referred By: DR LONGORIA Confirmed By:ANNE-MARIE HALEY MD
[2018-04-10] MEDS: Metoprolol Tartrate 25 MG Tablet PO (23:07)
[2018-04-10] MEDS: Ceftriaxone 1 GM/50 ML BAG IV (23:08)
--- NOTE | 2018-04-10 23:13 | EKG12_ITS ---
Test Reason : TACHY Blood Pressure : / mmHG Vent. Rate : 161 BPM Atrial Rate : 125 BPM P-R Int : 000 ms QRS Dur : 080 ms QT Int : 262 ms P-R-T Axes : 000 005 186 degrees QTc Int : 428 ms Supraventricular tachycardia Marked ST abnormality, possible lateral subendocardial injury Abnormal ECG When compared with ECG of 09-APR-2018 11:53, Previous ECG has undetermined rhythm, needs review T wave inversion less evident in Anterior leads Confirmed by ANNE-MARIE HALEY MD ([id number]), medical transcription editor SUKH STALLINGS ([id number]) on 04/13/2018 2:05:10 PM Referred By: DR LONGORIA Confirmed By:ANNE-MARIE HALEY MD
[2018-04-11] VITALS (18 sets, daily range): BP systolic 76–143; BP diastolic 43–89; PULSE 50–146; RESP 12–20; TEMP 36.4–36.8; O2SAT 94–100
[2018-04-11] MEDS: oxyCODONE 5 MG Tablet PO ×3 (05:22→21:37)
[2018-04-11 06:50] LABS: Absolute Lymphocyte Count 0.99 X10^3/ul (0.83-4.51); Absolute Neutrophil Count 5.2 X10^3/uL (2.0-7.7); Basophil# 0.02 X10^3/uL; Basophil% 0.3 % (0-1); Eosinophil# 0.15 X10^3/uL; Eosinophils% 2.1 % (0-5); Hematocrit 31.8 % (37-47); Hemoglobin 10.1 g/dl (12.0-15.0); Lymphocyte # 0.99 X10^3/ul (4.0); Lymphocyte % 14.1 % (19-41); Mean Corp Hgb Conc 31.8 g/gl (32-36); Mean Corpuscular Hgb 28.1 pg (27.0-32.0); Mean Corpuscular Volume 88.3 fL (81-99); Mean Platelet Vol. 10.9 fl (6.2-12.0); Monocyte# 0.67 X10^3/uL; Monocyte% 9.6 % (0-10); Neutrophil # 5.16 X10^3/uL (2.7-7.7); Neutrophil % 73.6 % (47-70); Platelet Count 264 K/mm3 (150-450); RBC Distribution Width CV 15.6 % (11.6-14.6); RBC Distribution Width SD 50.5 fl (35.1-43.9)
[2018-04-11 06:58] LABS: POSITIVE COUNT NO; POSITIVE DIFFERENTIAL NO; POSITIVE MORPHOLOGY NO
[2018-04-11 07:00] LABS: Anion Gap 9 (5-15); BUN 19 mg/dL (7-18); BUN/Creat Ratio 28.7 RATIO (10-20); Calcium,Total 9.1 mg/dL (8.5-10.1); Chloride 101 mmol/L (98-107); Creatinine, Serum 0.66 mg/dL (0.55-1.02); EST Glomerular Filtration Rate 91 mL/min (>60); Est Glom Filt Rate - Afr Amer 111 mL/min (>60); Glucose 85 mg/dL (74-106); Potassium 4.2 mmol/L (3.5-5.1); Sodium Level 135 mmol/L (136-145)
[2018-04-11] MEDS: Menthol/Lanolin/Calamine/Znox 113 GM Tube 1 APPLIC TOPICAL ×2 (08:45→21:27)
[2018-04-11] MEDS: Multivitamins,Ther W-Minerals Tablet 1 TABLET PO (08:45)
[2018-04-11] MEDS: 0.9% NaCl Peripheral Flush Adult/Peds IV ×2 (08:45→21:27)
[2018-04-11] MEDS: Docusate Sodium 100 MG Capsule 200 MG PO (08:46)
[2018-04-11] MEDS: Amiodarone 200 MG Tablet PO ×2 (08:46→21:26)
[2018-04-11] MEDS: Polyethylene Glycol 3350 17 GM PACKET PO (08:49)
[2018-04-11] MEDS: Metoprolol Tartrate 25 MG Tablet PO (08:49)
[2018-04-11] MEDS: guaiFENesin 1,200 MG Tablet 1200 MG PO (08:49)
[2018-04-11] MEDS: tiZANidine HCl 2 MG Tablet 4 MG PO ×2 (08:50→21:26)
[2018-04-11] MEDS: Pantoprazole Sodium 40 MG Tablet PO (08:50)
[2018-04-11] MEDS: Famotidine 20 MG Tablet PO (08:50)
[2018-04-11] MEDS: Memantine Hydrochloride 10 MG Tablet PO (08:50)
[2018-04-11] MEDS: Rivaroxaban 20 MG Tablet PO (08:50)
[2018-04-11] MEDS: Pregabalin 50 MG Capsule PO ×4 (08:54→21:26)
--- NOTE | 2018-04-11 10:30 | PCM.PN.HOSP ---
Patient Problems: Active and Suspected Problems PSVT (paroxysmal supraventricular tachycardia) (Acute) Chest pain (Acute) Pneumonia (Acute) UTI (urinary tract infection) (Acute) Subjective: Arousable and states that she has a little pain, most of the time she is sleeping. Vitals/I&O's: Vital Signs Temp Pulse Resp BP Pulse Ox 97.6 F L 64 16 99/56 L 94 04/11/18 09:00 04/11/18 09:00 04/11/18 09:00 04/11/18 09:00 04/11/18 09:00 Oxygen Flow Rate (L/min) 2 Oxygen Delivery Method Nasal Cannula Weight: 194 lb 10.691 oz Body Mass Index (BMI) 31.4 Intake and Output for Last 24 Hours 04/09/18 04/10/18 04/11/18 23:59 23:59 23:59 Intake Total 2021 688 / 688 583 / 583 Output Total 1400 / 1400 900 / 900 475 / 475 Balance 622 / 622 -212 / -212 108 / 108 General: Alert, Confused HEENT: Atraumatic, EOMI, Normocephalic Neck: Supple, No JVD Lungs: Clear to auscultation, No rhonchi, No wheeze, No rales, Diminished Cardiovascular: Regular rate, Regular Rhythm, Normal S1, Normal S2, No murmurs Abdomen: Soft, Non Tender, Non-Distended, No Hepato-splenomegaly Extremities: No edema, Capillary Refill Less than 3 Seconds Skin: No rashes, No breakdown Neurological: - - awakens to stimuli but does not remain awake. Cooperative but evident dementia Psych/Mental Status: Flat Affect Microbiology Past 72 Hours 04/08/18 03:53 Urine Catheter - Catheter Urine Culture - Final Aerococcus urinae Klebsiella pneumoniae sp pneum Escherichia coli 04/08/18 03:18 Blood Culture (Wb) - Left Hand Blood Culture - Preliminary No growth in 48 hours. 04/08/18 03:18 Blood Culture (Wb) - Anticubital Left Blood Culture - Preliminary No growth in 48 hours. 04/08/18 12:15 Urine Catheter - Hinojosa Legionella Antigen - Final 04/08/18 12:15 Urine Catheter - Hinojosa Streptococcus pneumoniae Antigen (M - Final 04/08/18 06:25 Mucosa - Nose Respiratory Panel (PCR) - Final Laboratory Results 04/11/18 06:00: WBC 7.0, RBC 3.60 L, Hgb 10.1 L, Hct 31.8 L, MCV 88.3, MCH 28.1, MCHC 31.8 L, RDW 15.6 H, RDW Differential 50.5 H, Plt Count 264, MPV 10.9, Immature Gran % (Auto) 0.300, Neut % (Auto) 73.6 H, Lymph % (Auto) 14.1 L, [place] % (Auto) 9.6, Eos % (Auto) 2.1, Baso % (Auto) 0.3, Absolute Neuts (auto) 5.2, Absolute Lymphs (auto) 0.99, Total Counted Not Reportable 04/11/18 06:00: Sodium 135 L, Potassium 4.2, Chloride 101, Carbon Dioxide 25.0, Anion Gap 9, BUN 19 H, Creatinine 0.66, Estim Creat Clear Calc 42.70, Est GFR (MDRD) Af Amer 111, Est GFR (MDRD) Non-Af 91, BUN/Creatinine Ratio 28.7 H, Glucose 85, Calcium 9.1, Magnesium 2.0 Current Medications Acetaminophen (Tylenol) 650 mg PO Q4H PRN PRN PRN Reason: FEVER Last Admin: 04/10/18 17:08 Dose: 650 mg Adenosine (Adenocard) 6 mg IV X1 PRN PRN Reason: PSVT Last Admin: 04/10/18 22:50 Dose: 6 mg Adenosine (Adenocard) 6 mg IV X1 PRN PRN Reason: SVT Al Hydroxide/Mg Hydroxide (Mylanta Ii) 30 ml PO Q6H PRN PRN PRN Reason: Gastric burning Amiodarone HCl (Cordarone) 200 mg PO BID [facility] Last Admin: 04/11/18 08:46 Dose: 200 mg Anastrozole (Arimidex) 1 mg PO 1600 [facility] Last Admin: 04/10/18 14:59 Dose: 1 mg Calamine/Phenol (Calmoseptine Ointment) 1 applic TOPICAL BID [facility]; Protocol Last Admin: 04/11/18 08:45 Dose: 1 applicatio Docusate Sodium (Colace) 200 mg PO DAILY [facility] Last Admin: 04/11/18 08:46 Dose: 200 mg Famotidine (Pepcid) 20 mg PO BID [facility] Last Admin: 04/11/18 08:50 Dose: 20 mg Guaifenesin (Mucinex) 1,200 mg PO BID [facility] Last Admin: 04/11/18 08:49 Dose: 1,200 mg Ceftriaxone Sodium (Rocephin) 1 gm in 50 mls @ 100 mls/hr IV QHS [facility] Last Admin: 04/10/18 23:08 Dose: 100 mls/hr Sodium Chloride () 250 mls @ 15 mls/hr IV .[id number] PRN PRN Reason: SALINE FLUSH Magnesium Hydroxide (Milk Of Magnesia) 30 ml PO DAILY PRN PRN Reason: Constipation Melatonin (Melatonin) 5 mg PO QHS [facility] Last Admin: 04/10/18 23:02 Dose: 5 mg Memantine (Namenda) 10 mg PO BID [facility] Last Admin: 04/11/18 08:50 Dose: 10 mg Metoprolol Tartrate (Lopressor (Beta Moni)) 25 mg PO BID [facility] Last Admin: 04/11/18 08:49 Dose: 25 mg Multivitamins/Minerals (Multivitamin With Minerals) 1 tablet PO DAILY@0800 [facility] Last Admin: 04/11/18 08:45 Dose: 1 tablet Ondansetron HCl (Zofran) 4 mg IV Q8H PRN PRN PRN Reason: NAUSEA Oxycodone HCl (Oxyir) 5 mg PO Q6H PRN PRN PRN Reason: SEVERE PAIN (6-10/10) Last Admin: 04/11/18 05:22 Dose: 5 mg Pantoprazole Sodium (Protonix) 40 mg PO DAILY [facility] Last Admin: 04/11/18 08:50 Dose: 40 mg Polyethylene Glycol (Miralax) 17 gm PO DAILY [facility] Last Admin: 04/11/18 08:49 Dose: 17 gm Pregabalin (Lyrica) 50 mg PO 4X/DAY [facility] Last Admin: 04/11/18 08:54 Dose: 50 mg Promethazine HCl (Phenergan) 12.5 mg IV Q6H PRN PRN PRN Reason: NAUSEA/VOMITING Rivaroxaban (Xarelto) 20 mg PO DAILY [facility] Last Admin: 04/11/18 08:50 Dose: 20 mg Sodium Chloride () 5 - 30 ml IV UD PRN PRN Reason: SALINE FLUSH Last Admin: 04/11/18 08:45 Dose: 10 ml Tizanidine HCl (Zanaflex) 4 mg PO BID [facility] Last Admin: 04/11/18 08:50 Dose: 4 mg Medical Necessity - Tobacco Use Smoking Status: Never smoker Tobacco Use: Non-smoker Assessment/Plan All Active Problems Cystitis (Acute) PSVT (paroxysmal supraventricular tachycardia) (Acute) Chest pain (Acute) Pneumonia (Acute) UTI (urinary tract infection) (Acute) SVT (supraventricular tachycardia) (Acute) Closed displaced fracture of right femoral neck (Resolved) Dislocation, ankle (Resolved) Trimalleolar fracture of ankle, closed (Resolved) 1. 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 Possible CAP/UTI - Urine with a klebsiella and E. coli - Will continue with rocephin and azithromycin for now, can DC on azithromycin and augmentin PO for a few more days - Blood cx negative - Will hold off any albuterol given her SVT 3. H/o Breast cancer - currently maintained on aromatase inhibitor which will be continued 4. Dementia without Behavioral Disturbance History - Maintain on fall precautions, orientation as needed - continue home namenda regimen. 5. GERD - stable currently on her home PPI - Will continue 6. Leg pain - not touched by tylenol - Will start oxycodone prn and place on a bowel regimen DVT: Xarelto CODE: DNRCCA Code Visit Inpatient E&M: 47920 Subs Hosp L2
--- NOTE | 2018-04-11 10:43 | PN_ITS ---
Patient Problems: Active and Suspected Problems PSVT (paroxysmal supraventricular tachycardia) (Acute) Chest pain (Acute) Pneumonia (Acute) UTI (urinary tract infection) (Acute) Subjective: Arousable and states that she has a little pain, most of the time she is sleeping. Vitals/I&O's: Vital Signs Temp Pulse Resp BP Pulse Ox 97.6 F L 64 16 99/56 L 94 04/11/18 09:00 04/11/18 09:00 04/11/18 09:00 04/11/18 09:00 04/11/18 09:00 Oxygen Flow Rate (L/min) 2 Oxygen Delivery Method Nasal Cannula Weight: 194 lb 10.691 oz Body Mass Index (BMI) 31.4 Intake and Output for Last 24 Hours 04/09/18 04/10/18 04/11/18 23:59 23:59 23:59 Intake Total 2021 688 / 688 583 / 583 Output Total 1400 / 1400 900 / 900 475 / 475 Balance 622 / 622 -212 / -212 108 / 108 General: Alert, Confused HEENT: Atraumatic, EOMI, Normocephalic Neck: Supple, No JVD Lungs: Clear to auscultation, No rhonchi, No wheeze, No rales, Diminished Cardiovascular: Regular rate, Regular Rhythm, Normal S1, Normal S2, No murmurs Abdomen: Soft, Non Tender, Non-Distended, No Hepato-splenomegaly Extremities: No edema, Capillary Refill Less than 3 Seconds Skin: No rashes, No breakdown Neurological: - - awakens to stimuli but does not remain awake. Cooperative but evident dementia Psych/Mental Status: Flat Affect Microbiology Past 72 Hours 04/08/18 03:53 Urine Catheter - Catheter Urine Culture - Final Aerococcus urinae Klebsiella pneumoniae sp pneum Escherichia coli 04/08/18 03:18 Blood Culture (Wb) - Left Hand Blood Culture - Preliminary No growth in 48 hours. 04/08/18 03:18 Blood Culture (Wb) - Anticubital Left Blood Culture - Preliminary No growth in 48 hours. 04/08/18 12:15 Urine Catheter - Hinojosa Legionella Antigen - Final 04/08/18 12:15 Urine Catheter - Hinojosa Streptococcus pneumoniae Antigen (M - Final 04/08/18 06:25 Mucosa - Nose Respiratory Panel (PCR) - Final Laboratory Results 04/11/18 06:00: WBC 7.0, RBC 3.60 L, Hgb 10.1 L, Hct 31.8 L, MCV 88.3, MCH 28.1, MCHC 31.8 L, RDW 15.6 H, RDW Differential 50.5 H, Plt Count 264, MPV 10.9, Immature Gran % (Auto) 0.300, Neut % (Auto) 73.6 H, Lymph % (Auto) 14.1 L, [place] % (Auto) 9.6, Eos % (Auto) 2.1, Baso % (Auto) 0.3, Absolute Neuts (auto) 5.2, Absolute Lymphs (auto) 0.99, Total Counted Not Reportable 04/11/18 06:00: Sodium 135 L, Potassium 4.2, Chloride 101, Carbon Dioxide 25.0, Anion Gap 9, BUN 19 H, Creatinine 0.66, Estim Creat Clear Calc 42.70, Est GFR (MDRD) Af Amer 111, Est GFR (MDRD) Non-Af 91, BUN/Creatinine Ratio 28.7 H, Glucose 85, Calcium 9.1, Magnesium 2.0 Current Medications Acetaminophen (Tylenol) 650 mg PO Q4H PRN PRN PRN Reason: FEVER Last Admin: 04/10/18 17:08 Dose: 650 mg Adenosine (Adenocard) 6 mg IV X1 PRN PRN Reason: PSVT Last Admin: 04/10/18 22:50 Dose: 6 mg Adenosine (Adenocard) 6 mg IV X1 PRN PRN Reason: SVT Al Hydroxide/Mg Hydroxide (Mylanta Ii) 30 ml PO Q6H PRN PRN PRN Reason: Gastric burning Amiodarone HCl (Cordarone) 200 mg PO BID [facility] Last Admin: 04/11/18 08:46 Dose: 200 mg Anastrozole (Arimidex) 1 mg PO 1600 [facility] Last Admin: 04/10/18 14:59 Dose: 1 mg Calamine/Phenol (Calmoseptine Ointment) 1 applic TOPICAL BID [facility]; Protocol Last Admin: 04/11/18 08:45 Dose: 1 applicatio Docusate Sodium (Colace) 200 mg PO DAILY [facility] Last Admin: 04/11/18 08:46 Dose: 200 mg Famotidine (Pepcid) 20 mg PO BID [facility] Last Admin: 04/11/18 08:50 Dose: 20 mg Guaifenesin (Mucinex) 1,200 mg PO BID [facility] Last Admin: 04/11/18 08:49 Dose: 1,200 mg Ceftriaxone Sodium (Rocephin) 1 gm in 50 mls @ 100 mls/hr IV QHS [facility] Last Admin: 04/10/18 23:08 Dose: 100 mls/hr Sodium Chloride () 250 mls @ 15 mls/hr IV .[id number] PRN PRN Reason: SALINE FLUSH Magnesium Hydroxide (Milk Of Magnesia) 30 ml PO DAILY PRN PRN Reason: Constipation Melatonin (Melatonin) 5 mg PO QHS [facility] Last Admin: 04/10/18 23:02 Dose: 5 mg Memantine (Namenda) 10 mg PO BID [facility] Last Admin: 04/11/18 08:50 Dose: 10 mg Metoprolol Tartrate (Lopressor (Beta Moni)) 25 mg PO BID [facility] Last Admin: 04/11/18 08:49 Dose: 25 mg Multivitamins/Minerals (Multivitamin With Minerals) 1 tablet PO DAILY@0800 [facility] Last Admin: 04/11/18 08:45 Dose: 1 tablet Ondansetron HCl (Zofran) 4 mg IV Q8H PRN PRN PRN Reason: NAUSEA Oxycodone HCl (Oxyir) 5 mg PO Q6H PRN PRN PRN Reason: SEVERE PAIN (6-10/10) Last Admin: 04/11/18 05:22 Dose: 5 mg Pantoprazole Sodium (Protonix) 40 mg PO DAILY [facility] Last Admin: 04/11/18 08:50 Dose: 40 mg Polyethylene Glycol (Miralax) 17 gm PO DAILY [facility] Last Admin: 04/11/18 08:49 Dose: 17 gm Pregabalin (Lyrica) 50 mg PO 4X/DAY [facility] Last Admin: 04/11/18 08:54 Dose: 50 mg Promethazine HCl (Phenergan) 12.5 mg IV Q6H PRN PRN PRN Reason: NAUSEA/VOMITING Rivaroxaban (Xarelto) 20 mg PO DAILY [facility] Last Admin: 04/11/18 08:50 Dose: 20 mg Sodium Chloride () 5 - 30 ml IV UD PRN PRN Reason: SALINE FLUSH Last Admin: 04/11/18 08:45 Dose: 10 ml Tizanidine HCl (Zanaflex) 4 mg PO BID [facility] Last Admin: 04/11/18 08:50 Dose: 4 mg Medical Necessity - Tobacco Use Smoking Status: Never smoker Tobacco Use: Non-smoker Assessment/Plan All Active Problems Cystitis (Acute) PSVT (paroxysmal supraventricular tachycardia) (Acute) Chest pain (Acute) Pneumonia (Acute) UTI (urinary tract infection) (Acute) SVT (supraventricular tachycardia) (Acute) Closed displaced fracture of right femoral neck (Resolved) Dislocation, ankle (Resolved) Trimalleolar fracture of ankle, closed (Resolved) 1. 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 Possible CAP/UTI - Urine with a klebsiella and E. coli - Will continue with rocephin and azithromycin for now, can DC on azithromycin and augmentin PO for a few more days - Blood cx negative - Will hold off any albuterol given her SVT 3. H/o Breast cancer - currently maintained on aromatase inhibitor which will be continued 4. Dementia without Behavioral Disturbance History - Maintain on fall precautions, orientation as needed - continue home namenda regimen. 5. GERD - stable currently on her home PPI - Will continue 6. Leg pain - not touched by tylenol - Will start oxycodone prn and place on a bowel regimen DVT: Xarelto CODE: DNRCCA Code Visit Inpatient E&M: 33220 Subs Hosp L2
--- NOTE | 2018-04-11 12:47 | NURSING ---
student charting reviewed by this rn.
--- NOTE | 2018-04-11 14:22 | CASEMGMT ---
SW spoke with Hospice to see when they were meeting with patient's daughter. They called her and left a voice mail and have not heard back from her yet. Patient's daughter just left the hospital for a little bit. SW called patient's daughter and she said she doesn't think she got a voice mail. She thought they were coming to the hospital today. DAVID told her that they were waiting on her to call them back. She has there number and said she would call them back right away. Await meeting with Hospice. Deedee OSBORNE MSW
[2018-04-11] MEDS: Anastrozole 1 MG Tablet PO (15:33)
[2018-04-11] MEDS: MELATONIN 10 MG TABLET 5 MG PO (21:26)
[2018-04-11] MEDS: Ceftriaxone 1 GM/50 ML BAG IV (21:27)
[2018-04-12 03:25] VITALS: BP 101/60; PULSE 60; RESP 20; TEMP 36.3; O2SAT 94
[2018-04-12 03:27] VITALS: PULSE 59
[2018-04-12] MEDS: Acetaminophen 325 MG Tablet 650 MG PO ×2 (03:39→10:22)
[2018-04-12] MEDS: oxyCODONE 5 MG Tablet PO ×2 (06:36→12:04)
[2018-04-12 07:38] VITALS: PULSE 62
[2018-04-12 08:25] VITALS: O2SAT 94
--- NOTE | 2018-04-12 09:15 | CASEMGMT ---
DAVID spoke with Anahy at Hospice and patient's daughter. Patient's daughter wants to take patient home on [facility]osp[facility]. Anahy from Hospice will contact patient's daughter and discuss what is needed for home. She will then call DAVID back. Deedee OSBORNE MSW
[2018-04-12 09:25] VITALS: BP 121/80; PULSE 71; RESP 16; TEMP 36.6; O2SAT 95
[2018-04-12 10:22] VITALS: PULSE 71; RESP 16; O2SAT 95
[2018-04-12] MEDS: Menthol/Lanolin/Calamine/Znox 113 GM Tube 1 APPLIC TOPICAL (10:23)
[2018-04-12] MEDS: Docusate Sodium 100 MG Capsule 200 MG PO (10:24)
[2018-04-12] MEDS: Amiodarone 200 MG Tablet PO (10:24)
[2018-04-12] MEDS: Polyethylene Glycol 3350 17 GM PACKET PO (10:25)
[2018-04-12] MEDS: Pregabalin 50 MG Capsule PO (10:26)
[2018-04-12] MEDS: Rivaroxaban 20 MG Tablet PO (10:27)
[2018-04-12] MEDS: tiZANidine HCl 2 MG Tablet 4 MG PO (10:27)
--- NOTE | 2018-04-12 11:23 | PCM.DC.SUM ---
Discharge Date and Diagnosis Date of Admission: 04/08/18 Date of Discharge: 04/12/18 - Primary Discharge Diagnosis Active and Suspected Problems PSVT (paroxysmal supraventricular tachycardia) (Acute) Chest pain (Acute) Pneumonia (Acute) UTI (urinary tract infection) (Acute) - Secondary Discharge Diagnosis Chronic Problems Non-ST elevation HI (NSTEMI) (Chronic) Obesity (Chronic) GERD (gastroesophageal reflux disease) (Chronic) Diastolic dysfunction (Chronic) Pulmonary hypertension (Chronic) Breast CA (Chronic) Dementia (Chronic) Pulmonary emboli (Chronic) BL Hospital Course and Treatment Consultations: Cardiology 04/08/18 07:59 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 Left ventricular systolic function is normal. The estimated ejection fraction is 60 %. No regional wall motion abnormalities noted. Diastolic function is indeterminate. Contrast injection was performed. Summary of Care Provided: Per HPI: The patient is a 78 y/o F w/ PMHx: CAD s/p NSTEMI, HTN, HLD, Obesity, Pulmonary HTN, History of BL PE, GERD, Diastolic Dysfunction, Dementia without behavioral disturbance history, Breast CA, History of PSVT who presents to the [facility] ED on 04/08/18 with history of dyspnea, recently minimally productive cough x 2-3 days with onset chest pain, substernal-midsternal region without radiation with ongoing dyspnea without nausea or diaphoresis with palpitations in addition to history of fatigue, weakness, debility and poor intake over the last several weeks w/ EMS noted SVT rate 160 with administration adenosine in route w/ conversion to SR. Family notes she has had increased frequency and her urine has appeared more dark in color also. Work-up in the ED included T 97.8, HR 74, BP 94/59, RR 18, 92% on 2L NC, CBC w/ WBC 7.8, Hgb 11.6, Plts 345 without marked shift, CMP w/ chloride 108, BUN/creatinine 26/1.06, glucose 138, lactic acid 1.6, AST/ALT 88/58, alk phos 172, urinalysis notable with pending urine culture, blood culture x2 pending per ED, Trop <0.015, EKG w/ sinus rhythm with no acute evidence of ischemia, CT head w/ no acute findings, chest x-ray with left basilar airspace consolidation and/or atelectasis. In the ED patient administered NS, adenosine. Vital Signs - 24 hr Temp Pulse Resp BP Pulse Ox 04/12/18 09:25 97.8 F 71 16 121/80 H 95 04/12/18 08:25 94 04/12/18 07:38 62 04/12/18 03:27 59 L 04/12/18 03:25 97.4 F L 60 20 H 101/60 94 04/11/18 23:14 55 L 04/11/18 22:11 118 H 04/11/18 21:25 97.6 F L 83 20 H 143/80 H 95 04/11/18 19:16 63 04/11/18 17:51 98.2 F 62 18 100/55 L 99 04/11/18 16:00 98.0 F 62 16 87/56 L 98 04/11/18 15:00 56 L 04/11/18 14:01 97.8 F 61 12 89/67 L 98 04/11/18 12:09 97.6 F L 64 16 79/49 L 100 General: Alert, Confused HEENT: Atraumatic, EOMI, Normocephalic Neck: Supple, No JVD Lungs: Clear to auscultation, No rhonchi, No wheeze, No rales, Diminished Cardiovascular: Regular rate, Regular Rhythm, Normal S1, Normal S2, No murmurs Abdomen: Soft, Non Tender, Non-Distended, No Hepato-splenomegaly Extremities: No edema, Capillary Refill Less than 3 Seconds Skin: No rashes, No breakdown Neurological: - - awakens to stimuli but does not remain awake. Cooperative but evident dementia Psych/Mental Status: Flat Affect Hospital Course: 1. Recurrent SVT/CAD s/p NSTEMI/HTN/HLD/H/o PE - She presented with a cough and mild chest pain. She was found to have a UTI and possible pneumonia and was in SVT at the time requiring adenosine to break. She was also hypotensive and her BB had to be discontinued for a short time. She cotninued to go into SVT and her BB was restarted on a lower dose, however at one point overnight she had to be given another dose of adenosine. She was continued on her amiodarone, however her BB was making her hypotensive and this was ultimately discontinued and the decision had been made to proceed with hospice. She will be transferred to the inpatient hospice unit for stabilization prior to DC home. 2. UTI/CAP - She was started on rocephin and azithromycin. She was found to have a positive urine culture with klebsiella and ecoli, both sensitive to rocephin and she received 4 doses and these were therefore discontinued since she completed treatment for her UTI and she would be going to inpatient hospice. 3. Leg pain - During her stay she was c/o leg pain and back pain and neck pain which is likely based on her positioning. She was given oxycodone to help with pain relief. - Physical Exam Vital Signs Temp Pulse Resp BP Pulse Ox 97.4 F L 62 20 H 101/60 94 04/12/18 03:25 04/12/18 07:38 04/12/18 03:25 04/12/18 03:25 04/12/18 08:25 Oxygen Flow Rate (L/min) 2 Oxygen Delivery Method Nasal Cannula Weight: 194 lb 11.749 oz Body Mass Index (BMI) 31.4 Intake and Output for Last 24 Hours 04/10/18 04/11/18 04/12/18 23:59 23:59 23:59 Intake Total 688 / 688 863 / 863 804 / 804 Output Total 900 / 900 925 / 925 450 / 450 Balance -212 / -212 -62 / -62 354 / 354 Microbiology Past 72 Hours 04/08/18 03:53 Urine Culture - Final Urine Catheter - Catheter Aerococcus urinae Klebsiella pneumoniae sp pneum Escherichia coli 04/08/18 03:18 Blood Culture - Preliminary Blood Culture (Wb) - Left Hand No growth in 48 hours. 04/08/18 03:18 Blood Culture - Preliminary Blood Culture (Wb) - Anticubital Left No growth in 48 hours. Home Medications: Medications to take at Discharge Docusate Sodium [Colace] 200 mg PO DAILY 12/05/16 Melatonin 5 mg PO QHS 12/05/16 Multivit-Min/FA/Lycopen/Lutein [Centrum Silver Tablet] 1 each PO DAILY 12/05/16 Pantoprazole Sodium [Protonix] 40 mg PO DAILY 12/05/16 Pregabalin [Lyrica] 50 mg PO 4X/DAY 12/05/16 Cholecalciferol (VIT D3) [Vitamin D3] 2,000 unit PO DAILY tablet 12/12/16 Anastrozole [Arimidex] 1 mg PO DAILY 10/02/17 C,E,Zinc,Copper 11/Vkoxa8s/Lut [Ocuvite Adult 50 Plus Softgel] 1 each PO DAILY 10/02/17 Memantine HCl [Namenda Xr] 28 mg PO DAILY 10/02/17 Tizanidine HCl [Zanaflex] 4 mg PO BID 10/02/17 Lorazepam [Ativan] 1 mg PO DAILY PRN PRN 7 Days #7 tab 10/12/17 Metoprolol Tartrate [Lopressor (beta justino)] 100 mg PO BID tablet 10/12/17 Rivaroxaban [Xarelto] 20 mg PO DAILY #1 tab 10/12/17 Hydrocodone Bitart/Apap 5-325 [[place] 5MG-325MG] 1 tablet PO Q6H PRN PRN 04/08/18 Latanoprost 0.005% [Xalatan Opthalmic] 1 drop OPHTHALMIC QHS 04/08/18 Loratadine 10 mg PO DAILY 04/08/18 Polyethylene Glycol 3350 [Miralax] 17 gm PO DAILY 04/08/18 Primary Care Physician: Maurilio Garcia MD [Primary Care Provider] - Disposition: Hospice Medical Facility Minutes spent on discharge:: 35 Patient Condition:: Poor Medical Necessity - Tobacco Use Smoking Status: Never smoker Tobacco Use: Non-smoker Meaningful Use Info Meaningful Use Diagnoses (Choose all that apply): None applicable Code Visit Inpatient E&M: 08927 Disch Hosp
--- NOTE | 2018-04-12 11:27 | DS.PCM_ITS ---
Discharge Date and Diagnosis Date of Admission: 04/08/18 Date of Discharge: 04/12/18 - Primary Discharge Diagnosis Active and Suspected Problems PSVT (paroxysmal supraventricular tachycardia) (Acute) Chest pain (Acute) Pneumonia (Acute) UTI (urinary tract infection) (Acute) - Secondary Discharge Diagnosis Chronic Problems Non-ST elevation AL (NSTEMI) (Chronic) Obesity (Chronic) GERD (gastroesophageal reflux disease) (Chronic) Diastolic dysfunction (Chronic) Pulmonary hypertension (Chronic) Breast CA (Chronic) Dementia (Chronic) Pulmonary emboli (Chronic) BL Hospital Course and Treatment Consultations: Cardiology 04/08/18 07:59 Consult: Onc/Wound/card lacer Routine Comment: Reason for Consult:: Pressure/moisture injury to coccyx Operations: None, - - Right hemiarthroplasty of right hip-12/07/16 Procedures: 2-D Echocardiogram - Interpretation Summary Normal LV size. Left ventricular systolic function is normal. The estimated ejection fraction is 60 %. No regional wall motion abnormalities noted. Diastolic function is indeterminate. Contrast injection was performed. Summary of Care Provided: Per HPI: The patient is a 78 y/o F w/ PMHx: CAD s/p NSTEMI, HTN, HLD, Obesity, Pulmonary HTN, History of BL PE, GERD, Diastolic Dysfunction, Dementia without b ehavioral disturbance history, Breast CA, History of PSVT who presents to the [facility] ED on 04/08/18 with history of dyspnea, recently minimally productive cough x 2-3 days with onset chest pain, substernal-midsternal region without radiation with ongoing dyspnea without nausea or diaphoresis with palpitations in addition to history of fatigue, weakness, debility and poor intake over the last several weeks w/ EMS noted SVT rate 160 with administration adenosine in route w/ conversion to SR. Family notes she has had increased frequency and her urine has appeared more dark in color also. Work-up in the ED included T 97.8, HR 74, BP 94/59, RR 18, 92% on 2L NC, CBC w/ WBC 7.8, Hgb 11.6, Plts 345 without marked shift, CMP w/ chloride 108, BUN/creatinine 26/1.06, glucose 138, lactic acid 1.6, AST/ALT 88/58, alk phos 172, urinalysis notable with pending urine culture, blood culture x2 pending per ED, Trop <0.015, EKG w/ sinus rhythm with no acute evidence of ischemia, CT head w/ no acute findings, chest x-ray with left basilar airspace consolidation and/or atelectasis. In the ED patient administered NS, adenosine. Vital Signs - 24 hr Temp Pulse Resp BP Pulse Ox 04/12/18 09:25 97.8 F 71 16 121/80 H 95 04/12/18 08:25 94 04/12/18 07:38 62 04/12/18 03:27 59 L 04/12/18 03:25 97.4 F L 60 20 H 101/60 94 04/11/18 23:14 55 L 04/11/18 22:11 118 H 04/11/18 21:25 97.6 F L 83 20 H 143/80 H 95 04/11/18 19:16 63 04/11/18 17:51 98.2 F 62 18 100/55 L 99 04/11/18 16:00 98.0 F 62 16 87/56 L 98 04/11/18 15:00 56 L 04/11/18 14:01 97.8 F 61 12 89/67 L 98 04/11/18 12:09 97.6 F L 64 16 79/49 L 100 General: Alert, Confused HEENT: Atraumatic, EOMI, Normocephalic Neck: Supple, No JVD Lungs: Clear to auscultation, No rhonchi, No wheeze, No rales, Diminished Cardiovascular: Regular rate, Regular Rhythm, Normal S1, Normal S2, No murmurs Abdomen: Soft, Non Tender, Non-Distended, No Hepato-splenomegaly Extremities: No edema, Capillary Refill Less than 3 Seconds Skin: No rashes, No breakdown Neurological: - - awakens to stimuli but does not remain awake. Cooperative but evident dementia Psych/Mental Status: Flat Affect Hospital Course: 1. Recurrent SVT/CAD s/p NSTEMI/HTN/HLD/H/o PE - She presented with a cough and mild chest pain. She was found to have a UTI and possible pneumonia and was in SVT at the time requiring adenosine to break. She was also hypotensive and her BB had to be discontinued for a short time. She cotninued to go into SVT and her BB was restarted on a lower dose, however at one point overnight she had to be given another dose of adenosine. She was continued on her amiodarone, however her BB was making her hypotensive and this was ultimately discontinued and the decision had been made to proceed with hospice. She will be transferred to the inpatient hospice unit for stabilization prior to DC home. 2. UTI/CAP - She was started on rocephin and azithromycin. She was found to have a positive urine culture with klebsiella and ecoli, both sensitive to rocephin and she received 4 doses and these were therefore discontinued since she completed treatment for her UTI and she would be going to inpatient hospice. 3. Leg pain - During her stay she was c/o leg pain and back pain and neck pain which is likely based on her positioning. She was given oxycodone to help with pain relief. - Physical Exam Vital Signs Temp Pulse Resp BP Pulse Ox 97.4 F L 62 20 H 101/60 94 04/12/18 03:25 04/12/18 07:38 04/12/18 03:25 04/12/18 03:25 04/12/18 08:25 Oxygen Flow Rate (L/min) 2 Oxygen Delivery Method Nasal Cannula Weight: 194 lb 11.749 oz Body Mass Index (BMI) 31.4 Intake and Output for Last 24 Hours 04/10/18 04/11/18 04/12/18 23:59 23:59 23:59 Intake Total 688 / 688 863 / 863 804 / 804 Output Total 900 / 900 925 / 925 450 / 450 Balance -212 / -212 -62 / -62 354 / 354 Microbiology Past 72 Hours 04/08/18 03:53 Urine Culture - Final Urine Catheter - Catheter Aerococcus urinae Klebsiella pneumoniae sp pneum Escherichia coli 04/08/18 03:18 Blood Culture - Preliminary Blood Culture (Wb) - Left Hand No growth in 48 hours. 04/08/18 03:18 Blood Culture - Preliminary Blood Culture (Wb) - Anticubital Left No growth in 48 hours. Home Medications: Medications to take at Discharge Docusate Sodium [Colace] 200 mg PO DAILY 12/05/16 Melatonin 5 mg PO QHS 12/05/16 Multivit-Min/FA/Lycopen/Lutein [Centrum Silver Tablet] 1 each PO DAILY 12/05/16 Pantoprazole Sodium [Protonix] 40 mg PO DAILY 12/05/16 Pregabalin [Lyrica] 50 mg PO 4X/DAY 12/05/16 Cholecalciferol (VIT D3) [Vitamin D3] 2,000 unit PO DAILY tablet 12/12/16 Anastrozole [Arimidex] 1 mg PO DAILY 10/02/17 C,E,Zinc,Copper 11/Brzcy7e/Lut [Ocuvite Adult 50 Plus Softgel] 1 each PO DAILY 10/02/17 Memantine HCl [Namenda Xr] 28 mg PO DAILY 10/02/17 Tizanidine HCl [Zanaflex] 4 mg PO BID 10/02/17 Lorazepam [Ativan] 1 mg PO DAILY PRN PRN 7 Days #7 tab 10/12/17 Metoprolol Tartrate [Lopressor (beta justino)] 100 mg PO BID tablet 10/12/17 Rivaroxaban [Xarelto] 20 mg PO DAILY #1 tab 10/12/17 Hydrocodone Bitart/Apap 5-325 [Viper 5MG-325MG] 1 tablet PO Q6H PRN PRN 04/08/18 Latanoprost 0.005% [Xalatan Opthalmic] 1 drop OPHTHALMIC QHS 04/08/18 Loratadine 10 mg PO DAILY 04/08/18 Polyethylene Glycol 3350 [Miralax] 17 gm PO DAILY 04/08/18 Primary Care Physician: Maurilio Garcia MD [Primary Care Provider] - Disposition: Hospice Medical Facility Minutes spent on discharge:: 35 Patient Condition:: Poor Medical Necessity - Tobacco Use Smoking Status: Never smoker Tobacco Use: Non-smoker Meaningful Use Info Meaningful Use Diagnoses (Choose all that apply): None applicable Code Visit Inpatient E&M: 25086 Disch Hosp
--- NOTE | 2018-04-12 11:43 | CASEMGMT ---
Madi from Hospice came to evaluate patient and she will now be going to the Hospice inpatient unit in [place]. Plan: d/c to Hospice inpatient unit Deedee OSBORNE MSW
--- NOTE | 2018-04-12 11:49 | NURSING ---
care completed by cristopher macario under the supervision of this RN
== END 2018-04-12 12:33 | disposition hospice, inpatient (51) | DRG 308 ==
LOC: ED 02:46 → PCU 05:29
PROVIDERS: Hospitalist; Student in an Organized Health Care Education/Training Program; Admitting Provider Family Medicine; Emergency Provider Emergency Medicine; Family Provider Family Medicine; PCP Family Medicine; Visit Provider Family Medicine
DX: I47.1 Supraventricular tachycardia (principal); L89.153 Pressure ulcer of sacral region, stage 3; J18.9 Pneumonia, unspecified organism; N39.0 Urinary tract infection, site not specified; I25.10 Atherosclerotic heart disease of native coronary artery without angina pectoris; I10 Essential (primary) hypertension; Z79.02 Long term (current) use of antithrombotics/antiplatelets; F03.90 Unspecified dementia, unspecified severity, without behavioral disturbance, psychotic disturbance, mood disturbance, and anxiety; E66.9 Obesity, unspecified; Z68.31 Body mass index [BMI] 31.0-31.9, adult; L30.4 Erythema intertrigo; Z66 Do not resuscitate; K21.9 Gastro-esophageal reflux disease without esophagitis; I27.20 Pulmonary hypertension, unspecified; Z51.5 Encounter for palliative care; E78.5 Hyperlipidemia, unspecified; B96.1 Klebsiella pneumoniae [K. pneumoniae] as the cause of diseases classified elsewhere; I25.2 Old myocardial infarction; Z79.899 Other long term (current) drug therapy; Z86.711 Personal history of pulmonary embolism; Z85.3 Personal history of malignant neoplasm of breast; Z79.811 Long term (current) use of aromatase inhibitors; B96.20 Unspecified Escherichia coli [E. coli] as the cause of diseases classified elsewhere
CPT/HCPCS: 36415; 51702; 70450; 71045; 71046; 80048; 80053; 81001; 82803; 83605; 83735; 84100; 84484; 85025; 87040; 87077; 87086; 87088; 87186; 87449; 87633; 93005; 93306; 94640; 97110; 97162; 97165; 97530; 97802; 99285; J7030; J7040; Q9957; A4216; C8929; J0153